=== PATIENT | female | born 1965 | race Caucasian/White ===

== ENCOUNTER → 2016-07-22 | Day surgery (SDC) | payer BC ==
[2016-07-15 14:13] VITALS: Ht 161.3 cm; Wt 125.0 kg
[~2016-07-22] VITALS: Ht 161.3 cm; Wt 125.0 kg
[~2016-07-22] MED LIST: ASPI81TA28 PO; FLUT0.15; LIDOCAINE HCL 2% 2 ML VIAL (20MG/ML) ONE; LISI-461 PO; MIDAZOLAM HCL 1 MG/ML 2ML VIAL ONE; OMEG10007 PO; ONDANSETRON INJ 2 MG/ML 2 ML VIAL ONE; PRLSR20 PO; PROPOFOL IV EMULSION 10 MG/ML 20 ML VIAL IV ONE; TUMERIC PO
--- NOTE | 2016-07-22 10:24 | Endo History and Physical ---
History & Physical Date of Service: Jul 22, 2016. Chief Complaint: Screening Referring Physician: Dr. Valadez History of Present Illness 51 yo CF who presents for screening colonoscopy. Past Surgical History Hx Cardiac Surgery: No Hx Internal Defibrillator: No Hx Pacemaker: No Hx Abdominal Surgery: Yes (MALU) Hx of Implantable Prosthesis: No Hx Post-Op Nausea and Vomiting: No Hx Cancer Surgery: No Hx Thoracic Surgery: No Hx Orthopedic: Yes (LT KNEE SURGERY, LT FOOT SURGERY) Hx Urinary Tract Surgery: No Family History None Social History Smoking Status: Former Smoker Hx Substance Use: No Hx Alcohol Use: Yes (OCCASIONAL) Allergies Coded Allergies: No Known Allergies (Verified , 07/15/16) Current Medications Reported Home Medications Medications Dose Route/Sig Max Daily Dose Days Date Category [Tumeric] 1 Tab PO QAM 07/15/16 Reported [place]-3 (Fish Oil) 1 Ea Cap 2 Cap PO QAM 07/15/16 Reported Aspirin Ec (Aspirin) 81 Mg Tab 81 Mg PO QAM 07/15/16 Reported Prilosec (Omeprazole) 20 Mg Capcr 20 Mg PO QAM 08/23/08 Reported Zestril (Lisinopril) 10 Mg Tab 10 Mg PO QAM 08/23/08 Reported Vital Signs Weight (Kilograms): 125 Height (Feet): 5 Height (Inches): 3.5 Physical Exam General Appearance: WD/WN, no apparent distress Respiratory/Chest: Auscultation: breath sounds normal Cardiovascular: Heart Auscultation: RRR Abdomen: Bowel Sounds: normal Inspection & Palpation: soft, non-distended, no tenderness, guarding & rebound Assessment and Plan Assessment: 51 yo CF who presents for screening colonoscopy. Plan: Proceed with colonoscopy.
--- NOTE | 2016-07-22 11:26 | Discharge Instructions ---
Endoscopy Patient Instructions Date / Procedure(s) Performed Jul 22, 2016. Colonoscopy Allergy Information Coded Allergies: No Known Allergies (Verified , 07/15/16) Discharge Date / Findings Jul 22, 2016. Colon polyp Internal hemorrhoids Medication Instructions Stopped Medication(s): stopped ASA and supplements Wednesday OK to resume all medications today as prescribed Reported Home Medications Medications Dose Route/Sig Max Daily Dose Days Date Category Flonase Allergy Relief (Fluticasone Propionate (Nasal)) 50 Mcg/Act Spr 2 Sprays NA DAILY 07/22/16 Reported [Tumeric] 1 Tab PO QAM 07/15/16 Reported [place]-3 (Fish Oil) 1 Ea Cap 2 Cap PO QAM 07/15/16 Reported Aspirin Ec (Aspirin) 81 Mg Tab 81 Mg PO QAM 07/15/16 Reported Prilosec (Omeprazole) 20 Mg Capcr 20 Mg PO QAM 08/23/08 Reported Zestril (Lisinopril) 10 Mg Tab 10 Mg PO QAM 08/23/08 Reported Provider Instructions Activity Restrictions - No exercising or heavy lifting for 24 hours. - Do not drink alcohol the day of the procedure. - Do not drive a car or operate machinery until the day after the procedure. - Do not make any important decisions or sign important papers in 24 hours after the procedure. Following Day: - Return to full activity which may include returning to work/school. Diet Start your diet with liquids and light foods (jello, soup, juice, toast). Then eat your usual diet if not nauseated. Treatment For Common After Affects For mild abdominal pain, bloating, or excessive gas: - Rest - Eat lightly - Lie on right side Follow-Up Information Follow-up with Dr.Dennis Valadez as scheduled Anesthesia Information What You Should Know You have had a procedure that required some medicine to reduce anxiety and discomfort. This treatment is called moderate sedation. After receiving the treatment, you may be sleepy, but you will be able to breathe on your own. The effects of the treatment may last for several hours. Follow these instructions along with Activity/Diet recommendations noted above: * Do NOT do anything where dizziness or clumsiness would be dangerous. * Rest quietly at home today, then you can be up and about tomorrow. * Have a responsible person stay with you the rest of today. * You may have had an I.V. today. If so, you may take the dressing off later today. Recommendations Call your doctor if: * Trouble breathing * Continuous vomiting for more than 24 hours * Temperature above 101 degrees * Severe abdominal pain or bloating * Pain not relieved by pain medicine ordered * There is increased drainage or redness from any incision * A large amount of rectal bleeding greater than 2-3 tablespoons. (If you had a polyp/s removed or have hemorrhoids, a small amount of blood - from the rectum is to be expected.) * You have any unanswered questions or concerns. IN THE EVENT OF A SERIOUS EMERGENCY, GO TO THE NEAREST EMERGENCY ROOM Your discharge instructions were prepared by provider Shay Barry. Patient Instructions Signature Page Marybeth Hutchison Patient (or Guardian) Signature/Date: I have read and understand the instructions given to me by my caregivers. Caregiver/RN/Doctor Signature/Date: The above-named patient and/or guardian has received patient instructions on this date. + Original Patient Signature Page (only) stays with chart. Please make copy for patient.
--- NOTE | 2016-07-22 11:34 | GI REPORT ---
Procedure Date: 07/22/2016 10:41 AM Procedure: Colonoscopy Indications: Screening for colorectal malignant neoplasm Medicines: Monitored Anesthesia Care Complications: No immediate complications. Estimated Blood Loss: Estimated blood loss: none. Procedure: Pre-Anesthesia Assessment: - Prior to the procedure, a History and Physical was performed, and patient medications and allergies were reviewed. The patient's tolerance of previous anesthesia was also reviewed. The risks and benefits of the procedure and the sedation options and risks were discussed with the patient. All questions were answered, and informed consent was obtained. Prior Anticoagulants: The patient has taken aspirin, last dose was 2 days prior to procedure. ASA Grade Assessment: III - A patient with severe systemic disease. After reviewing the risks and benefits, the patient was deemed in satisfactory condition to undergo the procedure. After I obtained informed consent, the scope was passed under direct vision. Throughout the procedure, the patient's blood pressure, pulse, and oxygen saturations were monitored continuously. The Scope was introduced through the anus and advanced to the terminal ileum. The colonoscopy was performed without difficulty. The patient tolerated the procedure well. The quality of the bowel preparation was good. The terminal ileum, ileocecal valve, appendiceal orifice, and rectum were photographed. Findings: A 4 mm polyp was found in the sigmoid colon. The polyp was sessile. The polyp was removed with a cold snare. Resection and retrieval were complete. Multiple small-mouthed diverticula were found in the sigmoid colon. Non-bleeding internal hemorrhoids were found during retroflexion. The hemorrhoids were small. Impression: - One 4 mm polyp in the sigmoid colon, removed with a cold snare. Resected and retrieved. - Diverticulosis in the sigmoid colon. - Non-bleeding internal hemorrhoids. Recommendation: - Resume previous diet. - Continue present medications. - Repeat colonoscopy for surveillance based on pathology results. - Return to primary care physician as previously scheduled. Shay Barry DO 07/22/2016 11:33:46 AM This report has been signed electronically. Note Initiated On: 07/22/2016 10:41 AM
--- NOTE | 2016-07-22 11:56 | Anesthesiology Progress Note ---
Anesthesia Post Op Note Date & Time Jul 22, 2016 at 11:56 Vital Signs Pain Intensity: 0 Vital Signs Past 12 Hours Date Time Temp Pulse Resp B/P Pulse Ox O2 Delivery O2 Flow Rate FiO2 07/22/16 11:45 65 20 110/65 99 Room Air 07/22/16 11:28 66 20 147/61 99 Room Air 07/22/16 10:25 36.5 88 16 140/71 99 Room Air Notes Mental Status: alert / awake / arousable, participated in evaluation Pt Amnestic to Procedure: Yes Nausea / Vomiting: adequately controlled Pain: adequately controlled Airway Patency, RR, SpO2: stable & adequate BP & HR: stable & adequate Hydration State: stable & adequate Anesthetic Complications: no major complications apparent
[2016-07-22 12:04] VITALS: BP 114/60; PULSE 62; O2SAT 98
== END | disposition home or self-care (01) ==
LOC: C.GI 10:01
PROVIDERS: ATTEND Internal Medicine
DX: Z12.11 Encounter for screening for malignant neoplasm of colon (principal); K63.5 Polyp of colon; K57.30 Diverticulosis of large intestine without perforation or abscess without bleeding; K64.8 Other hemorrhoids; Z98.890 Other specified postprocedural states; Z87.891 Personal history of nicotine dependence; Z79.82 Long term (current) use of aspirin

== ENCOUNTER → 2016-08-07 | Outpatient (CLI) | payer BC ==
[~2016-08-07] MED LIST changes: -LIDOCAINE HCL 2% 2 ML VIAL (20MG/ML) ONE; -MIDAZOLAM HCL 1 MG/ML 2ML VIAL ONE; -ONDANSETRON INJ 2 MG/ML 2 ML VIAL ONE; -PROPOFOL IV EMULSION 10 MG/ML 20 ML VIAL IV ONE
[2016-08-07 12:55] LABS: HEMATOCRIT 44.2 % (37-47); MEAN CELL VOLUME 88.4 fL (80-100); MEAN CORPUSCULAR HEMOGLOBIN 30.6 pg (25-34); MEAN CORPUSCULAR HGB CONC 34.6 g/dl (32-36); MEAN PLATELET VOLUME 11.3 fL (7.4-10.4); PLATELET COUNT 235 K/uL (130-400); WHITE BLOOD COUNT 6.18 K/uL (4.8-10.8)
[2016-08-07 13:14] LABS: ESTIMATED AVERAGE GLUCOSE 114 mg/dl; HA1C FLAG Normal (Normal)
[2016-08-07 13:15] LABS: ALT/SGPT 34 U/L (12-78); BLOOD UREA NITROGEN 14 mg/dl (7-18); BUN/CREATININE RATIO 16.4 (10-20); CARBON DIOXIDE 25 mmol/L (21-32); CHLORIDE 106 mmol/L (98-107); CHOLESTEROL 219 mg/dl (0-200); CREATININE 0.84 mg/dl (0.60-1.20); GLUCOSE 99 mg/dl (70-99); POTASSIUM 4.2 mmol/L (3.5-5.1); SODIUM 140 mmol/L (136-145); TRIGLYCERIDES 186 mg/dl (0-150); VERY LOW DENSITY LIPOPROT CALC 37 mg/dl
[2016-08-07 13:32] LABS: ALKALINE PHOSPHATASE 88 U/L (45-117); AST/SGOT 21 U/L (15-37); HDL CHOLESTEROL 73 mg/dl; LDL CHOLESTEROL CALCULATED 109 mg/dl
== END | disposition home or self-care (01) ==
LOC: C.LABBFT 11:00
PROVIDERS: ATTEND Internal Medicine
DX: I10 Essential (primary) hypertension (principal); R73.09 Other abnormal glucose

== ENCOUNTER → 2017-03-22 | Outpatient (CLI) | payer BC ==
--- NOTE | 2017-03-23 13:03 | MAMMOGRAPHY REPORT ---
BILATERAL DIGITAL SCREENING MAMMOGRAM TOMOSYNTHESIS WITH CAD: 03/22/2017 CLINICAL HISTORY: Routine screening. TECHNIQUE: Breast tomosynthesis in addition to standard 2D mammography was performed. Current study was also evaluated with a Computer Aided Detection (CAD) system. COMPARISON: Comparison is made to exams dated: 03/19/2016 mammogram, 03/14/2015 mammogram, 11/21/2013 m ammogram, 02/16/2012 mammogram, 02/06/2010 mammogram - [facility], and 12/14/2008. BREAST COMPOSITION: The tissue of both breasts is almost entirely fatty. FINDINGS: No suspicious mass, architectural distortion or cluster of microcalcifications is seen. IMPRESSION: ACR BI-RADS CATEGORY 1: NEGATIVE There is no mammographic evidence of malignancy. A 1 year screening mammogram is recommended. The pa tient will receive written notification of the results. Approximately 10% of breast cancers are not detected with mammography. A negative mammographic report should not delay biopsy if a clinically suggestive mass is present. Karen Cole M.D. ay/penrad:03/22/2017 16:15:37 [employer] Counter Clerk: Tomás TREVINO(R)(M), [facility] letter sent: Normal 1/2 BI-RADS Code: ACR BI-RADS Category 1: Negative
== END | disposition home or self-care (01) ==
LOC: C.MAMM 07:20
PROVIDERS: ATTEND Internal Medicine
DX: Z12.31 Encounter for screening mammogram for malignant neoplasm of breast (principal)

== ENCOUNTER → 2017-06-16 | Day surgery (SDC) | payer BC ==
[2017-06-03 13:39] VITALS: Ht 162.6 cm; Wt 122.7 kg
[~2017-06-16] VITALS: Ht 162.6 cm; Wt 122.7 kg
[~2017-06-16] MED LIST changes: +500ML BSS 0.3ML EPI 1:1000PF IRRIG ONE; +ACETAMINOPHEN 325 MG TAB PO PRN; +AMVISC PLUS 0.8ML SYRINGE INT OCU ONE; +ATROPINE SULFATE 0.1 MG/ML 5ML SYR IV PRN; +BSS FLUSH ONE; +ENDOCOAT 0.85ML SYRINGE INT OCU ONE; +EpHEDrine SULFATE INJ 50 MG/ML AMP IV PRN; +EpINEphrine INJ 1MG/ML AMP 1 MG/ML AMP ONE; +GLUC15009 PO; +LACTATED RINGER'S 1000ML 500 ML IV SCH; +LIDOCAINE 4% OP SOLN DROP CHARGE ONE; +LIDOCAINE 4% OP SOLN DROP CHARGE OPL SCH; +LIDOCAINE HCL 1% MPF 2 ML VIAL ONE; +MIDAZOLAM HCL 1 MG/ML 2ML VIAL ONE; +MIX: 4ML BSS 1ML EPI 1:1000 PF TOP ONE; +MOXIFLOXACIN OPH SOLN PER DROP CHARGE ONE; +POVIDONE-IODINE OP SOLN 30 ML BTL ONE; +PROPARACAINE 0.5% OP SOLN PER DROP CHARGE OPL SCH; +TOBRAMYCIN/DEXAMETHASONE OPH OINT PER APPLN CHARGE ONE
[2017-06-16] MEDS: PHENYLEPHRINE HCL 2.5% OP SOLN PER DROP CHARGE OPL SCH ×3 (09:21→09:31)
[2017-06-16] MEDS: TROPICAMIDE 1% OP SOLN PER DROP CHARGE OPL SCH ×3 (09:22→09:32)
[2017-06-16] MEDS: CYCLOPENTOLATE HCL 1% OP SOLN PER DROP CHARGE OPL SCH ×3 (09:23→09:33)
--- NOTE | 2017-06-16 09:23 | History & Physical Bridge - SC ---
H&P Re-Evaluation Bridge Note: I have examined the patient, reviewed the History & Physical and in the interval since the performance of the History & Physical I have noted the following changes of clinical significance: No changes noted
[2017-06-16] MEDS: MOXIFLOXACIN OPH SOLN PER DROP CHARGE OPL SCH ×3 (09:24→09:34)
--- NOTE | 2017-06-16 10:24 | [facility] Post Operative Brief Note ---
Immediate Operative Summary Operative Date Jun 16, 2017. Pre-Operative Diagnosis Cataract left eye Post-Operative Diagnosis Same Procedure(s) Performed Left Cataract Phacoemulsification With Intraocular Lens Implant Surgeon [employer] Surgeon(s) None Estimated Blood Loss Zero Findings left cataract Specimens None Complication(s) None Disposition
--- NOTE | 2017-06-16 10:25 | [facility] Operative Report ---
Operative Report Date of Service Jun 16, 2017. Operative Report DATE OF OPERATION: 06/16/17 PREOPERATIVE DIAGNOSIS: Senile nuclear cataract, left eye POSTOPERATIVE DIAGNOSIS: Senile nuclear cataract, left eye PROCEDURE PERFORMED: Phacoemulsification with intraocular lens implantation, left eye SURGEON: Dr. Brennan Fernandes ANESTHESIA: Topical with 1% intracameral lidocaine and monitored anesthesia care COMPLICATIONS: None DESCRIPTION OF PROCEDURE: After positively identifying the patient both verbally and by wristband in the preoperative area, the left eye was marked as the operative eye. The patient was then brought back to the operating room by the anesthesia and nursing staff where they were given a drop of Lidocaine and betadine into the operative eye. They were then sterilely prepped and draped in the standard fashion typical for ophthalmic surgery. Steri-strips were placed along the upper eyelids to keep the lashes back, and a lid speculum was placed into the operative eye. At this point, a documented time out was performed with members of the ophthalmology, nursing, and anesthesia staffs all agreeing upon the correct patient, correct location for surgery, correct procedure, and correct type and power of intraocular lens to be implanted. The microscope was then swung into position. First, a paracentesis wound was made using a sideport blade. Then, in sequence, 1% preservative-free lidocaine followed by Endocoat viscoelastic was injected into the anterior chamber. Next , the main incision was made with a keratome blade in triplanar fashion. A sharp cystotome was introduced into the eye and used to create a tear in the anterior capsule, which was directed into a continuous curvilinear capsulorrhexis using Utrata forceps. Hydrodissection was then performed with BSS on a flat-tip cannula. Next, the phacoemulsification handpiece was introduced into the eye and used to remove the nucleus in a [id number] fashion. This was done without complication and then the irrigation-aspiration handpiece was introduced into the eye and used to remove all remaining cortical and epinuclear material. Amvisc was then injected into the anterior chamber as well as into the capsular bag and using the lens injector system, an MX60 34.0 D lens, serial number [id number], and expiration date 01/2019 was injected into the capsular bag and rotated into the correct position. Next, the irrigation- aspiration handpiece was used to remove all remaining Amvisc. BSS was used to hydrate the main wound, and then BSS was injected into the paracentesis site to reach physiologic pressure and then the main wound was checked and found to be watertight. The patient was given drops of Vigamox and Tobradex ointment into the operative eye, and then the surrounding area was cleaned and dried. A clear plastic shield was placed over the eye and the patient was then sat up and taken from the operating room by the anesthesia staff having tolerated the procedure well and suffering no complications. DISPOSITION: The patient was returned to the recovery room in stable condition. I attest to the content of the Intraoperative Record and any orders documented therein. Any exceptions are noted below.
--- NOTE | 2017-06-16 10:26 | Discharge Instructions-SurgCtr ---
Discharge Instructions Date of Service Jun 16, 2017. Visit Reason for Visit: Cataract Left Eye Discharge Discharge Diagnosis / Problem: left cataract Discharge Goals Goal(s): Decrease discomfort, Improve function Activity Recommendations Activity Limitations: as noted below Anesthesia . Post Anesthesia Instructions: If you have had General Anesthesia or IV Sedation: * Do not drive today. * Resume driving when surgeon permits. * Do not make important decisions or sign legal documents today. * Call surgeon for: 1. Temperature elevations greater than 101 degrees F. 2. Uncontrollable pain. 3. Excessive bleeding. 4. Persistent nausea and vomiting. 5. Medication intolerance (nausea, vomiting or rash). * For nausea and vomiting use only clear liquids such as: tea, soda, bouillon until nausea subsides, then gradually increase diet as tolerated. * If you have any concerns or questions, call your surgeon's office. If physician is unavailable and it is an emergency, call 911 or go to the nearest emergency room. . Instructions / Follow-Up Instructions / Follow-Up ACTIVITY RECOMMENDATIONS: * Light activities. * You may walk outside, read, watch television. * You may notice redness on the white part of the eye and some blurry vision - this is normal. MEDICATIONS: Resume previous medications unless instructed otherwise by your surgeon. Start all eye drops at 12:30 pm today: * Eye drops (today): Prednisone - one drop in operative eye every 2 hours while awake Ofloxacin - one drop in operative eye every 2 hours while awake Prolensa - one drop in operative eye daily SPECIAL CARE INSTRUCTIONS: * Tape plastic shield over eye to sleep at night. Call your doctor at with any concerns or problems. FOLLOW UP VISIT: Follow-up with Dr Fernandes at [facility] as scheduled. Diet Recommendations Home Diet: no limitations Procedures Procedures Performed: Left Cataract Phacoemulsification With Intraocular Lens Implant Pending Studies Studies pending at discharge: no Medical Emergencies . Who to Call and When: Medical Emergencies: If at any time you feel your situation is an emergency, please call 911 immediately. . Non-Emergent Contact Non-Emergency issues call your: Surgeon . . "Provider Documentation" section prepared by Brennan Fernandes. .
[2017-06-16 10:32] VITALS: TEMP 36.4
--- NOTE | 2017-06-16 10:46 | Anesthesia Progress Nt - [facility] ---
Anesthesia Post Op Note Date & Time Jun 16, 2017 at 10:45 Vital Signs Pain Intensity: 1 Vital Signs Past 12 Hours Date Time Temp Pulse Resp B/P (MAP) Pulse Ox O2 Delivery O2 Flow Rate FiO2 06/16/17 10:32 36.4 66 24 130/85 (100) 99 Room Air 06/16/17 09:15 36.3 63 16 144/85 (104) 98 Room Air Notes Mental Status: alert / awake / arousable, participated in evaluation Pt Amnestic to Procedure: Yes Nausea / Vomiting: adequately controlled Pain: adequately controlled Airway Patency, RR, SpO2: stable & adequate BP & HR: stable & adequate Hydration State: stable & adequate Anesthetic Complications: no major complications apparent
[2017-06-16 11:01] VITALS: BP 134/76; PULSE 56; O2SAT 100
== END | disposition home or self-care (01) ==
LOC: X.SURG 08:40
PROVIDERS: ATTEND Ophthalmology
DX: H25.12 Age-related nuclear cataract, left eye (principal); I10 Essential (primary) hypertension; Z87.891 Personal history of nicotine dependence; Z98.890 Other specified postprocedural states; E66.01 Morbid (severe) obesity due to excess calories; Z68.42 Body mass index [BMI] 45.0-49.9, adult

== ENCOUNTER → 2017-06-30 | Day surgery (SDC) | payer BC ==
[2017-06-23 09:23] VITALS: Ht 162.6 cm; Wt 122.7 kg
[~2017-06-30] VITALS: Ht 162.6 cm; Wt 122.7 kg
[~2017-06-30] MED LIST changes: +FENTANYL CITRATE INJ 50 MCG/1 ML 2 ML VIAL ONE; -LIDOCAINE 4% OP SOLN DROP CHARGE OPL SCH; +LIDOCAINE 4% OP SOLN DROP CHARGE OPR SCH; -PROPARACAINE 0.5% OP SOLN PER DROP CHARGE OPL SCH; +PROPARACAINE 0.5% OP SOLN PER DROP CHARGE OPR SCH
[2017-06-30] MEDS: PHENYLEPHRINE HCL 2.5% OP SOLN PER DROP CHARGE OPR SCH ×3 (10:56→11:05)
[2017-06-30] MEDS: TROPICAMIDE 1% OP SOLN PER DROP CHARGE OPR SCH ×3 (10:57→11:06)
[2017-06-30] MEDS: CYCLOPENTOLATE HCL 1% OP SOLN PER DROP CHARGE OPR SCH ×3 (10:58→11:07)
[2017-06-30] MEDS: MOXIFLOXACIN OPH SOLN PER DROP CHARGE OPR SCH ×3 (10:59→11:08)
--- NOTE | 2017-06-30 12:11 | [facility] Post Operative Brief Note ---
Immediate Operative Summary Operative Date Jun 30, 2017. Pre-Operative Diagnosis Right eye cataract Post-Operative Diagnosis Same as pre-op Procedure(s) Performed Right Cataract Phacoemulsification With Intraocular Lens Implant Surgeon [employer] Surgeon(s) None Estimated Blood Loss Zero Findings right cataract Specimens None Complication(s) None Disposition
[2017-06-30 12:13] VITALS: TEMP 36.1
--- NOTE | 2017-06-30 12:13 | [facility] Operative Report ---
Operative Report Date of Service Jun 30, 2017. Operative Report DATE OF OPERATION: 06/30/17 PREOPERATIVE DIAGNOSIS: Senile nuclear cataract, right eye POSTOPERATIVE DIAGNOSIS: Senile nuclear cataract, right eye PROCEDURE PERFORMED: Phacoemulsification with intraocular lens implantation, right eye SURGEON: Dr. Brennan Fernandes ANESTHESIA: Topical with 1% intracameral lidocaine and monitored anesthesia care COMPLICATIONS: None DESCRIPTION OF PROCEDURE: After positively identifying the patient both verbally and by wristband in the preoperative area, the right eye was marked as the operative eye. The patient was then brought back to the operating room by the anesthesia and nursing staff where they were given a drop of Lidocaine and betadine into the operative eye. They were then sterilely prepped and draped in the standard fashion typical for ophthalmic surgery. Steri-strips were placed along the upper eyelids to keep the lashes back, and a lid speculum was placed into the operative eye. At this point, a documented time out was performed with members of the ophthalmology, nursing, and anesthesia staffs all agreeing upon the correct patient, correct location for surgery, correct procedure, and correct type and power of intraocular lens to be implanted. The microscope was then swung into position. First, a paracentesis wound was made using a sideport blade. Then, in sequence, 1% preservative-free lidocaine followed by Endocoat viscoelastic was injected into the anterior chamber. Next , the main incision was made with a keratome blade in triplanar fashion. A sharp cystotome was introduced into the eye and used to create a tear in the anterior capsule, which was directed into a continuous curvilinear capsulorrhexis using Utrata forceps. Hydrodissection was then performed with BSS on a flat-tip cannula. Next, the phacoemulsification handpiece was introduced into the eye and used to remove the nucleus in a [id number] fashion. This was done without complication and then the irrigation-aspiration handpiece was introduced into the eye and used to remove all remaining cortical and epinuclear material. Amvisc was then injected into the anterior chamber as well as into the capsular bag and using the lens injector system, an MX60 31.0 D , serial number [id number], and expiration date 04/2019 was injected into the capsular bag and rotated into the correct position. Next, the irrigation- aspiration handpiece was used to remove all remaining Amvisc. BSS was used to hydrate the main wound, and then BSS was injected into the paracentesis site to reach physiologic pressure and then the main wound was checked and found to be watertight. The patient was given drops of Vigamox and Tobradex ointment into the operative eye, and then the surrounding area was cleaned and dried. A clear plastic shield was placed over the eye and the patient was then sat up and taken from the operating room by the anesthesia staff having tolerated the procedure well and suffering no complications. DISPOSITION: The patient was returned to the recovery room in stable condition. I attest to the content of the Intraoperative Record and any orders documented therein. Any exceptions are noted below.
--- NOTE | 2017-06-30 12:14 | Discharge Instructions-SurgCtr ---
Discharge Instructions Date of Service Jun 30, 2017. Visit Reason for Visit: Right Cataract Discharge Discharge Diagnosis / Problem: right cataract Discharge Goals Goal(s): Decrease discomfort, Improve function Activity Recommendations Activity Limitations: as noted below Anesthesia . Post Anesthesia Instructions: If you have had General Anesthesia or IV Sedation: * Do not drive today. * Resume driving when surgeon permits. * Do not make important decisions or sign legal documents today. * Call surgeon for: 1. Temperature elevations greater than 101 degrees F. 2. Uncontrollable pain. 3. Excessive bleeding. 4. Persistent nausea and vomiting. 5. Medication intolerance (nausea, vomiting or rash). * For nausea and vomiting use only clear liquids such as: tea, soda, bouillon until nausea subsides, then gradually increase diet as tolerated. * If you have any concerns or questions, call your surgeon's office. If physician is unavailable and it is an emergency, call 911 or go to the nearest emergency room. . Instructions / Follow-Up Instructions / Follow-Up ACTIVITY RECOMMENDATIONS: * Light activities. * You may walk outside, read, watch television. * You may notice redness on the white part of the eye and some blurry vision - this is normal. MEDICATIONS: Resume previous medications unless instructed otherwise by your surgeon. Start all eye drops at 2 pm today: * Eye drops (today): Prednisone - one drop in operative eye every 2 hours while awake Ofloxacin - one drop in operative eye every 2 hours while awake Prolensa - one drop in operative eye daily SPECIAL CARE INSTRUCTIONS: * Tape plastic shield over eye to sleep at night. Call your doctor at with any concerns or problems. FOLLOW UP VISIT: Follow-up with Dr Fernandes at [place] office as scheduled. Diet Recommendations Home Diet: no limitations Procedures Procedures Performed: Right Cataract Phacoemulsification With Intraocular Lens Implant Pending Studies Studies pending at discharge: no Medical Emergencies . Who to Call and When: Medical Emergencies: If at any time you feel your situation is an emergency, please call 911 immediately. . Non-Emergent Contact Non-Emergency issues call your: Surgeon . . "Provider Documentation" section prepared by Brennan Fernandes. .
--- NOTE | 2017-06-30 12:23 | Anesthesia Progress Nt - [facility] ---
Anesthesia Post Op Note Date & Time Jun 30, 2017 at 12:23 Vital Signs Pain Intensity: 0 Vital Signs Past 12 Hours Date Time Temp Pulse Resp B/P (MAP) Pulse Ox O2 Delivery O2 Flow Rate FiO2 06/30/17 12:13 36.1 63 16 133/81 (98) 98 Room Air 06/30/17 10:37 36.9 61 18 128/80 (96) 98 Room Air Notes Mental Status: alert / awake / arousable, participated in evaluation Pt Amnestic to Procedure: Yes Nausea / Vomiting: adequately controlled Pain: adequately controlled Airway Patency, RR, SpO2: stable & adequate BP & HR: stable & adequate Hydration State: stable & adequate Anesthetic Complications: no major complications apparent
[2017-06-30 12:32] VITALS: BP 136/73; PULSE 55; O2SAT 98
== END | disposition home or self-care (01) ==
LOC: X.SURG 10:11
PROVIDERS: ATTEND Ophthalmology
DX: H25.11 Age-related nuclear cataract, right eye (principal); I10 Essential (primary) hypertension; Z90.49 Acquired absence of other specified parts of digestive tract; E66.9 Obesity, unspecified; Z98.890 Other specified postprocedural states

== ENCOUNTER → 2017-09-13 | Outpatient (CLI) | payer OTHER ==
[~2017-09-13] MED LIST changes: -500ML BSS 0.3ML EPI 1:1000PF IRRIG ONE; -ACETAMINOPHEN 325 MG TAB PO PRN; -AMVISC PLUS 0.8ML SYRINGE INT OCU ONE; -ATROPINE SULFATE 0.1 MG/ML 5ML SYR IV PRN; -BSS FLUSH ONE; -ENDOCOAT 0.85ML SYRINGE INT OCU ONE; -EpHEDrine SULFATE INJ 50 MG/ML AMP IV PRN; -EpINEphrine INJ 1MG/ML AMP 1 MG/ML AMP ONE; -FENTANYL CITRATE INJ 50 MCG/1 ML 2 ML VIAL ONE; -LACTATED RINGER'S 1000ML 500 ML IV SCH; -LIDOCAINE 4% OP SOLN DROP CHARGE ONE; -LIDOCAINE 4% OP SOLN DROP CHARGE OPR SCH; -LIDOCAINE HCL 1% MPF 2 ML VIAL ONE; -MIDAZOLAM HCL 1 MG/ML 2ML VIAL ONE; -MIX: 4ML BSS 1ML EPI 1:1000 PF TOP ONE; -MOXIFLOXACIN OPH SOLN PER DROP CHARGE ONE; -POVIDONE-IODINE OP SOLN 30 ML BTL ONE; -PROPARACAINE 0.5% OP SOLN PER DROP CHARGE OPR SCH; -TOBRAMYCIN/DEXAMETHASONE OPH OINT PER APPLN CHARGE ONE
== END | disposition home or self-care (01) ==
LOC: C.LABSPEC 13:38
PROVIDERS: ATTEND Physician Assistant
DX: R39.9 Unspecified symptoms and signs involving the genitourinary system (principal)

== ENCOUNTER → 2017-09-21 | Outpatient (CLI) | payer OTHER ==
[2017-09-21 17:12] LABS: BASO % 0.3 %; BASO ABS # 0.02 K/uL (0-0.2); HEMOGLOBIN 13.2 g/dL (12.0-16.0); IG# 0.02 K/uL (0.00-0.02); LYMPH % 39.7 %; LYMPH ABS # 2.84 K/uL (1.2-3.4); MEAN CELL VOLUME 90.3 fL (80-100); MEAN CORPUSCULAR HEMOGLOBIN 29.8 pg (25-34); MEAN PLATELET VOLUME 10.5 fL (7.4-10.4); MONO % 8.7 %; MONO ABS # 0.62 K/uL (0.11-0.59); NEUT ABS # 3.66 K/uL (1.4-6.5); PLATELET COUNT 271 K/uL (130-400); RED CELL DISTRIBUTION WIDTH CV 13.6 % (11.5-14.5); RED CELL DISTRIBUTION WIDTH SD 45.2 fL (36.4-46.3); WHITE BLOOD COUNT 7.16 K/uL (4.8-10.8)
[2017-09-21 17:28] LABS: ALBUMIN 3.8 gm/dl (3.4-5.0); ALT/SGPT 34 U/L (12-78); AST/SGOT 23 U/L (15-37); BLOOD UREA NITROGEN 17 mg/dl (7-18); CALCIUM 8.8 mg/dl (8.5-10.1); CARBON DIOXIDE 26 mmol/L (21-32); CREATININE 0.81 mg/dl (0.60-1.20); GLUCOSE 90 mg/dl (70-99); SODIUM 138 mmol/L (136-145)
[2017-09-21 17:36] LABS: ALKALINE PHOSPHATASE 85 U/L (45-117); CHOLESTEROL 190 mg/dl (0-200); LDL CHOLESTEROL CALCULATED 72 mg/dl; TOTAL PROTEIN 7.7 gm/dl (6.4-8.2)
[2017-09-21 17:39] LABS: CREATININE RANDOM URINE 38.3 mg/dl
== END | disposition home or self-care (01) ==
LOC: C.LABBFT 15:38
PROVIDERS: ATTEND Physician Assistant Medical
DX: E78.5 Hyperlipidemia, unspecified (principal)

== ENCOUNTER 2020-04-10 18:21 | Inpatient (IN) ==
--- NOTE | 2020-04-10 18:24 | Emergency Department Note ---
Impression & Plan Syncope, Dehydration, Ovarian cancer ED Provider Note NAME: REYNALDO NIEVES AGE: 55 SEX: F : 1965 ARRIVES VIA: Ambulance INFORMANT: Patient, ED PROVIDER(S): Ranjit Alamo MD Chief Complaint: Syncope HPI: Patient reportedly was found down on the toilet. The patient reportedly did not strike her head. No BSG prior to arrival. The patient was trying to have a bowel movement at the time. The patient does have a recent diagnosis of ovarian cancer with peritoneal metastases. The patient did receive her most recent treatment of chemotherapy on Wednesday. The patient is accompanied by family member at the bedside. No reported history of seizures as of though the family at bedside states that she had been staring off for short period of time. No generalized tonic-clonic type issues. The patient currently denies any chest pains or shortness of breath but does complain of some lower back disco mfort. The patient denies any fevers or chills, chest pains, shortness of breath, nausea, or vomiting. The patient does state that she is thirsty. The patient denies any prior history of DVT or PE. Patient denies any dysuria or hematuria. The patient denies any bloody bowel movements or vomiting. ROS: See HPI for pertinent positives and negatives. A total of 10 systems were reviewed and otherwise negative. Past medical history: See below Surgical history: See below Social history: See below Physical Exam: GENERAL: A mask. NAD, non-toxic. EYE EXAM: Normal conjunctiva. PERRL, no anisocoria and EOM's grossly intact w/o pain. NECK: Supple, no nuchal rigidity, no adenopathy, non-tender. No signs of meningismus. No midline C-spine TTP. LUNGS: Clear to auscultation. Normal chest wall mechanics. HEART: Tachycardic and regular, no MRG. ABDOMEN: Abdomen soft, non-tender, normo-active bowel sounds, no masses, no rebound or guarding. BACK: No CVA TTP. SKIN: No rashes and no bruising. UPPER EXTREMITIES: Upper extremities are grossly normal. LOWER EXTREMITIES: Grossly normal, no edema. Negative Homans sign bilaterally. NEURO EXAM: A&O x3, cranial nerves II-XII grossly intact, normal speech, moves all 4 extremities on command w/o issue. Differential diagnoses: Vasovagal event, dehydration, infection, hypoglycemia, electrolyte abnormalities, cardiac sources, intracerebral event, pulmonary embolism, seizure, toxicologic, neurologic, as well as other pathologies. Course: Patient was seen and evaluated the bedside. Full history physical exam was performed. EKG: Indication: Tachycardia Sinus tachycardia, rate of 128, normal intervals, normal axis, no obvious ST changes or T WI. PVC noted. Imaging Studies: Radiology results as stated below per my review in the radiologist's interpretation: CT head/brain wo con CLINICAL HISTORY: Syncope. COMPARISON STUDY: No previous studies for comparison. TECHNIQUE: Axial CT of the brain is performed from the vertex to the skull base. IV contrast was not administered for this examination. A dose lowering technique was utilized adhering to the principles of ALARA. CT DOSE: 3454.55 mGy.cm FINDINGS: No intra or extra-axial mass lesions are visualized. There is no CT evidence of acute cortical infarction. There is no evidence of midline shift. There is no acute hemorrhage. No calvarial fractures are visualized. There is mild basal ganglial mineralization. There is no evidence of pathologic ventricular dilatation. There is no evidence of acute sinusitis IMPRESSION: No acute intracranial findings ACT 112: Negative or not required by law. Electronically signed by: Leroy Bush M.D. 04/10/2020 8:39 PM Dictated: 04/10/202037 Transcribed: 04/10/202038 CT ANGIOGRAM OF THE CHEST CLINICAL HISTORY: Syncope. Shortness of breath. Possible acute pulmonary embolism COMPARISON STUDY: No previous studies for comparison. TECHNIQUE: Following the IV administration of 120 mL of Optiray-320, CT angiogram of the thorax was performed from the thoracic inlet to the lung bases utilizing the pulmonary embolus protocol. Images are reviewed in the axial, sagittal, and coronal planes. IV contrast was administered without complication. MIP imaging was performed. A dose lowering technique was utilized adhering to the principles of ALARA. CT DOSE: FINDINGS: There are minimally prominent mediastinal lymph nodes which are not pathologically enlarged by size criteria. There is no pathologic hilar or axillary lymphadenopathy. There was no evidence of thoracic aortic dilatation. There were no pulmonary artery filling defects to indicate acute pulmonary embolism. There are moderate bilateral pleural effusions left larger than right. There is no pneumothorax. There are dependent airspace opacities likely atelectatic. There is hepatic steatosis. IMPRESSION: 1. No evidence of acute pulmonary embolism 2. Moderate bilateral pleural effusions with compressive basilar atelectasis. ACT 112: Negative or not required by law. Electronically signed by: Leroy Bush M.D. 04/10/2020 8:42 PM Dictated: 04/10/202038 Transcribed: 04/10/202038 CT abd pelvis IV con only CLINICAL HISTORY: Low back pain. Syncope. History of ovarian carcinoma. COMPARISON STUDY: 03/13/2020 TECHNIQUE: The patient was scanned in a dynamic helical fashion during intravenous administration of 120 cc of Optiray 320 A dose lowering technique was utilized adhering to the principles of ALARA. CT DOSE: FINDINGS: Lower chest: There are moderate bilateral pleural effusions with basilar atelectatic change. Liver: There is hepatic steatosis. No focal hepatic masses are visualized. The portal and hepatic veins are patent. There is stable diminished attenuation adjacent the gallbladder fossa possibly representing focal fat. Gallbladder: Surgically absent Spleen: Normal in size and attenuation. Pancreas: Unremarkable. Adrenal glands: Unremarkable. Kidneys: There is symmetric renal cortical enhancement. The kidneys are normal in size without hydronephrosis. Bowel: There are no transition zones indicate bowel obstruction. There is no evidence of acute diverticulitis. There is no evidence of acute appendicitis. Peritoneum: There is low volume ascites. There is massive peritoneal tumor measuring 25 cm transversely within the upper pelvis. There are multiple peritoneal tumor implants similar to the prior study Vasculature: The abdominal aorta is normal in course and caliber. Adenopathy: There is a mildly enlarged left para-aortic lymph node. Pelvic viscera: Contiguous with the uterus is a massive pelvic/peritoneal tumor deposit measuring 25 cm transversely. Skeletal structures: No destructive osseous lesions are seen. IMPRESSION: 1. No evidence of bowel obstruction. No evidence of free air 2. Hepatic steatosis 3. Low volume ascites 4. Massive pelvic tumor measuring 25 cm transversely. 5. Evidence of peritoneal carcinomatosis with multiple tumor implants ACT 112: Negative or not required by law. Electronically signed by: Leroy Bush M.D. 04/10/2020 8:49 PM Dictated: 04/10/202041 Transcribed: 04/10/202041 Cardiac monitoring: An order was placed for continuous cardiac monitoring. The monitor shows a rate of 128 with sinus tachycardia rhythm. MDM: Patient was seen due to concern for syncope. The patient could have had had an element of situational syncope but given the concern for staring off as well as the patient's history of ovarian cancer metastases CT of the head and CT of the chest for PE were evaluated along with a CT abdomen pelvis given her cancer history and associated back discomfort. The patient was given pain medication blood work was obtained. The patient does have some anemia but is relatively unchanged from her most recent draw. Mild elevated white count at 14 but the patient did receive some steroids as well as Neulasta prior to chemo. Patient does appear to be clinically dehydrated likely associated with the patient's tachycardia as well as the patient's elevated BUN to creatinine ratio. Patient does have mild elevation in AST the patient denies any upper abdominal pain. Troponin is not detectable. CT of the abdomen pelvis does show the pelvic tumor and associated peritoneal carcinomatosis. The patient CT PE does not show any evidence of acute PE no evidence of thoracic aortic dilatation. The patient CT the head does not show any acute intracranial findings. Patient's tachycardia is been somewhat persistent and the patient is tolerating by mouth. Given this with the associated history of cancer and syncope believe the patient would benefit from additional monitoring and testing. I did speak the on-call hospitalist Dr. Jarvis. Patient was subsequently admitted to the medicine service. Past Med/Surg History Medical History (Updated 04/11/20 @ 16:36 by Ranjit Alamo MD) GERD (gastroesophageal reflux disease) Hypertension Ovarian cancer Urinary tract infection symptoms Surgical History H/O arthroscopy of left knee H/O oral surgery S/P cholecystectomy Family History Mother Coronary heart disease Diabetes Obesity Father Obesity Grandfather (Maternal) Myocardial infarction Other Hypertension Denies family history of Ovarian cancer Prostate cancer Breast cancer Colorectal cancer Social History Smoking Status: Never smoker Tobacco Type: Cigarettes Age Started Using Tobacco: 20; Age Quit Using Tobacco: 50; Second Hand Exposure: No; Hx Alcohol Use: No Hx Substance Use: No Preferred Language: Palestinian Communication Ability: Effective 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 Beliefs That Will Affect Care: None marital status: Current Living Situation: Family current occupational status: unemployed Other Information That Helps Us Care for You: No Feels Safe at Home: Yes Safety Concerns: Feels Safe At This Time Dental Care, Regularly: Yes Physical Activity Frequency: 1-2 Times per Week Seatbelt Use: always Sunscreen Use: Yes Assistive Devices: None Allergies Allergies Allergy/AdvReac Type Severity Reaction Status Date / Time No Known Allergies Allergy Unknown Verified 03/13/20 05:39 Home Meds Home Medications Medication Instructions Recorded Confirmed fluticasone propionate 50 2 sprays INTNAS DAILY PRN gm 08/03/19 04/10/20 mcg/actuation nasal spray,suspension aspirin [Aspirin Low Dose] 81 mg PO DAILY 03/13/20 04/10/20 ascorbic acid (vitamin C) 1 g PO DAILY 04/10/20 04/10/20 olanzapine 2.5 mg PO HS 04/10/20 04/10/20 oxycodone 10 mg PO .Q4-6H PRN 04/10/20 04/10/20 prochlorperazine maleate 10 mg PO Q6H PRN 04/10/20 04/10/20 Previous Rx's Medication Instructions Recorded glucosamine HCl 1,500 mg tablet 1,500 mg PO DAILY #30 tab 03/16/19 omega-3 fatty acids 1,000 mg 1,000 mg PO DAILY #30 cap 03/16/19 capsule turmeric root extract 500 mg 500 mg PO DAILY #30 cap 03/16/19 capsule lisinopril 10 mg tablet 10 mg PO DAILY #90 tab 01/05/20 omeprazole 20 mg capsule,delayed 20 mg PO DAILY #90 cap 01/05/20 release buspirone 5 mg tablet 5 mg PO BID #60 tab 03/25/20 Results & Data (ED) Vital Signs Vital Signs - 24 hr 04/10/20 18:27 04/10/20 18:43 04/10/20 19:00 Temperature 37.1 C Temperature Source Oral Pulse Rate 128 H 129 H 120 H Pulse Rate from SpO2 Sensor 131 H 128 H 117 H Respiratory Rate 28 H 24 26 H Respiratory Effort / Characteristics Non-Labored Respiratory Depth Normal Respiratory Pattern Regular Blood Pressure 110/74 Blood Pressure Mean 89 Blood Pressure Position Sitting Pulse Oximetry 98 97 96 Oxygen Delivery Method Room Air Sepsis Recent Fever Within 48 Hours No Sepsis New/Unexplained Change in Mental Status No Sepsis Action Taken by Nursing No Action Required 04/10/20 19:30 04/10/20 20:00 04/10/20 20:54 Temperature Temperature Source Pulse Rate 117 H 114 H Pulse Rate from SpO2 Sensor 113 H Respiratory Rate 31 H 29 H 19 Respiratory Effort / Characteristics Respiratory Depth Respiratory Pattern Blood Pressure Blood Pressure Mean Blood Pressure Position Pulse Oximetry 93 Oxygen Delivery Method Sepsis Recent Fever Within 48 Hours Sepsis New/Unexplained Change in Mental Status Sepsis Action Taken by Nursing 04/10/20 20:57 04/10/20 21:00 04/10/20 21:10 Temperature Temperature Source Pulse Rate 120 H 119 H 116 H Pulse Rate from SpO2 Sensor Respiratory Rate 18 23 24 Respiratory Effort / Characteristics Respiratory Depth Respiratory Pattern Blood Pressure 108/52 L Blood Pressure Mean 70 Blood Pressure Position Pulse Oximetry Oxygen Delivery Method Sepsis Recent Fever Within 48 Hours Sepsis New/Unexplained Change in Mental Status Sepsis Action Taken by Nursing 04/10/20 21:20 04/10/20 21:30 04/10/20 22:00 Temperature Temperature Source Pulse Rate 119 H 117 H 118 H Pulse Rate from SpO2 Sensor 114 H 117 H 116 H Respiratory Rate 25 H 29 H 27 H Respiratory Effort / Characteristics Respiratory Depth Respiratory Pattern Blood Pressure Blood Pressure Mean Blood Pressure Position Pulse Oximetry 100 96 99 Oxygen Delivery Method Sepsis Recent Fever Within 48 Hours Sepsis New/Unexplained Change in Mental Status Sepsis Action Taken by Long-Term Medications Current Medication List: was personally reviewed by me Laboratory Data Attestation: I reviewed the patient's lab results. Result diagrams: 04/11/20 07:27 04/11/20 07:27 Lab Results 04/10/20 04/10/20 Range/Units 18:31 18:31 WBC 14.73 H (4.8-10.8) K/uL RBC 3.75 L (4.2-5.4) M/uL Hgb 9.5 L (12.0-16.0) g/dL Hct 31.0 L (37-47) % MCV 82.7 (80-100) fL MCH 25.3 (25-34) pg MCHC 30.6 L (32-36) g/dL RDW Std Deviation 46.4 H (36.4-46.3) fL RDW Coeff of Asher 15.2 H (11.5-14.5) % Plt Count 558 H (130-400) K/uL MPV 9.6 (7.4-10.4) fL Immature Gran % (Auto) 0.6 % Neut % (Auto) 92.8 % Lymph % (Auto) 6.3 % Dixon % (Auto) 0.3 % Eos % (Auto) 0.0 % Baso % (Auto) 0.0 % Neut # (Auto) 13.66 H (1.4-6.5) K/uL Lymph # (Auto) 0.93 L (1.2-3.4) K/uL Dixon # (Auto) 0.05 L (0.11-0.59) K/uL Eos # (Auto) 0.00 (0-0.5) K/uL Baso # (Auto) 0.00 (0-0.2) K/uL Immature Gran # (Auto) 0.09 H (0.00-0.02) K/uL Sodium 132 L (136-145) mmol/L Potassium 4.9 (3.5-5.1) mmol/L Chloride 98 (98-107) mmol/L Carbon Dioxide 24 (21-32) mmol/L Anion Gap 11.0 (3-11) BUN 28 H (7-18) mg/dl Creatinine 1.14 (0.6-1.2) mg/dl Est Cr Clr Drug Dosing 75.6 ml/min Est GFR ( Amer) 62.7 Est GFR (Non-Af Amer) 54.1 BUN/Creatinine Ratio 24.9 H (10-20) Glucose 102 H (70-99) mg/dl Calcium 8.5 (8.5-10.1) mg/dl Magnesium 2.0 (1.8-2.4) mg/dl Total Bilirubin 0.4 (0.2-1) mg/dl AST 114 H (15-37) U/L ALT 68 (12-78) U/L Alkaline Phosphatase 67 (45-117) U/L Troponin I < 0.015 (0-0.045) ng/ml Total Protein 7.1 (6.4-8.2) gm/dl Albumin 2.4 L (3.4-5.0) gm/dl Globulin 4.7 H (2.5-4.0) gm/dl Albumin/Globulin Ratio 0.5 L (0.9-2) TSH 3.260 (0.300-4.500) uIu/ml Administered Medications Acetaminophen (Acetaminophen 325 Mg Tab) 650 mg PO Q4H PRN PRN Reason: Pain or Fever Stop: 05/10/20 22:24 Last Admin: 04/11/20 04:13 Dose: 650 mg Documented by: [id number] Ascorbic Acid (Ascorbic Acid 500 Mg Tab) 1,000 mg PO DAILY [facility] Stop: 05/11/20 08:59 Last Admin: 04/11/20 08:18 Dose: 1,000 mg Documented by: [id number] Aspirin (Aspirin 81 Mg Ectab) 81 mg PO DAILY JUAN CARLOS Stop: 05/11/20 08:59 Last Admin: 04/11/20 08:17 Dose: 81 mg Documented by: [id number] Buspirone HCl (Buspirone 5 Mg Tab) 5 mg PO BID [facility] Stop: 05/11/20 08:59 Last Admin: 04/11/20 08:17 Dose: 5 mg Documented by: [id number] Enoxaparin Sodium (Enoxaparin Inj 40 Mg/0.4 Ml Syr) 40 mg SQ Q24H [facility] Stop: 05/11/20 08:59 Last Admin: 04/11/20 08:18 Dose: 40 mg Documented by: [id number] Fish Oil (Wellington-3 (Purified Fish Oil) 1 Gm Cap) 1 gm PO DAILY [facility] Stop: 05/11/20 08:59 Last Admin: 04/11/20 08:18 Dose: 1 gm Documented by: [id number] Glucosamine Sulfate (Glucosamine Sulfate 500 Mg Cap) 1,500 mg PO DAILY [facility] Stop: 05/11/20 08:59 Last Admin: 04/11/20 08:17 Dose: 1,500 mg Documented by: [id number] Piperacillin Sod/Tazobactam (Sod 4.5 gm/ Dextrose) 120 mls @ 30 mls/hr IV Q8H [facility]; Protocol Stop: 04/13/20 05:59 Last Admin: 04/11/20 13:36 Dose: 30 mls/hr Documented by: [id number] Infusion: 04/11/20 10:43 Dose: 0 mls/hr Documented by: [id number] Admin: 04/11/20 06:36 Dose: 30 mls/hr Documented by: [id number] Lactated Ringer's (Lr) 1,000 mls @ 125 mls/hr IV .Q8H [facility] Stop: 05/10/20 22:44 Last Admin: 04/11/20 13:28 Dose: 125 mls/hr Documented by: [id number] Infusion: 04/11/20 13:26 Dose: 125 mls/hr Documented by: [id number] Admin: 04/11/20 08:16 Dose: 125 mls/hr Documented by: [id number] Infusion: 04/11/20 08:16 Dose: 125 mls/hr Documented by: [id number] Admin: 04/11/20 01:50 Dose: 125 mls/hr Documented by: [id number] Loperamide HCl (Loperamide Hcl 2 Mg Cap) 2 mg PO Q4 JUAN CARLOS Stop: 05/11/20 12:44 Last Admin: 04/11/20 15:28 Dose: 2 mg Documented by: [id number] Admin: 04/11/20 13:39 Dose: Not Given Documented by: [id number] Morphine Sulfate (Morphine Sulfate 2 Mg/Ml Carp) 2 mg IV Q2H PRN PRN Reason: Pain Stop: 04/24/20 22:24 Last Admin: 04/11/20 16:14 Dose: 2 mg Documented by: [id number] Admin: 04/11/20 13:38 Dose: 2 mg Documented by: [id number] Admin: 04/11/20 11:13 Dose: 2 mg Documented by: [id number] Oxycodone HCl (Oxycodone Hcl Ir 5 Mg Tab (Immediate Release)) 10 mg PO Q4H PRN PRN Reason: Pain Stop: 04/25/20 01:00 Last Admin: 04/11/20 04:49 Dose: 10 mg Documented by: [id number] Pantoprazole Sodium (Pantoprazole 40 Mg Tab) 40 mg PO HS JUAN CARLOS Stop: 05/11/20 02:14 Last Admin: 04/11/20 02:51 Dose: 40 mg Documented by: [id number] Discontinued Medications Gadobutrol (Gadobutrol 65ml Vial) 14.1 ml IV ONCE ONE Stop: 04/11/20 06:11 Last Admin: 04/11/20 05:49 Dose: 14.1 ml Documented by: [id number] Hydromorphone HCl (Hydromorphone Inj 0.5 Mg/0.5 Ml Syr) 0.2 mg IV NOW ONE Stop: 04/11/20 01:46 Last Admin: 04/11/20 01:50 Dose: 0.2 mg Documented by: [id number] Sodium Chloride (Nss 1000ml) 1,000 mls @ 999 mls/hr IV .Q1H1M JUAN CARLOS Stop: 04/10/20 19:45 Last Infusion: 04/10/20 20:52 Dose: 0 mls/hr Documented by: [id number] Admin: 04/10/20 18:59 Dose: 999 mls/hr Documented by: [id number] Sodium Chloride (Nss 1000ml) 500 mls @ 999 mls/hr IV .Q31M ONE Stop: 04/10/20 21:12 Last Infusion: 04/10/20 21:39 Dose: 0 mls/hr Documented by: [id number] Admin: 04/10/20 20:52 Dose: 999 mls/hr Documented by: [id number] Albumin Human (Albumin 25%) 50 mls @ 50 mls/hr IV ONE ONE Stop: 04/10/20 23:43 Last Infusion: 04/11/20 00:36 Dose: 0 mls/hr Documented by: [id number] Admin: 04/10/20 23:36 Dose: 50 mls/hr Documented by: [id number] Piperacillin Sod/Tazobactam Sod (Zosyn) 4.5 gm in 120 mls @ 200 mls/hr IV ONE ONE; Protocol Stop: 04/10/20 23:35 Last Infusion: 04/11/20 00:36 Dose: 0 mls/hr Documented by: [id number] Admin: 04/10/20 23:48 Dose: 200 mls/hr Documented by: [id number] Albumin Human (Albumin 25%) 50 mls @ 50 mls/hr IV Q1H STA Stop: 04/11/20 00:15 Last Admin: 04/11/20 01:39 Dose: Not Given Documented by: [id number] Ioversol (Optiray 320 125ml) 120 ml IV ONCE ONE Stop: 04/10/20 20:26 Last Admin: 04/10/20 20:25 Dose: 120 ml Documented by: [id number] Morphine Sulfate (Morphine Sulfate 4 Mg/Ml 1 Ml Carp\Vial) 4 mg IV NOW STA Stop: 04/10/20 18:35 Last Admin: 04/10/20 18:58 Dose: 4 mg Documented by: [id number] Morphine Sulfate (Morphine Sulfate 4 Mg/Ml 1 Ml Carp\Vial) 4 mg IV NOW STA Stop: 04/10/20 21:57 Last Admin: 04/10/20 22:24 Dose: 4 mg Documented by: [id number] Morphine Sulfate (Morphine Sulfate 2 Mg/Ml Carp) 2 mg IV Q30M PRN PRN Reason: Chest Pain Stop: 04/24/20 22:24 Last Admin: 04/11/20 08:08 Dose: 2 mg Documented by: [id number] Ondansetron HCl (Ondansetron Inj 2 Mg/Ml 2 Ml Vial) 4 mg IV NOW STA Stop: 04/10/20 18:35 Last Admin: 04/10/20 18:58 Dose: 4 mg Documented by: [id number] Discharge Plan Visit Data Chief Complaint: Syncope Stated Complaint: SYNCOPE, HYPOTENSION ED Provider: Ranjit Alamo Discharge Problem: Syncope, Dehydration, Ovarian cancer Patient Disposition: Admitted As Inpatient Discharge Instructions Interventions: ED Discharge Assessment Last Done: 04/11/20 00:39 Discharge Problem: Syncope Qualifiers: Syncope type: unspecified Qualified Code(s): R55 - Syncope and collapse Ovarian cancer Qualifiers: Laterality: unspecified laterality Qualified Code(s): C56.9 - Malignant neoplasm of unspecified ovary
[2020-04-10] MEDS ORDERED: ONDANSETRON INJ 2 MG/ML 2 ML VIAL IV STA (18:34)
[2020-04-10] MEDS ORDERED: MoRPHine SULFATE 4 MG/ML 1 ML CARP\\VIAL IV STA ×2 (18:34→21:56)
[2020-04-10 18:42] LABS: Hemoglobin 9.5 g/dL (12.0-16.0); Immature Granulocytes # (auto) 0.09 K/uL (0.00-0.02); Immature Granulocytes % (auto) 0.6 %; Lymphocytes # (auto) 0.93 K/uL (1.2-3.4); Lymphocytes % (auto) 6.3 %; Mean Corpuscular Hemoglobin 25.3 pg (25-34); Mean Corpuscular Hgb Conc 30.6 g/dL (32-36); Mean Corpuscular Volume 82.7 fL (80-100); Mean Platelet Volume 9.6 fL (7.4-10.4); Monocytes # (auto) 0.05 K/uL (0.11-0.59); Monocytes % (auto) 0.3 %; Neutrophils # (auto) 13.66 K/uL (1.4-6.5); Neutrophils % (auto) 92.8 %; Platelet Count 558 K/uL (130-400); RDW Coefficient of Variation 15.2 % (11.5-14.5); RDW Standard Deviation 46.4 fL (36.4-46.3); Red Blood Count 3.75 M/uL (4.2-5.4); White Blood Count 14.73 K/uL (4.8-10.8)
[2020-04-10] MEDS ORDERED: SODIUM CHLORIDE 0.9% 1000ML 1,000 ML IV SCH (18:45)
[2020-04-10 18:58] LABS: Alanine Aminotransferase 68 U/L (12-78); Albumin Level 2.4 gm/dl (3.4-5.0); Aspartate Aminotransferase 114 U/L (15-37); BUN Creatinine Ratio 24.9 (10-20); Blood Urea Nitrogen 28 mg/dl (7-18); Calcium 8.5 mg/dl (8.5-10.1); Carbon Dioxide 24 mmol/L (21-32); Chloride 98 mmol/L (98-107); Creatinine Clr Calc Pharmacy 75.6 ml/min; Est GFR (African American) 62.7; Est GFR (Non-African American) 54.1; Glucose 102 mg/dl (70-99); Potassium 4.9 mmol/L (3.5-5.1); Sodium 132 mmol/L (136-145)
[2020-04-10 19:08] LABS: Albumin Globulin Ratio 0.5 (0.9-2); Alkaline Phosphatase 67 U/L (45-117); Bilirubin,Total 0.4 mg/dl (0.2-1); Globulin 4.7 gm/dl (2.5-4.0); Total Protein 7.1 gm/dl (6.4-8.2); Troponin I < 0.015 ng/ml (0-0.045)
[2020-04-10] MEDS ORDERED: OPTIRAY 320 125ml IV ONE (20:25)
--- NOTE | 2020-04-10 20:40 | CT Scan Report ---
CT head/brain wo con CLINICAL HISTORY: Syncope. COMPARISON STUDY: No previous studies for comparison. TECHNIQUE: Axial CT of the brain is performed from the vertex to the skull base. IV contrast was not administered for this examination. A dose lowering technique was utilized adhering to the principles of ALARA. CT DOSE: 3454.55 mGy.cm FINDINGS: No intra or extra-axial mass lesions are visualized. There is no CT evidence of acute cortical infarc tion. There is no evidence of midline shift. There is no acute hemorrhage. No calvarial fractures ar e visualized. There is mild basal ganglial mineralization. There is no evidence of pathologic ventricular dilatation. There is no evidence of acute sinusitis IMPRESSION: No acute intracranial findings ACT 112: Negative or not required by law. Electronically signed by: Leroy Bush M.D. 04/10/2020 8:39 PM
[2020-04-10] MEDS ORDERED: SODIUM CHLORIDE 0.9% 1000ML 500 ML IV ONE (20:42)
--- NOTE | 2020-04-10 20:43 | CT Scan Report ---
CT ANGIOGRAM OF THE CHEST CLINICAL HISTORY: Syncope. Shortness of breath. Possible acute pulmonary embolism COMPARISON STUDY: No previous studies for comparison. TECHNIQUE: Following the IV administration of 120 mL of Optiray-320, CT angiogram of the thorax was p erformed from the thoracic inlet to the lung bases utilizing the pulmonary embolus protocol. Images a re reviewed in the axial, sagittal, and coronal planes. IV contrast was administered without complica tion. MIP imaging was performed. A dose lowering technique was utilized adhering to the principles o f ALARA. CT DOSE: FINDINGS: There are minimally prominent mediastinal lymph nodes which are not pathologically enlarged by size c riteria. There is no pathologic hilar or axillary lymphadenopathy. There was no evidence of thoracic aortic dilatation. There were no pulmonary artery filling defects to indicate acute pulmonary embolism. There are moderate bilateral pleural effusions left larger than right. There is no pneumothorax. There are dependent airspace opacities likely atelectatic. There is hepatic steatosis. IMPRESSION: 1. No evidence of acute pulmonary embolism 2. Moderate bilateral pleural effusions with compressive basilar atelectasis. ACT 112: Negative or not required by law. Electronically signed by: Leroy Bush M.D. 04/10/2020 8:42 PM
--- NOTE | 2020-04-10 20:51 | CT Scan Report ---
CT abd pelvis IV con only CLINICAL HISTORY: Low back pain. Syncope. History of ovarian carcinoma. COMPARISON STUDY: 03/13/2020 TECHNIQUE: The patient was scanned in a dynamic helical fashion during intravenous administration of 120 cc of Optiray 320 A dose lowering technique was utilized adhering to the principles of ALARA. CT DOSE: FINDINGS: Lower chest: There are moderate bilateral pleural effusions with basilar atelectatic change. Liver: There is hepatic steatosis. No focal hepatic masses are visualized. The portal and hepatic vei ns are patent. There is stable diminished attenuation adjacent the gallbladder fossa possibly represe nting focal fat. Gallbladder: Surgically absent Spleen: Normal in size and attenuation. Pancreas: Unremarkable. Adrenal glands: Unremarkable. Kidneys: There is symmetric renal cortical enhancement. The kidneys are normal in size without hydron ephrosis. Bowel: There are no transition zones indicate bowel obstruction. There is no evidence of acute divert iculitis. There is no evidence of acute appendicitis. Peritoneum: There is low volume ascites. There is massive peritoneal tumor measuring 25 cm transverse ly within the upper pelvis. There are multiple peritoneal tumor implants similar to the prior study Vasculature: The abdominal aorta is normal in course and caliber. Adenopathy: There is a mildly enlarged left para-aortic lymph node. Pelvic viscera: Contiguous with the uterus is a massive pelvic/peritoneal tumor deposit measuring 25 cm transversely. Skeletal structures: No destructive osseous lesions are seen. IMPRESSION: 1. No evidence of bowel obstruction. No evidence of free air 2. Hepatic steatosis 3. Low volume ascites 4. Massive pelvic tumor measuring 25 cm transversely. 5. Evidence of peritoneal carcinomatosis with multiple tumor implants ACT 112: Negative or not required by law. Electronically signed by: Leroy Bush M.D. 04/10/2020 8:49 PM
[2020-04-10] MEDS ORDERED: POLYETHYLENE (MIRALAX) 17 GM PACK PO PRN (22:25)
[2020-04-10] MEDS ORDERED: MoRPHine SULFATE 2 MG/ML CARP IV PRN (22:25)
[2020-04-10] MEDS ORDERED: PIPERACILL/TAZOBAC CONSULT ACTIVE PRN (22:44)
[2020-04-10] MEDS ORDERED: ALBUMIN 25% 50 ML IV ONE (22:44)
[2020-04-10] MEDS ORDERED: PIPERACILLIN/TAZOBACTAM 4.5 GM/120 ML BAG IV ONE (23:00)
[2020-04-10] MEDS ORDERED: ALBUMIN 25% 50 ML IV STA (23:16)
[2020-04-10] MEDS ORDERED: HYDROmorphone INJ 0.5 MG/0.5 ML SYR IV ONE (23:30)
[2020-04-11] MEDS ORDERED: PROCHLORPERAZINE MALEATE 10 MG TAB PO PRN (01:01)
--- NOTE | 2020-04-11 01:15 | History & Physical Report ---
Date of Service April 11, 2020 Assessment & Plan (1) Syncope: Ms. Hutchison is a 55 year old woman with a past medical history significant for metastatic ovarian cancer recently diagnosed status post first chemotherapy treatment with paclitaxel and carboplatin on Wednesday who presents with syncopal episode Syncope Description of syncope sounds most consistent with vasovagal syncope while defecating, possibly exacerbated by an infection, dehydration and hypotension. Patient did have what appeared to be a state of AMS after regaining consciousness per daughter, could be post ictal vs concussion like symptoms patient not sure if she hit her head Given her history of metastatic ovarian cancer, concern for seizure secondary to brain mets is concerning, will get brain MRI and EEG tomorrow. Will rehydrate with LR 125/hour treating possible infection with zosyn, blood cultures and urinalysis urine cultures pending Will admit to monitored unit and get echo in AM to assess for cardiac causes Hypotension Secondary to poor PO intake plus third spacing from hypoalbuminemia with ascites and pleural effusions Will give two boluses of albumin and continue to rehydrate with LR 125 mls/hour Fever Given patient's recent chemotherapy this could just be post chemo fever, but do not want to miss more serious infection so will treat emprically with zosyn for now, ordering blood cultures and urinalysis and cultures will continue to follow clinically Metastatic ovarian cancer MRI to check for any brain metastases ONcology Dr. Curry consulted for further guidance on post chemo fever. Next treatment due in three weeks Mental Health Continuing home buspar and olanzapine CHronic pain Secondary to her metastatic cancer Will continue home oxycodone 10 mg q4h prn DVT PPx: Lovenox F/E/N: LR 125 mls/hour ALbumin bolusx2 Dispo: Admit for further workup of syncope and fever, oncology consultation Full COde (2) Obesity: (3) Hyperlipidemia: (4) Ovarian cancer: (5) Hypertension: Admission and Anticipated Discharge Date Admission Date: April 10, 2020 History of Present Illness Chief Complaint: Syncopal episode Primary Care Provider: Cirilo Valadez MD Marybethnuris Hutchison is a 55 year old woman with a past medical history of recently diagnosed ovarian cancer She has a large pelvic mass discovered in March was transferred to [facility] and was found to have bilateral adnexal lesions along with evidence for carcinomatosis and a ground glass opacity of the lung with pleural effusions suspicious for metastasis. Biopsy of a peritoneal lesion revealed poorly differentiated carcinoma thought to be primary ovarian. She had her first treatment of carboplatin and paclitaxel on Wednesday. plan for surgery after three 21 day cycles. She has been doing fairly well since her treatment, some nausea no major vomiting or diarrhea, on antinausea medications from Dr. Curry's office of zofran and prochlorperazine. She is here today because she has had a fever >100.4 for last two days. Tonight she was feeling nonspecifically ill and got up to go the bathroom this evening. She remembers starting to evacuate a large amount of loose stool and then she lost consciousness. She came to shortly thereafter but was not herself for several minutes after the incident. Per her daughter she just stared off into space straight ahead and mumbled. When paramedics arrived she was starting to return to normal and they brought her by ambulance into ED. In ED patient was tachycardic and hypotensive to 93/56. Labwork significant for elevated WBC of 14.73 decreased hemoglobin of 9.5 hyponatremia of 132, elevated BUN of 28 creatinine of 1.14. Elevated AST of 114 [address] of 2[address]4. Head CT negative Chest CTA negative, Abdomen Pelvis CT showing very large pelvic mass and peritoneal lesions with low volume ascites present. Patient was given two liters NSS and is feeling somewhat better, still with some lightheadedness. Daughter present at bedside. Patient is a former light smoker, one to two pack years. no drug use, no alcohol use. She lives with her two daughters. She lost her a less than a year ago to cancer. Has had some shortness of breath since time of diagnosis, no major changes. Has had abdominal distension, abdominal pain, no vomiting, describes some chest pain just in the last few minutes which is reproducible when she presses on it. She is feeling very anxious beause of all this and admits she is very scared to and that she wants to be here with her daughters and started crying throughout our interview. Allergies Allergy/AdvReac Type Severity Reaction Status Date / Time No Known Allergies Allergy Unknown Verified 03/13/20 05:39 Home Medications Home Medications Medication Instructions Recorded Confirmed Type glucosamine HCl 1,500 mg tablet 1,500 mg PO DAILY #30 tab 03/16/19 04/10/20 Rx omega-3 fatty acids 1,000 mg 1,000 mg PO DAILY #30 cap 03/16/19 04/10/20 Rx capsule turmeric root extract 500 mg 500 mg PO DAILY #30 cap 03/16/19 04/10/20 Rx capsule fluticasone propionate 50 2 sprays INTNAS DAILY PRN gm 08/03/19 04/10/20 History mcg/actuation nasal spray,suspension lisinopril 10 mg tablet 10 mg PO DAILY #90 tab 01/05/20 04/10/20 Rx omeprazole 20 mg capsule,delayed 20 mg PO DAILY #90 cap 01/05/20 04/10/20 Rx release aspirin [Aspirin Low Dose] 81 mg PO DAILY 03/13/20 04/10/20 History buspirone 5 mg tablet 5 mg PO BID #60 tab 03/25/20 04/10/20 Rx ascorbic acid (vitamin C) 1 g PO DAILY 04/10/20 04/10/20 History olanzapine 2.5 mg PO HS 04/10/20 04/10/20 History oxycodone 10 mg PO .Q4-6H PRN 04/10/20 04/10/20 History prochlorperazine maleate 10 mg PO Q6H PRN 04/10/20 04/10/20 History Past Med/Surg History Medical History (Updated 04/11/20 @ 16:36 by Ranjit Alamo MD) GERD (gastroesophageal reflux disease) Hypertension Ovarian cancer Urinary tract infection symptoms Surgical History H/O arthroscopy of left knee H/O oral surgery S/P cholecystectomy Family History Mother Coronary heart disease Diabetes Obesity Father Obesity Grandfather (Maternal) Myocardial infarction Other Hypertension Denies family history of Ovarian cancer Prostate cancer Breast cancer Colorectal cancer Social History Smoking Status: Never smoker Tobacco Type: Cigarettes Age Started Using Tobacco: 20; Age Quit Using Tobacco: 50; Second Hand Exposure: No; Hx Alcohol Use: No Hx Substance Use: No Preferred Language: Italian Communication Ability: Effective Rod Piler Required: No Beliefs That Will Affect Care: None marital status: Current Living Situation: Family current occupational status: unemployed Other Information That Helps Us Care for You: No Feels Safe at Home: Yes Safety Concerns: Feels Safe At This Time Dental Care, Regularly: Yes Physical Activity Frequency: 1-2 Times per Week Seatbelt Use: always Sunscreen Use: Yes Assistive Devices: None Review of Systems Review of Systems: All systems reviewed & are unremarkable except as noted in HPI & below Physical Exam Constitutional: well developed, well nourished, + acute distress (Emotionally distressed crying) and + obese; not ill appearing and no altered mental status Eyes: PERRL, conjunctivae normal, anicteric sclerae ENMT: external ear and nose normal, oropharynx normal Respiratory: normal respiratory effort, lungs clear to auscultation Cardiovascular: Rate/Rhythm: regular rhythm and + tachycardic Heart Sounds: normal S1 and normal S2; no click, no gallop, no murmur and no cardiac rub Extremities: no calf tenderness, no pedal edema and no edema Gastrointestinal (Abdomen): Inspection/Auscultation: + abdomen distended Percussion/Palpation: + abdomen tender (Mildly globally tender) and abdomen soft; no guarding Skin: no rashes, warm and dry Neurologic: patellar DTR's 2+ bilat, sensation intact and PERRL, EOMI, accommodation nl, no face palsy, no dysarthria Results & Data Results & Data ([facility]) Vital Signs (Past 12 Hours) Vital Signs Temp Pulse Pulse Resp BP BP Pulse Ox 04/11/20 01:04 36.5 C 119 H 20 107/69 93 04/11/20 00:30 120 H 23 04/11/20 00:23 116 H 20 90/61 L 04/11/20 00:20 118 H 19 04/11/20 00:12 123 H 29 H 93/53 L 04/11/20 00:10 108 H 25 H 04/11/20 00:00 112 H 28 H 04/10/20 23:58 113 H 30 H 93/56 L 04/10/20 23:56 115 H 26 H 96/59 L 04/10/20 23:47 112 H 23 101/48 L 95 04/10/20 23:45 114 H 26 H 94 04/10/20 23:43 110 H 27 H 87/50 L 95 04/10/20 23:33 84 L 10/07/20 23:00 95 04/10/20 22:30 95 04/10/20 22:00 118 H 27 H 99 04/10/20 21:30 117 H 29 H 96 04/10/20 21:20 119 H 25 H 100 04/10/20 21:10 116 H 24 04/10/20 21:00 119 H 23 04/10/20 20:57 120 H 18 108/52 L 04/10/20 20:54 19 04/10/20 20:00 114 H 29 H 04/10/20 19:30 117 H 31 H 93 04/10/20 19:00 120 H 26 H 96 04/10/20 18:43 129 H 24 97 04/10/20 18:27 37.1 C 128 H 28 H 110/74 98 Code Status & VTE Plan VTE Prophylaxis Plan VTE Prophylaxis will be ordered: Yes Supervising Physician Co-Signing Physician Notes Attending addendum: I have physically seen this patient, have supervised the medical residents activities, and agree with the H&P unless as otherwise noted. Assessment and Plan: Syncope- Differential includes but not limited to: Vasovagal/defecation, sepsis, chemotherapy effect, dehydration, peritonitis, seizure, pain induced. Place on LR at 125 mils per hour. Empiric treatment with vancomycin IV and Zosyn IV. Follow blood culture sensitivities Follow urine culture and sensitivity. Hypotension- LR as noted above. Albumin 25 g IV x2 Metastatic ovarian cancer/peritoneal carcinomatosis- Begin her initial treatments with chemotherapy on paclitaxel and carboplatin on 04/08. Consult Dr. Curry Remaining orders and notations as noted Resident Activity Tracking Resident Involvement: Resident Care Provided Care Provided: Adult Hospital Medicine (1) Syncope Syncope type: unspecified Qualified Code(s): R55 - Syncope and collapse
[2020-04-11] MEDS ORDERED: HYDROmorphone INJ 0.5 MG/0.5 ML SYR IV ONE (01:45)
[2020-04-11] MEDS: LACTATED RINGER'S 1,000 ML IV SCH ×4 (01:50→20:57)
[2020-04-11] MEDS: PANTOprazole 40 MG TAB PO SCH ×2 (02:51→20:57)
[2020-04-11] MEDS: ACETAMINOPHEN 325 MG TAB PO PRN (04:13)
[2020-04-11] MEDS: oxyCODONE HCL IR 5 MG TAB (IMMEDIATE RELEASE) PO PRN ×2 (04:49→23:25)
[2020-04-11] MEDS ORDERED: GADOBUTROL 65ML VIAL IV ONE (06:10)
[2020-04-11] MEDS: PIPERACILLIN/TAZOBACTAM 4.5 GM in DEXTROSE 5% 100 ML IV SCH ×3 (06:36→21:57)
--- NOTE | 2020-04-11 06:58 | Magnetic Resonance Report ---
MR brain wo/w con HISTORY: 55 years-old Female concern for brain mets acutely altered mental status in a patient with history of metastatic ovarian carcinoma COMPARISON: CT head 04/10/2020 TECHNIQUE: Multiplanar multisequence MRI of the brain was obtained both with and without the use of 1 4.1 mL Gadavist. FINDINGS: Payable Representative localizer images demonstrate no gross extracranial abnormality. There is no restricted diffusio n to suggest acute or subacute infarct. Midline structures including the corpus callosum, brainstem, optic chiasm, pituitary and pineal glands appear unremarkable on the sagittal T1 series. There is no cerebellar tonsillar herniation. Mild degenerative changes of the imaged cervical spine. No acute int racranial hemorrhage, midline shift, abnormal extra-axial collection, hydrocephalus or intracranial m ass identified. Mild scattered subcentimeter T2/FLAIR hyperintensities are noted throughout the white matter of the bilateral cerebral hemispheres suggestive of probable mild chronic microvascular ische vaughn disease. Cerebral venous sinuses and major arterial flow voids at the level of the skull base naomy ear patent. Mastoid air cells and paranasal sinuses are generally clear. The skull and soft tissues a re unremarkable. Prior bilateral lens replacement. Study is mildly motion degraded. There is no abnor mal intra-axial or extra-axial enhancement. IMPRESSION: 1. No acute intracranial abnormality, specifically there is no evidence of acute or subacute infarct. 2. No abnormal enhancement to suggest metastatic disease. 3. Findings suggestive of mild chronic microvascular ischemic disease. ACT 112: Negative or not required by law. The above report was generated using voice recognition software. It may contain grammatical, syntax o r spelling errors. Electronically signed by: Troy Rivera M.D. 04/11/2020 6:57 AM
[2020-04-11 07:49] LABS: Hemoglobin 8.3 g/dL (12.0-16.0); Mean Corpuscular Hemoglobin 25.9 pg (25-34); Mean Corpuscular Hgb Conc 31.9 g/dL (32-36); Mean Platelet Volume 9.4 fL (7.4-10.4); Platelet Count 354 K/uL (130-400); RDW Coefficient of Variation 15.2 % (11.5-14.5); RDW Standard Deviation 45.2 fL (36.4-46.3); Red Blood Count 3.21 M/uL (4.2-5.4); White Blood Count 9.68 K/uL (4.8-10.8)
[2020-04-11 08:11] LABS: Basophils # (auto) 0.01 K/uL (0-0.2); Basophils % (auto) 0.1 %; Eosinophils # (auto) 0.02 K/uL (0-0.5); Eosinophils % (auto) 0.2 %; Immature Granulocytes # (auto) 0.82 K/uL (0.00-0.02); Immature Granulocytes % (auto) 8.5 %; Lymphocytes # (auto) 0.51 K/uL (1.2-3.4); Lymphocytes % (auto) 5.3 %; Monocytes # (auto) 0.07 K/uL (0.11-0.59); Monocytes % (auto) 0.7 %; Neutrophils # (auto) 8.25 K/uL (1.4-6.5); Neutrophils % (auto) 85.2 %
[2020-04-11] MEDS: busPIRone 5 MG TAB PO SCH ×2 (08:17→21:57)
[2020-04-11] MEDS: GLUCOSAMINE SULFATE 500 MG CAP PO SCH (08:17)
[2020-04-11] MEDS: ASPIRIN 81 MG ECTAB PO SCH (08:17)
[2020-04-11] MEDS: OMEGA-3 (PURIFIED FISH OIL) 1 GM CAP PO SCH (08:18)
[2020-04-11] MEDS: ASCORBIC ACID 500 MG TAB PO SCH (08:18)
[2020-04-11] MEDS: ENOXAPARIN INJ 40 MG/0.4 ML SYR SQ SCH (08:18)
[2020-04-11 08:22] LABS: BUN Creatinine Ratio 31.9 (10-20); Calcium 8.1 mg/dl (8.5-10.1); Creatinine Clr Calc Pharmacy 105.4 ml/min; Est GFR (African American) 84.6; Potassium 4.2 mmol/L (3.5-5.1)
[2020-04-11] MEDS ORDERED: NON-FORMULARY MEDICATION (Omeprazole 20 MG) PO SCH (09:00)
[2020-04-11] MEDS ORDERED: KETOROLAC TROMETHAMINE 15 MG/ML VIAL IV PRN (09:33)
[2020-04-11] MEDS: MoRPHine SULFATE 2 MG/ML CARP IV PRN ×5 (11:13→22:08)
--- NOTE | 2020-04-11 11:14 | Electroencephalogram ---
EEG Procedure Note Date of Service April 11, 2020 Start / End Times Start Time: 8:49am End Time: 9:09am Referring Physician Raghu Carbajal History syncope with prolonged confusion Home Medication List Home Medications Medication Instructions Recorded Confirmed Type glucosamine HCl 1,500 mg tablet 1,500 mg PO DAILY #30 tab 03/16/19 04/10/20 Rx omega-3 fatty acids 1,000 mg 1,000 mg PO DAILY #30 cap 03/16/19 04/10/20 Rx capsule turmeric root extract 500 mg 500 mg PO DAILY #30 cap 03/16/19 04/10/20 Rx capsule fluticasone propionate 50 2 sprays INTNAS DAILY PRN gm 08/03/19 04/10/20 History mcg/actuation nasal spray,suspension lisinopril 10 mg tablet 10 mg PO DAILY #90 tab 01/05/20 04/10/20 Rx omeprazole 20 mg capsule,delayed 20 mg PO DAILY #90 cap 01/05/20 04/10/20 Rx release aspirin [Aspirin Low Dose] 81 mg PO DAILY 03/13/20 04/10/20 History buspirone 5 mg tablet 5 mg PO BID #60 tab 03/25/20 04/10/20 Rx ascorbic acid (vitamin C) 1 g PO DAILY 04/10/20 04/10/20 History olanzapine 2.5 mg PO HS 04/10/20 04/10/20 History oxycodone 10 mg PO .Q4-6H PRN 04/10/20 04/10/20 History prochlorperazine maleate 10 mg PO Q6H PRN 04/10/20 04/10/20 History Inpatient Medication List Acetaminophen (Acetaminophen 325 Mg Tab) 650 mg PO Q4H PRN PRN Reason: Pain or Fever Stop: 05/10/20 22:24 Last Admin: 04/11/20 04:13 Dose: 650 mg Documented by: [id number] Ascorbic Acid (Ascorbic Acid 500 Mg Tab) 1,000 mg PO DAILY [facility] Stop: 05/11/20 08:59 Last Admin: 04/11/20 08:18 Dose: 1,000 mg Documented by: [id number] Aspirin (Aspirin 81 Mg Ectab) 81 mg PO DAILY [facility] Stop: 05/11/20 08:59 Last Admin: 04/11/20 08:17 Dose: 81 mg Documented by: [id number] Buspirone HCl (Buspirone 5 Mg Tab) 5 mg PO BID [facility] Stop: 05/11/20 08:59 Last Admin: 04/11/20 08:17 Dose: 5 mg Documented by: [id number] Enoxaparin Sodium (Enoxaparin Inj 40 Mg/0.4 Ml Syr) 40 mg SQ Q24H [facility] Stop: 05/11/20 08:59 Last Admin: 04/11/20 08:18 Dose: 40 mg Documented by: [id number] Fish Oil ([place]-3 (Purified Fish Oil) 1 Gm Cap) 1 gm PO DAILY [facility] Stop: 05/11/20 08:59 Last Admin: 04/11/20 08:18 Dose: 1 gm Documented by: [id number] Glucosamine Sulfate (Glucosamine Sulfate 500 Mg Cap) 1,500 mg PO DAILY [facility] Stop: 05/11/20 08:59 Last Admin: 04/11/20 08:17 Dose: 1,500 mg Documented by: [id number] Piperacillin Sod/Tazobactam (Sod 4.5 gm/ Dextrose) 120 mls @ 30 mls/hr IV Q8H [facility]; Protocol Stop: 04/13/20 05:59 Last Infusion: 04/11/20 10:43 Dose: 0 mls/hr Documented by: [id number] Admin: 04/11/20 06:36 Dose: 30 mls/hr Documented by: [id number] Lactated Ringer's (Lr) 1,000 mls @ 125 mls/hr IV .Q8H [facility] Stop: 05/10/20 22:44 Last Admin: 04/11/20 08:16 Dose: 125 mls/hr Documented by: [id number] Infusion: 04/11/20 08:16 Dose: 125 mls/hr Documented by: [id number] Admin: 04/11/20 01:50 Dose: 125 mls/hr Documented by: [id number] Oxycodone HCl (Oxycodone Hcl Ir 5 Mg Tab (Immediate Release)) 10 mg PO Q4H PRN PRN Reason: Pain Stop: 04/25/20 01:00 Last Admin: 04/11/20 04:49 Dose: 10 mg Documented by: [id number] Pantoprazole Sodium (Pantoprazole 40 Mg Tab) 40 mg PO HS [facility] Stop: 05/11/20 02:14 Last Admin: 04/11/20 02:51 Dose: 40 mg Documented by: [id number] Discontinued Medications Gadobutrol (Gadobutrol 65ml Vial) 14.1 ml IV ONCE ONE Stop: 04/11/20 06:11 Last Admin: 04/11/20 05:49 Dose: 14.1 ml Documented by: [id number] Hydromorphone HCl (Hydromorphone Inj 0.5 Mg/0.5 Ml Syr) 0.2 mg IV NOW ONE Stop: 04/11/20 01:46 Last Admin: 04/11/20 01:50 Dose: 0.2 mg Documented by: [id number] Sodium Chloride (Nss 1000ml) 1,000 mls @ 999 mls/hr IV .Q1H1M [facility] Stop: 04/10/20 19:45 Last Infusion: 04/10/20 20:52 Dose: 0 mls/hr Documented by: [id number] Admin: 04/10/20 18:59 Dose: 999 mls/hr Documented by: [id number] Sodium Chloride (Nss 1000ml) 500 mls @ 999 mls/hr IV .Q31M ONE Stop: 04/10/20 21:12 Last Infusion: 04/10/20 21:39 Dose: 0 mls/hr Documented by: [id number] Admin: 04/10/20 20:52 Dose: 999 mls/hr Documented by: [id number] Albumin Human (Albumin 25%) 50 mls @ 50 mls/hr IV ONE ONE Stop: 04/10/20 23:43 Last Infusion: 04/11/20 00:36 Dose: 0 mls/hr Documented by: [id number] Admin: 04/10/20 23:36 Dose: 50 mls/hr Documented by: [id number] Piperacillin Sod/Tazobactam Sod (Zosyn) 4.5 gm in 120 mls @ 200 mls/hr IV ONE ONE; Protocol Stop: 04/10/20 23:35 Last Infusion: 04/11/20 00:36 Dose: 0 mls/hr Documented by: [id number] Admin: 04/10/20 23:48 Dose: 200 mls/hr Documented by: [id number] Albumin Human (Albumin 25%) 50 mls @ 50 mls/hr IV Q1H STA Stop: 04/11/20 00:15 Last Admin: 04/11/20 01:39 Dose: Not Given Documented by: [id number] Ioversol (Optiray 320 125ml) 120 ml IV ONCE ONE Stop: 04/10/20 20:26 Last Admin: 04/10/20 20:25 Dose: 120 ml Documented by: [id number] Morphine Sulfate (Morphine Sulfate 4 Mg/Ml 1 Ml Carp\Vial) 4 mg IV NOW STA Stop: 04/10/20 18:35 Last Admin: 04/10/20 18:58 Dose: 4 mg Documented by: [id number] Morphine Sulfate (Morphine Sulfate 4 Mg/Ml 1 Ml Carp\Vial) 4 mg IV NOW STA Stop: 04/10/20 21:57 Last Admin: 04/10/20 22:24 Dose: 4 mg Documented by: [id number] Morphine Sulfate (Morphine Sulfate 2 Mg/Ml Carp) 2 mg IV Q30M PRN PRN Reason: Chest Pain Stop: 04/24/20 22:24 Last Admin: 04/11/20 08:08 Dose: 2 mg Documented by: [id number] Ondansetron HCl (Ondansetron Inj 2 Mg/Ml 2 Ml Vial) 4 mg IV NOW STA Stop: 04/10/20 18:35 Last Admin: 04/10/20 18:58 Dose: 4 mg Documented by: [id number] Description This is a 21 electrode EEG with a single channel dedicated to limited EKG. The electrodes were placed in accordance with the International 10-20 system. History: syncope with prolonged confusion Rx: morphine, dilaudid, oxycodone, buspirone Start/Stop: 8:49am/9:09am Attending reading: Melissa Almanzar EEG Description: EEG background: Background showed predominantly 6-7 Hz theta generalized slowing. A poorly formed 6-7 Hz posterior dominant rhythm was observed, A-P gradient was reversed during part of the recording. The EEG is continuous. There is variability and reactivity present. Activation and reactivity: Photic stimulation performed without any abnormalities noted. No photic driving observed. Hyperventilation was not performed. Sleep: Patient was drowsy with normal vertex waves noted, no other sleep architecture noted. Epileptiform discharges: No epileptiform discharges were observed. Rhythmic and periodic patterns: None Seizures: None Impression: This was an abnormal EEG given generalized slowing suggestive of a mild toxic- metabolic encephalopathy or medication effect. No seizures or epileptiform discharges were seen. Clinical correlation required. Consider formal neurology consultation if further questions persist. [facility] [place]odes Indication for Procedure (1) Syncope: (2) Ovarian cancer: Neurology Neurology: 30915 EEG include record awake & drowsy
--- NOTE | 2020-04-11 11:18 | Ultrasound Report ---
US abdomen ltd ascites HISTORY: 55 years-old Female Ascites check; can she get paracentesis? Follow-up study in a patient w ith ascites COMPARISON: CT abdomen and pelvis 04/10/2020 TECHNIQUE: Multiple real-time sonographic images of the abdomen were obtained assessing grayscale naomy earance and color flow FINDINGS/IMPRESSION: Small volume of abdominopelvic ascites is again noted without large drainable pocket. Extensive perit hernandez carcinomatosis of the pelvis redemonstrated. ACT 112: Negative or not required by law. The above report was generated using voice recognition software. It may contain grammatical, syntax o r spelling errors. Electronically signed by: Troy Rivera M.D. 04/11/2020 11:17 AM
[2020-04-11] MEDS ORDERED: ALUMINUM/MAGNESIUM SUSP 30 ML UDC PO PRN (13:26)
--- NOTE | 2020-04-11 13:26 | Hospitalist Progress Note ---
Date of Service April 11, 2020 Assessment & Plan (1) Fever: Mild fevers at home and here (up to 37.8 only). - Blood cultures drawn on 04/10 - No growth to date. - UA not done as patient has recurrent contaminated samples from diarrhea - Asked RN to get straight cath, though at this point, she has been on antibiotics x 12 hours. - Ultrasound done on 04/11 without "tapable" ascites pocket - No skin/soft tissue/dental areas of concern. - Empiric Zosyn for now; likely can stop at 24 hours if no growth. Of note, patient is NOT neutropenic, so can be a bit less cautious compared to if she was. (2) Diarrhea: Likely chemotherapy-related. C. diff was negative on 04/11. - Imodium PRN (3) Ovarian cancer: Stage IV with 25 cm tumor in her abdomen and carcinomatosis. First treatm ent of carboplatin and paclitaxel on 04/08/2020. - Discussed with Dr. Curry on 04/11. He will stop in and see her. (4) Syncope: Occurred in the setting of significant diarrhea and hypovolemia. - MRI brain on 04/11 showed no stroke or metastatic disease. - EEG on 04/11 showed no seizures or epileptiform discharges. - Likely vasovagal in nature, though daughter reports prolonged period of unresponsiveness (~20 minutes) and some confusion afterward. No tongue biting, no rhythmic motions, no incontinence to indicate seizure though. - Monitor (5) Hypertension: BP was initially low (90/50), but has rebounded with IV fluids. - Hold lisinopril - Likely discontinue on discharge. (6) DVT prophylaxis: High risk given cancer - Lovenox 40 mg SQ daily Admission and Anticipated Discharge Date Admission Date: April 10, 2020 Subjective General pain in the abdomen and some in the back. Reports no fevers/chills, chest pain, shortness of breath, nausea, or vomiting. Physical Exam Constitutional: WD/WN, vitals as above Eyes: EOM intact bilaterally; no conjunctival abnormality ENMT: external ear and nose normal, oropharynx normal Neck: trachea midline, no thyromegaly normal visual inspection Respiratory: normal respiratory effort, lungs clear to auscultation no respiratory distress Cardiovascular: RRR, no murmur, no edema Gastrointestinal (Abdomen): Inspection/Auscultation: abdomen normal to inspection; abdomen not distended Musculoskeletal: no cyanosis or clubbing, extremities motor strength 5/5 Skin: no rashes, warm and dry Neurologic: moves all extremities and awake Psychiatric: Orientation: alert, oriented to person and cooperative Results & Data Results & Data ([facility]) Vital Signs (Past 12 Hours) Vital Signs Temp Pulse Resp BP Pulse Ox 04/11/20 11:32 36.5 C 106 H 20 111/66 95 04/11/20 07:05 36.7 C 108 H 19 105/70 92 04/11/20 03:23 37.8 C H 116 H 18 106/58 L 97 PG Care Time/CCT Total # of Minutes Spent Total Time Spent with Patient: Total time spent is greater than 50% in coordination of care (as documented) at patient's floor/unit and/or counseling patient: Coding Level of Care Code 29319 Subseq Hosp Care Lvl 3 Diagnoses Fever R50.9 Diarrhea R19.7 Ovarian cancer C56.9 Syncope R55 Syncope type: unspecified Hypertension I10 DVT prophylaxis Z29.9 (1) Syncope Syncope type: unspecified Qualified Code(s): R55 - Syncope and collapse
[2020-04-11] MEDS: LOPERAMIDE HCL 2 MG CAP PO SCH ×4 (13:39→23:21)
--- NOTE | 2020-04-11 13:53 | XCELERA ---
[id number]
[2020-04-11 15:53] LABS: Appearance Urine Cloudy (Clear); Bacteria Urine Automated Negative (Negative); Bilirubin Urine Negative (Negative); Blood Urine 1+ (Negative); Color Urine Yellow; Epithelial Cell Urine Auto >30 /lpf (0-5); Glucose Urine UA Negative (Negative); Ketones Urine Negative (Negative); Leukocyte Esterase Urine 1+ (Negative); Nitrite Urine Negative (Negative); Protein Urine 1+ (Negative); RBC Urine Automated 0-4 /hpf (0-4); Specific Gravity Urine 1.025 (1.000-1.030); Urobilinogen Urine Negative (Negative); WBC Urine Automated >30 /hpf (0-5)
[2020-04-11 16:08] LABS: Granular Casts Urine 20-30 /lpf (0)
--- NOTE | 2020-04-11 17:40 | Electrocardiogram Report ---
Test Reason : Blood Pressure : / mmHG Vent. Rate : 128 BPM Atrial Rate : 128 BPM P-R Int : 128 ms QRS Dur : 066 ms QT Int : 298 ms P-R-T Axes : 056 041 041 degrees QTc Int : 435 ms Sinus tachycardia with occasional Premature ventricular complexes Otherwise normal ECG When compared with ECG of 13-MAR-2020 05:54, Premature ventricular complexes are now Present Vent. rate has increased BY 46 BPM Confirmed by Fredy Padilla ([id number]) on 04/11/2020 5:40:20 PM Referred By: REFERRED SELF Confirmed By:Etienne Padilla
[2020-04-11] MEDS: OLANZAPINE 2.5 MG TAB PO SCH (20:57)
--- NOTE | 2020-04-12 01:44 | Billing Data ---
Date of Service April 12, 2020 Coding Level of Care Code 05685 Initial Inpt Care Lvl 3
[2020-04-12] MEDS: LACTATED RINGER'S 1,000 ML IV SCH ×3 (05:09→21:10)
[2020-04-12] MEDS: LOPERAMIDE HCL 2 MG CAP PO SCH ×5 (05:09→21:04)
[2020-04-12] MEDS: PIPERACILLIN/TAZOBACTAM 4.5 GM in DEXTROSE 5% 100 ML IV SCH ×3 (06:00→22:30)
[2020-04-12 06:35] LABS: Hematocrit (blood only) 26.5 % (37-47); Hemoglobin 8.3 g/dL (12.0-16.0); Mean Corpuscular Hemoglobin 25.4 pg (25-34); Mean Corpuscular Hgb Conc 31.3 g/dL (32-36); Mean Platelet Volume 9.8 fL (7.4-10.4); Platelet Count 306 K/uL (130-400); RDW Coefficient of Variation 15.4 % (11.5-14.5); RDW Standard Deviation 45.5 fL (36.4-46.3); Red Blood Count 3.27 M/uL (4.2-5.4); White Blood Count 8.38 K/uL (4.8-10.8)
[2020-04-12 07:03] LABS: BUN Creatinine Ratio 24.5 (10-20); Creatinine Clr Calc Pharmacy 132.1 ml/min; Est GFR (African American) 111.1; Est GFR (Non-African American) 95.9; Magnesium 2.1 mg/dl (1.8-2.4)
[2020-04-12 07:08] LABS: Basophils # (auto) 0.01 K/uL (0-0.2); Basophils % (auto) 0.1 %; Eosinophils # (auto) 0.09 K/uL (0-0.5); Eosinophils % (auto) 1.1 %; Immature Granulocytes # (auto) 0.43 K/uL (0.00-0.02); Immature Granulocytes % (auto) 5.1 %; Lymphocytes # (auto) 0.88 K/uL (1.2-3.4); Lymphocytes % (auto) 10.5 %; Monocytes # (auto) 0.07 K/uL (0.11-0.59); Monocytes % (auto) 0.8 %; Neutrophils % (auto) 82.4 %
[2020-04-12] MEDS: busPIRone 5 MG TAB PO SCH ×2 (09:01→21:04)
[2020-04-12] MEDS: ENOXAPARIN INJ 40 MG/0.4 ML SYR SQ SCH (09:02)
[2020-04-12] MEDS: ASPIRIN 81 MG ECTAB PO SCH (09:02)
[2020-04-12] MEDS: GLUCOSAMINE SULFATE 500 MG CAP PO SCH (09:02)
[2020-04-12] MEDS: OMEGA-3 (PURIFIED FISH OIL) 1 GM CAP PO SCH (09:03)
[2020-04-12] MEDS: ASCORBIC ACID 500 MG TAB PO SCH (09:03)
[2020-04-12] MEDS: oxyCODONE HCL IR 5 MG TAB (IMMEDIATE RELEASE) PO PRN (09:08)
[2020-04-12 17:42] LABS: Appearance Urine Cloudy (Clear); Bacteria Urine Automated 1+ (Negative); Bilirubin Urine Negative (Negative); Blood Urine Negative (Negative); Color Urine Yellow; Epithelial Cell Urine Auto >30 /lpf (0-5); Glucose Urine UA Negative (Negative); Ketones Urine Negative (Negative); Leukocyte Esterase Urine Trace (Negative); Nitrite Urine Negative (Negative); Protein Urine 1+ (Negative); RBC Urine Automated 0-4 /hpf (0-4); Specific Gravity Urine 1.016 (1.000-1.030); Urobilinogen Urine Negative (Negative)
[2020-04-12] MEDS ORDERED: oxyCODONE HCL IR 5 MG TAB (IMMEDIATE RELEASE) PO PRN (20:21)
[2020-04-12] MEDS: OLANZAPINE 2.5 MG TAB PO SCH (21:03)
[2020-04-12] MEDS: PANTOprazole 40 MG TAB PO SCH (21:03)
--- NOTE | 2020-04-12 23:41 | Hospitalist Progress Note ---
Date of Service April 12, 2020 Assessment & Plan (1) Syncope: Occurred in the setting of significant diarrhea and hypovolemia. - MRI brain on 04/11 showed no stroke or metastatic disease. - EEG on 04/11 showed no seizures or epileptiform discharges. - Likely vasovagal in nature, though daughter reports prolonged period of unresponsiveness (~20 minutes) and some confusion afterward. No tongue biting, no rhythmic motions, no incontinence to indicate seizure though. - Monitor -will hold zosyn. as procal is negative. will continue to monitor. (2) Obesity: recommend lifestyle modifications (3) Hyperlipidemia: continue statin, (4) Ovarian cancer: Stage IV with 25 cm tumor in her abdomen and carcinomatosis. First treatment of carboplatin and paclitaxel on 04/08/2020. - Discussed with Dr. Curry on 04/11. He will stop in and see her. (5) Hypertension: BP was initially low (90/50), but has rebounded with IV fluids. - Hold lisinopril - Likely discontinue on discharge. Admission and Anticipated Discharge Date Admission Date: April 10, 2020 Subjective 55 yo female reports no new symptoms today. Patient reports feeling better in regards to fever, malaise. Review of Systems Review of Systems: All systems reviewed & are unremarkable except as noted in HPI & below Physical Exam Physical Exam: Constitutional: WD/WN, vitals as above Eyes: EOM intact bilaterally; no conjunctival abnormality ENMT: external ear and nose normal, oropharynx normal Neck: trachea midline, no thyromegaly normal visual inspection Respiratory: normal respiratory effort, lungs clear to auscultation no respiratory distress Cardiovascular: RRR, no murmur, no edema Gastrointestinal (Abdomen): Inspection/Auscultation: abdomen normal to inspection; abdomen not distended Musculoskeletal: no cyanosis or clubbing, extremities motor strength 5/5 Skin: no rashes, warm and dry Neurologic: moves all extremities and awake Psychiatric: Orientation: alert, oriented to person and cooperative Results & Data Results & Data ([facility]) Vital Signs (Past 12 Hours) Vital Signs Temp Pulse Resp BP Pulse Ox 04/12/20 15:34 36.8 C 104 H 18 113/76 92 PG Care Time/CCT Total # of Minutes Spent Total Time Spent with Patient: Total time spent is greater than 50% in coordination of care (as documented) at patient's floor/unit and/or counseling patient: Coding Level of Care Code 24527 Subseq Hosp Care Lvl 3 Diagnoses Syncope R55 Syncope type: unspecified Obesity E66.9 Hyperlipidemia E78.5 Ovarian cancer C56.9 Hypertension I10 Time Spent (min) 35 (1) Syncope Syncope type: unspecified Qualified Code(s): R55 - Syncope and collapse
[2020-04-13] MEDS: LOPERAMIDE HCL 2 MG CAP PO SCH ×7 (00:03→23:35)
[2020-04-13] MEDS: LACTATED RINGER'S 1,000 ML IV SCH ×3 (04:41→20:12)
[2020-04-13 08:05] LABS: Hematocrit (blood only) 27.3 % (37-47); Hemoglobin 8.6 g/dL (12.0-16.0); Mean Corpuscular Hemoglobin 25.5 pg (25-34); Mean Corpuscular Hgb Conc 31.5 g/dL (32-36); Mean Platelet Volume 9.9 fL (7.4-10.4); Platelet Count 250 K/uL (130-400); RDW Coefficient of Variation 15.3 % (11.5-14.5); RDW Standard Deviation 45.3 fL (36.4-46.3); Red Blood Count 3.37 M/uL (4.2-5.4); White Blood Count 4.31 K/uL (4.8-10.8)
[2020-04-13 08:35] LABS: ALC (manual) 0.49 K/uL (1.2-3.4); ANC (manual) 3.67 K/uL (1.4-6.5); Eosinophils # (manual) 0.11 K/uL (0-0.5); Eosinophils % (manual) 2.6 %; Lymphocytes # (manual) 0.49 K/uL (1.2-3.4); Lymphocytes % (manual) 11.3 %; Monocytes # (manual) 0.04 K/uL (0.11-0.59); Monocytes % (manual) 0.9 %; Neutrophils # (manual) 3.67 K/uL (1.4-6.5); Neutrophils % (manual) 85.2 %; Rouleaux 1+
[2020-04-13] MEDS: GLUCOSAMINE SULFATE 500 MG CAP PO SCH (08:44)
[2020-04-13] MEDS: ASCORBIC ACID 500 MG TAB PO SCH (08:44)
[2020-04-13] MEDS: OMEGA-3 (PURIFIED FISH OIL) 1 GM CAP PO SCH (08:44)
[2020-04-13 08:45] LABS: BUN Creatinine Ratio 17.7 (10-20); Calcium 8.6 mg/dl (8.5-10.1); Est GFR (Non-African American) 89.7
[2020-04-13] MEDS: busPIRone 5 MG TAB PO SCH ×2 (08:45→20:13)
[2020-04-13] MEDS: ASPIRIN 81 MG ECTAB PO SCH (08:45)
[2020-04-13] MEDS: ENOXAPARIN INJ 40 MG/0.4 ML SYR SQ SCH (08:45)
[2020-04-13] MEDS: ONDANSETRON INJ 2 MG/ML 2 ML VIAL IV PRN ×2 (09:41→15:46)
[2020-04-13] MEDS: OLANZAPINE 2.5 MG TAB PO SCH (20:12)
[2020-04-13] MEDS: PANTOprazole 40 MG TAB PO SCH (20:13)
--- NOTE | 2020-04-13 22:49 | Hospitalist Progress Note ---
Date of Service April 13, 2020 Assessment & Plan (1) Syncope: Occurred in the setting of significant diarrhea and hypovolemia. Patient continues to improve. - MRI brain on 04/11 showed no stroke or metastatic disease. - EEG on 04/11 showed no seizures or epileptiform discharges. - Likely vasovagal in nature, though daughter reports prolonged period of unresponsiveness (~20 minutes) and some confusion afterward. No tongue biting, no rhythmic motions, no incontinence to indicate seizure though. - Monitor -will hold zosyn. as procal is negative. will continue to monitor. (2) Obesity: recommend lifestyle modifications (3) Hyperlipidemia: continue statin, (4) Ovarian cancer: Stage IV with 25 cm tumor in her abdomen and carcinomatosis. First treatment of carboplatin and paclitaxel on 04/08/2020. - Discussed with Dr. Curry on 04/11. He will stop in and see her. (5) Hypertension: BP was initially low (90/50), but has rebounded with IV fluids. - Hold lisinopril - Likely discontinue on discharge. Admission and Anticipated Discharge Date Admission Date: April 10, 2020 Subjective Patient reports feeling better. She has no new complaints at this time. Family is at bedside and is agreeable Review of Systems Review of Systems: All systems reviewed & are unremarkable except as noted in HPI & below Physical Exam Physical Exam: Constitutional: WD/WN, vitals as above Eyes: EOM intact bilaterally; no conjunctival abnormality ENMT: external ear and nose normal, oropharynx normal Neck: trachea midline, no thyromegaly normal visual inspection Respiratory: normal respiratory effort, lungs clear to auscultation no respiratory distress Cardiovascular: RRR, no murmur, no edema Gastrointestinal (Abdomen): Inspection/Auscultation: abdomen normal to inspection; abdomen not distended Musculoskeletal: no cyanosis or clubbing, extremities motor strength 5/5 Skin: no rashes, warm and dry Neurologic: moves all extremities and awake Psychiatric: Orientation: alert, oriented to person and cooperative Results & Data Results & Data ([facility]) Vital Signs (Past 12 Hours) Vital Signs Temp Pulse Resp BP Pulse Ox 04/13/20 15:31 36.8 C 94 H 18 112/79 99 PG Care Time/CCT Total # of Minutes Spent Total Time Spent with Patient: Total time spent is greater than 50% in coordination of care (as documented) at patient's floor/unit and/or counseling patient: Coding Level of Care Code 43535 Subseq Hosp Care Lvl 2 Diagnoses Syncope R55 Syncope type: unspecified Obesity E66.9 Hyperlipidemia E78.5 Ovarian cancer C56.9 Hypertension I10 Time Spent (min) 25 (1) Syncope Syncope type: unspecified Qualified Code(s): R55 - Syncope and collapse
[2020-04-14] MEDS: LACTATED RINGER'S 1,000 ML IV SCH ×2 (04:12→11:19)
[2020-04-14] MEDS: LOPERAMIDE HCL 2 MG CAP PO SCH ×6 (04:13→23:28)
[2020-04-14 08:02] LABS: Creatinine Clr Calc Pharmacy 146.5 ml/min; Est GFR (African American) 116.4; Est GFR (Non-African American) 100.5
[2020-04-14] MEDS: OMEGA-3 (PURIFIED FISH OIL) 1 GM CAP PO SCH (08:32)
[2020-04-14] MEDS: busPIRone 5 MG TAB PO SCH ×2 (08:33→20:39)
[2020-04-14] MEDS: ENOXAPARIN INJ 40 MG/0.4 ML SYR SQ SCH (08:33)
[2020-04-14] MEDS: ASCORBIC ACID 500 MG TAB PO SCH (08:33)
[2020-04-14] MEDS: GLUCOSAMINE SULFATE 500 MG CAP PO SCH (08:33)
[2020-04-14] MEDS: ASPIRIN 81 MG ECTAB PO SCH (08:33)
[2020-04-14] MEDS: ONDANSETRON INJ 2 MG/ML 2 ML VIAL IV PRN (10:01)
[2020-04-14] MEDS: ACETAMINOPHEN 325 MG TAB PO PRN (15:04)
[2020-04-14] MEDS: OLANZAPINE 2.5 MG TAB PO SCH (20:39)
[2020-04-14] MEDS: PANTOprazole 40 MG TAB PO SCH (20:39)
--- NOTE | 2020-04-14 21:54 | Hospitalist Progress Note ---
Date of Service April 14, 2020 Assessment & Plan (1) Syncope: Occurred in the setting of significant diarrhea and hypovolemia. Patient continues to improve. Was able to ambulate the halls. If patient continues to do well, may discharge in AM. - MRI brain on 04/11 showed no stroke or metastatic disease. - EEG on 04/11 showed no seizures or epileptiform discharges. - Likely vasovagal in nature, though daughter reports prolonged period of unresponsiveness (~20 minutes) and some confusion afterward. No tongue biting, no rhythmic motions, no incontinence to indicate seizure though. - Monitor -will hold zosyn. as procal is negative. \ (2) Obesity: recommend lifestyle modifications (3) Hyperlipidemia: continue statin, (4) Ovarian cancer: Stage IV with 25 cm tumor in her abdomen and carcinomatosis. First treatment of carboplatin and paclitaxel on 04/08/2020. - Discussed with Dr. Curry on 04/11. He will stop in and see her. (5) Hypertension: BP was initially low (90/50), but has rebounded with IV fluids. - Hold lisinopril - Likely discontinue on discharge. Admission and Anticipated Discharge Date Admission Date: April 10, 2020 Subjective 55 yo male reports feeling better, she was able to ambulate a little further today. Review of Systems Review of Systems: All systems reviewed & are unremarkable except as noted in HPI & below Physical Exam Physical Exam: Constitutional: WD/WN, vitals as above Eyes: EOM intact bilaterally; no conjunctival abnormality ENMT: external ear and nose normal, oropharynx normal Neck: trachea midline, no thyromegaly normal visual inspection Respiratory: normal respiratory effort, lungs clear to auscultation no respiratory distress Cardiovascular: RRR, no murmur, no edema Gastrointestinal (Abdomen): Inspection/Auscultation: abdomen normal to inspection; abdomen not distended Musculoskeletal: no cyanosis or clubbing, extremities motor strength 5/5 Skin: no rashes, warm and dry Neurologic: moves all extremities and awake Psychiatric: Orientation: alert, oriented to person and cooperative Results & Data Results & Data ([facility]) Vital Signs (Past 12 Hours) Vital Signs Temp Pulse Resp BP Pulse Ox 04/14/20 15:27 36.8 C 91 H 17 123/83 96 PG Care Time/CCT Total # of Minutes Spent Total Time Spent with Patient: Total time spent is greater than 50% in coordination of care (as documented) at patient's floor/unit and/or counseling patient: Coding Level of Care Code 44765 Subseq Hosp Care Lvl 2 Diagnoses Syncope R55 Syncope type: unspecified Obesity E66.9 Hyperlipidemia E78.5 Ovarian cancer C56.9 Hypertension I10 Time Spent (min) 25 (1) Syncope Syncope type: unspecified Qualified Code(s): R55 - Syncope and collapse
[2020-04-15] MEDS: LOPERAMIDE HCL 2 MG CAP PO SCH ×3 (05:08→11:31)
[2020-04-15] MEDS: ASCORBIC ACID 500 MG TAB PO SCH (08:23)
[2020-04-15] MEDS: ASPIRIN 81 MG ECTAB PO SCH (08:23)
[2020-04-15] MEDS: busPIRone 5 MG TAB PO SCH (08:24)
[2020-04-15] MEDS: GLUCOSAMINE SULFATE 500 MG CAP PO SCH (08:24)
[2020-04-15] MEDS: OMEGA-3 (PURIFIED FISH OIL) 1 GM CAP PO SCH (08:24)
[2020-04-15] MEDS: ENOXAPARIN INJ 40 MG/0.4 ML SYR SQ SCH (08:25)
--- NOTE | 2020-04-21 21:53 | Discharge Summary ---
Date of Service April 15, 2020 Admission HPI Per Admitting Provider Marybethnuris Hutchison is a 55 year old woman with a past medical history of recently diagnosed ovarian cancer She has a large pelvic mass discovered in March was transferred to [facility] and was found to have bilateral adnexal lesions along with evidence for carcinomatosis and a ground glass opacity of the lung with pleural effusions suspicious for metastasis. Biopsy of a peritoneal lesion revealed poorly differentiated carcinoma thought to be primary ovarian. She had her first treatment of carboplatin and paclitaxel on Wednesday. plan for surgery after three 21 day cycles. She has been doing fairly well since her treatment, some nausea no major vomiting or diarrhea, on antinausea medications from Dr. Curry's office of zofran and prochlorperazine. She is here today because she has had a fever >100.4 for last two days. Tonight she was feeling nonspecifically ill and got up to go the bathroom this evening. She remembers starting to evacuate a large amount of loose stool and then she lost consciousness. She came to shortly thereafter but was not herself for several minutes after the incident. Per her daughter she just stared off into space straight ahead and mumbled. When paramedics arrived she was starting to return to normal and they brought her by ambulance into ED. In ED patient was tachycardic and hypotensive to 93/56. Labwork significant for elevated WBC of 14.73 decreased hemoglobin of 9.5 hyponatremia of 132, elevated BUN of 28 creatinine of 1.14. Elevated AST of 114 [address] of [address]4. Head CT negative Chest CTA negative, Abdomen Pelvis CT showing very large pelvic mass and peritoneal lesions with low volume ascites present. Patient was given two liters NSS and is feeling somewhat better, still with some lightheadedness. Daughter present at bedside. Patient is a former light smoker, one to two pack years. no drug use, no alcohol use. She lives with her two daughters. She lost her a less than a year ago to cancer. Has had some shortness of breath since time of diagnosis, no major changes. Has had abdominal distension, abdominal pain, no vomiting, describes some chest pain just in the last few minutes which is reproducible when she presses on it. She is feeling very anxious beause of all this and admits she is very scared to and that she wants to be here with her daughters and started crying throughout our interview. Principal Diagnosis syncope Discharge Exam Constitutional: WD/WN, vitals as above Eyes: EOM intact bilaterally; no conjunctival abnormality ENMT: external ear and nose normal, oropharynx normal Neck: trachea midline, no thyromegaly normal visual inspection Respiratory: normal respiratory effort, lungs clear to auscultation no respiratory distress Cardiovascular: RRR, no murmur, no edema Gastrointestinal (Abdomen): Inspection/Auscultation: abdomen normal to inspection; abdomen not distended Musculoskeletal: no cyanosis or clubbing, extremities motor strength 5/5 Skin: no rashes, warm and dry Neurologic: moves all extremities and awake Psychiatric: Orientation: alert, oriented to person and cooperative Discharge Data Allergies Allergy/AdvReac Type Severity Reaction Status Date / Time No Known Allergies Allergy Unknown Verified 03/13/20 05:39 Consultations 04/10/20 22:40 ED Decision to Admit Stat Ordered Studies 04/10/20 18:34 CT abd pelvis IV con only Stat CT angio chest PE protocol Stat 04/10/20 18:35 CT head/brain wo con Stat 04/11/20 03:53 MR brain wo/w con Stat 04/11/20 11:00 US abdomen ltd ascites Routine Hospital Course (1) Syncope: Occurred in the setting of significant diarrhea and hypovolemia. Patient continues to improve. Was able to ambulate the halls. As patient continues to do well, will discharge. - MRI brain on 04/11 showed no stroke or metastatic disease. - EEG on 04/11 showed no seizures or epileptiform discharges. - Likely vasovagal in nature, though daughter reports prolonged period of unresponsiveness (~20 minutes) and some confusion afterward. No tongue biting, no rhythmic motions, no incontinence to indicate seizure though. -will hold antibiotic. as procal is negative. \ (2) Obesity: recommend lifestyle modifications (3) Hyperlipidemia: continue statin, (4) Ovarian cancer: Stage IV with 25 cm tumor in her abdomen and carcinomatosis. First treatment of carboplatin and paclitaxel on 04/08/2020. - Discussed with Dr. Curry on 04/11. He will stop in and see her. (5) Hypertension: BP was initially low (90/50), but has rebounded with IV fluids. - Hold lisinopril - discontinue on discharge as BP controlled. Total Time Total Time Spent Total Time Spent (In Minutes): 32 Total Time Includes: Examination of the Patient, Discharge Planning and Medication Reconciliation Discharge Plan Discharge Items Patient Disposition: Home - Home Health Services Reason For Visit: SYNCOPE Discharge Diagnosis: syncope Activity: Resume your previous activity Non-emergency contact: Primary Care Provider Call non-emergency contact if: you have any medication questions Follow-up/Referrals: Cirilo Valadez III, MD [Primary Care Provider] - 04/22/20 2:00 pm Diet: Regular Addtl Attending Provider Instructions: You have been hospitalized for an acute medical problem. During your stay at [facility], we have made an effort to correct the problem that brought you to the hospital while keeping you as comfortable as possible. Medications were used to bring your condition under control and your discharge instructions will include directions for any medications you should take after leaving the hospital. Please make sure you see your Primary Care Provider as part of your follow up plan. Pending Studies at Discharge: Yes Stand-Alone Forms: My [facility], Smoking Cessation Medications and DC Order Prescriptions: Continued omeprazole 20 mg capsule,delayed release(DR/EC) 20 mg PO DAILY Qty: 90 RF: 3 buspirone 5 mg tablet 5 mg PO BID Qty: 60 RF: 5 fluticasone propionate 50 mcg/actuation spray,suspension 2 sprays INTNAS DAILY PRN (Reason: Nasal Congestion) RF: 0 omega-3 fatty acids [Fish Oil Concentrate] 1,000 mg capsule 1,000 mg PO DAILY Qty: 30 RF: 0 glucosamine HCl 1,500 mg tablet 1,500 mg PO DAILY Qty: 30 RF: 0 ascorbic acid (vitamin C) 1,000 mg Tablet 1 g PO DAILY RF: 0 oxycodone 10 mg tablet 10 mg PO .Q4-6H PRN (Reason: Pain) RF: 0 prochlorperazine maleate 10 mg tablet 10 mg PO Q6H PRN (Reason: Nausea) RF: 0 olanzapine 2.5 mg tablet 2.5 mg PO HS RF: 0 aspirin [Aspirin Low Dose] 81 mg Tablet,Delayed Release (Dr/Ec) 81 mg PO DAILY RF: 0 Discontinued lisinopril 10 mg tablet 10 mg PO DAILY Qty: 90 RF: 3 turmeric root extract 500 mg capsule 500 mg PO DAILY Qty: 30 RF: 0 Discharge Orders: Discharge Order (Routine); Ordered 04/15/20 Ordered By: Hoang George Admission Data Admit Date/Time: 04/10/20 22:25 Attending Provider: Hoang George Admit Provider: Len Carbajal Primary Care Provider: Cirilo Valadez III Other Providers: Armond Gomez ; Roshan Degroot ; [facility] Other Interventions: Discharge Summary Assessment (RN) Last Done: 04/15/20 12:50 Coding Level of Care Code D/C Day Management >30 mins Diagnoses Syncope R55 Syncope type: unspecified Obesity E66.9 Hyperlipidemia E78.5 Ovarian cancer C56.9 Hypertension I10 Time Spent (min) 32
== END 2020-04-15 13:43 | disposition home health service (06) | DRG 312 ==
LOC: ED 18:21 → 2S 22:25 → SUATTDRO 22:25 → 2S 04-11 00:39 → 3N 04-11 17:15

== ENCOUNTER 2024-07-27 11:37 | Inpatient (IN) ==
[2024-07-27 12:13] LABS: Basophils # (auto) 0.05 K/uL (0.00-0.20); Basophils % (auto) 0.6 %; Eosinophils # (auto) 0.11 K/uL (0.00-0.50); Eosinophils % (auto) 1.2 %; Hematocrit (blood only) 28.5 % (37.0-47.0); Hemoglobin 8.8 g/dl (12.0-16.0); Immature Granulocytes # (auto) 0.04 K/uL (0.01-0.20); Immature Granulocytes % (auto) 0.4 %; Lymphocytes # (auto) 0.89 K/uL (1.20-3.40); Lymphocytes % (auto) 9.9 %; Mean Corpuscular Hemoglobin 27.8 pg (25.0-34.0); Mean Corpuscular Hgb Conc 30.9 g/dL (32.0-36.0); Mean Corpuscular Volume 90.2 fL (80.0-100.0); Mean Platelet Volume 9.3 fL (9.4-12.4); Monocytes # (auto) 0.72 K/uL (0.11-0.59); Neutrophils # (auto) 7.18 K/uL (1.40-6.50); Neutrophils % (auto) 79.9 %; Platelet Count 452 K/uL (130-400); RDW Coefficient of Variation 14.6 % (11.5-14.5); RDW Standard Deviation 48.5 fL (36.4-46.3); Red Blood Count 3.16 M/uL (4.20-5.40); White Blood Count 8.99 K/ul (4.8-10.8)
[2024-07-27 12:30] LABS: Alanine Aminotransferase 47 U/L (7-52); Albumin Level 3.2 gm/dl (3.4-5.0); Alkaline Phosphatase 83 U/L (34-104); Anion Gap 10 (3-11); Aspartate Aminotransferase 35 U/L (13-39); BUN Creatinine Ratio 8.7 (10-20); Bilirubin Direct 0.2 mg/dl (0-0.2); Bilirubin,Total 0.4 mg/dl (0.2-1.0); Blood Urea Nitrogen 17 mg/dl (6-23); Calcium 8.9 mg/dl (8.6-10.3); Carbon Dioxide 25 mmol/L (21-32); Chloride 96 mmol/L (98-107); Creatinine Clr Calc Pharmacy 45.1 ml/min; Glucose 142 mg/dl (70-99(Fasting)); Magnesium 1.4 mg/dl (1.7-2.4); Sodium 131 mmol/L (136-145); Total Protein 6.6 gm/dl (6.0-8.3)
[2024-07-27 12:35] LABS: Troponin I High Sensitivity < 2.3 pg/ml (0-14)
[2024-07-27 12:36] LABS: INR 1.2 (0.9-1.1); Prothrombin Time 12.9 Seconds (9.0-12.0)
--- NOTE | 2024-07-27 12:43 | CT Scan Report ---
CT abd pelvis wo con CLINICAL HISTORY: right flank pain, hypotension TECHNIQUE: Helical axial images of the abdomen and pelvis were obtained. Automated dose lowering tech niques and/or adjustment according to patient size were utilized for this exam. This exam was perfor med without intravenous contrast. CT DOSE: 1384.64 mGy.cm COMPARISON: Comparison is made to CT abdomen pelvis 05/24/2024 FINDINGS: Lower chest: There is a moderate left pleural effusion with underlying atelectasis. Liver: Unremarkable. No focal lesions are seen. Gallbladder and biliary tree: Patient is status post cholecystectomy. No intra- or extrahepatic bilia ry ductal dilation. Pancreas: Fatty replacement of the pancreas is seen. Spleen: Unremarkable. Adrenals: Unremarkable. Kidneys and ureters: A right-sided double-J stent is seen. Bladder: Limited evaluation due to underdistention. Reproductive organs: Patient is status post hysterectomy. Bowel: Unremarkable. Lymph nodes Retroperitoneal: Unremarkable. Pelvic: Unremarkable. Mesenteric: Unremarkable. Peritoneum: Large ascites is seen. Vessels: Unremarkable. Abdominal wall: Unremarkable. Bones: Degenerative changes in the visualized spine. IMPRESSION: 1. Interval development of large ascites. 2. There is a right nephroureteral stent without evidence of hydronephrosis or obstruction. 3. Moderate left pleural effusion with underlying atelectasis. ACT 112: Negative or not required by law. Electronically signed by: Ash Espinoza M.D. 07/27/2024 12:41 PM
[2024-07-27] MEDS: SODIUM CHLORIDE 0.9% 1,000 ML IV ONE ×2 (12:47→15:19)
[2024-07-27] MEDS: SODIUM CHLORIDE 0.9% 500 ML IV ONE (12:48)
[2024-07-27] MEDS: SODIUM CHLORIDE 0.9% 1,000 ML IV SCH (12:48)
[2024-07-27] MEDS: DAPTOmycin 550 MG in SYRINGE 0 ML IV SCH (13:14)
[2024-07-27] MEDS: CEFEPIME 2000MG 2,000 MG/20 ML SYR IV STA (13:25)
--- NOTE | 2024-07-27 13:25 | XRay Report ---
XR chest 1V portable CLINICAL HISTORY: Sepsis COMPARISON STUDY: 06/27/2024 FINDINGS: Stable right chest port. Heart size and pulmonary vasculature are normal. There is increase d hazy opacity at the left base with blunting of left costophrenic angle and obscuration of the left hemidiaphragm. No pneumothorax. IMPRESSION: Increased left pleural effusion/consolidation left lung base. ACT 112: Negative or not required by law. Electronically signed by: Sami Rosado M.D. 07/27/2024 1:23 PM
[2024-07-27] MEDS: MAGNESIUM SULFATE / D5W 1 GM/100 ML BAG IV ONE (13:28)
--- NOTE | 2024-07-27 14:06 | Electrocardiogram Report ---
Test Reason : Blood Pressure : */* mmHG Vent. Rate : 94 BPM Atrial Rate : 94 BPM P-R Int : 106 ms QRS Dur : 64 ms QT Int : 330 ms P-R-T Axes : 23 23 47 degrees QTcB Int : 412 ms Sinus rhythm Low voltage QRS Nonspecific T wave abnormality Abnormal ECG When compared with ECG of 21-Apr-2024 08:06, Nonspecific T wave abnormality now evident in Lateral leads Confirmed by Fredy Padilla ([id number]) on 07/27/2024 1:54:30 PM Referred By: Confirmed By: Fredy Padilla
[2024-07-27 14:09] LABS: Adenovirus PCR Not Detected (NotDetected); Bordetella parapertussis PCR Not Detected (NotDetected); Bordetella pertussis PCR Not Detected (NotDetected); Chlamydia pneumoniae PCR Not Detected (NotDetected); Coronavirus 229E PCR Not Detected (NotDetected); Coronavirus CoV-2 (COVID19)PCR Not Detected (NotDetected); Coronavirus HKU1 PCR Not Detected (NotDetected); Coronavirus NL63 PCR Not Detected (NotDetected); Coronavirus OC43PCR Not Detected (NotDetected); Human Metapneumovirus PCR Not Detected (NotDetected); Influenza A PCR Not Detected (NotDetected); Influenza B PCR Not Detected (NotDetected); Mycoplasma pneumoniae PCR Not Detected (NotDetected); Parainfluenza Virus 1 PCR Not Detected (NotDetected); Parainfluenza Virus 2 PCR Not Detected (NotDetected); Parainfluenza Virus 3 PCR Not Detected (NotDetected); Parainfluenza Virus 4 PCR Not Detected (NotDetected); Respiratory Syncytial VirusPCR Not Detected (NotDetected); Rhinovirus/Enterovirus PCR Not Detected (NotDetected)
[2024-07-27] MEDS: fentaNYL citrate PF 100 MCG/2 ML VIAL IV STA (14:20)
[2024-07-27 14:26] LABS: Appearance Urine Cloudy (Clear); Bilirubin Urine 2+ (Negative); Blood Urine 3+ (Negative); Color Urine Yellow; Glucose Urine UA Trace (Negative); Ketones Urine Trace (Negative); Leukocyte Esterase Urine Trace (Negative); Nitrite Urine Positive (Negative); Protein Urine 3+ (Negative); Specific Gravity Urine 1.025 (1.000-1.030); Urobilinogen Urine Negative (Negative)
[2024-07-27 14:36] LABS: Epithelial Cell Urine >20 /hpf (0-2); RBC Urine >20 /hpf (0-2); WBC Urine >50 /hpf (0-5)
[2024-07-27 14:38] LABS: Bacteria Urine 4+ (None Seen)
--- NOTE | 2024-07-27 15:16 | History & Physical Report ---
Date of Service July 27, 2024 Assessment & Plan (1) Septic shock: Plan: Suspected secondary to urinary source Recently grew pansensitive E. 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 Will switch to IV heparin without bolus while in ANIBAL GERD - switch omeprazole to pantoprazole VTE Prophylaxis - IV heparin Diet - regular Disposition - admit to ICU Admission and Anticipated Discharge Date Admission Date: July 27, 2024 History of Present Illness Chief Complaint: Dizziness / hypotension Shortness of breath Primary Care Provider: DO Shagufta Bacon Pk is a 59 year old female with metastatic ovarian cancer who presents to the ER [facility] for [facility]iness and sudden shortness of breath episode. She reports mild dizziness prior to her appointment while on the scales. During her appointment she felt she might have been having a panic attack with tachypnea. However her sBP was in the 70s therefore a code purple was called. She reports not feeling dizzy and did not loose consciousness. She just felt weight and generalized pain. She is currently not on chemotherapy but this is currently being considered as her disease has spread. Of note this is on a background of ureteral stent placement on July 06 for extrinsic compression causing hydronephrosis. She reports having abdominal pain since this procedure which is no worse today than usual. She was having dysuria and had urine culture which grew pansensitive E. coli on July 20 which was treated with 7 days of Augmentin (last dose this morning) and does not report any recent dysuria. She has not urinated since last night. She was noted to have left pleural effusion increased in size since May. She reports worsening shortness of breath other the last 2-3 weeks. She has never had thoracentesis. No chest pain. She reports not eating or drinking well over the last week due to abdominal swelling. Ascites noted on CT presumably malignant. She reports no worsening abdominal pain. Never had paracentesis. Allergies Allergy/AdvReac Type Severity Reaction Status Date / Time No Known Drug Allergies Allergy Verified 07/27/24 14:31 Home Medications Medication Instructions Recorded Confirmed Type omeprazole 20 mg capsule,delayed 20 mg PO BID #180 caps 12/20/20 07/27/24 Rx release multivitamin (Multiple Vitamins 1 tab PO QAM 01/08/21 07/27/24 History tablet) cyanocobalamin (vitamin B-12) 1 tab PO QAM 05/19/23 07/27/24 History duloxetine 60 mg capsule,delayed 60 mg PO QAM 05/19/23 07/27/24 History release gabapentin 100 mg capsule 100 mg PO BID 05/19/23 07/27/24 History lisinopril 10 mg tablet 10 mg PO QAM 05/19/23 07/27/24 History metoprolol tartrate 50 mg tablet 50 mg PO HS 05/19/23 07/27/24 History vitamin E (dl, acetate) 180 mg 180 mg PO QAM 05/19/23 07/06/24 History (400 unit) capsule fluticasone propionate 50 2 spray intranasal DAILY PRN 05/21/23 07/27/24 Rx mcg/actuation nasal Congestion #48 grams spray,suspension apixaban 5 mg tablet (Eliquis) 5 mg PO BID 08/04/23 07/27/24 History gabapentin 300 mg capsule 600 mg PO HS 08/04/23 07/27/24 History oxycodone 5 mg tablet 5 mg PO Q6H PRN Pain 04/19/24 07/27/24 History duloxetine 30 mg capsule,delayed 30 mg PO HS 05/01/24 07/27/24 History release aspirin 81 mg tablet 81 mg PO QAM 06/06/24 07/27/24 History rosuvastatin 5 mg tablet 5 mg PO QAM 06/06/24 07/27/24 History amlodipine 5 mg tablet 5 mg PO QAM 06/22/24 07/27/24 History isosorbide mononitrate 30 mg 30 mg PO QAM 06/22/24 07/27/24 History tablet,extended release 24 hr tamsulosin 0.4 mg capsule (Flomax) 0.4 mg PO DAILY kidney stone #30 07/13/24 Rx caps amoxicillin 500 mg-potassium 1 tab PO Q12H #14 tabs 07/20/24 07/27/24 Rx clavulanate 125 mg tablet (Augmentin) Past Med/Surg History Problem List (Updated 07/27/24 @ 23:19 by Roshan Pro MD) Pleural effusion, left Abdominal ascites (Acute) Retained ureteral stent (Acute) Acute renal failure (Acute) UTI (urinary tract infection) (Acute) Sepsis (Acute) Septic shock ANIBAL (acute kidney injury) Ureteral obstruction Lumbar facet joint syndrome Chronic low back pain Heart disease Arthritis Sensorineural hearing loss (SNHL) of both ears Depression Anxiety Sinus bradycardia Morbid obesity 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 Ovarian cancer (Acute) dx 03/2020, sx and chemo; currently on oral chemo (for the last 3 years) recent recurrence. has had IV chemo treatments x 3 since dx'd. last treatment 09/15/23. Obesity (Acute) Hypertension GERD (gastroesophageal reflux disease) Medical History Hydronephrosis Hx of syncope (2019) occurred w/ chemo tx. and "blood pressure crashed," spent 5 days at [facility]. (2019 per chart review) Hx pulmonary embolism (07/2023) takes eliquis, no clots since Morbid obesity History of blood transfusion Sinus bradycardia happened after 1st round of chemo and is ongoing Ovarian cancer dx 03/2020, sx and chemo; currently on oral chemo (for the last 3 years) recent recurrence. 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 Hypertension controlled, stable per pt Hyperlipidemia Heart disease GERD (gastroesophageal reflux disease) controlled, stable per pt Hx: UTI (urinary tract infection) 05/01/24, currently on abx for UTI Depression Bilateral tinnitus Chronic low back pain Arthritis Anxiety Pulmonary hypertension mild to moderate per cardiology History of COVID-19 (03/2023) 03/2023, home test, not hosp; body aches, fatigue, diarrhea>resolved, no current symptoms Nausea and vomiting after administration of anesthetic agent happened during one surgery only DJD (degenerative joint disease) knees and shoulder - recently cancelled left knee surgery due to potential need for additional chemo- having pet scan in [place] History of palpitations has had them since going through chemo 2019, has been on and off since; currently following w/ [facility] Sleep apnea CPAP-compliant Surgical History Port-A-Cath in place (06/27/24) Insertion of Access Port Right IJ with Fluoroscopy(Right) - Dany Nguyễn, DO Hx of cardiac catheterization (06/19/24) told "false stress test" - only added isosorbide to medical regimen- follows with dallas [facility]ccall Hx of foot surgery lt foot rebuilt Hx of colonoscopy Hx of bilateral cataract extraction History of hysterectomy with bilateral oophorectomy H/O oral surgery S/P cholecystectomy H/O arthroscopy of left knee Family History Mother Coronary heart disease Diabetes Obesity Hypertension Heart disease Father Obesity Hypertension Heart disease Grandfather (Maternal) Myocardial infarction Other Cancer No family history of adverse response to anesthesia No family history of bleeding disorder Denies family history of Ovarian cancer Prostate cancer Breast cancer Colorectal cancer Social History Smoking Status: Former smoker Tobacco Type: Cigarettes Age Started Using Tobacco: 20; Age Quit Using Tobacco: 50; Second Hand Exposure: No; Hx Alcohol Use: No Hx Substance Use: No Preferred Language: Azeri Communication Ability: Effective Visual Impairment: Partially Limited Chart Picker Required: No Beliefs That Will Affect Care: None marital status: / Current Living Situation: Alone Current Living Situation Comment: daughter current occupational status: unemployed How many Children do You have: 2 Feels Safe at Home: Yes Safety Concerns: Feels Safe At This Time Dental Care, Regularly: Yes Physical Activity Frequency: 1-2 Times per Week Seatbelt Use: always Sunscreen Use: Yes Assistive Devices: Cane, CPAP and Glasses Review of Systems Review of Systems: All systems reviewed & are unremarkable except as noted in HPI & below Physical Exam Constitutional: WD/WN, vitals as above Eyes: + anicteric sclerae; normal pupil size ENMT: external ear and nose normal, oropharynx normal Neck: trachea midline, no thyromegaly Respiratory: normal respiratory effort, lungs clear to auscultation Cardiovascular: Rate/Rhythm: regular rate and regular rhythm Heart Sounds: no murmur Extremities: normal capillary refill and + pedal edema (trace); no calf tenderness Gastrointestinal (Abdomen): Inspection/Auscultation: + abdomen distended Percussion/Palpation: + abdomen tender (generalized without rebound) and abdomen soft; no guarding and abdomen not rigid Skin: no rashes, warm and dry Neurologic: moves all extremities and awake; not confused Psychiatric: A+Ox3, euthymic affect Results & Data Results & Data Vital Signs (Past 12 Hours) Vital Signs Temp Pulse Pulse Resp BP BP Pulse Ox 07/27/24 14:40 36.8 C 86 18 111/86 98 07/27/24 13:58 89 18 107/50 L 07/27/24 13:31 36.4 C L 96 H 18 100/52 L 96 07/27/24 12:50 101/52 L 07/27/24 12:45 94 H 07/27/24 12:04 88 95/57 L 07/27/24 12:03 99 07/27/24 11:52 93 H 19 78/43 L 99 07/27/24 11:45 36.6 C 90 18 78/43 L 97 O2 Del Method 07/27/24 14:40 Room Air 07/27/24 13:58 07/27/24 13:31 Room Air 07/27/24 12:50 07/27/24 12:45 07/27/24 12:04 07/27/24 12:03 Room Air 07/27/24 11:52 Room Air 07/27/24 11:45 Room Air Laboratory Results Abnormal lab results 07/27/24 07/27/24 07/27/24 Range/Units 11:45 16:55 Unknown RBC 3.16 L (4.20-5.40) M/uL Hgb 8.8 L (12.0-16.0) g/dl Hct 28.5 L (37.0-47.0) % MCHC 30.9 L (32.0-36.0) g/dL RDW Std Deviation 48.5 H (36.4-46.3) fL RDW Coeff of Asher 14.6 H (11.5-14.5) % Plt Count 452 H (130-400) K/uL MPV 9.3 L (9.4-12.4) fL Neut # (Auto) 7.18 H (1.40-6.50) K/uL Lymph # (Auto) 0.89 L (1.20-3.40) K/uL [place] # (Auto) 0.72 H (0.11-0.59) K/uL PT 12.9 H (9.0-12.0) Seconds INR 1.2 H (0.9-1.1) Sodium 131 L (136-145) mmol/L Chloride 96 L (98-107) mmol/L Creatinine 1.96 H (0.6-1.2) mg/dl BUN/Creatinine Ratio 8.7 L (10-20) Glucose 142 H (70-99(Fasting)) mg/dl POC Glucose 140 H (70-99) mg/dl Magnesium 1.4 L (1.7-2.4) mg/dl Albumin 3.2 L (3.4-5.0) gm/dl Urine Appearance Cloudy A (Clear) Urine Protein 3+ H (Negative) Urine Glucose (UA) Trace H (Negative) Urine Ketones Trace H (Negative) Urine Blood 3+ H (Negative) Urine Nitrite Positive A (Negative) Urine Bilirubin 2+ H (Negative) Ur Leukocyte Esterase Trace H (Negative) Urine RBC >20 H (0-2) /hpf Urine WBC >50 H (0-5) /hpf Ur Epithelial Cells >20 H (0-2) /hpf Urine Bacteria 4+ H (None Seen) Diagnostic Findings XR chest 1V portable CLINICAL HISTORY: Sepsis COMPARISON STUDY: 06/27/2024 FINDINGS: Stable right chest port. Heart size and pulmonary vasculature are normal. There is increased hazy opacity at the left base with blunting of left costophrenic angle and obscuration of the left hemidiaphragm. No pneumothorax. IMPRESSION: Increased left pleural effusion/consolidation left lung base. CT abd pelvis wo con CLINICAL HISTORY: right flank pain, hypotension TECHNIQUE: Helical axial images of the abdomen and pelvis were obtained. Automated dose lowering techniques and/or adjustment according to patient size were utilized for this exam. This exam was performed without intravenous contrast. CT DOSE: 1384.64 mGy.cm COMPARISON: Comparison is made to CT abdomen pelvis 05/24/2024 FINDINGS: Lower chest: There is a moderate left pleural effusion with underlying atelectasis. Liver: Unremarkable. No focal lesions are seen. Gallbladder and biliary tree: Patient is status post cholecystectomy. No intra- or extrahepatic biliary ductal dilation. Pancreas: Fatty replacement of the pancreas is seen. Spleen: Unremarkable. Adrenals: Unremarkable. Kidneys and ureters: A right-sided double-J stent is seen. Bladder: Limited evaluation due to underdistention. Reproductive organs: Patient is status post hysterectomy. Bowel: Unremarkable. Lymph nodes Retroperitoneal: Unremarkable. Pelvic: Unremarkable. Mesenteric: Unremarkable. Peritoneum: Large ascites is seen. Vessels: Unremarkable. Abdominal wall: Unremarkable. Bones: Degenerative changes in the visualized spine. IMPRESSION: 1. Interval development of large ascites. 2. There is a right nephroureteral stent without evidence of hydronephrosis or obstruction. 3. Moderate left pleural effusion with underlying atelectasis. Medications Administered ER Medications Given: Normal saline 1L bolus Normal saline 1L bolus Cefepime 2000mg IV Normal saline 500ml bolus Fentanyl 50mcg IV Normal saline 1L bolus Daptomycin 550mg IV ECG Rate (beats per minute): 94 Rhythm: normal sinus Findings: + other (non-specific T wave abnormality); no acute ischemic change Comparison ECG Date: from (April 21, 2024) Change: the following changes noted (Nonspecific T wave abnormality now evident in Lateral leads) Code Status & VTE Plan Code Status DNR/DNI VTE Prophylaxis Plan VTE Prophylaxis will be ordered: Yes PG Care Time/CCT Total # of Minutes Spent Total Time Spent with Patient: Total time spent is greater than 50% in coordination of care (as documented) at patient's floor/unit and/or counseling patient: Coding Level of Care Code 36792 INT INP/OBS CARE 3/75MIN Diagnoses Septic shock A41.9; R65.21 ANIBAL (acute kidney injury) N17.9 Abdominal ascites R18.8 Pleural effusion, left J90 UTI (urinary tract infection) N39.0
[2024-07-27] MEDS: NOREPINEPHRINE/D5W 4 MG/250 ML PLCT IV SCH (15:19)
--- NOTE | 2024-07-27 16:14 | Critical Care Consultation ---
Date of Consultation July 27, 2024 Assessment & Plan (1) Septic shock: (2) ANIBAL (acute kidney injury): (3) Ovarian cancer: (4) Morbid obesity: (5) Hypertension: (6) Heart disease: (7) Hx pulmonary embolism: Plan Reason Critically Ill: hypotensive in ER requiring vasopressor support, likely urosepsis with component of ovarian carcinomatosis PLAN: Neuro: history of peripheral neuropathy s/p chemotherapy for ovarian cancer, otherwise unremarkable at this time - continue gabapentin and duloxetine at home doses Pain control: oxycodone 5mg q6h prn Resp: history of PE in Jul 2023 without recurrence due to Eliquis compliance; heparin while in ICU for VTE prophylaxis - cxr 07/27/24 showing L lung base effusion/consolidation per radiology report - CT abd/pelvis 07/27/24 showing moderate L pleural effusion with atelectasis - satting mid-upper 90s on room air, no chest pain or SOB currently Cardiovascular: Started on norepinephrine 0.05mcg/kg/min in ER for MAP<65 after 2.5L IVF in ER, continue IVF - BP no longer hypotensive, continue to monitor while on pressors EKG from ER showing normal sinus rhythm compliant with Eliquis post PE in Jul 2023 -> heparin for VTE ppx while in ICU Fluids/Renal: ANIBAL- creatinine 1.96 up from 0.74 on 07/14/24, eGFR 93 -> 29 over s julianne timeframe - received 3.5L NS on 07/27/24, only about 100ccs urine drained in mirza bag - receiving IV electrolytes, BMP + mag in am - continue closely monitoring I/O ID: likely urosepsis with component of worsening ovarian cancer, normal WBC count, normal lactate - UA showing 4+ bacteria, 3+ blood, 3+ protein, 2+ bilirubin, +nitrites - recently treated for pansensitive E. coli with Augmentin for 7 days - receiving Daptomycin and cefepime - pending urine and blood cultures GI/Nutrition: history of ovarian cancer, will need chemotherapy (3rd round: 1st in 2019, 2nd in 2023) per visit with oncologist Dr. Carty 07/27/24 based on PET scan results discussed prior to [facility] arrival -07/12/24 PET scan: Progressive omental/peritoneal carcinomatosis throughout the abdomen and pelvis with worsening ascites. CT Abd/pelvis 07/27/24 showing ascites: reported malignant cells in abdominal fluid but paracentesis not recommended at this time - Heart healthy diet as PO is tolerated - GERD: protonix 40mg PO BID : UA showing 4+ bacteria, 3+ blood, 3+ protein, 2+ bilirubin, +nitrites - low UO over the past 24hrs per patient report, ~100cc urine in mirza bag 07/27/24 around 5pm - recently treated for pansensitive E. coli with Augmentin for 7 days - receiving Daptomycin and cefepime - pending urine and blood cultures Heme: Hgb 10.2 on 07/14/24 -> 8.8 on 07/27/24 - CBC in morning - heparin for VTE prophylaxis in lieu of Eliquis Endocrine: glucose 142, consider insulin if remains elevated - BMP in AM Lines: RIJ venous access VTE Prophylaxis - heparin Diet - heart healthy Disposition - ICU Supervising Physician Co-Signing Physician Notes Dr. Diaz was resident physician during care of patient. I separately evaluated patient for longo portions of the history and the exam. I was present during the critical portion of medical decision making, and I discussed the case with the resident. I generally agree with the findings and plan. Extensive discussion at bedside regarding goals of care and event of cardiac arrest that included the patient, patient's daughter and additional family members at bedside. Patient would not want heroics in event of cardiac arrest however she desires aggressive treatment not withstanding that of cardiac arrest and feels she will be the cancer again for a third time. Patient has felt generally unwell for the past couple of days and has decreased p.o. intake. She has had increasing abdominal pressure but no duong pain. Family reports decreased activity tolerance, patient did not initially admit to decreased activity tolerance however she does admit after further details of becoming more winded easily. She was recently treated for a urinary tract infection and has had a relative recent administration. Physical exam her abdomen is firm but not peritonitic, she does not have rebound tenderness nor involuntary guarding, it is not clinically consistent with spontaneous bacterial peritonitis. Family does report that they have isolated malignant cells out of her fluid, 1 family member reports that fluid from around her heart was reported to have malignant cells. Accordingly at this time it is well-known that there is recurrence of cancer I do not feel a diagnostic paracentesis or thoracentesis is indicated at this time. Patient has known PE which was diagnosed on a surveillance CAT scan; however, she reports taking Eliquis without skipping any doses. She took her Eliquis today. We will transition from Eliquis to heparin, given the worsening renal function I feel it is more likely to have a venous thrombus and will obtain renal artery duplex versus a abdominal compartment syndrome causing decreased renal perfusion/vascular congestion. Any diagnostic or therapeutic paracentesis comes with additional risk of bleeding given that she is on systemic anticoagulation. Certainly the urine appears purulent, patency of the stent should be elucidated. We will initiate broad-spectrum antibiotics. If the kidney function gets worse I feel the paracentesis become would become more indicated at that time; however, at the present moment the risks outweigh the diagnostic/therapeutic benefits. Patient requires vasoactive medication administration as well as crystalloid volume expansion. She remains critically ill. History of Present Illness Reason for Consultation: likely urosepsis with hypotension requiring vasopressor support History of Present Illness Marybeth is a 59yo female with history of ovarian cancer, pulmonary embolism in Jul 2023 on Eliquis, HTN, peripheral neuropathy s/p chemo, HLD/ heart disease, recurrent UTIs, R hydronephrosis with ureteral stent placement on 07/06/24. Patient was at cancer center seeing Dr. Carty today about starting another round of chemo for worsening ovarian cancer, when she suddenly felt very short of breath with drop in BP. Was then BIBEMS to [facility] ER. Found to have significant UTI with minimal urine output and hypotension 70-100 / 40-50s. Of note, she states she felt progressively worsening SOB for the past 2 weeks, was told by Dr. Carty it may be due to progression of her ovarian cancer. Additionally she states she was last able to have a successful urination at about 11pm last night 07/26/24; felt the urge to urinate last night several times but was only able to dribble. Denies this happening in the past. Endorses last BM 1-2 days ago without concerns, states appetite has been less than usual. ER: started on norepinephrine which improved BP, started on daptomycin and cefepime, given 3.5L normal saline, fentanyl for pain management. Allergies Allergy/AdvReac Type Severity Reaction Status Date / Time No Known Drug Allergies Allergy Verified 07/27/24 14:31 Home Medications Medication Instructions Recorded Confirmed Type omeprazole 20 mg capsule,delayed 20 mg PO BID #180 caps 12/20/20 07/27/24 Rx release multivitamin (Multiple Vitamins 1 tab PO QAM 01/08/21 07/27/24 History tablet) cyanocobalamin (vitamin B-12) 1 tab PO QAM 05/19/23 07/27/24 History duloxetine 60 mg capsule,delayed 60 mg PO QAM 05/19/23 07/27/24 History release gabapentin 100 mg capsule 100 mg PO BID 05/19/23 07/27/24 History lisinopril 10 mg tablet 10 mg PO QAM 05/19/23 07/27/24 History metoprolol tartrate 50 mg tablet 50 mg PO HS 05/19/23 07/27/24 History vitamin E (dl, acetate) 180 mg 180 mg PO QAM 05/19/23 07/06/24 History (400 unit) capsule fluticasone propionate 50 2 spray intranasal DAILY PRN 05/21/23 07/27/24 Rx mcg/actuation nasal Congestion #48 grams spray,suspension apixaban 5 mg tablet (Eliquis) 5 mg PO BID 08/04/23 07/27/24 History gabapentin 300 mg capsule 600 mg PO HS 08/04/23 07/27/24 History oxycodone 5 mg tablet 5 mg PO Q6H PRN Pain 04/19/24 07/27/24 History duloxetine 30 mg capsule,delayed 30 mg PO HS 05/01/24 07/27/24 History release aspirin 81 mg tablet 81 mg PO QAM 06/06/24 07/27/24 History rosuvastatin 5 mg tablet 5 mg PO QAM 06/06/24 07/27/24 History amlodipine 5 mg tablet 5 mg PO QAM 06/22/24 07/27/24 History isosorbide mononitrate 30 mg 30 mg PO QAM 06/22/24 07/27/24 History tablet,extended release 24 hr tamsulosin 0.4 mg capsule (Flomax) 0.4 mg PO DAILY kidney stone #30 07/13/24 Rx caps amoxicillin 500 mg-potassium 1 tab PO Q12H #14 tabs 07/20/24 07/27/24 Rx clavulanate 125 mg tablet (Augmentin) Patient History Medical History Hydronephrosis Hx of syncope (2019) occurred w/ chemo tx. and "blood pressure crashed," spent 5 days at [facility]. (2019 per chart review) Hx pulmonary embolism (07/2023) takes eliquis, no clots since Morbid obesity History of blood transfusion Sinus bradycardia happened after 1st round of chemo and is ongoing Ovarian cancer dx 03/2020, sx and chemo; currently on oral chemo (for the last 3 years) recent recurrence. 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 Hypertension controlled, stable per pt Hyperlipidemia Heart disease GERD (gastroesophageal reflux disease) controlled, stable per pt Hx: UTI (urinary tract infection) 05/01/24, currently on abx for UTI Depression Bilateral tinnitus Chronic low back pain Arthritis Anxiety Pulmonary hypertension mild to moderate per cardiology History of COVID-19 (03/2023) 03/2023, home test, not hosp; body aches, fatigue, diarrhea>resolved, no current symptoms Nausea and vomiting after administration of anesthetic agent happened during one surgery only DJD (degenerative joint disease) knees and shoulder - recently cancelled left knee surgery due to potential need for additional chemo- having pet scan in [place] History of palpitations has had them since going through chemo 2019, has been on and off since; currently following w/ [facility] Sleep apnea CPAP-compliant Surgical History Port-A-Cath in place (06/27/24) Insertion of Access Port Right IJ with Fluoroscopy(Right) - Dany Nguyễn DO Hx of cardiac catheterization (06/19/24) told "false stress test" - only added isosorbide to medical regimen- follows with [facility] mccall Hx of foot surgery lt foot rebuilt Hx of colonoscopy Hx of bilateral cataract extraction History of hysterectomy with bilateral oophorectomy H/O oral surgery S/P cholecystectomy H/O arthroscopy of left knee Family History Mother Coronary heart disease Diabetes Obesity Hypertension Heart disease Father Obesity Hypertension Heart disease Grandfather (Maternal) Myocardial infarction Other Cancer No family history of adverse response to anesthesia No family history of bleeding disorder Denies family history of Ovarian cancer Prostate cancer Breast cancer Colorectal cancer Social History Smoking Status: Former smoker Tobacco Type: Cigarettes Age Started Using Tobacco: 20; Age Quit Using Tobacco: 50; Second Hand Exposure: No; Hx Alcohol Use: No Hx Substance Use: No Preferred Language: Ukrainian Communication Ability: Effective Visual Impairment: Partially Limited Fisher Line Required: No Beliefs That Will Affect Care: None marital status: / Current Living Situation: Alone Current Living Situation Comment: daughter current occupational status: unemployed How many Children do You have: 2 Feels Safe at Home: Yes Safety Concerns: Feels Safe At This Time Dental Care, Regularly: Yes Physical Activity Frequency: 1-2 Times per Week Seatbelt Use: always Sunscreen Use: Yes Assistive Devices: Cane, CPAP and Glasses Review of Systems Review of Systems: denies recent fever, body aches, chills, sweats, headache, dizziness, nausea/vomiting/diarrhea Physical Exam Physical Exam: Constitutional: A&Ox3, appearing in moderate distress, tearful at times but also smiling at times HEENT: EOM intact, PERRL b/l, anicteric sclerae, moist oral mucus membranes Cardiovascular: RRR, +s1/s2, no murmurs/rubs/gallops Respiratory: clear to auscultation b/l, air entry limited by obesity, no wheezes/rales/rhonchi heard GI/Abd: +BS, obese, upper abdomen dull to percussion with some tenderness, fluid wave visualized, appears distended and tense with tenderness to palpation par ticular of RUQ and epigastric region, neg jackson's sign; no ecchymosis, rashes, or lesions observed MSK: 5/5 strength in all extremities, no significant edema, Neuro: no facial droop, speech intact, sensation grossly intact Skin: b/l feet and distal LE dry, no rashes, sores, or lesions aside from those documented above Results & Data Results & Data Vital Signs (Past 12 Hours) Vital Signs Temp Pulse Pulse Resp BP BP Pulse Ox 07/27/24 16:00 93 H 18 118/68 96 07/27/24 15:50 95 H 20 135/62 96 07/27/24 15:40 97 H 16 120/72 99 07/27/24 15:30 92 H 16 123/74 97 07/27/24 15:20 83 18 93/60 L 96 07/27/24 15:10 82 20 94/54 L 97 07/27/24 15:00 85 16 75/48 L 96 07/27/24 14:40 36.8 C 86 18 111/86 98 07/27/24 13:58 89 18 107/50 L 07/27/24 13:31 36.4 C L 96 H 18 100/52 L 96 07/27/24 12:50 101/52 L 07/27/24 12:45 94 H 07/27/24 12:04 88 95/57 L 07/27/24 12:03 99 07/27/24 11:52 93 H 19 78/43 L 99 07/27/24 11:45 36.6 C 90 18 78/43 L 97 O2 Del Method 07/27/24 16:00 Room Air 07/27/24 15:50 Room Air 07/27/24 15:40 Room Air 07/27/24 15:30 07/27/24 15:20 Room Air 07/27/24 15:10 Room Air 07/27/24 15:00 Room Air 07/27/24 14:40 Room Air 07/27/24 13:58 07/27/24 13:31 Room Air 07/27/24 12:50 07/27/24 12:45 07/27/24 12:04 07/27/24 12:03 Room Air 07/27/24 11:52 Room Air 07/27/24 11:45 Room Air Diagnostic Findings PET/CT scan skull base to thigh, 07/12/24: IMPRESSION: 1. [id number] left pleural effusion has increased in size from the 05/24/2024 study and demonstrates low-level FDG uptake. Findings could be correlated with thoracentesis. 2. Progressive omental/peritoneal carcinomatosis throughout the abdomen and pelvis with worsening ascites. 3. Persistent yet improved right-sided hydronephrosis with a right ureteral stent in place. Associated urothelial thickening could be correlated with urinalysis. Resident Activity Tracking Resident Involvement: Resident Care Provided Care Provided: Adult [facility] (5) Hypertension Hypertension type: unspecified Qualified Code(s): I10 - Essential (primary) hypertension
--- NOTE | 2024-07-27 16:35 | Billing Data ---
Date of Service July 27, 2024 I have personally spent 70 minutes of critical care time in the direct management of this patient. This is a life/limb threatening event. This includes time spent evaluating patient, direct bedside care, chart review, placing orders, interpretation of diagnostic studies, discussion with consultants, patient, and/or family members regarding treatment decisions, as well as other required patient management activities. This time is exclusive of all separately billable procedures, and teaching time and separate from and in addition to any other critical care service time. Coding Level of Care Code 62402 CRITICAL CARE 1ST 30-74M Time Spent (min) 70 Comment
[2024-07-27] MEDS: PLASMA-LYTE A 1,000 ML IV SCH (17:44)
[2024-07-27] MEDS: MAGNESIUM SULFATE / D5W 1 GM/100 ML BAG IV STA (17:45)
[2024-07-27] MEDS: HEPARIN 25000 UNIT/500 ML 25,000 UNITS/500 ML BAG IV SCH (17:45)
[2024-07-27] MEDS: Heparin IV Adult Wt-Based Standard *NO* INITIAL Bolus Protocol IV STA (18:04)
[2024-07-27] MEDS: ICU Protocol for HYPERglycemia SCH (18:04)
[2024-07-27] MEDS: STAT IV Infusion **Titration per Protocol STA (18:05)
[2024-07-27] MEDS: oxyCODONE HCL IR 5 MG TAB (IMMEDIATE RELEASE) PO PRN (18:21)
--- NOTE | 2024-07-27 18:29 | Emergency Department Note ---
Impression & Plan Sepsis, Ovarian cancer, UTI (urinary tract infection), Acute renal failure, Retained ureteral stent, Abdominal ascites ED Provider Note NAME: REYNALDO NIEVES AGE: 59 SEX: Female INFORMANT: Patient and family ED PROVIDER(S): Reji Quevedo MD CHIEF COMPLAINT: Dizzy, hypotension PLAN: Disposition: Admitted Outpatient prescription management: none Referral: None MEDICAL DECISION MAKING: patient presented because of dizziness and hypotension. She was hypotensive and had fluid boluses administered. Patient CBC showed an anemia. Chemistry panel revealed acute renal failure. Urinalysis was concerning for infection. ECG did not show any acute ischemia. Patient had a normal lactate. Patient had persistent hypotension recur after she received 2.5 L of normal saline. She had additional normal saline liter ordered as well as broad-spectrum antibiotics. The patient received cefepime and daptomycin. Patient was also treated with a dose of IV fentanyl. She was given IV magnesium. Due to the persistent hypotension she was started on Levophed. I did consult with Dr. Pro of the [facility] hospitalist service. Case was discussed and diagnostics were reviewed. He did ask for a critical care consult and I discussed the case with Dr. Martinez. He asked for a random cortisol level and will evaluate the patient in the ER. Patient was evaluated in the ER by internal medicine as well as critical care medicine. Patient will be admitted to the ICU for further management. Care/management discussed with: project management manager, critical care, hospitalist. I also discussed patient's antibiotic choice with hospital pharmacist who agreed with treatment. Level of care consideration(s): After review of the information above and other included data, I feel the patient requires escalation of care to admission Triage Nursing notes: reviewed and agree them. Vital Signs: reviewed and remarkable for hypotension Additional History obtained from: Patient's family regarding her cancer care. Chronic Medical/Social Conditions affecting care: Ovarian cancer Prior/ Outside/ External records reviewed: none Differential Diagnosis: Sepsis, UTI, pneumonia, metabolic, electrolyte abnormalities, cardiac sources, intracerebral event, toxicologic, neurologic, as well as other pathologies. Diagnostics, independently interpreted by me: ECG: Twelve-lead ECG reveals a sinus rhythm with short KS at 94 bpm. Low voltage QRS. Nonspecific ST. Cardiac Monitoring: Cardiac monitoring ordered by me: The patient was placed on continuous cardiac monitoring and observed. It revealed a normal sinus rhythm at 94 beats per minute without ectopy or evidence of dysrhythmia. Medical decision rules: none Imaging studies: Chest x-ray. Findings: A chest x-ray was performed and revealed no pneumothorax, poulmonary edema, free air under the diaphragm, or wide mediastinum. Pleural effusion noted on the right side. CT scan of the abdomen pelvis reveals a right ureteral stent in place. large amount of ascites noted. The left-sided pleural effusion appears to cause some compressive atelectasis without focal infiltrate. HPI: 59 year old Female arrives for evaluation of dizziness and hypotension. Patient was referred from the cancer center. She has a history ovarian cancer. She was following up with her doctors there. She was noted to be hypotensive and symptomatic. Patient feels generally weak. She was sent to the ER. Patient recently had a ureteral stent placed and was on antibiotics. She notes some pain in the right flank area. She has had some urinary symptoms as well. Patient states that she was trying to drink more fluids. She does note some abdominal distention. Pt denies LOC, headache, fevers, chills, diaphoresis, visual changes, neck pain, chest pain, breathing difficulties, nausea, vomiting, left abdominal pain, left back pain, melena, hematochezia, urinary symptoms, numbness, lymphadenopathy, rash, or other complaints.. PAST MEDICAL HISTORY: See Below, ovarian cancer PAST SURGICAL HISTORY: See Below, right ureteral stent SOCIAL HISTORY: See Below, former smoker HOME MEDICATIONS: See Below ALLERGIES: See Below VITALS: See Below PHYSICAL EXAMINATION: GENERAL: Awake, alert, uncomfortable-appearing, in no distress HENT: Normocephalic, atraumatic. Oropharynx with dry mucous membranes. EYES: Normal conjunctiva. Sclera non-icteric. NECK: Inspection normal. Non-tender. Supple. No nuchal rigidity. FROM. No masses. RESPIRATORY: Clear to auscultation. No wheezes. No rales. Normal respiratory effort. CARDIAC: Normal rate. Normal rhythm. No murmurs. No rubs. Extremities warm and well perfused. Pulses equal. No JVD. GI: Soft, non-distended. No tenderness to palpation. No rebound or guarding. No masses. RECTAL: Deferred. MUSCULOSKELETAL: Atraumatic. Chest examination reveals no tenderness. The back is symmetrical on inspection without obvious abnormality. There is right CVA tenderness to palpation. No joint edema. LOWER EXTREMITIES: Calves are equal size bilaterally and non-tender. No edema. No discoloration. NEURO: Normal sensorium. No sensory or motor deficits noted. SKIN: No rash or jaundice noted. PROCEDURES: none CRITICAL CARE: I have personally spent 75minutes of critical care time in the direct management of this patient. This includes bedside care, interpretation of diagnostic studies, and testing, discussion with consultants, patient, and family members, and other required patient management activities. These minutes are in excess of all separately billable procedures. 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 has had IV chemo treatments x 3 since dx'd. last treatment 09/15/23. Obesity (Acute) Hypertension GERD (gastroesophageal reflux disease) Medical History Hydronephrosis Hx of syncope (2019) occurred w/ chemo tx. and "blood pressure crashed," spent 5 days at [facility]. (2019 per chart review) Hx pulmonary embolism (07/2023) takes eliquis, no clots since Morbid obesity History of blood transfusion Sinus bradycardia happened after 1st round of chemo and is ongoing Ovarian cancer dx 03/2020, sx and chemo; currently on oral chemo (for the last 3 years) recent recurrence. 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 Hypertension controlled, stable per pt Hyperlipidemia Heart disease GERD (gastroesophageal reflux disease) controlled, stable per pt Hx: UTI (urinary tract infection) 05/01/24, currently on abx for UTI Depression Bilateral tinnitus Chronic low back pain Arthritis Anxiety Pulmonary hypertension mild to moderate per cardiology History of COVID-19 (03/2023) 03/2023, home test, not hosp; body aches, fatigue, diarrhea>resolved, no current symptoms Nausea and vomiting after administration of anesthetic agent happened during one surgery only DJD (degenerative joint disease) knees and shoulder - recently cancelled left knee surgery due to potential need for additional chemo- having pet scan in [place] History of palpitations has had them since going through chemo 2019, has been on and off since; currently following w/ [facility] Sleep apnea CPAP-compliant Surgical History Port-A-Cath in place (06/27/24) Insertion of Access Port Right IJ with Fluoroscopy(Right) - Dany Nguyễn DO Hx of cardiac catheterization (06/19/24) told "false stress test" - only added isosorbide to medical regimen- follows with [facility] Hx of foot surgery lt foot rebuilt Hx of colonoscopy Hx of bilateral cataract extraction History of hysterectomy with bilateral oophorectomy H/O oral surgery S/P cholecystectomy H/O arthroscopy of left knee Family History Mother Coronary heart disease Diabetes Obesity Hypertension Heart disease Father Obesity Hypertension Heart disease Grandfather (Maternal) Myocardial infarction Other Cancer No family history of adverse response to anesthesia No family history of bleeding disorder Denies family history of Ovarian cancer Prostate cancer Breast cancer Colorectal cancer Social History Smoking Status: Former smoker Tobacco Type: Cigarettes Age Started Using Tobacco: 20; Age Quit Using Tobacco: 50; Second Hand Exposure: No; Hx Alcohol Use: No Hx Substance Use: No Preferred Language: Japanese Communication Ability: Effective Visual Impairment: Partially Limited Acid Adjuster Required: No Beliefs That Will Affect Care: None marital status: / Current Living Situation: Alone Current Living Situation Comment: daughter current occupational status: unemployed How many Children do You have: 2 Feels Safe at Home: Yes Safety Concerns: Feels Safe At This Time Dental Care, Regularly: Yes Physical Activity Frequency: 1-2 Times per Week Seatbelt Use: always Sunscreen Use: Yes Assistive Devices: Cane, CPAP and Glasses Allergies Allergies Allergy/AdvReac Type Severity Reaction Status Date / Time No Known Drug Allergies Allergy Verified 07/27/24 14:31 Home Meds Home Medications Medication Instructions Recorded Confirmed multivitamin (Multiple Vitamins 1 tab PO QAM 01/08/21 07/27/24 tablet) cyanocobalamin (vitamin B-12) 1 tab PO QAM 05/19/23 07/27/24 duloxetine 60 mg capsule,delayed 60 mg PO QAM 05/19/23 07/27/24 release gabapentin 100 mg capsule 100 mg PO BID 05/19/23 07/27/24 lisinopril 10 mg tablet 10 mg PO QAM 05/19/23 07/27/24 metoprolol tartrate 50 mg tablet 50 mg PO HS 05/19/23 07/27/24 vitamin E (dl, acetate) 180 mg 180 mg PO QAM 05/19/23 07/06/24 (400 unit) capsule apixaban 5 mg tablet (Eliquis) 5 mg PO BID 08/04/23 07/27/24 gabapentin 300 mg capsule 600 mg PO HS 08/04/23 07/27/24 oxycodone 5 mg tablet 5 mg PO Q6H PRN Pain 04/19/24 07/27/24 duloxetine 30 mg capsule,delayed 30 mg PO HS 05/01/24 07/27/24 release aspirin 81 mg tablet 81 mg PO QAM 06/06/24 07/27/24 rosuvastatin 5 mg tablet 5 mg PO QAM 06/06/24 07/27/24 amlodipine 5 mg tablet 5 mg PO QAM 06/22/24 07/27/24 isosorbide mononitrate 30 mg 30 mg PO QAM 06/22/24 07/27/24 tablet,extended release 24 hr Previous Rx's Medication Instructions Recorded omeprazole 20 mg capsule,delayed 20 mg PO BID #180 caps 12/20/20 release fluticasone propionate 50 2 spray intranasal DAILY PRN 05/21/23 mcg/actuation nasal Congestion #48 grams spray,suspension tamsulosin 0.4 mg capsule (Flomax) 0.4 mg PO DAILY kidney stone #30 07/13/24 caps amoxicillin 500 mg-potassium 1 tab PO Q12H #14 tabs 07/20/24 clavulanate 125 mg tablet (Augmentin) Results & Data (ED) Vital Signs Vital Signs - 24 hr 07/27/24 11:45 07/27/24 11:52 07/27/24 12:03 Temperature 36.6 C Temperature Source Oral Pulse Rate 90 Pulse Rate [Apical] 93 H Pulse Rhythm [Apical] Pulse Strength Normal Pulse Strength [Apical] Normal Respiratory Rate 18 19 Respiratory Effort / Characteristics Non-Labored Spontaneous Non-Labored Spontaneous Respiratory Depth Normal Normal Respiratory Pattern Regular Blood Pressure 78/43 L Blood Pressure [Left Arm] 78/43 L Blood Pressure Mean 54 Blood Pressure Mean [Left Arm] 54 Pulse Oximetry 97 99 99 Oxygen Delivery Method Room Air Room Air Room Air Sepsis Recent Fever Within 48 Hours No Sepsis New/Unexplained Change in Mental Status No Sepsis Action Taken by Nursing No Action Required 07/27/24 12:04 07/27/24 12:45 07/27/24 12:50 Temperature Temperature Source Pulse Rate 94 H Pulse Rate [Apical] 88 Pulse Rhythm [Apical] Pulse Strength Pulse Strength [Apical] Respiratory Rate Respiratory Effort / Characteristics Respiratory Depth Respiratory Pattern Blood Pressure Blood Pressure [Left Arm] 95/57 L 101/52 L Blood Pressure Mean Blood Pressure Mean [Left Arm] 69 68 Pulse Oximetry Oxygen Delivery Method Sepsis Recent Fever Within 48 Hours Sepsis New/Unexplained Change in Mental Status Sepsis Action Taken by Nursing 07/27/24 13:31 07/27/24 13:58 07/27/24 14:40 Temperature 36.4 C L 36.8 C Temperature Source Oral Oral Pulse Rate Pulse Rate [Apical] 96 H 89 86 Pulse Rhythm [Apical] Regular Pulse Strength Pulse Strength [Apical] Normal Normal Normal Respiratory Rate 18 18 18 Respiratory Effort / Characteristics Non-Labored Spontaneous Non-Labored Spontaneous Respiratory Depth Normal Normal Respiratory Pattern Regular Regular Blood Pressure Blood Pressure [Left Arm] 100/52 L 107/50 L 111/86 Blood Pressure Mean Blood Pressure Mean [Left Arm] 68 69 94 Pulse Oximetry 96 98 Oxygen Delivery Method Room Air Room Air Sepsis Recent Fever Within 48 Hours Sepsis New/Unexplained Change in Mental Status Sepsis Action Taken by Nursing 07/27/24 15:00 07/27/24 15:10 07/27/24 15:20 Temperature Temperature Source Pulse Rate 85 82 83 Pulse Rate [Apical] Pulse Rhythm [Apical] Pulse Strength Pulse Strength [Apical] Respiratory Rate 16 20 18 Respiratory Effort / Characteristics Respiratory Depth Respiratory Pattern Blood Pressure 75/48 L 94/54 L 93/60 L Blood Pressure [Left Arm] Blood Pressure Mean 62 69 62 Blood Pressure Mean [Left Arm] Pulse Oximetry 96 97 96 Oxygen Delivery Method Room Air Room Air Room Air Sepsis Recent Fever Within 48 Hours Sepsis New/Unexplained Change in Mental Status Sepsis Action Taken by Nursing 07/27/24 15:30 07/27/24 15:40 Temperature Temperature Source Pulse Rate 92 H 97 H Pulse Rate [Apical] Pulse Rhythm [Apical] Pulse Strength Pulse Strength [Apical] Respiratory Rate 16 16 Respiratory Effort / Characteristics Respiratory Depth Respiratory Pattern Blood Pressure 123/74 120/72 Blood Pressure [Left Arm] Blood Pressure Mean 87 80 Blood Pressure Mean [Left Arm] Pulse Oximetry 97 99 Oxygen Delivery Method Room Air Sepsis Recent Fever Within 48 Hours Sepsis New/Unexplained Change in Mental Status Sepsis Action Taken by Nursing Laboratory Data 07/27/24 11:45 07/27/24 11:45 Lab Results 07/27/24 07/27/24 07/27/24 Range/Units 11:45 12:39 15:14 WBC 8.99 (4.8-10.8) K/ul RBC 3.16 L (4.20-5.40) M/uL Hgb 8.8 L (12.0-16.0) g/dl Hct 28.5 L (37.0-47.0) % MCV 90.2 (80.0-100.0) fL MCH 27.8 (25.0-34.0) pg MCHC 30.9 L (32.0-36.0) g/dL RDW Std Deviation 48.5 H (36.4-46.3) fL RDW Coeff of Asher 14.6 H (11.5-14.5) % Plt Count 452 H (130-400) K/uL MPV 9.3 L (9.4-12.4) fL Immature Gran % (Auto) 0.4 % Neut % (Auto) 79.9 % Lymph % (Auto) 9.9 % [place] % (Auto) 8.0 % Eos % (Auto) 1.2 % Baso % (Auto) 0.6 % Neut # (Auto) 7.18 H (1.40-6.50) K/uL Lymph # (Auto) 0.89 L (1.20-3.40) K/uL [place] # (Auto) 0.72 H (0.11-0.59) K/uL Eos # (Auto) 0.11 (0.00-0.50) K/uL Baso # (Auto) 0.05 (0.00-0.20) K/uL Immature Gran # (Auto) 0.04 (0.01-0.20) K/uL PT 12.9 H (9.0-12.0) Seconds INR 1.2 H (0.9-1.1) Sodium 131 L (136-145) mmol/L Potassium 5.0 (3.5-5.1) mmol/L Chloride 96 L (98-107) mmol/L Carbon Dioxide 25 (21-32) mmol/L Anion Gap 10 (3-11) BUN 17 (6-23) mg/dl Creatinine 1.96 H (0.6-1.2) mg/dl Est Cr Clr Drug Dosing 45.1 ml/min eGFR 28.94 BUN/Creatinine Ratio 8.7 L (10-20) Glucose 142 H (70-99(Fasting)) mg/dl Lactate 1.0 (0.4-2.0) mmol/L Calcium 8.9 (8.6-10.3) mg/dl Magnesium 1.4 L (1.7-2.4) mg/dl Total Bilirubin 0.4 (0.2-1.0) mg/dl Direct Bilirubin 0.2 (0-0.2) mg/dl AST 35 (13-39) U/L ALT 47 (7-52) U/L Alkaline Phosphatase 83 (34-104) U/L Troponin I High Sens < 2.3 (0-14) pg/ml Total Protein 6.6 (6.0-8.3) gm/dl Albumin 3.2 L (3.4-5.0) gm/dl Procalcitonin 0.24 (0-0.5) ng/ml Random Cortisol 12.99 mcg/dl Administered Medications Daptomycin 550 mg/ Syringe 11 mls @ 5.5 mls/min IV Q24H [facility]; Protocol Stop: 07/29/24 12:44 Last Admin: 07/27/24 13:14 Dose: 5.5 mls/min Documented By: GGG Norepinephrine Bitartrate (Levophed/D5w) 4 mg in 250 mls @ 15.975 mls/hr IV .[id number] JUAN CARLOS; Protocol Stop: 08/26/24 15:14 Last Titration: 07/27/24 18:50 Dose: 0.03 mcg/kg/min, 16 mls/hr Documented By: CELESTINE Co-signed By: DEON Titration: 07/27/24 18:36 Dose: 0.03 mcg/kg/min, 16 mls/hr Documented By: CELESTINE Co-signed By: GIFTY Titration: 07/27/24 16:41 Dose: 0.05 mcg/kg/min, 26.6 mls/hr Documented By: CELESTINE Co-signed By: HEYDI Admin: 07/27/24 15:19 Dose: 0.05 mcg/kg/min, 26.6 mls/hr Documented By: ULISSES Co-signed By: PAOLA Parenteral Electrolytes (Plasma-Lyte A Ph 7.4) 1,000 mls @ 125 mls/hr IV .Q8H JUAN CARLOS Stop: 07/28/24 15:59 Last Admin: 07/27/24 17:44 Dose: 125 mls/hr Documented By: RANDOLPH Heparin Sodium/Dextrose (Heparin 93174 Unit/500 Ml) 25,000 units in 500 mls @ 33 mls/hr IV .[id number] JUAN CARLOS; Protocol Stop: 08/26/24 17:14 Last Titration: 07/27/24 18:50 Dose: 1,650 units/hr, 33 mls/hr Documented By: CELESTINE Co-signed By: DEON Admin: 07/27/24 17:45 Dose: 1,650 units/hr, 33 mls/hr Documented By: RANDOLPH Co-signed By: CELESTINE Miscellaneous (Icu Protocol For Hyperglycemia) 1 each N/A ACHS [facility] Stop: 07/29/24 16:58 Last Admin: 07/27/24 18:04 Dose: Not Given Documented By: CELESTINE Oxycodone HCl (Oxycodone Hcl Ir 5 Mg Tab (Immediate Release)) 5 mg PO Q6H PRN PRN Reason: Pain Stop: 08/10/24 16:58 Last Admin: 07/27/24 18:21 Dose: 5 mg Documented By: CELESTINE Discontinued Medications Fentanyl Citrate (Fentanyl Citrate Pf 100 Mcg/2 Ml Vial) 50 mcg IV NOW STA Stop: 07/27/24 14:12 Last Admin: 07/27/24 14:20 Dose: 50 mcg Documented By: LUCRETIA Heparin Sodium/Dextrose (Heparin Iv Adult Wt-Based Standard *No* Initial Bolus Protocol) 1 each IV ONE STA; Protocol Stop: 07/27/24 17:00 Last Admin: 07/27/24 18:04 Dose: 1 each Documented By: CELESTINE Sodium Chloride (Nss) 1,000 mls @ 999 mls/hr IV .Q1H1M JUAN CARLOS Stop: 07/27/24 13:00 Last Infusion: 07/27/24 14:00 Dose: Infused Documented By: Admin: 07/27/24 12:48 Dose: 999 mls/hr Documented By: LUCRETIA Sodium Chloride (Nss) 1,000 mls @ 999 mls/hr IV .Q1H1M ONE Stop: 07/27/24 13:14 Last Infusion: 07/27/24 14:00 Dose: Infused Documented By: Admin: 07/27/24 12:47 Dose: 999 mls/hr Documented By: LUCRETIA Cefepime HCl (Maxipime 2000mg) 2,000 mg in 20 mls @ 5 mls/min IV NOW STA; Protocol Stop: 07/27/24 12:17 Last Admin: 07/27/24 13:25 Dose: 5 mls/min Documented By: LUCRETIA Sodium Chloride (Nss) 500 mls @ 999 mls/hr IV .Q31M ONE Stop: 07/27/24 13:15 Last Infusion: 07/27/24 14:00 Dose: Infused Documented By: Admin: 07/27/24 12:48 Dose: 999 mls/hr Documented By: LUCRETIA Magnesium Sulfate/Dextrose (Magnesium Sulfate / D5w) 1 gm in 100 mls @ 50 mls/hr IV ONE ONE Stop: 07/27/24 14:45 Last Infusion: 07/27/24 14:39 Dose: Infused Documented By: Admin: 07/27/24 13:28 Dose: 50 mls/hr Documented By: LUCRETIA Sodium Chloride (Nss) 1,000 mls @ 999 mls/hr IV .Q1H1M ONE Stop: 07/27/24 16:07 Last Infusion: 07/27/24 17:09 Dose: Infused Documented By: Admin: 07/27/24 15:19 Dose: 999 mls/hr Documented By: ULISSES Magnesium Sulfate/Dextrose (Magnesium Sulfate / D5w) 1 gm in 100 mls @ 100 mls/hr IV NOW STA Stop: 07/27/24 16:44 Last Infusion: 07/27/24 19:09 Dose: Infused Documented By: Admin: 07/27/24 17:45 Dose: 100 mls/hr Documented By: RANDOLPH Miscellaneous (Stat Iv Infusion Titration Per Protocol) 1 each N/A NOW STA Stop: 07/27/24 15:08 Last Admin: 07/27/24 18:05 Dose: Not Given Documented By: [facility] Imaging Data Radiologist's Impression: Chest X-Ray 07/27/24 12:00 XR chest 1V portable CLINICAL HISTORY: Sepsis COMPARISON STUDY: 06/27/2024 FINDINGS: Stable right chest port. Heart size and pulmonary vasculature are normal. There is increased hazy opacity at the left base with blunting of left costophrenic angle and obscuration of the left hemidiaphragm. No pneumothorax. IMPRESSION: Increased left pleural effusion/consolidation left lung base. ACT 112: Negative or not required by law. Electronically signed by: Sami Rosado M.D. 07/27/2024 1:23 PM Abdomen/Pelvis CT 07/27/24 12:10 CT abd pelvis wo con CLINICAL HISTORY: right flank pain, hypotension TECHNIQUE: Helical axial images of the abdomen and pelvis were obtained. Automated dose lowering techniques and/or adjustment according to patient size were utilized for this exam. This exam was performed without intravenous contrast. CT DOSE: 1384.64 mGy.cm COMPARISON: Comparison is made to CT abdomen pelvis 05/24/2024 FINDINGS: Lower chest: There is a moderate left pleural effusion with underlying atelectasis. Liver: Unremarkable. No focal lesions are seen. Gallbladder and biliary tree: Patient is status post cholecystectomy. No intra- or extrahepatic biliary ductal dilation. Pancreas: Fatty replacement of the pancreas is seen. Spleen: Unremarkable. Adrenals: Unremarkable. Kidneys and ureters: A right-sided double-J stent is seen. Bladder: Limited evaluation due to underdistention. Reproductive organs: Patient is status post hysterectomy. Bowel: Unremarkable. Lymph nodes Retroperitoneal: Unremarkable. Pelvic: Unremarkable. Mesenteric: Unremarkable. Peritoneum: Large ascites is seen. Vessels: Unremarkable. Abdominal wall: Unremarkable. Bones: Degenerative changes in the visualized spine. IMPRESSION: 1. Interval development of large ascites. 2. There is a right nephroureteral stent without evidence of hydronephrosis or obstruction. 3. Moderate left pleural effusion with underlying atelectasis. ACT 112: Negative or not required by law. Electronically signed by: Ash Espinoza M.D. 07/27/2024 12:41 PM Discharge Plan Visit Data Chief Complaint: Illness ED Provider: Reji Quevedo Discharge Problem: Sepsis, Ovarian cancer, UTI (urinary tract infection), Acute renal failure, Retained ureteral stent, Abdominal ascites Patient Disposition: Admitted As Inpatient Discharge Instructions Interventions: ED Discharge Assessment Last Done: 07/27/24 16:11
[2024-07-27] MEDS: HYDROmorphone INJ 0.5 MG/0.5 ML SYR IV STA (19:26)
[2024-07-27] MEDS: GABAPENTIN 300 MG CAP PO SCH (19:46)
[2024-07-27] MEDS: DULoxetine HCL 30 MG CAP PO SCH (19:46)
[2024-07-27] MEDS: GABAPENTIN 100 MG CAP PO SCH (19:48)
[2024-07-27] MEDS: PANTOprazole 40 MG TAB PO SCH (19:49)
--- NOTE | 2024-07-27 20:52 | Urology Consultation ---
Date of Consultation July 27, 2024 Assessment & Plan (1) UTI (urinary tract infection): Patient has been admitted on the hospital service and is currently in the intensive care unit. From a urologic perspective we recommend the following: Patient was noted to be in septic shock upon arrival and was hypotensive. She is currently receiving intravenous fluids which should continue and she is also on Levophed for blood pressure support which should be continued and wean as tolerated She has been placed on broad-spectrum antibiotics in form of cefepime and daptomycin which should continue. Appropriate cultures have been sent and as culture data is retrieved antibiotics be tailored accordingly Would recommend maintaining Sam catheter for maximal urinary drainage. If this does become clogged flushing irrigating can be performed by nursing staff at bedside Concerning patient's ureteral stent this appears to be in good position and appears to be functioning appropriately so no urologic intervention is required at this time Additional recommendations with forthcoming based on her clinical course as it unfolds (2) Sepsis: History of Present Illness Reason for Consultation: UTI with history of ureteral stent Attending Physician: Roshan Pro MD History of Present Illness This is a 59-year-old female who is known to [facility] group urology. On 07/06/2024 Dr. Oziel Souza performed a cystoscopy with insertion of a right ureteral stent. This was performed secondary to hydronephrosis with a focal narrowing point noted in the ureter. The patient does have an underlying history of ovarian cancer and she follows with [facility] group hematology/oncology and she has not yet initiated treatment for her ovarian cancer. She notes that she was seeing her oncology team earlier today and she was noted to be hypotensive, dizzy, and short of breath in the office and therefore referred to the emergency department for further evaluation. The patient notes concerning urologic symptoms she has been urinating without difficulty and she is not having any dysuria. She does note that she does have some intermittent right flank pain in the region of where her ureteral stent was placed. She denies any nausea or vomiting. She denies any abdominal pain. Patient's records were reviewed and on 07/20/2024 she did have a urine culture with pansensitive E. coli noted. The patient does report that she has been taking outpatient antibiotics for this issue. Since arrival to the emergency department she has had labs and imaging which independent reviewed. CBC revealed white blood cell count was normal. Her hemoglobin and hematocrit were 8.8 and 20.5. Platelet count was 152,000. Coagulation studies showed an INR of 1.2. Chemistry profile showed sodium was 131 with a potassium of 5.0. BUN and creatinine were noted to be 17 and 1.9. A urinalysis was performed that showed cloudy urine which was positive for nitrites and trace leukocyte Estrace. She had pyuria with greater than 50 white blood cells per high-power field and 4+ bacteria. A bio fire study was perf ormed and all viruses tested for were negative.A chest x-ray was performed which showed a left pleural effusion and potential consolidation of the left lung base. She also had a CT scan of the abdomen pelvis that showed patient had development of a large amount of abdominal ascites. A right nephroureteral stent appeared to be in good position and there is no evidence of obstruction or hydronephrosis. A moderate left pleural effusion was noted on this study. At the time of my interview the patient was resting comfortably in bed and she was in no distress. Allergies Allergy/AdvReac Type Severity Reaction Status Date / Time No Known Drug Allergies Allergy Verified 07/27/24 14:31 Home Medications Medication Instructions Recorded Confirmed Type omeprazole 20 mg capsule,delayed 20 mg PO BID #180 caps 12/20/20 07/27/24 Rx release multivitamin (Multiple Vitamins 1 tab PO QAM 01/08/21 07/27/24 History tablet) cyanocobalamin (vitamin B-12) 1 tab PO QAM 05/19/23 07/27/24 History duloxetine 60 mg capsule,delayed 60 mg PO QAM 05/19/23 07/27/24 History release gabapentin 100 mg capsule 100 mg PO BID 05/19/23 07/27/24 History lisinopril 10 mg tablet 10 mg PO QAM 05/19/23 07/27/24 History metoprolol tartrate 50 mg tablet 50 mg PO HS 05/19/23 07/27/24 History vitamin E (dl, acetate) 180 mg 180 mg PO QAM 05/19/23 07/06/24 History (400 unit) capsule fluticasone propionate 50 2 spray intranasal DAILY PRN 05/21/23 07/27/24 Rx mcg/actuation nasal Congestion #48 grams spray,suspension apixaban 5 mg tablet (Eliquis) 5 mg PO BID 08/04/23 07/27/24 History gabapentin 300 mg capsule 600 mg PO HS 08/04/23 07/27/24 History oxycodone 5 mg tablet 5 mg PO Q6H PRN Pain 04/19/24 07/27/24 History duloxetine 30 mg capsule,delayed 30 mg PO HS 05/01/24 07/27/24 History release aspirin 81 mg tablet 81 mg PO QAM 06/06/24 07/27/24 History rosuvastatin 5 mg tablet 5 mg PO QAM 06/06/24 07/27/24 History amlodipine 5 mg tablet 5 mg PO QAM 06/22/24 07/27/24 History isosorbide mononitrate 30 mg 30 mg PO QAM 06/22/24 07/27/24 History tablet,extended release 24 hr tamsulosin 0.4 mg capsule (Flomax) 0.4 mg PO DAILY kidney stone #30 07/13/24 Rx caps amoxicillin 500 mg-potassium 1 tab PO Q12H #14 tabs 07/20/24 07/27/24 Rx clavulanate 125 mg tablet (Augmentin) Patient History Medical History Hydronephrosis Hx of syncope (2019) occurred w/ chemo tx. and "blood pressure crashed," spent 5 days at [facility]. (2019 per chart review) Hx pulmonary embolism (07/2023) takes eliquis, no clots since Morbid obesity History of blood transfusion Sinus bradycardia happened after 1st round of chemo and is ongoing Ovarian cancer dx 03/2020, sx and chemo; currently on oral chemo (for the last 3 years) recent recurrence. 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 Hypertension controlled, stable per pt Hyperlipidemia Heart disease GERD (gastroesophageal reflux disease) controlled, stable per pt Hx: UTI (urinary tract infection) 05/01/24, currently on abx for UTI Depression Bilateral tinnitus Chronic low back pain Arthritis Anxiety Pulmonary hypertension mild to moderate per cardiology History of COVID-19 (03/2023) 03/2023, home test, not hosp; body aches, fatigue, diarrhea>resolved, no current symptoms Nausea and vomiting after administration of anesthetic agent happened during one surgery only DJD (degenerative joint disease) knees and shoulder - recently cancelled left knee surgery due to potential need for additional chemo- having pet scan in [place] History of palpitations has had them since going through chemo 2019, has been on and off since; currently following w/ [facility] Sleep apnea CPAP-compliant Surgical History Port-A-Cath in place (06/27/24) Insertion of Access Port Right IJ with Fluoroscopy(Right) - Dany Nguyễn, Hx of cardiac catheterization (06/19/24) told "false stress test" - only added isosorbide to medical regimen- follows with [facility]all Hx of foot surgery lt foot rebuilt Hx of colonoscopy Hx of bilateral cataract extraction History of hysterectomy with bilateral oophorectomy H/O oral surgery S/P cholecystectomy H/O arthroscopy of left knee Family History Mother Coronary heart disease Diabetes Obesity Hypertension Heart disease Father Obesity Hypertension Heart disease Grandfather (Maternal) Myocardial infarction Other Cancer No family history of adverse response to anesthesia No family history of bleeding disorder Denies family history of Ovarian cancer Prostate cancer Breast cancer Colorectal cancer Social History Smoking Status: Former smoker Tobacco Type: Cigarettes Age Started Using Tobacco: 20; Age Quit Using Tobacco: 50; Second Hand Exposure: No; Hx Alcohol Use: No Hx Substance Use: No Preferred Language: Slovenian Communication Ability: Effective Visual Impairment: Partially Limited Criminal Attorney Required: No Beliefs That Will Affect Care: None marital status: / Current Living Situation: Alone Current Living Situation Comment: daughter current occupational status: unemployed How many Children do You have: 2 Feels Safe at Home: Yes Safety Concerns: Feels Safe At This Time Dental Care, Regularly: Yes Physical Activity Frequency: 1-2 Times per Week Seatbelt Use: always Sunscreen Use: Yes Assistive Devices: Cane, CPAP and Glasses Review of Systems Review of Systems: All systems reviewed & are unremarkable except as noted in HPI & below Physical Exam Constitutional: WD/WN, vitals as above Eyes: no conjunctival abnormality ENMT: Ears: no hearing impairment and no external ear abnormality Mouth: no oropharynx abnormality Neck: trachea midline Respiratory: normal respiratory effort; no respiratory distress and no labored breathing Cardiovascular: Rate/Rhythm: regular rate and regular rhythm Gastrointestinal (Abdomen): At the time my exam patient's abdomen is soft and nondistended there is no pain with palpation Musculoskeletal: No calf tenderness. Skin: no rashes Neurologic: moves all extremities Psychiatric: A+Ox3, euthymic affect Genitourinary: Patient has some slight CVA tenderness with percussion on the right. No CVA tenderness with percussion on the left. Sam catheter is in place and is patent draining some cloudy colored yellow urine. Results & Data Vital Signs (Past 12 Hours) Vital Signs Temp Pulse Pulse Resp BP BP Pulse Ox 07/27/24 18:42 94 H 20 96 07/27/24 18:30 134/72 07/27/24 18:15 134/75 07/27/24 18:03 94 H 20 97 07/27/24 18:00 114/75 07/27/24 17:56 106/66 07/27/24 17:54 97 H 19 93 07/27/24 17:49 07/27/24 17:33 96 H 07/27/24 17:31 116/79 07/27/24 17:30 95 H 21 94 07/27/24 17:06 36.6 C 07/27/24 17:01 129/81 07/27/24 17:00 92 H 17 95 07/27/24 16:36 98 H 19 93 07/27/24 16:36 123/74 07/27/24 16:00 93 H 18 118/68 96 07/27/24 15:50 95 H 20 135/62 96 07/27/24 15:40 97 H 16 120/72 99 07/27/24 15:30 92 H 16 123/74 97 07/27/24 15:20 83 18 93/60 L 96 07/27/24 15:10 82 20 94/54 L 97 07/27/24 15:00 85 16 75/48 L 96 07/27/24 14:40 36.8 C 86 18 111/86 98 07/27/24 13:58 89 18 107/50 L 07/27/24 13:31 36.4 C L 96 H 18 100/52 L 96 07/27/24 12:50 101/52 L 07/27/24 12:45 94 H 07/27/24 12:04 88 95/57 L 07/27/24 12:03 99 07/27/24 11:52 93 H 19 78/43 L 99 07/27/24 11:45 36.6 C 90 18 78/43 L 97 O2 Del Method 07/27/24 18:42 07/27/24 18:30 07/27/24 18:15 07/27/24 18:03 07/27/24 18:00 07/27/24 17:56 07/27/24 17:54 07/27/24 17:49 Room Air 07/27/24 17:33 07/27/24 17:31 07/27/24 17:30 07/27/24 17:06 07/27/24 17:01 07/27/24 17:00 07/27/24 16:36 07/27/24 16:36 07/27/24 16:00 Room Air 07/27/24 15:50 Room Air 07/27/24 15:40 Room Air 07/27/24 15:30 07/27/24 15:20 Room Air 07/27/24 15:10 Room Air 07/27/24 15:00 Room Air 07/27/24 14:40 Room Air 07/27/24 13:58 07/27/24 13:31 Room Air 07/27/24 12:50 07/27/24 12:45 07/27/24 12:04 07/27/24 12:03 Room Air 07/27/24 11:52 Room Air 07/27/24 11:45 Room Air PG Care Time/CCT Total # of Minutes Spent Total Time Spent with Patient: Total time spent is greater than 50% in coordination of care (as documented) at patient's floor/unit and/or counseling patient: Coding Level of Care Code 78186 IN/OBS CONSULT LVL 5,80M Diagnoses UTI (urinary tract infection) N39.0 Sepsis A41.9
[2024-07-28] MEDS: CEFEPIME 2000MG 2,000 MG/20 ML SYR IV SCH (00:32)
[2024-07-28] MEDS: ACETAMINOPHEN 1,000 MG/100 ML VIAL IV PRN (00:36)
[2024-07-28 01:03] LABS: ANTI-Xa, UFH(UnfractionatedHep > 1.50 IU/ml (0.3-0.7)
[2024-07-28 03:33] LABS: Hematocrit (blood only) 25.4 % (37.0-47.0); Mean Corpuscular Hemoglobin 27.7 pg (25.0-34.0); Mean Corpuscular Hgb Conc 31.5 g/dL (32.0-36.0); Mean Corpuscular Volume 87.9 fL (80.0-100.0); Mean Platelet Volume 9.1 fL (9.4-12.4); Platelet Count 401 K/uL (130-400); RDW Coefficient of Variation 14.7 % (11.5-14.5); RDW Standard Deviation 47.6 fL (36.4-46.3); Red Blood Count 2.89 M/uL (4.20-5.40); White Blood Count 7.41 K/ul (4.8-10.8)
[2024-07-28 03:50] LABS: BUN Creatinine Ratio 12.9 (10-20); Calcium 8.2 mg/dl (8.6-10.3); Creatinine Clr Calc Pharmacy 71.6 ml/min; Magnesium 1.9 mg/dl (1.7-2.4); Potassium 4.6 mmol/L (3.5-5.1)
[2024-07-28 04:01] LABS: ANTI-Xa, UFH(UnfractionatedHep > 1.50 IU/ml (0.3-0.7)
[2024-07-28 04:33] LABS: Partial Thromboplastin Ratio 1.3; Partial Thromboplastin Time 35 Seconds (21-31)
--- NOTE | 2024-07-28 05:08 | Communication Note ---
Date of Service: July 28, 2024 Pt on Eliquis STEM [employer]. Xa level erroneous. PTT sent with level 35 after being held for 2 hours. Will transition to Non-standard protocol and restart at prior dose with recheck in 6 hours. Will not bolus given patient may have bedside procedure today. Restart at 18U/KG/HR. Discussed with Pharmacy and RN. Coding Level of Care Code None
[2024-07-28] MEDS: HEPARIN 25000 UNIT/500 ML 25,000 UNITS/500 ML BAG IV SCH (05:23)
--- NOTE | 2024-07-28 07:02 | Critical Care Progress Note ---
Date of Service July 28, 2024 Assessment & Plan (1) Septic shock: (2) ANIBAL (acute kidney injury): (3) Ovarian cancer: (4) Morbid obesity: (5) Hypertension: (6) Heart disease: (7) Hx pulmonary embolism: Plan Reason Critically Ill: hypotensive in ER requiring vasopressor support, likely urosepsis with component of ovarian carcinomatosis PLAN: Neuro: history of peripheral neuropathy s/p chemotherapy for ovarian cancer, otherwise unremarkable at this time - continue gabapentin and duloxetine at home doses Pain control: oxycodone 5mg q6h prn, Tylenol 1g IV q8 prn, next due 4:30pm Resp: history of PE in Jul 2023 without recurrence due to Eliquis compliance; heparin while in ICU for VTE prophylaxis -> back on Eliquis - cxr 07/27/24 showing L lung base effusion/consolidation per radiology report - CT abd/pelvis 07/27/24 showing moderate L pleural effusion with atelectasis - satting mid-upper 90s on room air, no chest pain or SOB currently Cardiovascular: Vasoactive medication requirements decreasing: currently 0.01mcg/kg/hr, consider weaning off tomorrow 07/29/24 if continues to improve EKG from ER showing normal sinus rhythm compliant with Eliquis post PE in Jul 2023 -> heparin for VTE ppx while in ICU - > back on Eliquis Fluids/Renal: ANIBAL-improving: Cr 1.96 -> 1.24 Hypovolemic hyponatremia, resolving -Awaiting urology consultation: Ureteral stent patency confirmed by uro -Bilateral renal duplex: IMPRESSION: 1. Very limited exam secondary to patient body habitus, ascites and obscuring bowel gas. 2. Mild dilation of the right renal collecting system redemonstrated with unremarkable appearance of the visualized right renal artery and vein. 3. Nonvisualization of the left kidney and aorta. 4. Note that on yesterday's unenhanced CT study, no significant atherosclerosis was seen within the abdominal aorta or renal arteries. ID: Severe sepsis: - UA showing 4+ bacteria, 3+ blood, 3+ protein, 2+ bilirubin, +nitrites -Pre-existing ureteral stent - recently treated for pansensitive E. coli with Augmentin for 7 days - receiving Daptomycin and cefepime: Continue until speciation - pending urine and blood cultures GI/Nutrition: history of ovarian cancer, will need chemotherapy (3rd round: 1st in 2019, 2nd in 2023) per visit with oncologist Dr. 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 Carcinomatosis -Given significant improvement and renal function and decrease in abdominal pain no indication for paracentesis - Dr. Carty wants pt to follow up for 3rd round of chemo as soon as she is over current acute illness - Heart healthy diet as PO is tolerated - GERD: protonix 40mg PO BID : UA showing 4+ bacteria, 3+ blood, 3+ protein, 2+ bilirubin, +nitrites - low UO over the past 24hrs per patient report, ~100cc urine in mirza bag 07/27/24 around 5pm - recently treated for pansensitive E. coli with Augmentin for 7 days - receiving Daptomycin and cefepime - pending urine and blood cultures Heme: Hgb 8.8 -> 8.0, watch for continued downtrending -Anemia - back on Eliquis Systemic anticoagulation secondary to incidental finding of pulmonary venous thromboembolism on prior CT scan Endocrine: glucose 149, consider insulin if remains elevated - BMP in AM Lines: Relatively recent placed port: Nursing reports difficulty in obtaining access -General Surgery consult to evaluate port: "There is no erythema or induration or pain at the site of the port. She has access. I would not recommend any intervention on the port at this time while she is being worked up for her current issues." IV: R and L antecubital VTE Prophylaxis - Eliquis 5mg PO BID Diet - heart healthy Disposition - ICU Admission and Anticipated Discharge Date Admission Date: July 27, 2024 Supervising Physician Co-Signing Physician Notes Dr. Diaz was resident physician during care of patient. I separately evaluated patient for longo portions of the history and the exam. I was present during the critical portion of medical decision making, and I discussed the case with the resident. I generally agree with the findings and plan. Relative adrenal insufficiency based on random cortisol, giving 100 mg Solu-Cortef every 8 hours x 3 doses today then discontinue. Patient was initially placed on heparin for possible need of intervention, has been seen by general surgery with regarding port dysfunction no intervention at this time, no need for thoracentesis nor paracentesis as kidney function improving and patient saturating well on room air. Can transition back to Eliquis, awaiting renal duplex, doubtful this represents Eliquis failure. I have personally spent 45 minutes of critical care time in the direct management of this patient. This is a life/limb threatening event. This includes time spent evaluating patient, direct bedside care, chart review, placing orders, interpretation of diagnostic studies, discussion with consultants, patient, and/or family members regarding treatment decisions, as well as other required patient management activities. This time is exclusive of all separately billable procedures, and teaching time and separate from and in addition to any other critical care service time. Subjective Patient was seen and evaluated at bedside this afternoon, appearing in mild distress, daughter Rain present. Endorses pain mainly in R back, about 8/10 currently. States she recently took oxy but Tylenol worked really well this AM, next due ~4pm. Notes she was visited by Dr. Carty today, he said pt recommended to start 3rd round chemo as soon as she is recovered from current acute illness. Daughter wondering if norepi can be weaned today - patient currently MAP 75 on 0.01mcg/kg/hr, so likely can wean tomorrow 07/29/24 if continues to improve. Denies other questions or concerns at this time. Review of Systems Review of Systems: denies recent fever, body aches, chills, sweats, headache, dizziness, nausea/vomiting/diarrhea Physical Exam Physical Exam: Constitutional: A&Ox3, appearing in mild distress HEENT: EOM intact, PERRL b/l, anicteric sclerae, moist oral mucus membranes Cardiovascular: RRR, +s1/s2, no murmurs/rubs/gallops - pulses: carotid 2+ b/l, radial 2+ b/l, post tib 2+ b/l; good cap refill all ext Respiratory: clear to auscultation b/l, air entry limited by obesity, no wheezes/rales/rhonchi heard GI/Abd: +BS, obese, upper abdomen dull to percussion with some tenderness, fluid wave visualized, appears distended and tense with tenderness to palpation particularly R upper back, RUQ and epigastric region, neg jackson's sign; no ecchymosis, rashes, or lesions observed MSK: 5/5 strength in all extremities, 2+ pitting edema or b/l LE sparing feet, calves nontender to palpation Neuro: no facial droop, speech intact, sensation grossly intact Skin: b/l feet and distal LE dry, no rashes, sores, or lesions aside from those documented above Results & Data Results & Data Vital Signs (Past 12 Hours) Vital Signs Temp Pulse Resp BP Pulse Ox O2 Del Method O2 Flow Rate 07/28/24 05:54 92 H 17 98 07/28/24 05:42 87 16 98 07/28/24 05:36 86 18 98 07/28/24 05:32 111/59 L 07/28/24 05:27 84 14 99 07/28/24 05:24 88 14 98 07/28/24 05:12 83 18 98 07/28/24 05:01 94/59 L 07/28/24 05:00 83 17 97 07/28/24 04:54 87 16 97 07/28/24 04:33 84 16 97 07/28/24 04:31 96/58 L 07/28/24 04:31 96/58 L 07/28/24 04:31 96/58 L 07/28/24 04:24 86 17 96 07/28/24 04:18 85 16 97 07/28/24 04:01 90/65 L 07/28/24 04:01 90/65 L 07/28/24 04:00 82 16 96 07/28/24 04:00 37 C 07/28/24 03:57 86 16 96 07/28/24 03:42 84 17 96 07/28/24 03:36 83 16 96 07/28/24 03:31 111/53 L 07/28/24 03:31 111/53 L 07/28/24 03:31 111/53 L 07/28/24 03:31 111/53 L 07/28/24 03:18 87 15 97 07/28/24 03:01 114/58 L 07/28/24 02:54 97 H 17 95 07/28/24 02:48 95 H 20 94 07/28/24 02:31 98/58 L 07/28/24 02:18 89 18 95 07/28/24 02:12 92 H 18 94 07/28/24 02:01 90/57 L 07/28/24 01:57 91 H 17 95 07/28/24 01:42 91 H 19 95 07/28/24 01:36 89 17 95 07/28/24 01:31 93/57 L 07/28/24 01:31 93/57 L 07/28/24 01:31 93/57 L 07/28/24 01:15 93 H 17 94 07/28/24 01:00 97 H 17 97 07/28/24 00:45 97 H 19 98 07/28/24 00:44 37 C 07/28/24 00:30 97 H 20 99 07/28/24 00:24 95 H 20 98 07/28/24 00:02 109/60 07/28/24 00:00 96 H 19 99 07/27/24 23:51 93 H 20 99 07/27/24 23:42 92 H 18 97 07/27/24 23:36 93 H 20 97 07/27/24 23:30 115/64 07/27/24 23:23 91 H 21 97 07/27/24 23:20 91 H 19 97 07/27/24 23:11 94 H 20 97 07/27/24 23:05 96 H 19 97 07/27/24 23:00 89/64 L 07/27/24 23:00 89/64 L 07/27/24 22:35 95 H 20 97 07/27/24 22:32 95 H 22 98 07/27/24 22:31 90/72 L 07/27/24 22:14 93 H 22 97 07/27/24 22:01 109/61 07/27/24 22:01 109/61 07/27/24 21:59 93 H 20 97 07/27/24 21:56 95 H 19 97 07/27/24 21:41 95 H 20 97 07/27/24 21:32 96 H 22 97 07/27/24 21:30 111/57 L 07/27/24 21:30 111/57 L 07/27/24 21:11 92 H 20 96 07/27/24 21:08 96 H 18 98 07/27/24 21:00 107/91 07/27/24 20:45 93 H 20 98 07/27/24 20:41 91 H 23 99 07/27/24 20:38 95 H 18 98 07/27/24 20:24 91 H 16 96 07/27/24 20:16 107/61 07/27/24 20:12 89 21 98 07/27/24 20:08 90 19 98 07/27/24 20:00 36.9 C 07/27/24 20:00 Nasal Cannula 2 07/27/24 19:35 100/75 07/27/24 19:35 100/75 07/27/24 19:33 97 H 16 91 07/27/24 19:31 104/72 07/27/24 19:31 104/72 07/27/24 19:24 91 H 21 97 07/27/24 19:21 91 H 16 97 07/27/24 19:15 93 H 18 94 Resident Activity Tracking Resident Involvement: Resident Care Provided Care Provided: Adult Hospital Medicine (5) Hypertension Hypertension type: unspecified Qualified Code(s): I10 - Essential (primary) hypertension
--- NOTE | 2024-07-28 07:43 | Billing Data ---
Date of Service July 28, 2024 Coding Level of Care Code 06264 CRITICAL CARE
[2024-07-28] MEDS: HEPARIN 100 UNIT/ML 5ML FLUSH FLUSH PRN (08:37)
[2024-07-28] MEDS: DULoxetine HCL 60 MG CAP PO SCH (08:38)
--- NOTE | 2024-07-28 09:22 | Surgery Consultation ---
Date of Consultation July 28, 2024 Assessment & Plan (1) Ovarian cancer: 59-year-old woman with ovarian cancer and peritoneal carcinomatosis with port placed last month presents to the intensive care unit with low blood pressure. She is being worked up for possible urosepsis. White count is normal. There is no erythema or induration or pain at the site of the port. She has access. I would not recommend any intervention on the port at this time while she is being worked up for her current issues. If the port appears to be the source of infection, we can remove it. We would recommend working up her current issues, and not using the port at this time. Please call with any questions or concern s. History of Present Illness Reason for Consultation: port dysfunction Requesting Physician: Eliu Martinez MD Attending Physician: Ewa Collado MD History of Present Illness 59-year-old woman with ovarian cancer and peritoneal carcinomatosis who had a port placed in June was sent to the hospital/ICU with low blood pressure. There is concern for urosepsis. She has IV access. During the course of her workup, they noted that they could not get the port to flush or withdraw. We have been consulted for port dysfunction. Allergies Allergy/AdvReac Type Severity Reaction Status Date / Time No Known Drug Allergies Allergy Verified 07/27/24 14:31 Home Medications Medication Instructions Recorded Confirmed Type omeprazole 20 mg capsule,delayed 20 mg PO BID #180 caps 12/20/20 07/27/24 Rx release multivitamin (Multiple Vitamins 1 tab PO QAM 01/08/21 07/27/24 History tablet) cyanocobalamin (vitamin B-12) 1 tab PO QAM 05/19/23 07/27/24 History duloxetine 60 mg capsule,delayed 60 mg PO QAM 05/19/23 07/27/24 History release gabapentin 100 mg capsule 100 mg PO BID 05/19/23 07/27/24 History lisinopril 10 mg tablet 10 mg PO QAM 05/19/23 07/27/24 History metoprolol tartrate 50 mg tablet 50 mg PO HS 05/19/23 07/27/24 History vitamin E (dl, acetate) 180 mg 180 mg PO QAM 05/19/23 07/06/24 History (400 unit) capsule fluticasone propionate 50 2 spray intranasal DAILY PRN 05/21/23 07/27/24 Rx mcg/actuation nasal Congestion #48 grams spray,suspension apixaban 5 mg tablet (Eliquis) 5 mg PO BID 08/04/23 07/27/24 History gabapentin 300 mg capsule 600 mg PO HS 08/04/23 07/27/24 History oxycodone 5 mg tablet 5 mg PO Q6H PRN Pain 04/19/24 07/27/24 History duloxetine 30 mg capsule,delayed 30 mg PO HS 05/01/24 07/27/24 History release aspirin 81 mg tablet 81 mg PO QAM 06/06/24 07/27/24 History rosuvastatin 5 mg tablet 5 mg PO QAM 06/06/24 07/27/24 History amlodipine 5 mg tablet 5 mg PO QAM 06/22/24 07/27/24 History isosorbide mononitrate 30 mg 30 mg PO QAM 06/22/24 07/27/24 History tablet,extended release 24 hr tamsulosin 0.4 mg capsule (Flomax) 0.4 mg PO DAILY kidney stone #30 07/13/24 Rx caps amoxicillin 500 mg-potassium 1 tab PO Q12H #14 tabs 07/20/24 07/27/24 Rx clavulanate 125 mg tablet (Augmentin) Patient History Medical History Hydronephrosis Hx of syncope (2019) occurred w/ chemo tx. and "blood pressure crashed," spent 5 days at [facility]. (2019 per chart review) Hx pulmonary embolism (07/2023) takes eliquis, no clots since Morbid obesity History of blood transfusion Sinus bradycardia happened after 1st round of chemo and is ongoing Ovarian cancer dx 03/2020, sx and chemo; currently on oral chemo (for the last 3 years) recent recurrence. 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 Hypertension controlled, stable per pt Hyperlipidemia Heart disease GERD (gastroesophageal reflux disease) controlled, stable per pt Hx: UTI (urinary tract infection) 05/01/24, currently on abx for UTI Depression Bilateral tinnitus Chronic low back pain Arthritis Anxiety Pulmonary hypertension mild to moderate per cardiology History of COVID-19 (03/2023) 03/2023, home test, not hosp; body aches, fatigue, diarrhea>resolved, no current symptoms Nausea and vomiting after administration of anesthetic agent happened during one surgery only DJD (degenerative joint disease) knees and shoulder - recently cancelled left knee surgery due to potential need for additional chemo- having pet scan in [place] History of palpitations has had them since going through chemo 2019, has been on and off since; currently following w/ [facility] Sleep apnea CPAP-compliant Surgical History Port-A-Cath in place (06/27/24) Insertion of Access Port Right IJ with Fluoroscopy(Right) - Dany Nguyễn, Hx of cardiac catheterization (06/19/24) told "false stress test" - only added isosorbide to medical regimen- follows with dallas mccall Hx of foot surgery lt foot rebuilt Hx of colonoscopy Hx of bilateral cataract extraction History of hysterectomy with bilateral oophorectomy H/O oral surgery S/P cholecystectomy H/O arthroscopy of left knee Family History Mother Coronary heart disease Diabetes Obesity Hypertension Heart disease Father Obesity Hypertension Heart disease Grandfather (Maternal) Myocardial infarction Other Cancer No family history of adverse response to anesthesia No family history of bleeding disorder Denies family history of Ovarian cancer Prostate cancer Breast cancer Colorectal cancer Social History Smoking Status: Former smoker Tobacco Type: Cigarettes Age Started Using Tobacco: 20; Age Quit Using Tobacco: 50; Second Hand Exposure: No; Hx Alcohol Use: No Hx Substance Use: No Preferred Language: Tamazight Communication Ability: Effective Visual Impairment: Partially Limited Correctional Therapy Director Required: No Beliefs That Will Affect Care: None marital status: / Current Living Situation: Alone Current Living Situation Comment: daughter current occupational status: unemployed How many Children do You have: 2 Feels Safe at Home: Yes Safety Concerns: Feels Safe At This Time Dental Care, Regularly: Yes Physical Activity Frequency: 1-2 Times per Week Seatbelt Use: always Sunscreen Use: Yes Assistive Devices: Cane, CPAP and Glasses Physical Exam Constitutional: WD/WN, vitals as above Eyes: PERRL, conjunctivae normal, anicteric sclerae Neck: trachea midline, no thyromegaly Respiratory: normal respiratory effort; no respiratory distress Cardiovascular: Rate/Rhythm: regular rate and regular rhythm Skin: no rashes, warm and dry Port right upper chest wall Psychiatric: A+Ox3, euthymic affect Results & Data Vital Signs (Past 12 Hours) Vital Signs Temp Pulse Resp BP Pulse Ox O2 Del Method O2 Flow Rate 07/28/24 08:59 Nasal Cannula 2 07/28/24 08:59 84 07/28/24 08:33 89 16 99 07/28/24 08:31 114/46 L 07/28/24 08:24 87 19 99 07/28/24 08:03 90 18 100 07/28/24 08:01 96/62 L 07/28/24 07:31 94/66 L 07/28/24 07:30 105 H 18 100 07/28/24 07:01 111/56 L 07/28/24 07:00 92 H 17 98 07/28/24 05:54 92 H 17 98 07/28/24 05:42 87 16 98 07/28/24 05:36 86 18 98 07/28/24 05:32 111/59 L 07/28/24 05:27 84 14 99 07/28/24 05:24 88 14 98 07/28/24 05:12 83 18 98 07/28/24 05:01 94/59 L 07/28/24 05:00 83 17 97 07/28/24 04:54 87 16 97 07/28/24 04:33 84 16 97 07/28/24 04:31 96/58 L 07/28/24 04:31 96/58 L 07/28/24 04:31 96/58 L 07/28/24 04:24 86 17 96 07/28/24 04:18 85 16 97 07/28/24 04:01 90/65 L 07/28/24 04:01 90/65 L 07/28/24 04:00 82 16 96 07/28/24 04:00 37 C 07/28/24 03:57 86 16 96 07/28/24 03:42 84 17 96 07/28/24 03:36 83 16 96 07/28/24 03:31 111/53 L 07/28/24 03:31 111/53 L 07/28/24 03:31 111/53 L 07/28/24 03:31 111/53 L 07/28/24 03:18 87 15 97 07/28/24 03:01 114/58 L 07/28/24 02:54 97 H 17 95 07/28/24 02:48 95 H 20 94 07/28/24 02:31 98/58 L 07/28/24 02:18 89 18 95 07/28/24 02:12 92 H 18 94 07/28/24 02:01 90/57 L 07/28/24 01:57 91 H 17 95 07/28/24 01:42 91 H 19 95 07/28/24 01:36 89 17 95 07/28/24 01:31 93/57 L 07/28/24 01:31 93/57 L 07/28/24 01:31 93/57 L 07/28/24 01:15 93 H 17 94 07/28/24 01:00 97 H 17 97 07/28/24 00:45 97 H 19 98 07/28/24 00:44 37 C 07/28/24 00:30 97 H 20 99 07/28/24 00:24 95 H 20 98 07/28/24 00:02 109/60 07/28/24 00:00 96 H 19 99 07/27/24 23:51 93 H 20 99 07/27/24 23:42 92 H 18 97 07/27/24 23:36 93 H 20 97 07/27/24 23:30 115/64 07/27/24 23:23 91 H 21 97 07/27/24 23:20 91 H 19 97 07/27/24 23:11 94 H 20 97 07/27/24 23:05 96 H 19 97 07/27/24 23:00 89/64 L 07/27/24 23:00 89/64 L 07/27/24 22:35 95 H 20 97 07/27/24 22:32 95 H 22 98 07/27/24 22:31 90/72 L 07/27/24 22:14 93 H 22 97 07/27/24 22:01 109/61 07/27/24 22:01 109/61 07/27/24 21:59 93 H 20 97 07/27/24 21:56 95 H 19 97 07/27/24 21:41 95 H 20 97 07/27/24 21:32 96 H 22 97 07/27/24 21:30 111/57 L 07/27/24 21:30 111/57 L Laboratory Results 07/28/24 07/28/24 07/28/24 Range/Units 05:19 03:15 00:08 WBC 7.41 (4.8-10.8) K/ul RBC 2.89 L (4.20-5.40) M/uL Hgb 8.0 L (12.0-16.0) g/dl Hct 25.4 L (37.0-47.0) % MCV 87.9 (80.0-100.0) fL MCH 27.7 (25.0-34.0) pg MCHC 31.5 L (32.0-36.0) g/dL RDW Std Deviation 47.6 H (36.4-46.3) fL RDW Coeff of Asher 14.7 H (11.5-14.5) % Plt Count 401 H (130-400) K/uL MPV 9.1 L (9.4-12.4) fL Immature Gran % (Auto) % Neut % (Auto) % Lymph % (Auto) % [place] % (Auto) % Eos % (Auto) % Baso % (Auto) % Neut # (Auto) (1.40-6.50) K/uL Lymph # (Auto) (1.20-3.40) K/uL [place] # (Auto) (0.11-0.59) K/uL Eos # (Auto) (0.00-0.50) K/uL Baso # (Auto) (0.00-0.20) K/uL Immature Gran # (Auto) (0.01-0.20) K/uL PT (9.0-12.0) Seconds INR (0.9-1.1) APTT 35 H (21-31) Seconds PTT Ratio 1.3 Heparin Anti-Xa, Unfract > 1.50 H* > 1.50 H* (0.3-0.7) IU/ml Sodium 132 L (136-145) mmol/L Potassium 4.6 (3.5-5.1) mmol/L Chloride 101 (98-107) mmol/L Carbon Dioxide 23 (21-32) mmol/L Anion Gap 8 (3-11) BUN 16 (6-23) mg/dl Creatinine 1.24 H D (0.6-1.2) mg/dl Est Cr Clr Drug Dosing 71.6 ml/min eGFR 50.13 BUN/Creatinine Ratio 12.9 (10-20) Glucose 149 H (70-99(Fasting)) mg/dl POC Glucose 156 H (70-99) mg/dl Lactate (0.4-2.0) mmol/L Calcium 8.2 L (8.6-10.3) mg/dl Phosphorus 4.0 (2.5-4.9) mg/dl Magnesium 1.9 (1.7-2.4) mg/dl Total Bilirubin (0.2-1.0) mg/dl Direct Bilirubin (0-0.2) mg/dl AST (13-39) U/L ALT (7-52) U/L Alkaline Phosphatase (34-104) U/L Troponin I High Sens (0-14) pg/ml Total Protein (6.0-8.3) gm/dl Albumin (3.4-5.0) gm/dl Procalcitonin (0-0.5) ng/ml Random Cortisol mcg/dl Urine Color Urine Appearance (Clear) Urine pH (4.5-7.5) Ur Specific [place] (1.000-1.030) Urine Protein (Negative) Urine Glucose (UA) (Negative) Urine Ketones (Negative) Urine Blood (Negative) Urine Nitrite (Negative) Urine Bilirubin (Negative) Urine Urobilinogen (Negative) Ur Leukocyte Esterase (Negative) Urine RBC (0-2) /hpf Urine WBC (0-5) /hpf Ur Epithelial Cells (0-2) /hpf Urine Bacteria (None Seen) Nasal Screen MRSA (PCR) (Negative) Adenovirus (PCR) (NotDetected) B. pertussis DNA (PCR) (NotDetected) B.parapertussis DNA PCR (NotDetected) C. pneumoniae DNA (PCR) (NotDetected) Coronavirus OC43 (PCR) (NotDetected) Coronavirus HKU1 (PCR) (NotDetected) Coronavirus 229E (PCR) (NotDetected) SARS-CoV-2 (PCR) (NotDetected) Coronavirus NL63 (PCR) (NotDetected) Human Metapneumovir PCR (NotDetected) Influenza Type A (PCR) (NotDetected) Influenza Type B (PCR) (NotDetected) M. pneumoniae (PCR) (NotDetected) Parainfluenza 1 (PCR) (NotDetected) Parainfluenza 2 (PCR) (NotDetected) Parainfluenza 3 (PCR) (NotDetected) Parainfluenza 4 (PCR) (NotDetected) RSV (PCR) (NotDetected) Entero/Rhino (PCR) (NotDetected) 07/27/24 07/27/24 07/27/24 Range/Units Unknown 16:55 15:14 WBC (4.8-10.8) K/ul RBC (4.20-5.40) M/uL Hgb (12.0-16.0) g/dl Hct (37.0-47.0) % MCV (80.0-100.0) fL MCH (25.0-34.0) pg MCHC (32.0-36.0) g/dL RDW Std Deviation (36.4-46.3) fL RDW Coeff of Asher (11.5-14.5) % Plt Count (130-400) K/uL MPV (9.4-12.4) fL Immature Gran % (Auto) % Neut % (Auto) % Lymph % (Auto) % [place] % (Auto) % Eos % (Auto) % Baso % (Auto) % Neut # (Auto) (1.40-6.50) K/uL Lymph # (Auto) (1.20-3.40) K/uL [place] # (Auto) (0.11-0.59) K/uL Eos # (Auto) (0.00-0.50) K/uL Baso # (Auto) (0.00-0.20) K/uL Immature Gran # (Auto) (0.01-0.20) K/uL PT (9.0-12.0) Seconds INR (0.9-1.1) APTT (21-31) Seconds PTT Ratio Heparin Anti-Xa, Unfract (0.3-0.7) IU/ml Sodium (136-145) mmol/L Potassium (3.5-5.1) mmol/L Chloride (98-107) mmol/L Carbon Dioxide (21-32) mmol/L Anion Gap (3-11) BUN (6-23) mg/dl Creatinine (0.6-1.2) mg/dl Est Cr Clr Drug Dosing ml/min eGFR BUN/Creatinine Ratio (10-20) Glucose (70-99(Fasting)) mg/dl POC Glucose 140 H (70-99) mg/dl Lactate (0.4-2.0) mmol/L Calcium (8.6-10.3) mg/dl Phosphorus (2.5-4.9) mg/dl Magnesium (1.7-2.4) mg/dl Total Bilirubin (0.2-1.0) mg/dl Direct Bilirubin (0-0.2) mg/dl AST (13-39) U/L ALT (7-52) U/L Alkaline Phosphatase (34-104) U/L Troponin I High Sens (0-14) pg/ml Total Protein (6.0-8.3) gm/dl Albumin (3.4-5.0) gm/dl Procalcitonin (0-0.5) ng/ml Random Cortisol 12.99 mcg/dl Urine Color Yellow Urine Appearance Cloudy A (Clear) Urine pH 5.0 (4.5-7.5) Ur Specific [place] 1.025 (1.000-1.030) Urine Protein 3+ H (Negative) Urine Glucose (UA) Trace H (Negative) Urine Ketones Trace H (Negative) Urine Blood 3+ H (Negative) Urine Nitrite Positive A (Negative) Urine Bilirubin 2+ H (Negative) Urine Urobilinogen Negative (Negative) Ur Leukocyte Esterase Trace H (Negative) Urine RBC >20 H (0-2) /hpf Urine WBC >50 H (0-5) /hpf Ur Epithelial Cells >20 H (0-2) /hpf Urine Bacteria 4+ H (None Seen) Nasal Screen MRSA (PCR) Negative (Negative) Adenovirus (PCR) Not Detected (NotDetected) B. pertussis DNA (PCR) Not Detected (NotDetected) B.parapertussis DNA PCR Not Detected (NotDetected) C. pneumoniae DNA (PCR) Not Detected (NotDetected) Coronavirus OC43 (PCR) Not Detected (NotDetected) Coronavirus HKU1 (PCR) Not Detected (NotDetected) Coronavirus 229E (PCR) Not Detected (NotDetected) SARS-CoV-2 (PCR) Not Detected (NotDetected) Coronavirus NL63 (PCR) Not Detected (NotDetected) Human Metapneumovir PCR Not Detected (NotDetected) Influenza Type A (PCR) Not Detected (NotDetected) Influenza Type B (PCR) Not Detected (NotDetected) M. pneumoniae (PCR) Not Detected (NotDetected) Parainfluenza 1 (PCR) Not Detected (NotDetected) Parainfluenza 2 (PCR) Not Detected (NotDetected) Parainfluenza 3 (PCR) Not Detected (NotDetected) Parainfluenza 4 (PCR) Not Detected (NotDetected) RSV (PCR) Not Detected (NotDetected) Entero/Rhino (PCR) Not Detected (NotDetected) 07/27/24 07/27/24 Range/Units 12:39 11:45 WBC 8.99 (4.8-10.8) K/ul RBC 3.16 L (4.20-5.40) M/uL Hgb 8.8 L (12.0-16.0) g/dl Hct 28.5 L (37.0-47.0) % MCV 90.2 (80.0-100.0) fL MCH 27.8 (25.0-34.0) pg MCHC 30.9 L (32.0-36.0) g/dL RDW Std Deviation 48.5 H (36.4-46.3) fL RDW Coeff of Asher 14.6 H (11.5-14.5) % Plt Count 452 H (130-400) K/uL MPV 9.3 L (9.4-12.4) fL Immature Gran % (Auto) 0.4 % Neut % (Auto) 79.9 % Lymph % (Auto) 9.9 % [place] % (Auto) 8.0 % Eos % (Auto) 1.2 % Baso % (Auto) 0.6 % Neut # (Auto) 7.18 H (1.40-6.50) K/uL Lymph # (Auto) 0.89 L (1.20-3.40) K/uL [place] # (Auto) 0.72 H (0.11-0.59) K/uL Eos # (Auto) 0.11 (0.00-0.50) K/uL Baso # (Auto) 0.05 (0.00-0.20) K/uL Immature Gran # (Auto) 0.04 (0.01-0.20) K/uL PT 12.9 H (9.0-12.0) Seconds INR 1.2 H (0.9-1.1) APTT (21-31) Seconds PTT Ratio Heparin Anti-Xa, Unfract (0.3-0.7) IU/ml Sodium 131 L (136-145) mmol/L Potassium 5.0 (3.5-5.1) mmol/L Chloride 96 L (98-107) mmol/L Carbon Dioxide 25 (21-32) mmol/L Anion Gap 10 (3-11) BUN 17 (6-23) mg/dl Creatinine 1.96 H (0.6-1.2) mg/dl Est Cr Clr Drug Dosing 45.1 ml/min eGFR 28.94 BUN/Creatinine Ratio 8.7 L (10-20) Glucose 142 H (70-99(Fasting)) mg/dl POC Glucose (70-99) mg/dl Lactate 1.0 (0.4-2.0) mmol/L Calcium 8.9 (8.6-10.3) mg/dl Phosphorus (2.5-4.9) mg/dl Magnesium 1.4 L (1.7-2.4) mg/dl Total Bilirubin 0.4 (0.2-1.0) mg/dl Direct Bilirubin 0.2 (0-0.2) mg/dl AST 35 (13-39) U/L ALT 47 (7-52) U/L Alkaline Phosphatase 83 (34-104) U/L Troponin I High Sens < 2.3 (0-14) pg/ml Total Protein 6.6 (6.0-8.3) gm/dl Albumin 3.2 L (3.4-5.0) gm/dl Procalcitonin 0.24 (0-0.5) ng/ml Random Cortisol mcg/dl Urine Color Urine Appearance (Clear) Urine pH (4.5-7.5) Ur Specific [place] (1.000-1.030) Urine Protein (Negative) Urine Glucose (UA) (Negative) Urine Ketones (Negative) Urine Blood (Negative) Urine Nitrite (Negative) Urine Bilirubin (Negative) Urine Urobilinogen (Negative) Ur Leukocyte Esterase (Negative) Urine RBC (0-2) /hpf Urine WBC (0-5) /hpf Ur Epithelial Cells (0-2) /hpf Urine Bacteria (None Seen) Nasal Screen MRSA (PCR) (Negative) Adenovirus (PCR) (NotDetected) B. pertussis DNA (PCR) (NotDetected) B.parapertussis DNA PCR (NotDetected) C. pneumoniae DNA (PCR) (NotDetected) Coronavirus OC43 (PCR) (NotDetected) Coronavirus HKU1 (PCR) (NotDetected) Coronavirus 229E (PCR) (NotDetected) SARS-CoV-2 (PCR) (NotDetected) Coronavirus NL63 (PCR) (NotDetected) Human Metapneumovir PCR (NotDetected) Influenza Type A (PCR) (NotDetected) Influenza Type B (PCR) (NotDetected) M. pneumoniae (PCR) (NotDetected) Parainfluenza 1 (PCR) (NotDetected) Parainfluenza 2 (PCR) (NotDetected) Parainfluenza 3 (PCR) (NotDetected) Parainfluenza 4 (PCR) (NotDetected) RSV (PCR) (NotDetected) Entero/Rhino (PCR) (NotDetected) Diagnostic Findings XR chest 1V portable CLINICAL HISTORY: Sepsis COMPARISON STUDY: 06/27/2024 FINDINGS: Stable right chest port. Heart size and pulmonary vasculature are normal. There is increased hazy opacity at the left base with blunting of left costophrenic angle and obscuration of the left hemidiaphragm. No pneumothorax. IMPRESSION: Increased left pleural effusion/consolidation left lung base. ACT 112: Negative or not required by law.
--- NOTE | 2024-07-28 09:44 | Ultrasound Report ---
US duplex renal art/vein BI HISTORY: 59 years-old Female ANIBAL, ovasrian CA, r/o thrmobus acute kidney injury in a patient with hi story of ovarian carcinoma COMPARISON: CT abdomen and pelvis 07/27/2024, PET/CT 07/12/2024 TECHNIQUE: Duplex renal Doppler study was obtained assessing grayscale appearance, color and spectral flow FINDINGS: Limited exam secondary to patient body habitus, ascites and obscuring bowel gas. Right kidney measures 10.8 cm in length and is suboptimally visualized which includes the renal arter y and vein. There is persistent mild elevation of the right renal collecting system. Patent renal vei n. Low resistance waveforms from the renal artery with peak systolic velocities within normal range. Resistive indices measure up to 0.76. Aorta and left kidney are not diagnostically visualized. IMPRESSION: 1. Very limited exam secondary to patient body habitus, ascites and obscuring bowel gas. 2. Mild dilation of the right renal collecting system redemonstrated with unremarkable appearance of the visualized right renal artery and vein. 3. Nonvisualization of the left kidney and aorta. 4. Note that on yesterday's unenhanced CT study, no significant atherosclerosis was seen within the a bdominal aorta or renal arteries. ACT 112: Negative or not required by law. The above report was generated using voice recognition software. It may contain grammatical, syntax o r spelling errors. Electronically signed by: Shakir Rivera M.D. 07/28/2024 9:43 AM
[2024-07-28] MEDS: APIXABAN 5 MG TABLET PO SCH (11:20)
[2024-07-28] MEDS: HYDROCORTISONE SOD 100 MG in SYRINGE 0 ML IV SCH (11:20)
--- NOTE | 2024-07-28 16:03 | Urology Progress Note ---
Date of Service July 28, 2024 Assessment & Plan (1) UTI (urinary tract infection): (2) Ureteral stent present: Plan 59yo female with ovarian cancer and peritoneal carcinomatosis who had a right ureteral stent (placed 07/06/24) who is admitted to the ICU with hypotension and possible urosepsis -Pt remains in ICU on vasopressors. -Afebrile, Labs reviewed-WBC 7.41, hemoglobin 8.0, creatinine 1.24 -Urine culture prelim no growth; blood cultures preliminary no growth x 24 hours -Sam intact and draining yellow urine, continue to monitor. Okay to hand irrigate as needed. -CT reviewed- Right ureteral stent in place, no hydronephrosis -No acute intervention warranted -Continue Sam Catheter -Will plan to maintain right ureteral stent -Continue antibiotic therapy and tailor per culture sensitivities -Continue management per primary/ICU team -Urology will follow. Please call with any questions/concerns. Admission and Anticipated Discharge Date Admission Date: July 27, 2024 Subjective Patient seen at bedside today in the ICU Awake and resting in bed on arrival No acute distress Family at bedside Sam intact Reports feeling somewhat better today No fevers Denies significant pain Review of Systems Constitutional: as per Subjective / HPI Genitourinary: as per Subjective / HPI Physical Exam Constitutional: no acute distress Respiratory: no respiratory distress and no labored breathing Neurologic: awake Psychiatric: A+Ox3, euthymic affect Genitourinary: Sam intact Results & Data Vital Signs (Past 12 Hours) Vital Signs Temp Pulse Resp BP Pulse Ox O2 Del Method O2 Flow Rate 07/28/24 12:38 36.6 C 07/28/24 12:33 88 18 96 07/28/24 12:30 99/73 L 07/28/24 12:24 91 H 17 94 07/28/24 12:15 94 H 22 96 07/28/24 11:30 105 H 22 93 07/28/24 11:30 109/57 L 07/28/24 11:03 89 16 95 07/28/24 11:01 95/66 L 07/28/24 10:54 91 H 16 95 07/28/24 10:31 113/55 L 07/28/24 10:21 87 13 97 07/28/24 10:03 87 18 100 07/28/24 10:01 114/60 07/28/24 09:32 36.5 C 07/28/24 09:31 96/53 L 07/28/24 09:27 87 16 99 07/28/24 09:01 118/58 L 07/28/24 08:59 Nasal Cannula 2 07/28/24 08:59 84 07/28/24 08:57 92 H 17 100 07/28/24 08:33 89 16 99 07/28/24 08:31 114/46 L 07/28/24 08:24 87 19 99 07/28/24 08:03 90 18 100 07/28/24 08:01 96/62 L 07/28/24 07:31 94/66 L 07/28/24 07:30 105 H 18 100 07/28/24 07:01 111/56 L 07/28/24 07:00 92 H 17 98 07/28/24 05:54 92 H 17 98 07/28/24 05:42 87 16 98 07/28/24 05:36 86 18 98 07/28/24 05:32 111/59 L 07/28/24 05:27 84 14 99 07/28/24 05:24 88 14 98 07/28/24 05:12 83 18 98 07/28/24 05:01 94/59 L 07/28/24 05:00 83 17 97 07/28/24 04:54 87 16 97 07/28/24 04:33 84 16 97 07/28/24 04:31 96/58 L 07/28/24 04:31 96/58 L 07/28/24 04:31 96/58 L 07/28/24 04:24 86 17 96 07/28/24 04:18 85 16 97 07/28/24 04:01 90/65 L 07/28/24 04:01 90/65 L 07/28/24 04:00 82 16 96 07/28/24 04:00 37 C PG Care Time/CCT Total # of Minutes Spent Total Time Spent with Patient: Total time spent is greater than 50% in coordination of care (as documented) at patient's floor/unit and/or counseling patient: Coding Level of Care Code 57599 SUB INP/OBS CARE 2/35MIN Diagnoses UTI (urinary tract infection) N39.0 Ureteral stent present Z96.0
[2024-07-28] MEDS ORDERED: DEXTROSE 50% 50 ML SYRINGE IV PRN (16:47)
[2024-07-28] MEDS ORDERED: GLUCOSE 40% GEL 15 GM TUBE PO PRN (16:47)
[2024-07-28] MEDS ORDERED: GLUCOSE 10 TAB/TUBE PO PRN (16:47)
[2024-07-28] MEDS ORDERED: GLUCAGON FOR INJ 1 MG VIAL SQ PRN (16:47)
[2024-07-28] MEDS ORDERED: CARBOHYDRATES FOR HYPOGLYCEMIA PO PRN (16:47)
[2024-07-28] MEDS: INSULIN ASPART PER UNIT CHARGE SC SCH (18:08)
--- NOTE | 2024-07-28 18:28 | Hospitalist Progress Note ---
Date of Service July 28, 2024 Assessment & Plan (1) Septic shock: (2) Ovarian cancer: (3) UTI (urinary tract infection): (4) ANIBAL (acute kidney injury): (5) Lumbar disc herniation with radiculopathy: (6) Hx pulmonary embolism: (7) GERD (gastroesophageal reflux disease): Plan Patient is a 59yo with ovarian cancer and peritoneal carcinomatosis, h/o ureteral stent placement (07/06/24), who is admitted to the ICU with hypotension and possible urosepsis Sepsis/UTI - Afebrile, no leukocytosis, urine cx prelim no growth, blood cx no growth x 24h - Continue Daptomycin and Cefepime Ovarian cancer - 07/12/24 PET scan: Progressive omental/peritoneal carcinomatosis throughout the abdomen and pelvis with worsening ascites - 07/27/24 CXR & CTAP: Large L pleural effusion with underlying atelectasis left lung base - will need chemotherapy (s/p 1 round in 2019 & 2nd in 2023), follows with oncologist Dr. Carty - peritoneal carcinomatosis with port placed last month, followed by surgical team - paracentesis not currently indicated ANIBAL - Baseline Cr < 0.8; 1.96 on admission; 1.24 today - 07/27 CTAP notes R nephroureteral stent without evidence of hydronephrosis or obstruction. - 07/28 renal US limited by pt body habitus + ascites; did note stable mild dilation of the right renal collecting system - Continue w R ureteral stent & Sam cath, per urology H/o PE - Occurred Jul 2023, no recurrence, compliant w Eliquis 5mg po bid - CXR and CTAP on 07/27/24 showed moderate-large L lung base effusion/consolidation w atelectasis - Currently asymptomatic, maintaining SpO2 > 90% on RA Stable, chronic conditions: Agree with continuing gabapentin & duloxetine for Neuropathy, Protonix for GERD Other management per analyst business analysis team. Admission and Anticipated Discharge Date Admission Date: July 27, 2024 Supervising Physician Co-Signing Physician Notes Attending Physician Supervision Note: I independently interviewed and examined the patient and verified the longo history and physical, reviewed labs and image studies and agree with findings and care plan noted above. comfortable in bed. back and abdominal pain resolved. AAox3, RRR, CTA anteriorly. Abdomen soft, NT Septic Shock - Blood and Urine cx neg (outpatient urine cx 07/20- E coli). No concern of ureteral stent obstruction placed on 07/06/24 - per urology. Procal - normal. -continue antibiotics (dapto/cefepime) and reassess in am -pressor support ANIBAL - prerenal - almost resolved. Ovarian ca - Abdominal ascites: Pleural effusion Concern of port dysfunction - not considered apixaban failure. -No paracentesis or thoracetesis indicated. -planning to resume eliquis. -No port intervention at this time due to probability of sepsis. Relative adrenal insufficiency - based on random cortisol -received Solu-Cortef 3 doses. Hx of PE - continue apixaban. Subjective Reports feeling somewhat better today. Denies significant SOB, chest or abd pain. Aware and accepting of ICU status, consults, and general plan. Review of Systems Review of Systems: As per HPI. Physical Exam Physical Exam: Gen: NAD, answers questions appropriately HEENT: NCAT, MMM, EOMI CV: RRR, no m/r/g, S1/S2 present Resp: CTAB, symmetrical chest rise, breathing unlabored Abd: Soft, mild epigastric tenderness, no HSM MSK: No gross deformities on inspection Skin: Warm, dry, pink, no rashes or lesions Neuropsych: AOx3, Mood-affect congruent Results & Data Results & Data Vital Signs (Past 12 Hours) Vital Signs Temp Pulse Resp BP Pulse Ox O2 Del Method O2 Flow Rate 07/28/24 12:38 36.6 C 07/28/24 12:33 88 18 96 07/28/24 12:30 99/73 L 07/28/24 12:24 91 H 17 94 07/28/24 12:15 94 H 22 96 07/28/24 11:30 105 H 22 93 07/28/24 11:30 109/57 L 07/28/24 11:03 89 16 95 07/28/24 11:01 95/66 L 07/28/24 10:54 91 H 16 95 07/28/24 10:31 113/55 L 07/28/24 10:21 87 13 97 07/28/24 10:03 87 18 100 07/28/24 10:01 114/60 07/28/24 09:32 36.5 C 07/28/24 09:31 96/53 L 07/28/24 09:27 87 16 99 07/28/24 09:01 118/58 L 07/28/24 08:59 Nasal Cannula 2 07/28/24 08:59 84 07/28/24 08:57 92 H 17 100 07/28/24 08:33 89 16 99 07/28/24 08:31 114/46 L 07/28/24 08:24 87 19 99 07/28/24 08:03 90 18 100 07/28/24 08:01 96/62 L 07/28/24 07:31 94/66 L 07/28/24 07:30 105 H 18 100 07/28/24 07:01 111/56 L 07/28/24 07:00 92 H 17 98 Resident Activity Tracking Resident Involvement: Resident Care Provided Care Provided: Adult Hospital Medicine (7) GERD (gastroesophageal reflux disease) Esophagitis presence: without esophagitis Qualified Code(s): K21.9 - Gastro- esophageal reflux disease without esophagitis
[2024-07-28] MEDS: HYDROmorphone INJ 0.5 MG/0.5 ML SYR IV STA (20:31)
[2024-07-29 05:01] LABS: Hematocrit (blood only) 25.7 % (37.0-47.0); Hemoglobin 7.9 g/dl (12.0-16.0); Mean Corpuscular Hemoglobin 27.2 pg (25.0-34.0); Mean Corpuscular Hgb Conc 30.7 g/dL (32.0-36.0); Mean Corpuscular Volume 88.6 fL (80.0-100.0); Mean Platelet Volume 8.7 fL (9.4-12.4); Platelet Count 360 K/uL (130-400); RDW Coefficient of Variation 14.6 % (11.5-14.5); RDW Standard Deviation 47.4 fL (36.4-46.3); White Blood Count 9.88 K/ul (4.8-10.8)
[2024-07-29 05:18] LABS: BUN Creatinine Ratio 22.4 (10-20); Calcium 8.8 mg/dl (8.6-10.3); Creatinine Clr Calc Pharmacy 116.5 ml/min; Magnesium 1.9 mg/dl (1.7-2.4); Phosphorus 2.9 mg/dl (2.5-4.9); Potassium 4.5 mmol/L (3.5-5.1)
[2024-07-29 05:53] LABS: Basophils # (auto) 0.01 K/uL (0.00-0.20); Basophils % (auto) 0.1 %; Immature Granulocytes # (auto) 0.06 K/uL (0.01-0.20); Immature Granulocytes % (auto) 0.6 %; Lymphocytes # (auto) 0.37 K/uL (1.20-3.40); Lymphocytes % (auto) 3.7 %; Monocytes # (auto) 0.17 K/uL (0.11-0.59); Monocytes % (auto) 1.7 %; Neutrophils # (auto) 9.27 K/uL (1.40-6.50); Neutrophils % (auto) 93.9 %; RBC Morphology Unremarkable
--- NOTE | 2024-07-29 08:37 | Critical Care Progress Note ---
Date of Service July 29, 2024 Assessment & Plan (1) Septic shock: (2) ANIBAL (acute kidney injury): (3) Ureteral obstruction: (4) Pleural effusion, left: (5) Abdominal ascites: (6) Obesity: (7) Ovarian cancer: Plan Reason Critically Ill: hypotensive in ER requiring vasopressor support, likely urosepsis with component of ovarian carcinomatosis Recommendations: Neuro: Continue gabapentin and duloxetine. Analgesia adequate with oxycodone Resp: history of PE in Jul 2023, currently on Eliquis. Cardiovascular: Sepsis resolved. Wean steroids as noted below. Holding antihypertensives for now Fluids/Renal: Okay to remove Sam catheter. Kidney function back to normal. Electrolytes stable. ID: Presumed urosepsis. E. coli pansensitive identified in the urine. Discontinue cefepime and daptomycin and placed on Rocephin GI/Nutrition: Advancing diet as tolerated. Peritoneal carcinomatosis. : Discontinue Sam catheter Heme: Mild anemia. Continue Eliquis. No indication for transfusion or acute blood loss. Endocrine: Glycemic control per protocol. Stress dose steroids discontinued Patient's critical care issues have resolved. She is stable for downgrade out of the intensive care unit. Critical care will sign off. Feel free to contact us with questions or concerns Admission and Anticipated Discharge Date Admission Date: July 27, 2024 Subjective Patient seen and examined. EMR reviewed. Discussed with bedside critical care nurse and on multidisciplinary rounds. The patient states she is feeling better. She is awake alert. She is off pressor agents. She is not experiencing any shortness of breath and is on room air. She would like to get up and move around. She states her abdomen is slightly tender and tense but not different from her baseline. She has no new medical concerns today Review of Systems Review of Systems: All systems reviewed & are unremarkable except as noted in Subjective Physical Exam Constitutional: WD/WN, vitals as above Eyes: PERRL, conjunctivae normal, anicteric sclerae Neck: trachea midline, no thyromegaly Respiratory: normal respiratory effort; no respiratory distress Cardiovascular: Rate/Rhythm: regular rate and regular rhythm Gastrointestinal (Abdomen): Mildly firm abdomen slightly tender to palpation. Bowel sounds are normal Skin: no rashes, warm and dry Port right upper chest wall Psychiatric: A+Ox3, euthymic affect Results & Data Results & Data Vital Signs (Past 12 Hours) Vital Signs Temp Pulse Resp BP Pulse Ox 07/29/24 06:06 81 16 92 07/29/24 06:00 104/59 L 07/29/24 05:51 76 16 94 07/29/24 05:36 80 16 92 07/29/24 05:24 84 17 92 07/29/24 05:18 83 16 92 07/29/24 05:00 104/53 L 07/29/24 05:00 104/53 L 07/29/24 04:54 82 17 93 07/29/24 04:39 81 16 94 07/29/24 04:12 78 15 93 07/29/24 04:09 83 18 93 07/29/24 03:54 79 16 93 07/29/24 03:45 79 17 94 07/29/24 03:30 86 16 93 07/29/24 03:24 85 17 92 07/29/24 03:12 86 18 91 07/29/24 03:03 86 16 93 07/29/24 03:01 93/59 L 07/29/24 03:01 93/59 L 07/29/24 02:51 84 17 92 07/29/24 02:42 87 16 93 07/29/24 02:12 89 17 94 07/29/24 02:03 90 18 93 07/29/24 02:00 103/65 07/29/24 02:00 103/65 07/29/24 02:00 103/65 07/29/24 02:00 103/65 07/29/24 01:51 95 H 17 93 07/29/24 01:24 101 H 17 96 07/29/24 01:12 89 16 94 07/29/24 01:09 37 C 07/29/24 01:03 87 16 94 07/29/24 01:03 105/60 07/29/24 01:03 105/60 07/29/24 01:00 89 17 93 07/29/24 00:30 90 20 94 07/29/24 00:09 85 19 93 07/29/24 00:00 109/57 L 07/29/24 00:00 109/57 L 07/28/24 23:57 87 17 92 07/28/24 23:51 84 17 92 07/28/24 23:42 89 18 93 07/28/24 23:39 85 17 93 07/28/24 23:27 85 18 92 07/28/24 23:03 87 17 93 07/28/24 23:01 102/61 07/28/24 23:01 102/61 07/28/24 23:01 102/61 07/28/24 22:57 87 18 93 07/28/24 22:54 87 18 93 07/28/24 22:45 87 18 93 07/28/24 22:31 109/53 L 07/28/24 22:31 109/53 L 07/28/24 22:31 109/53 L 07/28/24 22:31 109/53 L 07/28/24 22:30 91 H 17 92 07/28/24 22:15 89 18 93 07/28/24 22:01 108/42 L 07/28/24 22:00 92 H 19 94 07/28/24 21:51 93 H 18 93 07/28/24 21:42 98 H 19 93 07/28/24 21:30 93 H 18 95 07/28/24 21:30 94/51 L 07/28/24 21:30 94/51 L 07/28/24 21:21 94 H 18 95 07/28/24 21:12 94 H 17 95 07/28/24 21:01 94/58 L 07/28/24 21:01 94/58 L 07/28/24 21:01 94/58 L 07/28/24 21:00 91 H 16 94 07/28/24 20:57 92 H 18 97 07/28/24 20:48 92 H 14 95 Critical Care Results & Data Vital Signs (Past 12 Hours) Vital Signs Temp Pulse Resp BP Pulse Ox 07/29/24 06:06 81 16 92 07/29/24 06:00 104/59 L 07/29/24 05:51 76 16 94 07/29/24 05:36 80 16 92 07/29/24 05:24 84 17 92 07/29/24 05:18 83 16 92 07/29/24 05:00 104/53 L 07/29/24 05:00 104/53 L 07/29/24 04:54 82 17 93 07/29/24 04:39 81 16 94 07/29/24 04:12 78 15 93 07/29/24 04:09 83 18 93 07/29/24 03:54 79 16 93 07/29/24 03:45 79 17 94 07/29/24 03:30 86 16 93 07/29/24 03:24 85 17 92 07/29/24 03:12 86 18 91 07/29/24 03:03 86 16 93 07/29/24 03:01 93/59 L 07/29/24 03:01 93/59 L 07/29/24 02:51 84 17 92 07/29/24 02:42 87 16 93 07/29/24 02:12 89 17 94 07/29/24 02:03 90 18 93 07/29/24 02:00 103/65 07/29/24 02:00 103/65 07/29/24 02:00 103/65 07/29/24 02:00 103/65 07/29/24 01:51 95 H 17 93 07/29/24 01:24 101 H 17 96 07/29/24 01:12 89 16 94 07/29/24 01:09 37 C 07/29/24 01:03 87 16 94 07/29/24 01:03 105/60 07/29/24 01:03 105/60 07/29/24 01:00 89 17 93 07/29/24 00:30 90 20 94 07/29/24 00:09 85 19 93 07/29/24 00:00 109/57 L 07/29/24 00:00 109/57 L 07/28/24 23:57 87 17 92 07/28/24 23:51 84 17 92 07/28/24 23:42 89 18 93 07/28/24 23:39 85 17 93 07/28/24 23:27 85 18 92 07/28/24 23:03 87 17 93 07/28/24 23:01 102/61 07/28/24 23:01 102/61 07/28/24 23:01 102/61 07/28/24 22:57 87 18 93 07/28/24 22:54 87 18 93 07/28/24 22:45 87 18 93 07/28/24 22:31 109/53 L 07/28/24 22:31 109/53 L 07/28/24 22:31 109/53 L 07/28/24 22:31 109/53 L 07/28/24 22:30 91 H 17 92 07/28/24 22:15 89 18 93 07/28/24 22:01 108/42 L 07/28/24 22:00 92 H 19 94 07/28/24 21:51 93 H 18 93 07/28/24 21:42 98 H 19 93 07/28/24 21:30 93 H 18 95 07/28/24 21:30 94/51 L 07/28/24 21:30 94/51 L 07/28/24 21:21 94 H 18 95 07/28/24 21:12 94 H 17 95 07/28/24 21:01 94/58 L 07/28/24 21:01 94/58 L 07/28/24 21:01 94/58 L 07/28/24 21:00 91 H 16 94 07/28/24 20:57 92 H 18 97 07/28/24 20:48 92 H 14 95 Lab & Micro Results (Past 24 Hours) RBC 2.90 M/uL (4.20-5.40) L 07/29/24 WBC 9.88 K/ul (4.8-10.8) 07/29/24 Hgb 7.9 g/dl (12.0-16.0) L 07/29/24 Hct 25.7 % (37.0-47.0) L 07/29/24 MCV 88.6 fL (80.0-100.0) 07/29/24 MCH 27.2 pg (25.0-34.0) 07/29/24 MCHC 30.7 g/dL (32.0-36.0) L 07/29/24 RDW Standard Deviation 47.4 fL (36.4-46.3) H 07/29/24 RDW Coefficient of Variation 14.6 % (11.5-14.5) H 07/29/24 Plt Count 360 K/uL (130-400) 07/29/24 MPV 8.7 fL (9.4-12.4) L 07/29/24 Neutrophils (%) (Auto) 93.9 % 07/29/24 Lymphocytes (%) (Auto) 3.7 % 07/29/24 Monocytes # (Auto) 0.17 K/uL (0.11-0.59) 07/29/24 Eosinophils # (Auto) 0.00 K/uL (0.00-0.50) 07/29/24 Immature Granulocyte % (Auto) 0.6 % 07/29/24 Neutrophils # (Auto) 9.27 K/uL (1.40-6.50) H 07/29/24 Lymphocytes # (Auto) 0.37 K/uL (1.20-3.40) L 07/29/24 Monocytes # (Auto) 0.17 K/uL (0.11-0.59) 07/29/24 Eosinophils # (Auto) 0.00 K/uL (0.00-0.50) 07/29/24 Basophils # (Auto) 0.01 K/uL (0.00-0.20) 07/29/24 Immature Granulocyte # (Auto) 0.06 K/uL (0.01-0.20) 5 Red Blood Cell Morphology Unremarkable 07/29/24 Na 133 mmol/L (136-145) L 07/29/24 K 4.5 mmol/L (3.5-5.1) 07/29/24 Cl 102 mmol/L (98-107) 07/29/24 CO2 24 mmol/L (21-32) 07/29/24 Anion Gap 7 (3-11) 07/29/24 BUN 17 mg/dl (6-23) 07/29/24 Creatinine 0.76 mg/dl (0.6-1.2) 07/29/24 BUN/Creatinine Ratio 22.4 (10-20) H 07/29/24 Glu 167 mg/dl (70-99(Fasting)) H 07/29/24 Ca 8.8 mg/dl (8.6-10.3) 07/29/24 Phosphorus Level 2.9 mg/dl (2.5-4.9) 07/29/24 Mg 1.9 mg/dl (1.7-2.4) 07/29/24 04:43 Calcium Level 8.8 mg/dl (8.6-10.3) 07/29/24 04:43 Microbiology 07/27/24 12:48 Aerobic Blood Culture - Preliminary Blood No growth in Aerobic bottle after 24 hours. Anaerobic Blood Culture - Final 07/27/24 12:39 Aerobic Blood Culture - Preliminary Blood No growth in Aerobic bottle after 24 hours. Anaerobic Blood Culture - Preliminary No growth in Anaerobic bottle after 24 hours. 07/27/24 Unknown Urine Culture - Preliminary Urine,Clean Catch No growth - Less than 1,000 colonies/mL, Final report to follow. Diagnostic Findings (Past 24 Hours) Renal Artery Duplex 07/28/24 08:30 US duplex renal art/vein BI HISTORY: 59 years-old Female ANIBAL, ovasrian CA, r/o thrmobus acute kidney injury in a patient with history of ovarian carcinoma COMPARISON: CT abdomen and pelvis 07/27/2024, PET/CT 07/12/2024 TECHNIQUE: Duplex renal Doppler study was obtained assessing grayscale appearance, color and spectral flow FINDINGS: Limited exam secondary to patient body habitus, ascites and obscuring bowel gas. Right kidney measures 10.8 cm in length and is suboptimally visualized which includes the renal artery and vein. There is persistent mild elevation of the right renal collecting system. Patent renal vein. Low resistance waveforms from the renal artery with peak systolic velocities within normal range. Resistive indices measure up to 0.76. Aorta and left kidney are not diagnostically visualized. IMPRESSION: 1. Very limited exam secondary to patient body habitus, ascites and obscuring bowel gas. 2. Mild dilation of the right renal collecting system redemonstrated with unremarkable appearance of the visualized right renal artery and vein. 3. Nonvisualization of the left kidney and aorta. 4. Note that on yesterday's unenhanced CT study, no significant atherosclerosis was seen within the abdominal aorta or renal arteries. ACT 112: Negative or not required by law. The above report was generated using voice recognition software. It may contain grammatical, syntax or spelling errors. Electronically signed by: Shakir Rivera M.D. 07/28/2024 9:43 AM I & O Totals 24 Hours 07/28/24 07/29/24 07/30/24 06:59 06:59 06:59 Intake Total 5514.585 / 5514.585 3383.146 / 3383.146 Output Total 1250 / 1250 2500 / 2500 Balance 4264.585 / 4264.585 883.146 / 883.146 Cumulative 07/27/24 11:34 thru 07/29/24 02:00 Intake Total 8897.731 Output Total 3750 Balance 5147.731 RT Ventilator Mngmt (Last Documented) Ventilator Ordered Settings Respiratory Rate 16 07/29/24 06:06 Ventilator - PT Measurements Respiratory Rate 16 Coding Level of Care Code 86861 SUB INP/OBS CARE 3/50MIN Diagnoses Septic shock A41.9; R65.21 ANIBAL (acute kidney injury) N17.9 Ureteral obstruction N13.5 Pleural effusion, left J90 Abdominal ascites R18.8 Obesity E66.9 Ovarian cancer C56.9
--- NOTE | 2024-07-29 10:34 | Urology Progress Note ---
Date of Service July 29, 2024 Assessment & Plan (1) Abdominal ascites: (2) Sepsis: (3) UTI (urinary tract infection): (4) Septic shock: (5) Ureteral obstruction: (6) Ovarian cancer: (7) Ureteral stent present: Plan 59yo female with ovarian cancer and peritoneal carcinomatosis who had a right ureteral stent (placed 07/06/24) who is admitted to the ICU with hypotension and possible sepsis. Patient has had some improvement. Still undergoing close monitoring. Continuing IV abx. May be able to transfer out of Unit. OOB to chair today. Tolerating drain. Bothersome LUTS likely from stent and infection. Awaiting culture results. Likely need long course of abx for full coverage. Will need followup with Dr. Souza after discharged. Admission and Anticipated Discharge Date Admission Date: July 27, 2024 Subjective Patient admitted with sepsis. Has stent placement for obstruction issues secondary to malignancy. Developed delirium and severe illness. Improving on abx. Has noticed some frequency and urgency. Has not had severe pain in the back and flank. Does have occasional burning and irritation. No severe episodes or major changes. No new nausea or vomiting. Active treatment for Malignancy. Significant abdominal fluid. Stent in position on imaging. Review of Systems Review of Systems: All systems reviewed & are unremarkable except as noted in HPI & below Physical Exam Physical Exam: General: Alert in no acute distress. HEENT: Normocephalic Atraumatic. Inspection normal. Cranial Nerves 2-12 Grossly intact. Normal inspection of face. Normal inspection of neck. Psychologic: Normal affect. Respiratory: Nonlabored. No use of accessory muscles. No tachypnea or dyspnea. Cardiovascular: No tachycardia Skin: [place] and Dry. No rashes or visible lesions. Extremities/Lymphatics: No edema Abdomen: Soft Moderately distended. No rebound or guarding. Results & Data Vital Signs (Past 12 Hours) Vital Signs Temp Pulse Resp BP Pulse Ox 07/29/24 06:06 81 16 92 07/29/24 06:00 104/59 L 07/29/24 05:51 76 16 94 07/29/24 05:36 80 16 92 07/29/24 05:24 84 17 92 07/29/24 05:18 83 16 92 07/29/24 05:00 104/53 L 07/29/24 05:00 104/53 L 07/29/24 04:54 82 17 93 07/29/24 04:39 81 16 94 07/29/24 04:12 78 15 93 07/29/24 04:09 83 18 93 07/29/24 03:54 79 16 93 07/29/24 03:45 79 17 94 07/29/24 03:30 86 16 93 07/29/24 03:24 85 17 92 07/29/24 03:12 86 18 91 07/29/24 03:03 86 16 93 07/29/24 03:01 93/59 L 07/29/24 03:01 93/59 L 07/29/24 02:51 84 17 92 07/29/24 02:42 87 16 93 07/29/24 02:12 89 17 94 07/29/24 02:03 90 18 93 07/29/24 02:00 103/65 07/29/24 02:00 103/65 07/29/24 02:00 103/65 07/29/24 02:00 103/65 07/29/24 01:51 95 H 17 93 07/29/24 01:24 101 H 17 96 07/29/24 01:12 89 16 94 07/29/24 01:09 37 C 07/29/24 01:03 87 16 94 07/29/24 01:03 105/60 07/29/24 01:03 105/60 07/29/24 01:00 89 17 93 07/29/24 00:30 90 20 94 07/29/24 00:09 85 19 93 07/29/24 00:00 109/57 L 07/29/24 00:00 109/57 L 07/28/24 23:57 87 17 92 07/28/24 23:51 84 17 92 07/28/24 23:42 89 18 93 07/28/24 23:39 85 17 93 07/28/24 23:27 85 18 92 07/28/24 23:03 87 17 93 07/28/24 23:01 102/07/28/24 23:01 102/61 07/28/24 23:01 102/61 07/28/24 22:57 87 18 93 07/28/24 22:54 87 18 93 07/28/24 22:45 87 18 93 07/28/24 22:31 109/53 L 07/28/24 22:31 109/53 L 07/28/24 22:31 109/53 L 07/28/24 22:31 109/53 L PG Care Time/CCT Total # of Minutes Spent Total Time Spent with Patient: Total time spent is greater than 50% in coordination of care (as documented) at patient's floor/unit and/or counseling patient: Coding Level of Care Code 38501 SUB INP/OBS CARE 3/50MIN Diagnoses Abdominal ascites R18.8 Sepsis A41.9 UTI (urinary tract infection) N39.0 Septic shock A41.9; R65.21 Ureteral obstruction N13.5 Ovarian cancer C56.9 Ureteral stent present Z96.0
--- NOTE | 2024-07-29 12:45 | Hospitalist Progress Note ---
Date of Service July 29, 2024 Assessment & Plan (1) Septic shock: (2) Ovarian cancer: (3) UTI (urinary tract infection): (4) ANIBAL (acute kidney injury): (5) Lumbar disc herniation with radiculopathy: (6) Hx pulmonary embolism: (7) GERD (gastroesophageal reflux disease): Plan Patient is a 59yo with ovarian cancer w peritoneal carcinomatosis, h/o ureteral stent placement (07/06/24), who was admitted to the ICU with presumed urosepsis. Her hypotension improved on UTI was treated with dapto + cefepime. Medically appropriate for downgrade to [employer]-[facility] on 07/29. Sepsis/UTI - Afebrile, no leukocytosis, final urine cx no growth, blood cx no growth x 48h - Discontinued Daptomycin and Cefepime. Start IV Rocephin 1g q24h - off pressors, no SOB on room air, more active & alert; critical care issues considered resolved --> downgrade to [employer]-tele Ovarian cancer - 07/12/24 PET scan: Progressive omental/peritoneal carcinomatosis throughout the abdomen and pelvis with worsening ascites - 07/27/24 CXR & CTAP: Large L pleural effusion with underlying atelectasis left lung base - will need chemotherapy (s/p 1 round in 2019 & 2nd in 2023), follows with oncologist Dr. Carty - peritoneal carcinomatosis with port placed last month, followed by surgical team - paracentesis not currently indicated ANIBAL - resolved - Baseline Cr < 0.8; 1.96 on admission; 0.76 today - 07/27 CTAP notes R nephroureteral stent without evidence of hydronephrosis or obstruction. - 07/28 renal US limited by pt body habitus + ascites; did note stable mild dilation of the right renal collecting system - Sam removed, R ureteral stent in place, urology consulted H/o PE - Occurred Jul 2023, no recurrence, compliant w Eliquis 5mg po bid - CXR and CTAP on 07/27/24 showed moderate-large L lung base effusion/consolidation w atelectasis - Currently asymptomatic, maintaining SpO2 > 90% on RA Stable, chronic conditions: Continue gabapentin & duloxetine for Neuropathy, Protonix for GERD Admission and Anticipated Discharge Date Admission Date: July 27, 2024 Supervising Physician Co-Signing Physician Notes Attending Physician Supervision Note: I independently interviewed and examined the patient and verified the olngo history and physical, reviewed labs and image studies and agree with findings and care plan noted above. comfortable in chair. No concerns. AAox3, vitals noted nad heent nc at mmm breathing unlabored no accessory muscles good effort skin no rashes no pallor or icterus neuro no focal deficits. Septic Shock - Shock Resolved. s/p needing pressor support. Blood and Urine cx neg (outpatient urine cx 07/20- E coli). No concern of ureteral stent obstruction placed on 07/06/24 - per urology. Procal - normal. -Transition abx to ceftriaxone. ANIBAL - prerenal - resolved. Ovarian ca - Abdominal ascites: Pleural effusion Concern of port dysfunction - not considered apixaban failure. -No paracentesis or thoracentesis indicated. -No port intervention at this time due to probability of sepsis. Relative adrenal insufficiency - based on random cortisol -s/p stress dose steroids. Hx of PE - continue apixaban. Subjective Reports improvement in pain, currently none in back / flank. Denies significant SOB. Feels she has more strength/energy, would like to get out of bed. Review of Systems 2 Review of Systems: As per HPI. Physical Exam 2 Physical Exam: Gen: NAD, answers questions appropriately HEENT: NCAT, MMM, EOMI CV: RRR, no m/r/g, S1/S2 present Resp: CTAB, symmetrical chest rise, breathing unlabored Abd: Soft, mild epigastric tenderness, no HSM MSK: No gross deformities on inspection Skin: Warm, dry, pink, no rashes or lesions Neuropsych: AOx3, Mood-affect congruent Results & Data Results & Data Vital Signs (Past 12 Hours) Vital Signs Temp Pulse Resp BP Pulse Ox 07/29/24 06:06 81 16 92 07/29/24 06:00 104/59 L 07/29/24 05:51 76 16 94 07/29/24 05:36 80 16 92 07/29/24 05:24 84 17 92 07/29/24 05:18 83 16 92 07/29/24 05:00 104/53 L 07/29/24 05:00 104/53 L 07/29/24 04:54 82 17 93 07/29/24 04:39 81 16 94 07/29/24 04:12 78 15 93 07/29/24 04:09 83 18 93 07/29/24 03:54 79 16 93 07/29/24 03:45 79 17 94 07/29/24 03:30 86 16 93 07/29/24 03:24 85 17 92 07/29/24 03:12 86 18 91 07/29/24 03:03 86 16 93 07/29/24 03:01 93/59 L 07/29/24 03:01 93/59 L 07/29/24 02:51 84 17 92 07/29/24 02:42 87 16 93 07/29/24 02:12 89 17 94 07/29/24 02:03 90 18 93 07/29/24 02:00 103/65 07/29/24 02:00 103/65 07/29/24 02:00 103/65 07/29/24 02:00 103/65 07/29/24 01:51 95 H 17 93 07/29/24 01:24 101 H 17 96 07/29/24 01:12 89 16 94 07/29/24 01:09 37 C 07/29/24 01:03 87 16 94 07/29/24 01:03 105/60 07/29/24 01:03 105/60 07/29/24 01:00 89 17 93 Laboratory Results 07/29/24 04:43 07/29/24 04:43 Resident Activity Tracking Resident Involvement: Resident Care Provided Care Provided: Adult Hospital Medicine (7) GERD (gastroesophageal reflux disease) Esophagitis presence: without esophagitis Qualified Code(s): K21.9 - Gastro- esophageal reflux disease without esophagitis
[2024-07-29] MEDS ORDERED: cefTRIAXone SODIUM 1,000 MG/50 ML BAG IV SCH (18:15)
[2024-07-29] MEDS: cefTRIAXone SODIUM 2,000 MG/50 ML BAG IV SCH (19:02)
[2024-07-30 05:50] LABS: Basophils # (auto) 0.02 K/uL (0.00-0.20); Basophils % (auto) 0.3 %; Eosinophils # (auto) 0.05 K/uL (0.00-0.50); Eosinophils % (auto) 0.7 %; Hematocrit (blood only) 24.8 % (37.0-47.0); Hemoglobin 7.8 g/dl (12.0-16.0); Immature Granulocytes # (auto) 0.03 K/uL (0.01-0.20); Immature Granulocytes % (auto) 0.4 %; Lymphocytes % (auto) 13.7 %; Mean Corpuscular Hemoglobin 27.7 pg (25.0-34.0); Mean Corpuscular Hgb Conc 31.5 g/dL (32.0-36.0); Mean Corpuscular Volume 87.9 fL (80.0-100.0); Mean Platelet Volume 9.1 fL (9.4-12.4); Monocytes # (auto) 0.74 K/uL (0.11-0.59); Monocytes % (auto) 10.2 %; Neutrophils # (auto) 5.44 K/uL (1.40-6.50); Neutrophils % (auto) 74.7 %; Platelet Count 431 K/uL (130-400); RDW Coefficient of Variation 14.9 % (11.5-14.5); RDW Standard Deviation 48.2 fL (36.4-46.3); Red Blood Count 2.82 M/uL (4.20-5.40); White Blood Count 7.28 K/ul (4.8-10.8)
[2024-07-30 06:06] LABS: Calcium 8.9 mg/dl (8.6-10.3); Magnesium 1.8 mg/dl (1.7-2.4); Potassium 4.4 mmol/L (3.5-5.1)
[2024-07-30 06:12] LABS: BUN Creatinine Ratio 22.6 (10-20); Creatinine Clr Calc Pharmacy 95.2 ml/min; Phosphorus 2.9 mg/dl (2.5-4.9)
[2024-07-30 06:40] LABS: RBC Morphology Unremarkable
[2024-07-30] MEDS: POLYETHYLENE (MIRALAX) 17 GM PACK PO PRN (07:54)
--- NOTE | 2024-07-30 09:08 | Hospitalist Progress Note ---
Date of Service July 30, 2024 Assessment & Plan (1) Ovarian cancer: (2) UTI (urinary tract infection): (3) Lumbar disc herniation with radiculopathy: (4) Hx pulmonary embolism: (5) GERD (gastroesophageal reflux disease): Plan Patient is a 59yo with ovarian cancer w peritoneal carcinomatosis, h/o ureteral stent placement (07/06/24), who was admitted to the ICU with presumed urosepsis. Her hypotension improved on UTI was treated with dapto + cefepime. Medically appropriate for downgrade to Med-tele on 07/29. Sepsis/UTI - Afebrile, no leukocytosis, final urine cx no growth, blood cx no growth x 48h, satting well on room air - Discontinued Daptomycin and Cefepime. Continue IV Rocephin 1g q24h Ovarian cancer - 07/12/24 PET scan: Progressive omental/peritoneal carcinomatosis throughout the abdomen and pelvis with worsening ascites - 07/27/24 CXR & CTAP: Large L pleural effusion with underlying atelectasis left lung base - Peritoneal carcinomatosis, will need chemotherapy (s/p 1 round in 2019 & 2nd in 2023) with port placed last month, follows with oncologist Dr. Carty - Thoracentesis/paracentesis not currently indicated ANIBAL - Resolved; Cr back to baseline (0.93 today) H/o PE - Continue Eliquis 5mg po bid Neuropathy - continue gabapentin & duloxetine GERD - continue Protonix 40mg po bid Diet: cc, advance as tolerated DVT ppx: Dispo: med-tele Admission and Anticipated Discharge Date Admission Date: July 27, 2024 Supervising Physician Co-Signing Physician Notes Attending Physician Supervision Note: I independently interviewed and examined the patient and verified the longo history and physical, reviewed labs and image studies and agree with findings and care plan noted above. Had back pain earlier in the day. nothing compared to what she came in with. Late in the date - comfortable in chair. AAox3, vitals noted nad heent nc at mmm breathing unlabored no accessory muscles good effort skin no rashes no pallor or icterus neuro no focal deficits. Septic Shock - Shock Resolved. s/p needing pressor support. Blood and Urine cx neg (outpatient urine cx 07/20- E coli). No concern of ureteral stent obstruction placed on 07/06/24 - per urology. Procal - normal. -Transition abx to oral - keflex. . ANIBAL - prerenal - resolved. Ovarian ca - Abdominal ascites: Pleural effusion Concern of port dysfunction - not considered apixaban failure. -No paracentesis or thoracentesis indicated. -No port intervention at this time due to probability of sepsis. Relative adrenal insufficiency - based on random cortisol -s/p stress dose steroids. Back pain - chronic. well controlled by later in the evening. Hx of PE - continue apixaban. Anticipate d/c home in am. Subjective Feels okay today, OOB having breakfast in bedside chair. Reports some R flank pain that was bad enough to wake her from sleep but now 10/12. Denies any pain elsewhere, significant SOB, dizziness, weakness Review of Systems 2 Review of Systems: As per HPI. Physical Exam 2 Physical Exam: Gen: NAD, answers questions appropriately HEENT: NCAT, MMM, EOMI CV: RRR, no m/r/g, S1/S2 present Resp: CTAB, symmetrical chest rise, breathing unlabored Abd: Soft, mild epigastric tenderness, no HSM MSK: No gross deformities on inspection Skin: Warm, dry, pink, no rashes or lesions Neuropsych: AOx3, Mood-affect congruent Results & Data Results & Data Vital Signs (Past 12 Hours) Vital Signs Temp Pulse Pulse Resp BP Pulse Ox O2 Del Method 07/30/24 07:29 83 07/30/24 07:20 36.6 C 87 19 107/60 96 Room Air 07/30/24 04:27 36.6 C 92 H 16 103/67 96 Room Air 07/29/24 23:21 Room Air 07/29/24 22:53 36.4 C L 88 18 124/77 96 Room Air 07/29/24 22:04 93 H Laboratory Results 07/30/24 05:25 07/30/24 05:25 Resident Activity Tracking Resident Involvement: Resident Care Provided Care Provided: Adult Hospital Medicine (5) GERD (gastroesophageal reflux disease) Esophagitis presence: without esophagitis Qualified Code(s): K21.9 - Gastro- esophageal reflux disease without esophagitis
--- NOTE | 2024-07-30 11:14 | Urology Progress Note ---
Date of Service July 30, 2024 Assessment & Plan (1) Abdominal ascites: (2) Sepsis: (3) UTI (urinary tract infection): (4) Septic shock: (5) Ureteral obstruction: (6) Ovarian cancer: (7) Ureteral stent present: Plan 59yo female with ovarian cancer and peritoneal carcinomatosis who had a right ureteral stent (placed 07/06/24) who is admitted to the ICU with hypotension and possible sepsis. Patient has been able to be transferred out of the ICU. Has gone from criticall y ill to more guarded and monitoring status. Still undergoing close monitoring. Continuing IV abx. OOB to chair yesterday. Tolerating stent. No growth on culture from admission. Did discuss possibility of other infection or other issue possibly leading to the exacerbation of issues. Also discussed possibility of atypical infection or contamination from antibiotics affecting culture results. Bothersome LUTS likely from stent and infection. Likely need longer course of abx for full coverage. Will need followup with Dr. Souza after discharged. Will plan to monitor moving forward. Will plan to coordinate with outpatient team for further management. Will continue to monitor patient's progress while hospitalized for improvement of issues. If patient develops sudden or severe worsening of symptoms return of sepsis confusion delirium or other major issues would consider possible intervention at this point continue with symptom control and IV antibiotic management. Admission and Anticipated Discharge Date Admission Date: July 27, 2024 Subjective Patient admitted with sepsis. Has stent placement for obstruction issues secondary to malignancy. Developed delirium and severe illness. Improving on abx. Has noticed some frequency and urgency. Has not had severe pain in the back and flank. Does have occasional burning and irritation. No severe episodes or major changes. No new nausea or vomiting. Patient's vitals and labs have improved. Is still dealing with considerable fatigue low energy. Has persistent symptoms. Severe/critical issues and confusion has improved. Patient had been transferred from the ICU without major issue. Active treatment for Malignancy. Significant abdominal fluid. Stent in position on imaging. Review of Systems Review of Systems: All systems reviewed & are unremarkable except as noted in HPI & below Physical Exam Physical Exam: General: Alert in no acute distress. HEENT: Normocephalic Atraumatic. Inspection normal. Cranial Nerves 2-12 Grossly intact. Normal inspection of face. Normal inspection of neck. Psychologic: Normal affect. Respiratory: Nonlabored. No use of accessory muscles. No tachypnea or dyspnea. Cardiovascular: No tachycardia Skin: [place] and Dry. No rashes or visible lesions. Extremities/Lymphatics: No edema Abdomen: Soft Moderately distended. No rebound or guarding. Results & Data Vital Signs (Past 12 Hours) Vital Signs Temp Pulse Pulse Resp BP Pulse Ox O2 Del Method 07/30/24 07:29 83 07/30/24 07:20 36.6 C 87 19 107/60 96 Room Air 07/30/24 04:27 36.6 C 92 H 16 103/67 96 Room Air 07/29/24 23:21 Room Air PG Care Time/CCT Total # of Minutes Spent Total Time Spent with Patient: Total time spent is greater than 50% in coordination of care (as documented) at patient's floor/unit and/or counseling patient: Coding Level of Care Code 05029 SUB INP/OBS CARE 3/50MIN Diagnoses Abdominal ascites R18.8 Sepsis A41.9 UTI (urinary tract infection) N39.0 Septic shock A41.9; R65.21 Ureteral obstruction N13.5 Ovarian cancer C56.9 Ureteral stent present Z96.0
[2024-07-31 05:59] LABS: Basophils # (auto) 0.04 K/uL (0.00-0.20); Basophils % (auto) 0.6 %; Eosinophils # (auto) 0.05 K/uL (0.00-0.50); Eosinophils % (auto) 0.8 %; Hematocrit (blood only) 25.5 % (37.0-47.0); Immature Granulocytes # (auto) 0.03 K/uL (0.01-0.20); Immature Granulocytes % (auto) 0.5 %; Lymphocytes # (auto) 0.71 K/uL (1.20-3.40); Lymphocytes % (auto) 11.3 %; Mean Corpuscular Hemoglobin 27.8 pg (25.0-34.0); Mean Corpuscular Hgb Conc 31.4 g/dL (32.0-36.0); Mean Corpuscular Volume 88.5 fL (80.0-100.0); Mean Platelet Volume 8.8 fL (9.4-12.4); Monocytes # (auto) 0.59 K/uL (0.11-0.59); Monocytes % (auto) 9.4 %; Neutrophils # (auto) 4.88 K/uL (1.40-6.50); Neutrophils % (auto) 77.4 %; Platelet Count 372 K/uL (130-400); RDW Coefficient of Variation 14.9 % (11.5-14.5); RDW Standard Deviation 48.9 fL (36.4-46.3); Red Blood Count 2.88 M/uL (4.20-5.40)
[2024-07-31 06:15] LABS: BUN Creatinine Ratio 23.1 (10-20); Calcium 8.3 mg/dl (8.6-10.3); Creatinine Clr Calc Pharmacy 98.9 ml/min; Magnesium 1.5 mg/dl (1.7-2.4); Phosphorus 3.7 mg/dl (2.5-4.9); Potassium 4.3 mmol/L (3.5-5.1)
[2024-07-31 07:20] VITALS: RESP 20; TEMP 97.7
--- NOTE | 2024-07-31 07:27 | Discharge Summary ---
Date of Service July 31, 2024 Admission HPI Per Admitting Provider Shagufta Whittington is a 59 year old female with metastatic ovarian cancer who presents to the ER following a code purple at the [facility] for dizziness and sudden shortness of breath episode. She reports mild dizziness prior to her appointment while on the scales. During her appointment she felt she might have been having a panic attack with tachypnea. However her sBP was in the 70s therefore a code purple was called. She reports not feeling dizzy and did not loose consciousness. She just felt weight and generalized pain. She is currently not on chemotherapy but this is currently being considered as her disease has spread. Of note this is on a background of ureteral stent placement on July 06 for extrinsic compression causing hydronephrosis. She reports having abdominal pain since this procedure which is no worse today than usual. She was having dysuria and had urine culture which grew pansensitive E. coli on July 20 which was treated with 7 days of Augmentin (last dose this morning) and does not report any recent dysuria. She has not urinated since last night. She was noted to have left pleural effusion increased in size since May. She reports worsening shortness of breath other the last 2-3 weeks. She has never had thoracentesis. No chest pain. She reports not eating or drinking well over the last week due to abdominal swelling. Ascites noted on CT presumably malignant. She reports no worsening abdominal pain. Never had paracentesis. Admission Exam Per Admitting Provider Constitutional: WD/WN, vitals as above Eyes: + anicteric sclerae; normal pupil size ENMT: external ear and nose normal, oropharynx normal Neck: trachea midline, no thyromegaly Respiratory: normal respiratory effort, lungs clear to auscultation Cardiovascular: Rate/Rhythm: regular rate and regular rhythm Heart Sounds: no murmur Extremities: normal capillary refill and + pedal edema (trace); no calf tenderness Gastrointestinal (Abdomen): Inspection/Auscultation: + abdomen distended Percussion/Palpation: + abdomen tender (generalized without rebound) and abdomen soft; no guarding and abdomen not rigid Skin: no rashes, warm and dry Neurologic: moves all extremities and awake; not confused Psychiatric: A+Ox3, euthymic affect Principal Diagnosis urosepsis, ovarian cancer c/b peritoneal carcinomatosis Discharge Exam Gen: NAD, answers questions appropriately HEENT: NCAT, MMM, EOMI CV: RRR, no m/r/g, S1/S2 present Resp: CTAB, symmetrical chest rise, breathing unlabored at rest Abd: Soft, nontender, no masses MSK: No gross deformities on inspection Skin: Warm, dry, pink, no rashes or lesions Neuro: AOx3, CN III-XII grossly intact. No focal deficits Psych: Mood-affect congruent. Speech pace and content normal. Good insight & judgement. Discharge Data Allergies Allergy/AdvReac Type Severity Reaction Status Date / Time No Known Drug Allergies Allergy Verified 07/27/24 14:31 Consultations 07/27/24 14:48 ED Decision to Admit Stat 07/27/24 15:07 Consult Clinical Training Specialist Stat 07/27/24 16:59 Consult Urology Routine 07/28/24 08:28 Consult General Surgery Routine Ordered Studies Chest X-Ray 07/27/24 12:00 XR chest 1V portable CLINICAL HISTORY: Sepsis COMPARISON STUDY: 06/27/2024 FINDINGS: Stable right chest port. Heart size and pulmonary vasculature are normal. There is increased hazy opacity at the left base with blunting of left costophrenic angle and obscuration of the left hemidiaphragm. No pneumothorax. IMPRESSION: Increased left pleural effusion/consolidation left lung base. Abdomen/Pelvis CT 07/27/24 12:10 CT abd pelvis wo con CLINICAL HISTORY: right flank pain, hypotension COMPARISON: Comparison is made to CT abdomen pelvis 05/24/2024 FINDINGS: Lower chest: There is a moderate left pleural effusion with underlying atelectasis. Liver: Unremarkable. No focal lesions are seen. Gallbladder and biliary tree: Patient is status post cholecystectomy. No intra- or extrahepatic biliary ductal dilation. Pancreas: Fatty replacement of the pancreas is seen. Spleen: Unremarkable. Adrenals: Unremarkable. Kidneys and ureters: A right-sided double-J stent is seen. Bladder: Limited evaluation due to underdistention. Reproductive organs: Patient is status post hysterectomy. Bowel: Unremarkable. Lymph nodes Retroperitoneal: Unremarkable. Pelvic: Unremarkable. Mesenteric: Unremarkable. Peritoneum: Large ascites is seen. Vessels: Unremarkable. Abdominal wall: Unremarkable. Bones: Degenerative changes in the visualized spine. IMPRESSION: 1. Interval development of large ascites. 2. There is a right nephroureteral stent without evidence of hydronephrosis or obstruction. 3. Moderate left pleural effusion with underlying atelectasis. Renal Artery Duplex 07/28/24 08:30 HISTORY: 59 years-old Female ANIBAL, ovasrian CA, r/o thrmobus acute kidney injury in a patient with history of ovarian carcinoma COMPARISON: CT abdomen and pelvis 07/27/2024, PET/CT 07/12/2024 TECHNIQUE: Duplex renal Doppler study was obtained assessing grayscale appearance, color and spectral flow FINDINGS: Limited exam secondary to patient body habitus, ascites and obscuring bowel gas. Right kidney measures 10.8 cm in length and is suboptimally visualized which includes the renal artery and vein. There is persistent mild elevation of the right renal collecting system. Patent renal vein. Low resistance waveforms from the renal artery with peak systolic velocities within normal range. Resistive indices measure up to 0.76. Aorta and left kidney are not diagnostically visualized. IMPRESSION: 1. Very limited exam secondary to patient body habitus, ascites and obscuring bowel gas. 2. Mild dilation of the right renal collecting system redemonstrated with unremarkable appearance of the visualized right renal artery and vein. 3. Nonvisualization of the left kidney and aorta. 4. Note that on yesterday's unenhanced CT study, no significant atherosclerosis was seen within the abdominal aorta or renal arteries. Hospital Course (1) Ovarian cancer: (2) UTI (urinary tract infection): (3) Lumbar disc herniation with radiculopathy: (4) Hx pulmonary embolism: (5) GERD (gastroesophageal reflux disease): Plan Patient is a 59yo with ovarian cancer w peritoneal carcinomatosis, h/o ureteral stent placement (07/06/24), who was admitted to the ICU with presumed urosepsis. In addition to UTI & sepsis, she had an ANIBAL and pleural effusions. Her hypotension improved on pressors & UTI was treated with dapto + cefepime. Medically appropriate for downgrade to Downstream on 07/29. She was deemed safe for discharge when her labs and vitals stabilized, she was breathing comfortably on room air, and able to ambulate, eat, and drink normally. She was advised on adequate nutrition and hydration. She will need 6 more days of po antibiotics and close follow-up. Sepsis/UTI - Pt w SOB & dizziness. SBP down to 70s. Initial UA showing 4+ bacteria, 3+ blood, 3+ protein, 2+ bilirubin, +nitrite. Prev ucx (07/20) w pansensitive E. coli so presumed urosepsis - In ICU: given IV abx, norepi, Solu-Cortef; pain ctrl with IV Tylenol & oxycodone (po 5mg q6h); on Sam until ANIBAL improved; heparin until surgery confirmed no intervention; - s/p Daptomycin & Cefepime x 2 days + Rocephin x 2 days. Want total 10-day abx course, so 6 more days after discharge - At time of discharge, pt afebrile; BP stable; HR occasionally to 130s w exertion; no leukocytosis; BMP wnl; urine & blood cultures negative; discharged with 500mg keflex bid x 6 days (ending 2 PM) Ovarian cancer - 07/12/24 PET scan: Progressive omental/peritoneal carcinomatosis throughout the abdomen and pelvis with worsening ascites - 07/27/24 CXR & CTAP: Large L pleural effusion with underlying atelectasis left lung base - Peritoneal carcinomatosis, will need chemotherapy (s/p 1 round in 2019 & 2nd in 2023). Port placed last month. Thoracentesis/paracentesis not indicated during this admission. Follows with oncologist Dr. Carty. Chronic, stable conditions: ANIBAL - Likely 2/2 hypoperfusion, resolved after BP stabilized; Cr back to b aseline (0.91 at discharge) H/o PE - Continued Eliquis 5mg po bid Neuropathy - Continued gabapentin & duloxetine GERD - Continued Protonix 40mg po bid HTN/CAD - amlodipine, ISMN, lisinopril, & metoprolol held during admission d/t hypotension; can resume metoprolol at discharge but continue holding other 3 until discussing w PCP Total Time Total Time Spent Total Time Spent (In Minutes): See attending documentation Discharge Plan Discharge Items Patient Disposition: Home - Self-Care Reason For Visit: SEPTIC SHOCK Discharge Diagnosis: Urosepsis Activity: Per Instructions section Non-emergency contact: Primary Care Provider and Oncologist Call non-emergency contact if: you have any medication questions, your symptoms worsen and your pain is not controlled Follow-up/Referrals: Ivett Valentin DO [Primary Care Provider] - 08/03/24 11:05 am (Hospital follow up scheduled for August 03, 2024 at 11:05am) Diet: Regular Addtl Attending Provider Instructions: You came to the hospital due to dizziness and shortness of breath [facility]. You were first brought to the ED, but your blood pressures were very low and required IV fluids, electrolytes, and vasopressors (medications to increase BP and cardiac output), so you were admitted to the ICU. Your labs showed a urinary tract infection (UTI), so you were treated with IV antibiotics. You also had an acute kidney injury, likely due to low perfusion, which resolved as your BP and UTI were treated. Imaging showed excess fluid around your lungs and in your abdomen, but our specialists determined that there was no need for thoracentesis or paracentesis (draining fluid from pleural or abdominal space). When you were able to maintain a healthy BP and had no shortness of breath on room air, your critical care issues were considered resolved and you were transferred to the general medical floor. Your medications were changed to stop the vasopressors, the steroids, and the broad- coverage antibiotics; you were kept on a more targeted IV antibiotic. Pain was well-managed with IV Tylenol and oxycodone. Your diet was advanced until you could tolerate regular food. Your heart medications were held in light of your hypotension. You were seen by PT, who determined you were safe to ambulate independently. You were deemed safe for discharge when your labs and vitals stabilized, you were breathing easily on room air, and your pain was well-controlled. You will need to finish 6 more days of antibiotics for a total (10)-day course, and follow up with your primary care provider and your oncologist. We also discussed the importance of getting enough nutrition and hydration. Your existing goal of 100oz of water is good! Do keep in mind some of that fluid may be ending up collecting in your abdomen, so you may need to adjust your intake accordingly. With regard to food, we recommend tracking your calories similarly to your fluid intake. There are many free "weight loss" apps that can help with this (e.g myStore Vantagepal, foodGenoSpaceor). The naomy will use your height, weight, etc. to calculate a daily calorie goal. Unlike the intended purpose of the naomy, your goal is to have that many or more calories per day. Record anything you eat on the naomy and, if you are under your goal, consider whatever supplementation seems appetizing (Boost, protein powder in whole mild, even some dessert) to get that many calories in. Medications Your medication list has been reviewed and reconciled. An updated list is included with your discharge paperwork; please review this list closely and make note of any changes. We stopped all your heart meds during your admission due to the hypotension. You can resume the metoprolol after discharge. Do not restart the lisinopril, isosorbide, or amlodipine. You may resume these after discussion with your PCP. We sent a prescription for cephalexin to [facility] Take 500mg cephalexin two times daily for 6 days. Take your next dose tomorrow (08/01) AM. Your last dose should fall on Aug 06 PM. Take your medications as instructed; do not skip a dose. Make sure all of your doctors know every medicine you are taking (including [id number] medicines, vitamins, and supplements). Call your PCP before taking any new medicines because some of these may interact with your current medications, or may make your symptoms worse. Follow-up appointments: Make a follow-up appointment with your PCP within the next week. It is very important that you follow up with them shortly after discharge from the hospital. Continue following up with your oncologist as planned. Keep all appointments as previously scheduled. If you cannot make an appointment, notify your provider. Please bring a copy of this discharge summary with you to your next office appointment so that your provider can review it at that time and stay updated on your hospitalization and potential changes in your care. Contact your PCP or oncologist if your symptoms return or worsen. Call 911 or go to the ER if you experience any of the following: Dizziness/lightheadedness along with your UTI symptoms Sudden, severe abdominal pain or nausea/vomiting Severe chest pain, or chest pain that radiates (moves) to your jaw or arm Sudden, severe shortness of breath or difficulty breathing Thank you for allowing us to participate in your care. Pending Studies at Discharge: No Stand-Alone Forms: My [place]/Budist, Smoking Cessation Medications and DC Order Prescriptions: New cephalexin 500 mg capsule 500 mg PO BID 6 Days Qty: 12 0RF Continued oxycodone 5 mg tablet 5 mg PO Q6H PRN (Reason: Pain) Eliquis 5 mg tablet 5 mg PO BID Hold Instructions: Resume on 06/30/24. omeprazole 20 mg capsule,delayed release(DR/EC) 20 mg PO BID Qty: 180 3RF tamsulosin [Flomax] 0.4 mg capsule 0.4 mg PO DAILY Qty: 30 0RF amoxicillin-pot clavulanate [Augmentin] 500-125 mg tablet 1 tab PO Q12H Qty: 14 0RF Rx Instructions: finished today multivitamin [Multiple Vitamins] Tablet 1 tab PO QAM fluticasone propionate 50 mcg/actuation spray,suspension 2 spray intranasal DAILY PRN (Reason: Congestion) Qty: 48 4RF metoprolol tartrate 50 mg Tablet 50 mg PO HS gabapentin 100 mg Capsule 100 mg PO BID Rx Instructions: 100mg QAM and Noon cyanocobalamin (vitamin B-12) Tablet,Chewable 1 tab PO QAM duloxetine 60 mg capsule,delayed release(DR/EC) 60 mg PO QAM vitamin E (dl, acetate) 180 mg (400 unit) Capsule 180 mg PO QAM gabapentin 300 mg capsule 600 mg PO HS duloxetine 30 mg capsule,delayed release(DR/EC) 30 mg PO HS aspirin 81 mg Tablet 81 mg PO QAM rosuvastatin 5 mg Tablet 5 mg PO QAM Held lisinopril 10 mg Tablet 10 mg PO QAM Hold Instructions: Resume on 08/09/24. Hold until discussion with PCP isosorbide mononitrate 30 mg Tablet Extended Release 24 Hr 30 mg PO QAM Hold Instructions: Resume on 08/09/24. Hold until discussion with PCP amlodipine 5 mg tablet 5 mg PO QAM Hold Instructions: Resume on 08/09/24. Hold until discussion with PCP Discharge Orders: Discharge Order (Routine); Ordered 07/31/24 Ordered By: Clara Schmitz Admission Data Admit Date/Time: 07/27/24 15:49 Attending Provider: Eleazar Christensen Admit Provider: Roshan Pro Primary Care Provider: Ivett Valentin Other Providers: Roshan Pro; Eliu Martinez; Fredy Cole; Dany Nguyễn Other Interventions: Discharge Summary Assessment (RN) Last Done: 07/31/24 13:45 Supervising Physician Co-Signing Physician Notes I personally examined the patient and verified all longo points of history and exam, discussed case, and agree with decision making with Dr Schmitz feeling better and would like to go home. Notes heart rate does go up on exertion, but she actually does not feel that much more fatigued or weak on exertion than she did prior to admission. Thinks a lot of it relates to her cancer. Extensive discussion on nutrition and hydration. Vitals noted, in general she is awake and alert pleasant no distress. HEENT normocephalic atraumatic mucous membranes moist. Breathing unlabored no accessory muscle use good effort. Skin without rashes pallor or icterus. Neuro without focal deficits. Septic Shock - Shock Resolved. s/p needing pressor support. No out of ICU for several days Blood and Urine cx neg (outpatient urine cx 07/20- E coli). No concern of ureteral stent obstruction placed on 07/06/24 - per urology. Procal - normal. -Transition abx to oral - keflex. treat for an extended course. ANIBAL - prerenal - resolved. Ovarian ca - Abdominal ascites: Pleural effusion Concern of port dysfunction - not considered apixaban failure. -No paracentesis or thoracentesis indicated. -No port intervention at this time due to probability of sepsis. Relative adrenal insufficiency - based on random cortisol -s/p stress dose steroids. outpatient follow-up tachycardia with exertionseems to be predominantly deconditioning/exertion related just to a higher degree than would be expectedI suspect she is correct that it mostly relates to her chronic comorbiditiesespecially given that she does not feel that much different than she did prior to admission in this respect. Stable for home. Discussed gradual increase in activity. Discussed adequate nutrition and hydration. Hx of PE - continue apixaban. safe/stable for home Resident Activity Tracking Resident Involvement: Resident Care Provided Care Provided: Adult Hospital Medicine
[2024-07-31] MEDS: MAGNESIUM SULFATE / D5W 1 GM/100 ML BAG IV SCH (10:13)
[2024-07-31 11:25] VITALS: BP 111/71; O2SAT 97
[2024-07-31 11:32] VITALS: PULSE 91
--- NOTE | 2024-07-31 18:12 | Billing Data ---
Date of Service July 31, 2024 Coding Level of Care Code 74070 IN/OBS DISCH 30 MIN/LESS
== END 2024-07-31 14:56 | disposition home or self-care (01) | DRG 871 ==
LOC: ED 11:37 → 1E 15:49 → SUATTDRO 15:49 → 1E 16:11 → 2W 07-29 12:56

== ENCOUNTER 2024-10-04 12:07 | Inpatient (IN) ==
[2024-10-04 12:54] LABS: Basophils # (auto) 0.04 K/uL (0.00-0.20); Basophils % (auto) 0.6 %; Eosinophils # (auto) 0.04 K/uL (0.00-0.50); Eosinophils % (auto) 0.6 %; Hematocrit (blood only) 31.5 % (37.0-47.0); Hemoglobin 9.3 g/dl (12.0-16.0); Immature Granulocytes # (auto) 0.03 K/uL (0.01-0.20); Immature Granulocytes % (auto) 0.4 %; Lymphocytes # (auto) 0.69 K/uL (1.20-3.40); Lymphocytes % (auto) 10.2 %; Mean Corpuscular Hemoglobin 26.2 pg (25.0-34.0); Mean Corpuscular Hgb Conc 29.5 g/dL (32.0-36.0); Mean Corpuscular Volume 88.7 fL (80.0-100.0); Monocytes # (auto) 0.87 K/uL (0.11-0.59); Monocytes % (auto) 12.9 %; Neutrophils # (auto) 5.07 K/uL (1.40-6.50); Neutrophils % (auto) 75.3 %; Platelet Count 334 K/uL (130-400); RDW Coefficient of Variation 21.3 % (11.5-14.5); RDW Standard Deviation 69.3 fL (36.4-46.3); Red Blood Count 3.55 M/uL (4.20-5.40); White Blood Count 6.74 K/ul (4.8-10.8)
[2024-10-04 13:11] LABS: Anisocytosis Present; Polychromasia 1+; Tear Drop Cells 1+
[2024-10-04 13:12] LABS: Albumin Globulin Ratio 0.8 (0.9-2); Albumin Level 2.6 gm/dl (3.4-5.0); Bilirubin,Total 0.3 mg/dl (0.2-1.0); Calcium 8.1 mg/dl (8.6-10.3); Creatinine Clr Calc Pharmacy 135.6 ml/min; Globulin 3.4 gm/dl (2.5-4.0); Potassium 4.3 mmol/L (3.5-5.1)
[2024-10-04 13:17] LABS: Troponin I High Sensitivity 3.9 pg/ml (0-14)
--- NOTE | 2024-10-04 13:17 | Emergency Department Note ---
Impression & Plan Ovarian cancer, Pleural effusion, Shortness of breath ED Provider Note NAME: REYNALDO NIEVES AGE: 59 SEX: F : 1965 ARRIVES VIA: Ambulance INFORMANT: Patient ED PROVIDER(S): Eleazar Garza DO CHIEF COMPLAINT: shortness of breath HPI: Patient is a 59-year-old female with a past medical history of depression, anxiety, hypertension, GERD and ovarian cancer currently on chemotherapy who presents to the ER from the OR. Patient presented to the ER to have her ureteral stent removed. Up in the OR she was found to be hypoxic and she was short of breath and chest x-ray showed a pleural effusion. She was consequently sent to the ER for further management and treatment. Patient denies any cough or congestion. No new belly pain, nausea, vomiting or diarrhea. ADDITIONAL HISTORY OBTAINED: Per HPI Chronic Medical/Social Conditions Affecting Care: Per HPI PAST MEDICAL HISTORY:See Below PAST SURGICAL HISTORY:See Below FAMILY HISTORY:See Below SOCIAL HISTORY:See Below HOME MEDICATIONS:See Below ALLERGIES:See Below VITALS:See Below PHYSICAL EXAMINATION: GENERAL: Sitting up in bed, alert, chronically ill-appearing, disheveled EYE EXAM: normal conjunctiva. PERRL and EOM's grossly intact. OROPHARYNX: Dry mucous membranes NECK: supple, no nuchal rigidity, no adenopathy, non-tender LUNGS: Diminished bilaterally. Normal chest wall mechanics HEART: no murmurs, S1 normal and S2 normal ABDOMEN: abdomen soft, non-tender, normo-active bowel sounds, no masses, no rebound or guarding. UPPER EXTREMITIES: upper extremities are grossly normal. LOWER EXTREMITIES: No pitting edema. NEURO EXAM: Normal sensorium, cranial nerves II-XII grossly intact, normal speech, no gross weakness of arms, no gross weakness of legs. MEDICAL DECISION MAKING: Patient is a 59-year-old female who presents to the ER for the above-stated complaint. IV was established and blood work was obtained. Labs show no significant leukocytosis and a mild anemia 9.3 which is fairly consistent to previous. BMP on LFTs bilirubin was unremarkable. Troponin was negative. Lipase was normal. Chest x-ray/external records were reviewed from earlier today and showed a left-sided pleural effusion. Patient was updated at bedside. Discussed case with the hospitalist for further evaluation management treatment as Dr. Durham requested the patient be admitted for the pleural effusion so that the ureteral stent can eventually be retrieved. Consults/Care Managements Discussions: Per MDM Triage Nursing notes reviewed. Limited review of prior medical records performed Vital Signs: reviewed and remarkable for no significant abnormalities Differential diagnosis: Differential diagnoses includes but is not limited to pneumonia, bronchitis, COPD/Asthma exacerbation, pneumothorax, pulmonary embolism, congestive heart failure, acute coronary syndrome ER treatment provided: See below Diagnostics interpreted by me include EKG and cardiac monitoring as listed below: -Cardiac Monitoring: An order was placed for continuous cardiac monitoring. The monitor shows a rate of 80 with sinus rhythm. -ECG: Sinus rhythm rate of 68 Normal axis No PVCs QTc 432 -Laboratory studies:Interpreted by me as stated above in MDM and shown below. 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 Ovarian cancer (Acute) Hypertension GERD (gastroesophageal reflux disease) Medical History (Updated 10/04/24 @ 13:29 by Eleazar Garza DO) Ureteral stent present Abdominal ascites Paracentesis 08/31/24, 5L removed Port-A-Cath in place (06/27/24) Insertion of Access Port Right IJ with Fluoroscopy(Right) - Dany Nguyễn DO repositioning of access port 08/29/24 [place] Pleural effusion, left had thora UTI (urinary tract infection) currently on macrobid Hydronephrosis Hx of syncope (2019) Occurred w chemo treatment, "blood pressure crashed," spent 5 days at [facility] Hx pulmonary embolism (07/2023) Taking Eliquis Morbid obesity History of blood transfusion Sinus bradycardia Ovarian cancer Dx 03/2020, sx and chemo; currently on oral chemo (for the last 3 years) and IV Chemo since recent recurrence. 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 Hypertension controlled, stable per pt Hyperlipidemia Heart disease GERD (gastroesophageal reflux disease) controlled, stable per pt Depression Bilateral tinnitus Chronic low back pain Arthritis Anxiety Pulmonary hypertension Echo 08/2024: RVSP elevated at 30-40mmhg History of COVID-19 03/2023 (home test): body aches, fatigue, diarrhea > resolved DJD (degenerative joint disease) Knees, shoulder History of palpitations Intermittent episodes since 2019 Sleep apnea CPAP (compliant) Surgical History Nausea and vomiting after administration of anesthetic agent Single episode History of abdominal surgery 09/2024 pt had abdominal drain placed at [facility] History of surgery (08/29/24) Repostioning of Access Port with Fluoroscopy(Right) - Dany Nguyễn DO Port-A-Cath in place (06/27/24) Insertion of Access Port Right IJ with Fluoroscopy(Right) - Dany Nguyễn DO History of abdominal paracentesis (08/14/24) History of infusaport central venous catheter insertion (06/27/24) [facility] S/P cystoscopy with ureteral stent placement (07/06/24) History of thoracentesis (08/14/24) [facility] Hx of cardiac catheterization (06/19/24) told "false stress test" - only added isosorbide to medical regimen- follows with [facility] Hx of foot surgery lt foot rebuilt Hx of colonoscopy Hx of bilateral cataract extraction History of hysterectomy with bilateral oophorectomy H/O oral surgery S/P cholecystectomy H/O arthroscopy of left knee Family History Mother Coronary heart disease Diabetes Obesity Hypertension Heart disease Father Obesity Hypertension Heart disease Grandfather (Maternal) Myocardial infarction Other Cancer No family history of adverse response to anesthesia No family history of bleeding disorder Denies family history of Ovarian cancer Prostate cancer Breast cancer Colorectal cancer Social History Smoking Status: Never smoker Tobacco Type: Cigarettes Age Started Using Tobacco: 20; Age Quit Using Tobacco: 50; Second Hand Exposure: No; Do You Dip or Chew Tobacco: No; Hx Alcohol Use: Yes Alcohol type: wine Hx Substance Use: No Preferred Language: Mongolian Communication Ability: Effective Visual Impairment: Partially Limited [employer] Rolling [employer] Operator Required: No Beliefs That Will Affect Care: None marital status: / Current Living Situation: Family Current Living Situation Comment: daughter current occupational status: unemployed How many Children do You have: 2 Feels Safe at Home: Yes Dental Care, Regularly: Yes Physical Activity Frequency: 1-2 Times per Week Seatbelt Use: always Sunscreen Use: Yes Assistive Devices: Cane, CPAP and Glasses Allergies Allergies Allergy/AdvReac Type Severity Reaction Status Date / Time No Known Drug Allergies Allergy Verified 10/04/24 10:30 Home Meds Home Medications Medication Instructions Recorded Confirmed multivitamin (Multiple Vitamins 1 tab PO QAM 01/08/21 10/04/24 tablet) cyanocobalamin (vitamin B-12) 1 tab PO QAM 05/19/23 10/04/24 duloxetine 60 mg capsule,delayed 60 mg PO QAM 05/19/23 10/04/24 release gabapentin 100 mg capsule 100 mg PO BID 05/19/23 10/04/24 metoprolol tartrate 50 mg tablet 50 mg PO HS 05/19/23 10/04/24 vitamin E (dl, acetate) 180 mg 180 mg PO QAM 05/19/23 10/04/24 (400 unit) capsule apixaban 5 mg tablet (Eliquis) 5 mg PO BID 08/04/23 10/04/24 gabapentin 300 mg capsule 600 mg PO HS 08/04/23 10/04/24 oxycodone 5 mg tablet 10 mg PO Q6H PRN Pain 04/19/24 10/04/24 duloxetine 30 mg capsule,delayed 30 mg PO HS 05/01/24 10/04/24 release aspirin 81 mg tablet 81 mg PO QAM 06/06/24 10/04/24 magnesium 200 mg tablet 200 mg PO DAILY 09/27/24 10/04/24 Previous Rx's Medication Instructions Recorded omeprazole 20 mg capsule,delayed 20 mg PO BID #180 caps 12/20/20 release fluticasone propionate 50 2 spray intranasal DAILY PRN 05/21/23 mcg/actuation nasal Congestion #48 grams spray,suspension tamsulosin 0.4 mg capsule (Flomax) 0.4 mg PO DAILY kidney stone #30 07/13/24 caps Results & Data (ED) Vital Signs Vital Signs - 24 hr 10/04/24 11:56 10/04/24 11:56 10/04/24 11:56 Temperature 36.4 C L Temperature Source Oral Pulse Rate 78 Respiratory Rate 18 Respiratory Effort / Characteristics Spontaneous Non-Labored Spontaneous Respiratory Depth Normal Normal Respiratory Pattern Regular Regular Blood Pressure 139/87 Blood Pressure Mean 104 Pulse Oximetry 97 97 Oxygen Delivery Method Nasal Cannula Nasal Cannula Oxygen Flow Rate 2 Sepsis Recent Fever Within 48 Hours No Sepsis New/Unexplained Change in Mental Status N/A Sepsis Action Taken by Nursing No Action Required 10/04/24 12:37 10/04/24 12:44 Temperature Temperature Source Pulse Rate 74 Respiratory Rate Respiratory Effort / Characteristics Respiratory Depth Respiratory Pattern Blood Pressure Blood Pressure Mean Pulse Oximetry 97 Oxygen Delivery Method Nasal Cannula Oxygen Flow Rate 2 Sepsis Recent Fever Within 48 Hours Sepsis New/Unexplained Change in Mental Status Sepsis Action Taken by Nursing Laboratory Data 10/04/24 12:40 10/04/24 12:40 Lab Results 10/04/24 Range/Units 12:40 WBC 6.74 (4.8-10.8) K/ul RBC 3.55 L (4.20-5.40) M/uL Hgb 9.3 L (12.0-16.0) g/dl Hct 31.5 L (37.0-47.0) % MCV 88.7 (80.0-100.0) fL MCH 26.2 (25.0-34.0) pg MCHC 29.5 L (32.0-36.0) g/dL RDW Std Deviation 69.3 H (36.4-46.3) fL RDW Coeff of Asher 21.3 H (11.5-14.5) % Plt Count 334 (130-400) K/uL MPV 9.0 L (9.4-12.4) fL Immature Gran % (Auto) 0.4 % Neut % (Auto) 75.3 % Lymph % (Auto) 10.2 % [place] % (Auto) 12.9 % Eos % (Auto) 0.6 % Baso % (Auto) 0.6 % Neut # (Auto) 5.07 (1.40-6.50) K/uL Lymph # (Auto) 0.69 L (1.20-3.40) K/uL [place] # (Auto) 0.87 H (0.11-0.59) K/uL Eos # (Auto) 0.04 (0.00-0.50) K/uL Baso # (Auto) 0.04 (0.00-0.20) K/uL Immature Gran # (Auto) 0.03 (0.01-0.20) K/uL Polychromasia 1+ Anisocytosis Present Tear Drop Cells 1+ Sodium 137 (136-145) mmol/L Potassium 4.3 (3.5-5.1) mmol/L Chloride 101 (98-107) mmol/L Carbon Dioxide 32 (21-32) mmol/L Anion Gap 4 (3-11) BUN 13 (6-23) mg/dl Creatinine 0.59 L (0.6-1.2) mg/dl Est Cr Clr Drug Dosing 135.6 ml/min eGFR 103.75 BUN/Creatinine Ratio 22.0 H (10-20) Glucose 125 H (70-99(Fasting)) mg/dl Calcium 8.1 L (8.6-10.3) mg/dl Total Bilirubin 0.3 (0.2-1.0) mg/dl AST 10 L (13-39) U/L ALT 4 L (7-52) U/L Alkaline Phosphatase 100 (34-104) U/L Total Protein 6.0 (6.0-8.3) gm/dl Albumin 2.6 L (3.4-5.0) gm/dl Globulin 3.4 (2.5-4.0) gm/dl Albumin/Globulin Ratio 0.8 L (0.9-2) Lipase 4 L (11-82) U/L Discharge Plan Visit Data Chief Complaint: Shortness of Breath/Dyspnea Stated Complaint: sob ED Provider: Eleazar Garza Discharge Problem: Ovarian cancer, Pleural effusion, Shortness of breath Forms Stand Alone Forms: My [facility] [place] Prescriptions Prescriptions: No Action oxycodone 5 mg tablet 10 mg PO Q6H PRN (Reason: Pain) Eliquis 5 mg tablet 5 mg PO BID Hold Instructions: Resume on 09/01/24. Resume your Eliquis on Friday 09/01 omeprazole 20 mg capsule,delayed release(DR/EC) 20 mg PO BID Qty: 180 3RF tamsulosin [Flomax] 0.4 mg capsule 0.4 mg PO DAILY Qty: 30 0RF Hold Instructions: Resume on 08/31/24. multivitamin [Multiple Vitamins] Tablet 1 tab PO QAM fluticasone propionate 50 mcg/actuation spray,suspension 2 spray intranasal DAILY PRN (Reason: Congestion) Qty: 48 4RF metoprolol tartrate 50 mg Tablet 50 mg PO HS gabapentin 100 mg Capsule 100 mg PO BID Rx Instructions: 100mg QAM and Noon cyanocobalamin (vitamin B-12) Tablet,Chewable 1 tab PO QAM duloxetine 60 mg capsule,delayed release(DR/EC) 60 mg PO QAM vitamin E (dl, acetate) 180 mg (400 unit) Capsule 180 mg PO QAM gabapentin 300 mg capsule 600 mg PO HS duloxetine 30 mg capsule,delayed release(DR/EC) 30 mg PO HS magnesium 200 mg Tablet 200 mg PO DAILY aspirin 81 mg Tablet 81 mg PO QAM Referrals Referrals: Ivett Valentin DO [Primary Care Provider] - Discharge Problem: Ovarian cancer Qualifiers: Laterality: unspecified laterality Qualified Code(s): C56.9 - Malignant neoplasm of unspecified ovary
--- NOTE | 2024-10-04 13:26 | History & Physical Report ---
Date of Service October 04, 2024 Assessment & Plan (1) Acute respiratory failure with hypoxia: (2) Ovarian cancer: (3) Hypertension: (4) Chronic low back pain: Plan 89-year-old female with history of metastatic ovarian carcinoma was set for ureteral stent exchange who presents with hypoxia and shortness of breath requiring oxygen supplementation. Patient is an increase in size of left-sided pleural effusion from previous note effusion suctioned July 2024. Considerations for thoracentesis to medically optimize her prior to ureteral stent manipulation #Acute respiratory failure and hypoxia. Patient will be supplemented with oxygen. Because the patient has stopped her chronic anticoagulation we will do a CTA to rule out PE to see if that is the part of this as the pleural effusion has been present for some time. Pulmonary is consulted her Eliquis and aspirin are held for consideration of thoracentesis. Her blood pressure is appropriate on try some diuresis also. #Ovarian cancer. She has abdominal carcinomatosis she has a Pleurx catheter drained every 4 days she is on [facility]. She is mildly anemic has stable white count is scheduled for chemotherapy on 3 with this will be postponed #CAD and hypertension patient typically takes aspirin and metoprolol. Her aspirin is on hold metoprolol continues to confirm this tartrate at bedtime #Urologyureteral stent possible UTI patient of urine culture she is placed on Zosyn therapy she continues on Flomax therapy #Chronic low back pain patient is on gabapentin and as needed oxycodone for her back pain these to be continued #DVT prevention is SCDs at this time until we evaluate possibility of thoracentesis. If CTA confirms pulmonary embolism we may consider heparin therapy at this time As mentioned in advance care planning was discussed patient confirms she is a DNR/DNI History of Present Illness Primary Care Provider: Ivett Valentin, 59-year-old female with history of metastatic ovarian cancer who was sent from the operating room where she was scheduled to have a right ureteral stent exchange. Patient has a history of a right ureteral stent due to bulky tumor obstructing her right ureter. She was admitted in July 2024 with sepsis from urinary source at that time a pansensitive E. coli and I believe Enterococcus. Patient was increasingly short of breath she is found to be hypoxic in the preoperative area she typically does not need oxygen. Her pleural effusion which is likely the etiology of this was been present for some time however the patient is also discontinued with instruction Eliquis and aspirin due to her procedure. She has a previous history of a PE in the past. That PE was asymptomatic and discovered on routine scans. She has been on Eliquis since that time it has been approximately 1 year. Patient has a chronic Pleurx catheter in her abdomen usually draining 1 L or so every 4 days it was drained on 10/03/2024 for 900 cc. Patient is in a port in right upper chest this was manipulated and February by Dr. Nguyễn Patient feels she is responding somewhat well to new chemotherapy it is well- known that she has peritoneal carcinomatosis she does not have significant pain with this. She is being brought in our facility for symptomatic hypoxia and shortness of breath with consideration of a thoracentesis to medically optimize her for possible ureteral stent exchange. Reportedly the patient's had some pre- existing dysuria and urology had requested retesting of her urine and initiating of antibiotics. Of note she had recently completed outpatient antibiotics for an Enterococcus UTI. Goals of care discussion was held the patient the bedside in presence of her daughter she is continue to confirm she is a DNR Allergies Allergy/AdvReac Type Severity Reaction Status Date / Time No Known Drug Allergies Allergy Verified 10/04/24 10:30 Home Medications Medication Instructions Recorded Confirmed Type omeprazole 20 mg capsule,delayed 20 mg PO BID #180 caps 12/20/20 10/04/24 Rx release multivitamin (Multiple Vitamins 1 tab PO QAM 01/08/21 10/04/24 History tablet) cyanocobalamin (vitamin B-12) 1 tab PO QAM 05/19/23 10/04/24 History duloxetine 60 mg capsule,delayed 60 mg PO QAM 05/19/23 10/04/24 History release gabapentin 100 mg capsule 100 mg PO BID 05/19/23 10/04/24 History metoprolol tartrate 50 mg tablet 50 mg PO HS 05/19/23 10/04/24 History vitamin E (dl, acetate) 180 mg 180 mg PO QAM 05/19/23 10/04/24 History (400 unit) capsule fluticasone propionate 50 2 spray intranasal DAILY PRN 05/21/23 10/04/24 Rx mcg/actuation nasal Congestion #48 grams spray,suspension apixaban 5 mg tablet (Eliquis) 5 mg PO BID 08/04/23 10/04/24 History gabapentin 300 mg capsule 600 mg PO HS 08/04/23 10/04/24 History oxycodone 5 mg tablet 10 mg PO Q6H PRN Pain 04/19/24 10/04/24 History duloxetine 30 mg capsule,delayed 30 mg PO HS 05/01/24 10/04/24 History release aspirin 81 mg tablet 81 mg PO QAM 06/06/24 10/04/24 History tamsulosin 0.4 mg capsule (Flomax) 0.4 mg PO DAILY kidney stone #30 07/13/24 10/04/24 Rx caps magnesium 200 mg tablet 200 mg PO DAILY 09/27/24 10/04/24 History Past Med/Surg History Problem List (Updated 10/04/24 @ 13:22 by Kana Garcia MD) Acute respiratory failure with hypoxia Ureteral stent present Abdominal ascites (Acute) Lumbar facet joint syndrome Chronic low back pain Heart disease Arthritis Encounter for pre-operative examination Sensorineural hearing loss (SNHL) of both ears Depression Anxiety Sinus bradycardia 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 Ovarian cancer (Acute) Hypertension GERD (gastroesophageal reflux disease) Medical History (Updated 10/04/24 @ 13:22 by Kana Garcia MD) Ureteral stent present Abdominal ascites Paracentesis 08/31/24, 5L removed Port-A-Cath in place (06/27/24) Insertion of Access Port Right IJ with Fluoroscopy(Right) - Dany Nguyễn, DO repositioning of access port 08/29/24 [place] Pleural effusion, left had thora UTI (urinary tract infection) currently on macrobid Hydronephrosis Hx of syncope (2019) Occurred w/ chemo treatment, "blood pressure crashed," spent 5 days at [facility] Hx pulmonary embolism (07/2023) Taking Eliquis Morbid obesity History of blood transfusion Sinus bradycardia Ovarian cancer Dx 03/2020, sx and chemo; currently on oral chemo (for the last 3 years) and IV Chemo since recent recurrence. 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 Hypertension controlled, stable per pt Hyperlipidemia Heart disease GERD (gastroesophageal reflux disease) controlled, stable per pt Depression Bilateral tinnitus Chronic low back pain Arthritis Anxiety Pulmonary hypertension Echo 08/2024: RVSP elevated at 30-40mmhg History of COVID-19 03/2023 (home test): body aches, fatigue, diarrhea > resolved DJD (degenerative joint disease) Knees, shoulder History of palpitations Intermittent episodes since 2019 Sleep apnea CPAP (compliant) Surgical History Nausea and vomiting after administration of anesthetic agent Single episode History of abdominal surgery 09/2024 pt had abdominal drain placed at [facility] History of surgery (08/29/24) Repostioning of Access Port with Fluoroscopy(Right) - Dany Nguyễn DO Port-A-Cath in place (06/27/24) Insertion of Access Port Right IJ with Fluoroscopy(Right) - Dany Nguyễn DO History of abdominal paracentesis (08/14/24) History of infusaport central venous catheter insertion (06/27/24) [facility], [facility] S/P cystoscopy with ureteral stent placement (07/06/24) History of thoracentesis (08/14/24) [facility] Hx of cardiac catheterization (06/19/24) told "false stress test" - only added isosorbide to medical regimen- follows with d[facility] Hx of foot surgery lt foot rebuilt Hx of colonoscopy Hx of bilateral cataract extraction History of hysterectomy with bilateral oophorectomy H/O oral surgery S/P cholecystectomy H/O arthroscopy of left knee Family History Mother Coronary heart disease Diabetes Obesity Hypertension Heart disease Father Obesity Hypertension Heart disease Grandfather (Maternal) Myocardial infarction Other Cancer No family history of adverse response to anesthesia No family history of bleeding disorder Denies family history of Ovarian cancer Prostate cancer Breast cancer Colorectal cancer Social History Smoking Status: Former smoker Tobacco Type: Cigarettes Age Started Using Tobacco: 20; Age Quit Using Tobacco: 50; Second Hand Exposure: No; Do You Dip or Chew Tobacco: No; Hx Alcohol Use: Yes Alcohol type: wine Hx Substance Use: No Preferred Language: Swedish Communication Ability: Effective Visual Impairment: Partially Limited Commercial Lender Required: No Beliefs That Will Affect Care: None marital status: / Current Living Situation: Family Current Living Situation Comment: daughter current occupational status: unemployed How many Children do You have: 2 Feels Safe at Home: Yes Dental Care, Regularly: Yes Physical Activity Frequency: 1-2 Times per Week Seatbelt Use: always Sunscreen Use: Yes Assistive Devices: Cane, CPAP and Glasses Review of Systems Review of Systems: Mild distress and fatigue no headache, no visual changes no speech or swallowing issues no chest pain, pressure or palpitations Shortness of breath with exertion at baseline patient is off cough this time no abdominal pain, nausea or vomiting, patient's had some recent loose bowel movements. She has a Pleurx catheter in her left upper quadrant Dysuria and frequency are noted with no changes in urine color no focal joint pain or swelling no back pain, CVA tenderness or radicular pain no bruising, bleeding or rashes no focal signs of weakness or numbness or altered sensation Patient is emotionally labile and crying at times Physical Exam Physical Exam: The patient appeared well nourished and normally develope Patient is morbidly obese with a BMI of 45 Vital signs as documented. Head exam is normocephalic atraumatic Neck is without JVD, thyromegaly, or carotid bruits. Lungs diminished breath sounds at the right base absent breath sounds to the left lung Cardiac exam, Rhythm is regular.. No murmurs, rubs or gallops. Abdominal exam reveals normal bowel sounds, soft non tender, no masses Pleurx catheter left upper quadrant does not appear to be infected Extremities are trace edematous and both pedal pulses are present Neurologic exam is alert and oriented, no focal loss of strength or sensation Skin is without bruises or rashes Psychologically is without concerns for anxiety or depression.. Results & Data Results & Data Vital Signs (Past 12 Hours) Vital Signs Pulse 10/04/24 12:37 74 PG Care Time/CCT Total # of Minutes Spent Total Time Spent with Patient: Total time spent is greater than 50% in coordination of care (as documented) at patient's floor/unit and/or counseling patient: Coding Level of Care Code 92117 INT INP/OBS CARE 3/75MIN Diagnoses Acute respiratory failure with hypoxia J96.01 Ovarian cancer C56.9 Hypertension, unspecified type I10 Hypertension type: unspecified Chronic bilateral low back pain without sciatica M54.50; G89.29 Back pain laterality: bilateral Sciatica presence: without sciatica (3) Hypertension Hypertension type: unspecified Qualified Code(s): I10 - Essential (primary) hypertension (4) Chronic low back pain Back pain laterality: bilateral Sciatica presence: without sciatica Qualified Code(s): M54.50 - Low back pain, unspecified; G89.29 - Other chronic pain
[2024-10-04] MEDS: OPTIRAY 320 125ml IV ONE (13:51)
--- NOTE | 2024-10-04 13:57 | Electrocardiogram Report ---
Test Reason : Blood Pressure : */* mmHG Vent. Rate : 69 BPM Atrial Rate : 69 BPM P-R Int : 106 ms QRS Dur : 72 ms QT Int : 404 ms P-R-T Axes : 28 18 39 degrees QTcB Int : 432 ms Sinus rhythm with short RI Otherwise normal ECG When compared with ECG of 27-Jul-2024 11:44, Nonspecific T wave abnormality no longer present Confirmed by Mohinder Mancera ([id number]) on 10/04/2024 1:57:42 PM Referred By: Elian Souza Confirmed By: Mohinder Mancera
--- NOTE | 2024-10-04 14:08 | CT Scan Report ---
CT angio chest PE protocol CT DOSE: 878.8 mGy.cm HISTORY: PE. History of ovarian cancer with an intermittent cough TECHNIQUE: Multiple CTA images of the chest were obtained after the intravenous administration of 70 ml Optiray. Coronal and sagittal MIPS were obtained from the axial data set and were submitted for r eview. All measurements were obtained according to NASCET criteria. A dose lowering technique was ut ilized adhering to the principles of ALARA. COMPARISON STUDY: 08/09/2024 FINDINGS: There is no evidence of pulmonary embolism. Compare with the prior study, the ascites has d iminished but the left pleural effusion has significantly increased with complete atelectasis of the left lower lobe and partial atelectasis of the left upper lobe. A small right pleural effusion has de veloped with minor right basilar compressive atelectasis. There is no significant pericardial effusio n. There is no aortic aneurysm. No definite adenopathy present. In the upper abdomen, there is some focal thickening of the peritoneum anterior to the upper pole of the spleen which could represent a peritoneal implant. IMPRESSION: No evidence of pulmonary embolism. The left pleural effusion has significantly increased since the prior examination with near complete compressive atelectasis of the left lower lobe and par tial atelectasis of the left upper lobe. A new small right pleural effusion has developed. Patient ma y benefit from a therapeutic thoracentesis. Ascites has diminished since the prior CT examination. Suspect peritoneal neoplastic implants in the left upper quadrant. ACT 112: Negative or not required by law. The above report was generated using voice recognition software. It may contain grammatical, syntax o r spelling errors. Electronically signed by: Johanne Tsang M.D. 10/04/2024 2:06 PM
[2024-10-04 14:15] LABS: Appearance Urine Cloudy (Clear); Bacteria Urine Automated 2+ (None Seen); Bilirubin Urine Negative (Negative); Blood Urine 3+ (Negative); Color Urine Yellow; Epithelial Cell Urine Auto 0-2 /hpf (0-2); Glucose Urine UA Negative (Negative); Ketones Urine Negative (Negative); Leukocyte Esterase Urine 2+ (Negative); Nitrite Urine Positive (Negative); Protein Urine 2+ (Negative); RBC Urine Automated >20 /hpf (0-2); Specific Gravity Urine 1.014 (1.000-1.030); Urobilinogen Urine Negative (Negative); WBC Urine Automated >50 /hpf (0-5); pH Urine 7.5 (4.5-7.5)
[2024-10-04] MEDS ORDERED: HYDROmorphone INJ 0.5 MG/0.5 ML SYR IV PRN (17:22)
[2024-10-04] MEDS ORDERED: oxyCODONE HCL IR 5 MG TAB (IMMEDIATE RELEASE) PO PRN (17:22)
[2024-10-04] MEDS ORDERED: ONDANSETRON INJ 2 MG/ML 2 ML VIAL IV PRN (17:22)
[2024-10-04] MEDS ORDERED: HYDROmorphone INJ 1 MG/ML SYRINGE IV PRN (17:22)
[2024-10-04] MEDS: PIPERACILLIN/TAZOBACTAM 4.5 GM/100 ML BAG IV ONE (18:21)
[2024-10-04] MEDS: PANTOprazole 40 MG TAB PO SCH (20:53)
[2024-10-04] MEDS: METOPROLOL TARTRATE 50 MG TAB PO SCH (20:53)
[2024-10-04] MEDS: DULoxetine HCL 30 MG CAP PO SCH (20:53)
[2024-10-04] MEDS: GABAPENTIN 300 MG CAP PO SCH (20:53)
[2024-10-04] MEDS: PIPERACILLIN/TAZOBACTAM 4.5 GM/100 ML BAG IV SCH (23:29)
[2024-10-05 06:19] LABS: Albumin Globulin Ratio 0.7 (0.9-2); Albumin Level 2.3 gm/dl (3.4-5.0); Bilirubin,Total 0.3 mg/dl (0.2-1.0); Calcium 7.9 mg/dl (8.6-10.3); Creatinine Clr Calc Pharmacy 128.7 ml/min; Globulin 3.1 gm/dl (2.5-4.0); Potassium 3.5 mmol/L (3.5-5.1); Total Protein 5.4 gm/dl (6.0-8.3)
--- NOTE | 2024-10-05 07:49 | Hospitalist Progress Note ---
Date of Service October 05, 2024 Assessment & Plan (1) Acute respiratory failure with hypoxia: (2) Ovarian cancer: (3) Hypertension: (4) Chronic low back pain: Plan 89-year-old female with history of metastatic ovarian carcinoma was set for ureteral stent exchange who presents with hypoxia and shortness of breath requiring oxygen supplementation. Patient is an increase in size of left-sided pleural effusion from previous note effusion suctioned July 2024. Considerations for thoracentesis to medically optimize her prior to ureteral stent manipulation #Acute respiratory failure and hypoxia. Resolved no additional need for supplemental oxygen Because the patient has stopped her chronic anticoagulation we will be able to perform CTA t not of pulmonary embolism, the pleural effusion shows near complete compressive atelectasis the left lower lobe and partial ectasis of the left upper lobe pulmonary is consulted and has recommended she see interventional radiology for thoracentesis and fluid analysis #Ovarian cancer. She has abdominal carcinomatosis she has a Pleurx catheter drained every 4 days she is [facility]. She is mildly anemic has stable white count is scheduled for chemotherapy on 10 05 with this will be postponed likely due for pleurex drainage of abdominal ascites on 07 October #CAD and hypertension patient typically takes aspirin and metoprolol. Her aspirin is on hold metoprolol continues to confirm this tartrate at bedtime #Urologyureteral stent possible UTI patient of urine culture she is placed on Zosyn therapy she continues on Flomax therapy #Chronic low back pain patient is on gabapentin and as needed oxycodone for her back pain these to be continued #DVT prevention is SCDs and consider chemoprophylaxis once thoracentesis is performed but would coordinate with urology to see if stent exchange would be in the short-term future then would use subcutaneous injections over returning to her oral medicines As mentioned in advance care planning was discussed patient confirms she is a DNR/DNI Admission and Anticipated Discharge Date Admission Date: October 04, 2024 Subjective Patient feels somewhat better has been able to titrate her oxygen down to room air blood pressure slightly low, pulmonary medicine recommends ultrasound-guided thoracentesis by interventional radiology Physical Exam Physical Exam: The patient appeared well nourished and normally develope Patient is morbidly obese with a BMI of 45 Vital signs as documented. Head exam is normocephalic atraumatic Neck is without JVD, thyromegaly, or carotid bruits. Lungs remain diminished breath sounds at the right base absent breath sounds to the left lung Cardiac exam, Rhythm is regular.. No murmurs, rubs or gallops. Abdominal exam reveals normal bowel sounds, soft non tender, no masses Pleurx catheter left upper quadrant does not appear to be infected Extremities remain with trace edematous and both pedal pulses are present Neurologic exam is alert and oriented, no focal loss of strength or sensation Skin is without bruises or rashes Psychologically is without concerns for anxiety or depression.. Results & Data Results & Data Vital Signs (Past 12 Hours) Vital Signs Temp Pulse Pulse Resp BP Pulse Ox O2 Del Method 10/05/24 03:30 97.9 F 77 18 105/73 90 Room Air 10/04/24 23:32 97.9 F 74 18 98/67 L 93 Room Air 10/04/24 23:00 80 10/04/24 20:12 98.1 F 89 20 112/77 94 Room Air Laboratory Results Reviewed CBC reviewed chemistry PG Care Time/CCT Total # of Minutes Spent Total Time Spent with Patient: Total time spent is greater than 50% in coordination of care (as documented) at patient's floor/unit and/or counseling patient: Coding Level of Care Code 96795 SUB INP/OBS CARE 3/50MIN Diagnoses Acute respiratory failure with hypoxia J96.01 Ovarian cancer C56.9 Laterality: unspecified laterality Hypertension, unspecified type I10 Hypertension type: unspecified Chronic bilateral low back pain without sciatica M54.50; G89.29 Back pain laterality: bilateral Sciatica presence: without sciatica (2) Ovarian cancer Laterality: unspecified laterality Qualified Code(s): C56.9 - Malignant neoplasm of unspecified ovary (3) Hypertension Hypertension type: unspecified Qualified Code(s): I10 - Essential (primary) hypertension (4) Chronic low back pain Back pain laterality: bilateral Sciatica presence: without sciatica Qualified Code(s): M54.50 - Low back pain, unspecified; G89.29 - Other chronic pain
[2024-10-05] MEDS: DULoxetine HCL 60 MG CAP PO SCH (07:51)
[2024-10-05] MEDS: GABAPENTIN 100 MG CAP PO SCH (07:51)
--- NOTE | 2024-10-05 08:49 | Oncology Consultation ---
Date of Consultation October 05, 2024 Assessment & Plan (1) Pleural effusion: Based on my discussion with anesthesiology, Dr. Eliu Randall, the patient needs to have thoracentesis before she could have her ureteral stent replaced. Would recommend consulting IR or our pulmonary colleagues. Of note the patient is on anticoagulation with Eliquis given her previous DVT/PE so that would need to be held before the patient could undergo thoracentesis. (2) Ovarian cancer: Currently on palliative systemic chemotherapy plus immunotherapy with liposomal doxorubicin plus bevacizumab. Will resume outpatient treatment once the patient is discharged in stable. For malignant ascites she has a peritoneal drain already in place. Plan Thank you for this interesting oncological consult. A total of 60 minutes were spent in counseling, coordination of care, review of prior records. Oncology will continue to follow the patient with appropriate recommendations. 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, poorly differentiated Date of diagnosis: 03/2020 Stage at diagnosis: III Ovarian cancer treatment: Neoadjuvant Carboplatin/Paclitaxel q16iqls x 3 cycles, 04/08/2020 - 06/17/2020 Started 3 cycles of adjuvant Carbo/Paclitaxel on 09/02/20 - 11/20/20 Currently receiving niraparib (Zejula), started January/2021 - until progression or unacceptable toxicity up to 36 months Currently 200 mg daily Only occasional diarrhea which she does not feel is sufficient in and of itself to warrant early discontinuation NCCN Surveillance recommendations: H&P every 2 to 4 months for 2 years, every 3 to 6 months previous 3 through 5 and annually Imaging "as clinically indicated" With diarrhea repeated CTs 10/2022 that were stable but now with rising CA125 need to repeat those once again History: 1. 03/13/2020 abdominal pain, diarrhea, 17 cm pelvic mass, signs of peritoneal carcinomatosis, subcentimeter pulmonary nodules 2. [facility] FNA of omental nodule: metastatic poorly differentiated carcinoma, negative ER. PAX 8 negative BUT cannot rule out a high-grade serous carcinoma. 3. 04/08/2020 start 3 cycles neoadjuvant carboplatin/Paclitaxel with radiologic NC 4. 07/16/2020 debulking robotic assisted TLH/BSO and omentectomy with Dr. Smith. Pelvic peritoneal biopsy was positive for carcinoma. She was noted to have residual disease on the bilateral ovaries and omentum. 5. Additional post-op 3 cycles of adjuvant Carbo/Paclitaxel treatment on 09/02/20 - 11/20/20. 6. 11/05/2020 BRCA1/BRCA2 stat panel NEGATIVE 7. Serial CTs show stable pulmonary nodules and no evidence of recurrent/active disease Current status: CA125 (U/mL) 07/28/2021 17 02/18/2022 14 07/17/2022 17 01/06/2023 31 01/18/2023 29 04/05/2023 29 06/23/2023 50 07/19/2023 59 08/16/2023 62 09/06/[address] CAP 10/24/21 and 09/05/2022 with no evidence of metastatic disease; pulm nodules remain unchanged. CT CAP 07/06/2023: Progressive disease, interval development of few tiny peritoneal/omental nodules measuring up to 6 mm. Although not definitive these are suspicious for recurrent tumor. Trace fluid within the pelvis. No evidence of bowel obstruction. Hepatic steatosis. No hepatic lesions. Multiple lung nodules, stable, subsegmental nonocclusive pulmonary emboli. No lymphadenopathy 07/08/2022 mammography: BI-RADS 1 Negative 02/01/2023 CT chest 1. No acute intrathoracic abnormality. 2. No lymphadenopathy. 3. Stable scattered solid pulmonary nodules measuring up to 6 mm, likely benign. 02/01/2023 CT abd/pelvis No evidence of metastatic disease within the abdomen or pelvis. # Nonbloody diarrhea - probable niraparib toxicity but colonoscopy pending to exclude more serious etiologies # Right knee pain is her primary symptom, working with orthopedics # COVID-19 03/30/2023 # Neuropathy -grade 1 # Genetics. Stat BRCA1/BRCA2 panel was negative. No archived specimen available for expanded testing # Macrocytic anemia has resolved Vitamin B12 07/17/2022 1159 # Pulmonary nodules - stable on serial CTs # Subsegmental pulmonary embolism, nonocclusive: Diagnosed on the CT of the chest on 07/06/2023, started on apixaban 12/10/2023, PET CT scan: IMPRESSION: 1. No FDG avid metastatic disease. 2. Stable 6 mm nodule within the left lower lobe. 3. Stable subtle omental nodule within the left side of the abdomen which does not demonstrate abnormal FDG uptake. No evidence for FDG avid peritoneal disease. CT chest abdomen pelvis, 03/07/2024: Stable pulmonary nodules as above. No evidence of metastatic disease above the diaphragm. A few tiny omental nodules, similar to CT of September 27, 2023. Trace fluid within the left paracolic gutter which as developed since prior exam. No change in trace pelvic fluid. These findings are indeterminate and recurrent tumor is not excluded. Interval development of mild right hydronephrosis without definitive etiology although a adjacent prominent right common iliac lymph node has slightly increased in size since prior CT. This can be assessed on follow-up CT. Otherwise, no change in appearance of the abdomen or pelvis. CT of the chest abdomen pelvis, 05/24/2024: IMPRESSION: 1. Two stable-appearing 4 mm and 6 mm soft tissue pulmonary nodules in the left upper lobe and left lower lobe. Multiple additional stable-appearing 2-3 mm soft tissue nodules scattered in both lungs. No new pulmonary nodule. Recommend clinical correlation and followup. 2. Interval development of a small left pleural effusion. 1.Right kidney shows dilatation of pelvicalyceal system and dilatation of right of proximal and mid ureter with narrowing of distal ureter(D/d stricture). 2.Mild ascites. 3.Left sided mild pleural effusion. PET CT scan, 07/12/2024 IMPRESSION: 1. [id number] left pleural effusion has increased in size from the 05/24/2024 study and demonstrates low-level FDG uptake. Findings could be correlated with thoracentesis. 2. Progressive omental/peritoneal carcinomatosis throughout the abdomen and pelvis with worsening ascites. 3. Persistent yet improved right-sided hydronephrosis with a right ureteral stent in place. Associated urothelial thickening could be correlated with urinalysis. Current treatment: liposomal doxorubicin plus Avastin Ms. Whittington is a very pleasant 59-year-old woman who is well-known to me as she has advanced recurrent ovarian cancer, currently on treatment with liposomal doxorubicin plus Avastin. She was in the ambulatory surgical unit where she was going to get a stent placed I got a call from anesthesiology, Dr. Eliu Baig, stating that the patient has a big left pleural effusion and they would not be able to get her ureteral stent replaced with the pleural effusion. Subsequently I transferred the patient to the ER from where she has been admitted to the inpatient side. Currently the patient is feeling better. Reports no fever or chills. Reports no nausea vomiting. She has an abdominal drain in place which is still draining and out of the abdomen. Allergies Allergy/AdvReac Type Severity Reaction Status Date / Time No Known Allergies Allergy Verified 10/04/24 15:11 Home Medications Medication Instructions Recorded Confirmed Type omeprazole 20 mg capsule,delayed 20 mg PO BID #180 caps 12/20/20 10/04/24 Rx release multivitamin (Multiple Vitamins 1 tab PO QAM 01/08/21 10/04/24 History tablet) duloxetine 60 mg capsule,delayed 60 mg PO QAM 05/19/23 10/04/24 History release gabapentin 100 mg capsule 100 mg PO BID 05/19/23 10/04/24 History metoprolol tartrate 50 mg tablet 50 mg PO HS 05/19/23 10/04/24 History vitamin E (dl, acetate) 180 mg 180 mg PO BID 05/19/23 10/04/24 History (400 unit) capsule fluticasone propionate 50 2 spray intranasal DAILY PRN 05/21/23 10/04/24 Rx mcg/actuation nasal Congestion #48 grams spray,suspension apixaban 5 mg tablet (Eliquis) 5 mg PO BID 08/04/23 10/04/24 History gabapentin 300 mg capsule 600 mg PO HS 08/04/23 10/04/24 History oxycodone 5 mg tablet 10 mg PO Q6H PRN Pain 04/19/24 10/04/24 History duloxetine 30 mg capsule,delayed 30 mg PO HS 05/01/24 10/04/24 History release tamsulosin 0.4 mg capsule (Flomax) 0.4 mg PO DAILY kidney stone #30 07/13/24 10/04/24 Rx caps magnesium 200 mg tablet 200 mg PO DAILY 09/27/24 10/04/24 History aspirin 81 mg tablet,delayed 81 mg PO QAM 10/04/24 10/04/24 History release cyanocobalamin (vitamin B-12) 1,000 mcg PO DAILY 10/04/24 10/04/24 History 1,000 mcg tablet (Vitamin B-12) Patient History Medical History (Updated 10/04/24 @ 13:29 by Eleazar Garza DO) Ureteral stent present Abdominal ascites Paracentesis 08/31/24, 5L removed Port-A-Cath in place (06/27/24) Insertion of Access Port Right IJ with Fluoroscopy(Right) - Dany Nguyễn DO repositioning of access port 08/29/24 [place] Pleural effusion, left had thora UTI (urinary tract infection) currently on macrobid Hydronephrosis Hx of syncope (2019) Occurred w chemo treatment, "blood pressure crashed," spent 5 days at [facility] Hx pulmonary embolism (07/2023) Taking Eliquis Morbid obesity History of blood transfusion Sinus bradycardia Ovarian cancer Dx 03/2020, sx and chemo; currently on oral chemo (for the last 3 years) and IV Chemo since recent recurrence. 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 Hypertension controlled, stable per pt Hyperlipidemia Heart disease GERD (gastroesophageal reflux disease) controlled, stable per pt Depression Bilateral tinnitus Chronic low back pain Arthritis Anxiety Pulmonary hypertension Echo 08/2024: RVSP elevated at 30-40mmhg History of COVID-19 03/2023 (home test): body aches, fatigue, diarrhea > resolved DJD (degenerative joint disease) Knees, shoulder History of palpitations Intermittent episodes since chemo 2019 Sleep apnea CPAP (compliant) Surgical History Nausea and vomiting after administration of anesthetic agent Single episode History of abdominal surgery 09/2024 pt had abdominal drain placed at [facility] History of surgery (08/29/24) Repostioning of Access Port with Fluoroscopy(Right) - Dany Nguyễn DO Port-A-Cath in place (06/27/24) Insertion of Access Port Right IJ with Fluoroscopy(Right) - Dany Nguyễn DO History of abdominal paracentesis (08/14/24) History of infusaport central venous catheter insertion (06/27/24) [facility] S/P cystoscopy with ureteral stent placement (07/06/24) History of thoracentesis (08/14/24) [facility] Hx of cardiac catheterization (06/19/24) told "false stress test" - only added isosorbide to medical regimen- follows with [facility] Hx of foot surgery lt foot rebuilt Hx of colonoscopy Hx of bilateral cataract extraction History of hysterectomy with bilateral oophorectomy H/O oral surgery S/P cholecystectomy H/O arthroscopy of left knee Family History Mother Coronary heart disease Diabetes Obesity Hypertension Heart disease Father Obesity Hypertension Heart disease Grandfather (Maternal) Myocardial infarction Other Cancer No family history of adverse response to anesthesia No family history of bleeding disorder Denies family history of Ovarian cancer Prostate cancer Breast cancer Colorectal cancer Social History Smoking Status: Former smoker Tobacco Type: Cigarettes Age Started Using Tobacco: 20; Age Quit Using Tobacco: 50; Second Hand Exposure: No; Do You Dip or Chew Tobacco: No; Hx Alcohol Use: No Hx Substance Use: No Preferred Language: Moroccan Communication Ability: Effective Visual Impairment: Partially Limited Application Support Consultant Required: No Beliefs That Will Affect Care: None marital status: / Current Living Situation: Family Current Living Situation Comment: daughter current occupational status: unemployed How many Children do You have: 2 Feels Safe at Home: Yes Dental Care, Regularly: Yes Physical Activity Frequency: 1-2 Times per Week Seatbelt Use: always Sunscreen Use: Yes Assistive Devices: Cane, CPAP and Glasses Review of Systems Review of Systems: All systems reviewed & are unremarkable except as noted in HPI & below Constitutional: as per Subjective / HPI Eyes: as per Subjective / HPI Ear, Nose, Mouth, Throat: as per Subjective / HPI Respiratory: as per Subjective / HPI Cardiovascular: as per Subjective / HPI Gastrointestinal: as per Subjective / HPI Genitourinary: as per Subjective / HPI Musculoskeletal: as per Subjective / HPI Integumentary: as per Subjective / HPI Neurologic: as per Subjective / HPI Psychiatric: as per Subjective / HPI Endocrine: as per Subjective / HPI Hematologic / Lymphatic: as per Subjective / HPI Allergy / Immunological: as per Subjective / HPI Physical Exam Constitutional: WD/WN, vitals as above Eyes: PERRL, conjunctivae normal, anicteric sclerae ENMT: external ear and nose normal, oropharynx normal Neck: trachea midline, no thyromegaly Respiratory: normal respiratory effort, lungs clear to auscultation Cardiovascular: RRR, no murmur, no edema Gastrointestinal (Abdomen): normal bowel sounds, soft, nontender, no hepatosplenomegaly Musculoskeletal: no cyanosis or clubbing, extremities motor strength 5/5 Skin: no rashes, warm and dry Neurologic: patellar DTR's 2+ bilat, sensation intact Psychiatric: A+Ox3, euthymic affect Genitourinary: no vaginal lesions, no adnexal mass Lymphatic: no cervical or axillary lymphadenopathy Results & Data Vital Signs (Past 12 Hours) Vital Signs Temp Pulse Pulse Resp BP Pulse Ox O2 Del Method 10/05/24 08:00 36.5 C 79 16 114/62 92 Room Air 10/05/24 03:30 36.6 C 77 18 105/73 90 Room Air 10/04/24 23:32 36.6 C 74 18 98/67 L 93 Room Air 10/04/24 23:00 80 (2) Ovarian cancer Laterality: unspecified laterality Qualified Code(s): C56.9 - Malignant marie plasm of unspecified ovary
[2024-10-05 10:45] LABS: INR 1.1 (0.9-1.1); Prothrombin Time 11.7 Seconds (9.0-12.0)
--- NOTE | 2024-10-05 10:50 | Pulmonary Consultation ---
Date of Consultation October 05, 2024 Assessment & Plan (1) Pleural effusion: Patient with recurrent left-sided pleural effusion likely malignant from ovarian cancer. Will send the patient for an ultrasound-guided thoracentesis by interventional radiology and send the fluid for sampling. Patient's Eliquis has been held since last per the patient. INR is 1.1 and platelet count is acceptable. (2) Ovarian cancer: Patient currently under the care of of hematology/oncology who has seen her this admission. She is on palliative systemic chemoimmunotherapy. Laterality: unspecified laterality Qualified Code(s): C56.9 - Malignant neoplasm of unspecified ovary History of Present Illness Reason for Consultation: Recurrent left pleural effusion Attending Physician: Kana Garcia MD History of Present Illness 59-year-old female with a past medical history of stage IV ovarian cancer with carcinomatosis and an intra-abdominal tunneled catheter for recurrent ascites who presented to the hospital for further request with anesthesiologist. Patient was supposed to undergo ureteral stent exchange yesterday and a preprocedure chest x-ray was ordered. Chest x-ray revealed a large left pleural effusion and the patient was admitted to the hospital for further management. Patient underwent a thoracentesis 08/14/2024 of the left pleural effusion with 800 mL of fluid removed. This was ordered by oncology. Fluid was not sent for sampling. Chest CTA this admission revealed a large left pleural effusion with near complete compressive atelectasis of the left lower lobe and partial atelectasis of the left upper lobe. Minimal ascites was seen. Patient denies any significant shortness of breath at rest, but does notice some increased fatigue and dyspnea on exertion at home. She denies any fevers, chills or night sweats. No chest pain. Allergies Allergy/AdvReac Type Severity Reaction Status Date / Time No Known Allergies Allergy Verified 10/04/24 15:11 Home Medications Medication Instructions Recorded Confirmed Type omeprazole 20 mg capsule,delayed 20 mg PO BID #180 caps 12/20/20 10/04/24 Rx release multivitamin (Multiple Vitamins 1 tab PO QAM 01/08/21 10/04/24 History tablet) duloxetine 60 mg capsule,delayed 60 mg PO QAM 05/19/23 10/04/24 History release gabapentin 100 mg capsule 100 mg PO BID 05/19/23 10/04/24 History metoprolol tartrate 50 mg tablet 50 mg PO HS 05/19/23 10/04/24 History vitamin E (dl, acetate) 180 mg 180 mg PO BID 05/19/23 10/04/24 History (400 unit) capsule fluticasone propionate 50 2 spray intranasal DAILY PRN 05/21/23 10/04/24 Rx mcg/actuation nasal Congestion #48 grams spray,suspension apixaban 5 mg tablet (Eliquis) 5 mg PO BID 08/04/23 10/04/24 History gabapentin 300 mg capsule 600 mg PO HS 08/04/23 10/04/24 History oxycodone 5 mg tablet 10 mg PO Q6H PRN Pain 04/19/24 10/04/24 History duloxetine 30 mg capsule,delayed 30 mg PO HS 05/01/24 10/04/24 History release tamsulosin 0.4 mg capsule (Flomax) 0.4 mg PO DAILY kidney stone #30 07/13/24 10/04/24 Rx caps magnesium 200 mg tablet 200 mg PO DAILY 09/27/24 10/04/24 History aspirin 81 mg tablet,delayed 81 mg PO QAM 10/04/24 10/04/24 History release cyanocobalamin (vitamin B-12) 1,000 mcg PO DAILY 10/04/24 10/04/24 History 1,000 mcg tablet (Vitamin B-12) Patient History Medical History (Updated 10/04/24 @ 13:29 by Eleazar Garza DO) Ureteral stent present Abdominal ascites Paracentesis 08/31/24, 5L removed Port-A-Cath in place (06/27/24) Insertion of Access Port Right IJ with Fluoroscopy(Right) - Dany Nguyễn DO repositioning of access port 08/29/24 [place] Pleural effusion, left had thora UTI (urinary tract infection) currently on macrobid Hydronephrosis Hx of syncope (2019) Occurred w chemo treatment, "blood pressure crashed," spent 5 days at [facility] Hx pulmonary embolism (07/2023) Taking Eliquis Morbid obesity History of blood transfusion Sinus bradycardia Ovarian cancer Dx 03/2020, sx and chemo; currently on oral chemo (for the last 3 years) and IV Chemo since recent recurrence. 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 Hypertension controlled, stable per pt Hyperlipidemia Heart disease GERD (gastroesophageal reflux disease) controlled, stable per pt Depression Bilateral tinnitus Chronic low back pain Arthritis Anxiety Pulmonary hypertension Echo 08/2024: RVSP elevated at 30-40mmhg History of COVID-19 03/2023 (home test): body aches, fatigue, diarrhea > resolved DJD (degenerative joint disease) Knees, shoulder History of palpitations Intermittent episodes since 2019 Sleep apnea CPAP (compliant) Surgical History Nausea and vomiting after administration of anesthetic agent Single episode History of abdominal surgery 09/2024 pt had abdominal drain placed at [facility] History of surgery (08/29/24) Repostioning of Access Port with Fluoroscopy(Right) - Dany Nguyễn DO Port-A-Cath in place (06/27/24) Insertion of Access Port Right IJ with Fluoroscopy(Right) - Dany Nguyễn DO History of abdominal paracentesis (08/14/24) History of infusaport central venous catheter insertion (06/27/24) [facility] S/P cystoscopy with ureteral stent placement (07/06/24) History of thoracentesis (08/14/24) [facility] Hx of cardiac catheterization (06/19/24) told "false stress test" - only added isosorbide to medical regimen- follows with [facility] Hx of foot surgery lt foot rebuilt Hx of colonoscopy Hx of bilateral cataract extraction History of hysterectomy with bilateral oophorectomy H/O oral surgery S/P cholecystectomy H/O arthroscopy of left knee Family History Mother Coronary heart disease Diabetes Obesity Hypertension Heart disease Father Obesity Hypertension Heart disease Grandfather (Maternal) Myocardial infarction Other Cancer No family history of adverse response to anesthesia No family history of bleeding disorder Denies family history of Ovarian cancer Prostate cancer Breast cancer Colorectal cancer Social History Smoking Status: Former smoker Tobacco Type: Cigarettes Age Started Using Tobacco: 20; Age Quit Using Tobacco: 50; Second Hand Exposure: No; Do You Dip or Chew Tobacco: No; Hx Alcohol Use: No Hx Substance Use: No Preferred Language: Qatari Communication Ability: Effective Visual Impairment: Partially Limited Carpenter Form Required: No Beliefs That Will Affect Care: None marital status: / Current Living Situation: Family Current Living Situation Comment: daughter current occupational status: unemployed How many Children do You have: 2 Feels Safe at Home: Yes Dental Care, Regularly: Yes Physical Activity Frequency: 1-2 Times per Week Seatbelt Use: always Sunscreen Use: Yes Assistive Devices: Cane, CPAP and Glasses Review of Systems Review of Systems: All systems reviewed & are unremarkable except as noted in HPI & below Physical Exam Physical Exam: Constitutional: Patient appears to be of their stated age. Patient is in no apparent distress. Patient is well-developed. Eyes: Pupils are equal round and reactive to light. Conjunctivae are normal. Anicteric sclera. Ears nose, mouth and throat: Mallampati class 2. Normal posterior oropharynx. Uvula is midline. Neck: Trachea is midline. Visual inspection is normal. Respiratory: Bibasilar crackles, left greater than right. Cardiovascular: Regular rate and rhythm. No murmurs. No edema. Gastrointestinal: Normal bowel sounds, soft, nontender and nondistended. No hepatosplenomegaly noted. Indwelling intra-abdominal drain noted on the left. Musculoskeletal: No cyanosis. Patient is able to move all extremities. Strength is 5 out of 5 in the upper and lower extremities. Skin: No rashes, warm dry and intact. Chest wall port noted. Neurologic: No obvious focal neurological deficits seen. Psychiatric: Alert and oriented x3 with a euthymic affect. Results & Data Results & Data Vital Signs (Past 12 Hours) Vital Signs Temp Pulse Pulse Resp BP Pulse Ox O2 Del Method 10/05/24 10:36 Room Air 10/05/24 08:00 36.5 C 79 16 114/62 92 Room Air 10/05/24 03:30 36.6 C 77 18 105/73 90 Room Air 10/04/24 23:32 36.6 C 74 18 98/67 L 93 Room Air 10/04/24 23:00 80 PG Care Time/CCT Total # of Minutes Spent Total Time Spent with Patient: Total time spent is greater than 50% in coordination of care (as documented) at patient's floor/unit and/or counseling patient: Coding Level of Care Code 45314 INT INP/OBS CARE 2/55MIN Diagnoses Pleural effusion J90 Ovarian cancer C56.9 Laterality: unspecified laterality
--- NOTE | 2024-10-05 15:35 | Ultrasound Report ---
ULTRASOUND-GUIDED LEFT THORACENTESIS CLINICAL HISTORY: Left pleural effusion PROCEDURE: Procedure and risks were explained. Informed consent was obtained. A final timeout was com pleted. The left posterior thorax was prepped and draped in sterile fashion. 1% lidocaine was utilize d for skin anesthesia. Utilizing ultrasound guidance, a 5 Amharic safety centesis catheter was advanced into the left pleural effusion. Ultrasound images were obtained. A total of 1500 mL of pleural fluid was removed and sent to the lab. The catheter was removed and Band-Aid applied. The patient tolerated the procedure well. A chest x-ray will be obtained post procedure. Vital signs will be monitored on the floor. IMPRESSION: Ultrasound-guided left thoracentesis as above. Performed, dictated, and signed by Regino Noble PA-C; to be co-signed by Dr. Sony Iniguez. Electronically signed by: Sony Iniguez M.D. 10/05/2024 3:56 PM
--- NOTE | 2024-10-05 15:52 | XRay Report ---
XR chest 1V not portable CLINICAL HISTORY: s/p left thora COMPARISON STUDY: 10/04/2024 FINDINGS: Compare with the prior examination, the left pleural effusion has diminished in size. There is no evidence of a pneumothorax. There is persistent partial atelectasis in the left lower lobe man ifested by a straight left heart border. Some loculated fluid is also suggested in the left hemithora x due to the presence of groundglass opacity. The right lung is clear. There is a MediPort catheter e ntering from the jugular vein on the right and the tip is in the upper superior vena cava. IMPRESSION: No pneumothorax status post left thoracentesis. Residual left pleural fluid with a proba ble loculated component. Persistent partial atelectasis of the left lower lobe. ACT 112: Negative or not required by law. Electronically signed by: Johanne Tsang M.D. 10/05/2024 3:51 PM
[2024-10-05 17:10] LABS: Total Protein Pleural Fluid 3.5 gm/dl
--- NOTE | 2024-10-05 17:11 | Urology Progress Note ---
Date of Service October 05, 2024 Assessment & Plan (1) Ureteral stent present: (2) UTI (urinary tract infection): Plan 59-year-old female with right hydronephrosis thought to be related to her metastatic ovarian cancer. She is due for stent exchange and now that her pleural effusion is drained, we can tentatively proceed with stent exchange on 10/06/24. Although there is concern for UTI, she is currently receiving broad-spectrum antibiotics which would hopefully provide appropriate coverage. Her stent has been in place long enough that it may be getting encrusted and not draining well, leading to incomplete source control. We will tentatively make her NPO at midnight for procedure on 10/06/24 Admission and Anticipated Discharge Date Admission Date: October 04, 2024 Subjective This is a 59-year-old female with metastatic ovarian cancer followed by urology for hydronephrosis. She has a right ureteral stent in place to maximize drainage from her kidney. Ureteral biopsy from 07/06/2024 did not identify malignancy although made note of friable tissue in the mid ureter. Initial plan was for stent exchange on 10/04/2024, however she was found to have a large pleural effusion. This has subsequently been drained. Today she reports a little bit of pain with deep breaths, but largely feels improved. Urinalysis from 10/04/2024 suggestive of infection even though she had been on antibiotics leading up to surgery. Culture is pending. She is currently receiving broad-spectrum antibiotics in the form of Zosyn. Physical Exam Physical Exam: Seated in bed, NAD Breathing comfortably on room air Results & Data Vital Signs (Past 12 Hours) Vital Signs Temp Pulse Resp BP Pulse Ox O2 Del Method 10/05/24 16:30 36.5 C 72 16 99/74 L 97 Room Air 10/05/24 16:00 36.6 C 70 16 117/63 98 Room Air 10/05/24 15:45 36.5 C 69 18 102/67 96 Room Air 10/05/24 11:00 36.5 C 77 16 96/53 L 95 Room Air 10/05/24 10:36 Room Air 10/05/24 08:00 36.5 C 79 16 114/62 92 Room Air PG Care Time/CCT Total # of Minutes Spent Total Time Spent with Patient: Total time spent is greater than 50% in coordination of care (as documented) at patient's floor/unit and/or counseling patient: Coding Level of Care Code 06916 SUB INP/OBS CARE Diagnoses Ureteral stent present Z96.0 UTI (urinary tract infection) N39.0
[2024-10-05 17:40] LABS: Appearance Pleural Fluid Turbid; Color Pleural Fluid Red; RBC Pleural Fluid Auto 98000 /uL; Source Pleural Fluid Left Lung; WBC Pleural Fluid Auto 628 /uL
[2024-10-05] MEDS: ACETAMINOPHEN 325 MG TAB PO PRN (21:40)
[2024-10-06 06:32] LABS: Albumin Globulin Ratio 0.8 (0.9-2); Albumin Level 2.4 gm/dl (3.4-5.0); BUN Creatinine Ratio 15.8 (10-20); Bilirubin,Total 0.3 mg/dl (0.2-1.0); Creatinine Clr Calc Pharmacy 104.5 ml/min; Globulin 3.1 gm/dl (2.5-4.0); Potassium 3.2 mmol/L (3.5-5.1); Total Protein 5.5 gm/dl (6.0-8.3)
[2024-10-06 07:53] LABS: Basophils, Fluid 1 %; Lymphocytes, Fluid 28 %; Mono,Macrophage,Mesothelial 70 %; Neutrophils, Fluid 1 %
--- NOTE | 2024-10-06 11:20 | Urology Progress Note ---
<Statement entered by Elian Souza MD - 10/06/24 12:45> We will plan for cystoscopy, right retrograde pyelogram and right ureteral stent exchange. From urology perspective I anticipate she will be okay for discharge after procedure, but will defer to medicine on final disposition. Date of Service October 06, 2024 Assessment & Plan (1) Pleural effusion: (2) Ureteral stent present: Plan 59-year-old female with right hydronephrosis thought to be related to her metastatic ovarian cancer. She was here for stent exchange on 10/04/2024 and found to have pleural effusions, therefore stent exchange was delayed. Patient's breathing has improved after drainage of pleural effusions, denying any urological concerns at bedside this morning Patient currently hemodynamically stable Labs reviewed-creatinine 0.76, WBC 6.74, hemoglobin 9.3 Urine culture Gardnerella 70K Patient currently on Zosyn Patient currently n.p.o., planned for stent exchange today 10/06/24 -she had no further questions at bedside about procedure Continue medical management and other care per primary team GI will continue to follow, please contact our service for any questions or concerns Admission and Anticipated Discharge Date Admission Date: October 04, 2024 Subjective Resting comfortably in bed Denies any issues with breathing after pleural effusion drainage Denies fever, chills, nausea, vomiting Denies gross hematuria, dysuria Currently n.p.o. Review of Systems Constitutional: as per Subjective / HPI Genitourinary: as per Subjective / HPI Physical Exam Constitutional: well developed and well nourished; no acute distress Respiratory: normal respiratory effort and able to speak in complete sentences Musculoskeletal: Extremities: extremities normal to inspection Psychiatric: Orientation: alert and oriented x 3 Results & Data Vital Signs (Past 12 Hours) Vital Signs Temp Pulse Resp BP Pulse Ox O2 Del Method 10/06/24 07:40 36.4 C L 67 18 115/78 93 Room Air 10/06/24 05:03 36.3 C L 71 19 116/78 93 Room Air 10/05/24 23:22 36.7 C 81 18 107/73 92 Room Air PG Care Time/CCT Total # of Minutes Spent Total Time Spent with Patient: Total time spent is greater than 50% in coordination of care (as documented) at patient's floor/unit and/or counseling patient: Coding Level of Care Code 47728 SUB INP/OBS CARE 235MIN Diagnoses Pleural effusion J90 Ureteral stent present Z96.0
--- NOTE | 2024-10-06 11:24 | Pulmonology Progress Note ---
Date of Service October 06, 2024 Assessment & Plan (1) Pleural effusion: Plan: Ultrasound-guided left-sided thoracentesis completed 10/05/2024 with 1.5 L of fluid removed from the left hemithorax. Pleural cytology and cultures pending. Highly suspicious of malignancy and potential recurrence rapidly. Patient may need to consider Pleurx catheter placement which was discussed with her in the future should this recur rapidly. (2) Ovarian cancer: Plan: Patient currently under the care of of hematology/oncology who has seen her this admission. She is on palliative systemic chemoimmunotherapy. Patient seems to have poor insight into her disease process and I suggested that she have an in- depth discussion with her oncologist regarding her prognosis and severity of disease involvement. Laterality: unspecified laterality Qualified Code(s): C56.9 - Malignant neoplasm of unspecified ovary Plan Pulmonary can follow-up with the patient as an outpatient and assess need for further pleural drainage via intermittent thoracentesis versus Pleurx catheter after her discharge.. Admission and Anticipated Discharge Date Admission Date: October 04, 2024 Subjective Patient had a thoracentesis with 1.5 L of fluid removed from her left hemithorax yesterday. Gram stain negative. She does not note any significant change in her breathing since the drainage, but she has not really ambulated. She denies any cough, chest pain, fevers, chills or night sweats. She states that she was unaware that the presence of pleural effusion might suggest metastatic malignancy to her thorax. Cytology from the pleural fluid is pending. Review of Systems Review of Systems: All systems reviewed & are unremarkable except as noted in HPI & below Physical Exam Physical Exam: Constitutional: Patient appears to be of their stated age. Patient is in no apparent distress. Patient is well-developed. Eyes: Pupils are equal round and reactive to light. Conjunctivae are normal. Anicteric sclera. Ears nose, mouth and throat: Mallampati class 2. Normal posterior oropharynx. Uvula is midline. Neck: Trachea is midline. Visual inspection is normal. Respiratory: Bibasilar crackles, left greater than right. Cardiovascular: Regular rate and rhythm. No murmurs. No edema. Gastrointestinal: Normal bowel sounds, soft, nontender and nondistended. No hepatosplenomegaly noted. Indwelling intra-abdominal drain noted on the left. Musculoskeletal: No cyanosis. Patient is able to move all extremities. Strength is 5 out of 5 in the upper and lower extremities. Skin: No rashes, warm dry and intact. Chest wall port noted. Neurologic: No obvious focal neurological deficits seen. Psychiatric: Alert and oriented x3 with a euthymic affect. Results & Data Results & Data Vital Signs (Past 12 Hours) Vital Signs Temp Pulse Resp BP Pulse Ox O2 Del Method 10/06/24 11:17 36.5 C 87 18 113/79 96 Room Air 10/06/24 07:40 36.4 C L 67 18 115/78 93 Room Air 10/06/24 05:03 36.3 C L 71 19 116/78 93 Room Air 10/05/24 23:22 36.7 C 81 18 107/73 92 Room Air PG Care Time/CCT Total # of Minutes Spent Total Time Spent with Patient: Total time spent is greater than 50% in coordination of care (as documented) at patient's floor/unit and/or counseling patient: Coding Level of Care Code 89329 SUB INP/OBS CARE 2/35MIN Diagnoses Pleural effusion J90 Ovarian cancer C56.9 Laterality: unspecified laterality
--- NOTE | 2024-10-06 11:27 | Anesthesiology Consultation ---
Date of Service October 06, 2024 Assessment & Plan Chart Review Chart Review: Acceptable Risk for Surgery and Patient NOT seen in Pre Admission Testing History Surgery Operation Date: 10/06/24 07:50 Proposed Procedures p Cystoscopy Right Stent Exchange - Elian Souza MD Height/Weight Height: 5 ft 5 in Weight: 96.8 kg Allergies Allergy/AdvReac Type Severity Reaction Status Date / Time No Known Allergies Allergy Verified 10/04/24 15:11 Medications Home Medications Medication Instructions Recorded Confirmed Last Taken omeprazole 20 mg capsule,delayed 20 mg PO BID #180 caps 12/20/20 10/04/24 10/04/24 08:00 release multivitamin (Multiple Vitamins 1 tab PO QAM 01/08/21 10/04/24 10/04/24 08:00 tablet) duloxetine 60 mg capsule,delayed 60 mg PO QAM 05/19/23 10/04/24 10/04/24 08:00 release gabapentin 100 mg capsule 100 mg PO BID 05/19/23 10/04/24 10/04/24 08:00 metoprolol tartrate 50 mg tablet 50 mg PO HS 05/19/23 10/04/24 10/03/24 20:00 vitamin E (dl, acetate) 180 mg 180 mg PO BID 05/19/23 10/04/24 10/03/24 (400 unit) capsule fluticasone propionate 50 2 spray intranasal DAILY PRN 05/21/23 10/04/24 08/27/24 10:00 mcg/actuation nasal Congestion #48 grams spray,suspension apixaban 5 mg tablet (Eliquis) 5 mg PO BID 08/04/23 10/04/24 10/01/24 07:00 gabapentin 300 mg capsule 600 mg PO HS 08/04/23 10/04/24 10/03/24 20:00 oxycodone 5 mg tablet 10 mg PO Q6H PRN Pain 04/19/24 10/04/24 10/03/24 15:00 duloxetine 30 mg capsule,delayed 30 mg PO HS 05/01/24 10/04/24 10/03/24 20:00 release tamsulosin 0.4 mg capsule (Flomax) 0.4 mg PO DAILY kidney stone #30 07/13/24 10/04/24 10/04/24 07:00 caps magnesium 200 mg tablet 200 mg PO DAILY 09/27/24 10/04/24 10/03/24 20:00 aspirin 81 mg tablet,delayed 81 mg PO QAM 10/04/24 10/04/24 Unknown release cyanocobalamin (vitamin B-12) 1,000 mcg PO DAILY 10/04/24 10/04/24 Unknown 1,000 mcg tablet (Vitamin B-12) Active Medications Generic Name Dose Route Start Last Admin Trade Name Freq PRN Reason Stop Dose Admin Acetaminophen 650 mg 10/04/24 17:22 10/05/24 21:40 Acetaminophen 325 Mg Tab PO 11/03/24 17:21 650 mg Q4H PRN Administration Pain or Fever Duloxetine HCl 60 mg 10/05/24 09:00 10/06/24 08:06 Duloxetine Hcl 60 Mg Cap PO 11/04/24 08:59 60 mg QAM JUAN CARLOS Administration Duloxetine HCl 30 mg 10/04/24 21:00 10/05/24 20:39 Duloxetine Hcl 30 Mg Cap PO 11/03/24 20:59 30 mg HS JUAN CARLOS Administration Gabapentin 600 mg 10/04/24 21:00 10/05/24 20:42 Gabapentin 300 Mg Cap PO 11/03/24 20:59 600 mg HS JUAN CARLOS Administration Gabapentin 100 mg 10/05/24 08:00 10/06/24 08:06 Gabapentin 100 Mg Cap PO 11/04/24 07:59 100 mg BID@0800,1200 JUAN CARLOS Administration Piperacillin Sod/Tazobactam Sod 4.5 gm in 100 mls @ 25 mls/hr 10/05/24 00:00 10/06/24 08:06 Zosyn IV 10/10/24 00:00 25 mls/hr Q8H JUAN CARLOS Administration Protocol Metoprolol Tartrate 50 mg 10/04/24 21:00 10/05/24 20:41 Metoprolol Tartrate 50 Mg Tab PO 11/03/24 20:59 50 mg HS JUAN CARLOS Administration Pantoprazole Sodium 40 mg 10/04/24 21:00 10/06/24 08:06 Pantoprazole 40 Mg Tab PO 11/03/24 20:59 40 mg BID JUAN CARLOS Administration Past Medical History Medical History Ureteral stent present Abdominal ascites Paracentesis 08/31/24, 5L removed Port-A-Cath in place (06/27/24) Insertion of Access Port Right IJ with Fluoroscopy(Right) - Dany Nguyễn DO repositioning of access port 08/29/24 [place] Pleural effusion, left had thora UTI (urinary tract infection) currently on macrobid Hydronephrosis Hx of syncope (2019) Occurred chemo treatment, "blood pressure crashed," spent 5 days at [facility] Hx pulmonary embolism (07/2023) Taking Eliquis Morbid obesity History of blood transfusion Sinus bradycardia Ovarian cancer Dx 03/2020, sx and chemo; currently on oral chemo (for the last 3 years) and IV Chemo since recent recurrence. 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 Hypertension controlled, stable per pt Hyperlipidemia Heart disease GERD (gastroesophageal reflux disease) controlled, stable per pt Depression Bilateral tinnitus Chronic low back pain Arthritis Anxiety Pulmonary hypertension Echo 08/2024: RVSP elevated at 30-40mmhg History of COVID-19 03/2023 (home test): body aches, fatigue, diarrhea > resolved DJD (degenerative joint disease) Knees, shoulder History of palpitations Intermittent episodes since chemo 2019 Sleep apnea CPAP (compliant) Past Family History Family History Mother Coronary heart disease Diabetes Obesity Hypertension Heart disease Father Obesity Hypertension Heart disease Grandfather (Maternal) Myocardial infarction Other Cancer No family history of adverse response to anesthesia No family history of bleeding disorder Denies family history of Ovarian cancer Prostate cancer Breast cancer Colorectal cancer Past Surgical History Surgical History Nausea and vomiting after administration of anesthetic agent Single episode History of abdominal surgery 09/2024 pt had abdominal drain placed at [facility] History of surgery (08/29/24) Repostioning of Access Port with Fluoroscopy(Right) - Dany Nguyễn DO Port-A-Cath in place (06/27/24) Insertion of Access Port Right IJ with Fluoroscopy(Right) - Dany Nguyễn DO History of abdominal paracentesis (08/14/24) History of infusaport central venous catheter insertion (06/27/24) [facility] S/P cystoscopy with ureteral stent placement (07/06/24) History of thoracentesis (08/14/24) [facility] Hx of cardiac catheterization (06/19/24) told "false stress test" - only added isosorbide to medical regimen- follows with dallas mccall Hx of foot surgery lt foot rebuilt Hx of colonoscopy Hx of bilateral cataract extraction History of hysterectomy with bilateral oophorectomy H/O oral surgery S/P cholecystectomy H/O arthroscopy of left knee Social History Smoking Status: Former smoker tobacco type: cigarettes Do You Dip or Chew Tobacco: No Hx Alcohol Use: No Alcohol type: wine alcohol intake frequency: holidays/special occasions only Hx Substance Use: No substance use type: does not use Physical Exam Vital Signs Last Vital Signs Temp 36.5 C 10/06/24 11:17 Pulse 87 10/06/24 11:17 Resp 18 10/06/24 11:17 BP 113/79 10/06/24 11:17 Pulse Ox 96 10/06/24 11:17 O2 Del Method Room Air 10/06/24 11:17 O2 Flow Rate 2 10/04/24 12:44 Testing Laboratory Results 10/04/24 12:40 10/06/24 05:45 PT 11.7 Seconds (9.0-12.0) 10/05/24 09:45 INR 1.1 (0.9-1.1) 10/05/24 09:45 Urine Color Yellow 10/04/24 Unknown Urine Appearance Cloudy (Clear) A 10/04/24 Unknown Urine pH 7.5 (4.5-7.5) 10/04/24 Unknown Ur Specific [place] 1.014 (1.000-1.030) 10/04/24 Unknown Urine Protein 2+ (Negative) H 10/04/24 Unknown Urine Glucose (UA) Negative (Negative) 10/04/24 Unknown Urine Ketones Negative (Negative) 10/04/24 Unknown Urine Nitrite Positive (Negative) A 10/04/24 Unknown Ur Leukocyte Esterase 2+ (Negative) H 10/04/24 Unknown Urine WBC (Auto) >50 /hpf (0-5) H 10/04/24 Unknown Urine RBC (Auto) >20 /hpf (0-2) H 10/04/24 Unknown U Hyaline Cast (Auto) 3-5 /lpf (0-2) H 10/04/24 Unknown U Epithel Cells (Auto) 0-2 /hpf (0-2) 10/04/24 Unknown Urine Bacteria (Auto) 2+ (None Seen) H 10/04/24 Unknown 10/04/24 Unknown Urine Culture - Final Urine,Clean Catch Gardnerella-like bacilli 10/04/24 21:04 Urine Culture - Final Urine,Clean Catch No growth - less than 1,000 colonies/mL. 10/05/24 Unknown Gram Stain - Final Pleural Fluid 10/04/24 17:50 Aerobic Blood Culture - Preliminary Blood No growth in Aerobic bottle after 24 hours. Anaerobic Blood Culture - Preliminary No growth in Anaerobic bottle after 24 hours. 10/04/24 17:51 Aerobic Blood Culture - Preliminary Blood No growth in Aerobic bottle after 24 hours. Anaerobic Blood Culture - Preliminary No growth in Anaerobic bottle after 24 hours.
[2024-10-06] MEDS ORDERED: MIDAZOLAM HCL 1 MG/ML 2ML VIAL ONE (12:50)
[2024-10-06] MEDS ORDERED: fentaNYL citrate PF 100 MCG/2 ML VIAL ONE (12:50)
[2024-10-06] MEDS ORDERED: PROPOFOL IV EMULSION 10 MG/ML 20 ML VIAL IV ONE ×2 (12:52→14:02)
[2024-10-06] MEDS ORDERED: LIDOCAINE 2% 2 ML VIAL/AMP(20MG/ML) INFIL ONE (12:52)
[2024-10-06] MEDS ORDERED: ONDANSETRON INJ 2 MG/ML 2 ML VIAL ONE (12:54)
[2024-10-06] MEDS ORDERED: ONDANSETRON INJ 2 MG/ML 2 ML VIAL IV PRN (13:35)
[2024-10-06] MEDS ORDERED: ATROPINE SULFATE 0.1 MG/ML 10ML SYR IV PRN (13:35)
[2024-10-06] MEDS ORDERED: fentaNYL citrate PF 100 MCG/2 ML VIAL IV PRN (13:35)
[2024-10-06] MEDS: DIATRIZOATE MEGLUMINE 30% 100ML VIAL INSTIL ONE (14:02)
--- NOTE | 2024-10-06 14:22 | Operative Report ---
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 She has been managed with a chronic right ureteral stent. She presents to the OR for right ureteral stent exchange. Description of Procedure The patient was identified in the holding area and informed consent was confirmed. She was marked on the right side, then was taken to the operating room where anesthesia was initiated. She was placed in the dorsal lithotomy position with all pressure points appropriately padded. She was prepped and draped in the usual sterile fashion and a preoperative timeout was performed. A well-lubricated cystoscope was inserted per urethra and panendoscopy was performed. The urethra was normal in appearance. The bladder was of normal size with ureteral orifices in orthotopic position. The end of the ureteral stent was visible from the right ureteral orifice. Alongside the stent, a zip wire was advanced to the kidney under fluoroscopic guidance. A pair of stent graspers was used to withdraw the stent. The 5 [place] open-ended catheter was used to perform a retrograde pyelogram adjacent to the wire. There was ongoing hydronephrosis. I did not appreciate any suspicious filling defects. Over the wire, a 6 [place] x 24 centimeter double-J ureteral stent was advanced. When the wire was removed, the proximal curl was visualized in the kidney with x-ray, and the distal curl visualized in the bladder with the cystoscope. There was good drainage of contrast through the stent. At this point the bladder was drained and all instrumentation was removed. The patient was then awakened from anesthesia and was brought to the PACU in stable condition. I attest to the content of the Intraoperative Record and any orders documented therein. Any exceptions are noted below.
--- NOTE | 2024-10-06 14:33 | Fluoroscopy Report ---
FL retrograde includes kub CLINICAL HISTORY: CYSTOright-sided cystourethrogram COMPARISON STUDY: None FLUOROSCOPY TIME: 14.8 seconds FLUOROSCOPY IMAGES: Not EXPOSURE DOSE: 5.61 mGy FINDINGS: Mild right-sided hydronephrosis. Status post placement of a right ureteral stent, proximal portion and satisfactory positioning, the distal portion is not imaged. IMPRESSION: Fluoroscopic assistance as above. ACT 112: Negative or not required by law. Electronically signed by: Shakir Rivera M.D. 10/06/2024 2:32 PM
--- NOTE | 2024-10-06 14:40 | Anesthesiology Progress Note ---
Date of Service October 06, 2024 Anesthesia Post Procedure Vital Signs Vital Signs: Temp Pulse Pulse Pulse Resp BP BP 10/06/24 14:30 36.4 C L 74 18 107/72 10/06/24 14:20 73 16 96/68 L 10/06/24 14:10 36.0 C L 75 20 100/66 10/06/24 13:05 80 20 131/75 10/06/24 11:17 36.5 C 87 18 113/79 10/06/24 07:40 36.4 C L 67 18 115/78 10/06/24 05:03 36.3 C L 71 19 116/78 10/05/24 23:22 36.7 C 81 18 107/73 10/05/24 23:00 105 H 10/05/24 19:55 10/05/24 19:18 36.6 C 102 H 18 121/78 10/05/24 17:00 81 18 119/62 10/05/24 16:30 36.5 C 72 16 99/74 L 10/05/24 16:00 36.6 C 70 16 117/63 10/05/24 15:45 36.5 C 69 18 102/67 Pulse Ox O2 Del Method O2 Flow Rate 10/06/24 14:30 100 Room Air 10/06/24 14:20 100 Oxymask 4 10/06/24 14:10 97 Oxymask 6 10/06/24 13:05 96 Room Air 10/06/24 11:17 96 Room Air 10/06/24 07:40 93 Room Air 10/06/24 05:03 93 Room Air 10/05/24 23:22 92 Room Air 10/05/24 23:00 10/05/24 19:55 Room Air 10/05/24 19:18 93 Room Air 10/05/24 17:00 96 Room Air 10/05/24 16:30 97 Room Air 10/05/24 16:00 98 Room Air 10/05/24 15:45 96 Room Air Transfer of Care Handoff Completed per policy Notes Mental Status: alert / awake / arousable Patient Amnestic to Procedure: Yes Nausea / Vomiting: adequately controlled Pain: adequately controlled Airway Patency, RR, SpO2: stable & adequate BP & HR: stable & adequate Hydration State: stable & adequate Anesthetic Complications: no major complications apparent
--- NOTE | 2024-10-06 15:36 | Hospitalist Progress Note ---
Date of Service October 06, 2024 Assessment & Plan (1) Acute respiratory failure with hypoxia: (2) Ovarian cancer: (3) Hypertension: (4) Chronic low back pain: Plan 89-year-old female with history of metastatic ovarian carcinoma was set for ureteral stent exchange who presents with hypoxia and shortness of breath requiring oxygen supplementation. Patient is an increase in size of left-sided pleural effusion from previous note effusion suctioned July 2024. Considerations for thoracentesis to medically optimize her prior to ureteral stent manipulation #Acute respiratory failure and hypoxia. Resolved no additional need for supplemental oxygen Because the patient has stopped her chronic anticoagulation we will be able to perform CTA t not of pulmonary embolism, the pleural effusion shows near complete compressive atelectasis the left lower lobe and partial ectasis of the left upper lobe pulmonary is consulted and has recommended she see interventional radiology for thoracentesis and fluid analysis #Ovarian cancer. She has abdominal carcinomatosis she has a Pleurx catheter drained every 4 days she is on [facility]. She is mildly anemic has stable white count is scheduled for chemotherapy on 10 05 with this will be postponed likely due for pleurex drainage of abdominal ascites on 07 October #CAD and hypertension patient typically takes aspirin and metoprolol. Her aspirin is on hold metoprolol continues to confirm this tartrate at bedtime #Urologyureteral stent possible UTI patient of urine culture she is placed on Zosyn therapy she continues on Flomax therapy #Chronic low back pain patient is on gabapentin and as needed oxycodone for her back pain these to be continued #DVT prevention is SCDs and consider chemoprophylaxis once thoracentesis is performed but would coordinate with urology to see if stent exchange would be in the short-term future then would use subcutaneous injections over returning to her oral medicines As mentioned in advance care planning was discussed patient confirms she is a DNR/DNI Admission and Anticipated Discharge Date Admission Date: October 04, 2024 Subjective Patient had a thoracentesis with 1.5 L of fluid removed from her left hemithorax yesterday. Gram stain negative. She does not note any significant change in her breathing since the drainage, but she has not really ambulated. She denies any cough, chest pain, fevers, chills or night sweats. She states that she was unaware that the presence of pleural effusion might suggest metastatic malignancy to her thorax. Cytology from the pleural fluid is pending. 10/06 patient went for stent placement today and that was successful by urology Review of Systems Review of Systems: Mild distress and fatigue no headache, no visual changes no speech or swallowing issues no chest pain, pressure or palpitations Shortness of breath with exertion at baseline patient is off cough this time no abdominal pain, nausea or vomiting, patient's had some recent loose bowel movements. She has a Pleurx catheter in her left upper quadrant Dysuria and frequency are noted with no changes in urine color no focal joint pain or swelling no back pain, CVA tenderness or radicular pain no bruising, bleeding or rashes no focal signs of weakness or numbness or altered sensation Patient is emotionally labile and crying at times Physical Exam Physical Exam: The patient appeared well nourished and normally develope Patient is morbidly obese with a BMI of 45 Vital signs as documented. Head exam is normocephalic atraumatic Neck is without JVD, thyromegaly, or carotid bruits. Lungs diminished breath sounds at the right base absent breath sounds to the left lung Cardiac exam, Rhythm is regular.. No murmurs, rubs or gallops. Abdominal exam reveals normal bowel sounds, soft non tender, no masses Pleurx catheter left upper quadrant does not appear to be infected Extremities are trace edematous and both pedal pulses are present Neurologic exam is alert and oriented, no focal loss of strength or sensation Skin is without bruises or rashes Psychologically is without concerns for anxiety or depression.. Results & Data Results & Data Vital Signs (Past 12 Hours) Vital Signs Temp Pulse Pulse Resp BP BP Pulse Ox 10/06/24 14:30 36.4 C L 74 18 107/72 100 10/06/24 14:20 73 16 96/68 L 100 10/06/24 14:10 36.0 C L 75 20 100/66 97 10/06/24 13:05 80 20 131/75 96 10/06/24 11:17 36.5 C 87 18 113/79 96 10/06/24 07:40 36.4 C L 67 18 115/78 93 10/06/24 05:03 36.3 C L 71 19 116/78 93 O2 Del Method O2 Flow Rate 10/06/24 14:30 Room Air 10/06/24 14:20 Oxymask 4 10/06/24 14:10 Oxymask 6 10/06/24 13:05 Room Air 10/06/24 11:17 Room Air 10/06/24 07:40 Room Air 10/06/24 05:03 Room Air PG Care Time/CCT Total # of Minutes Spent Total Time Spent with Patient: Total time spent is greater than 50% in coordination of care (as documented) at patient's floor/unit and/or counseling patient: Coding Level of Care Code 33489 SUB INP/OBS CARE 35MIN Diagnoses Acute respiratory failure with hypoxia J96.01 Ovarian cancer C56.9 Laterality: unspecified laterality Hypertension, unspecified type I10 Hypertension type: unspecified Chronic bilateral low back pain without sciatica M54.50; G89.29 Back pain laterality: bilateral Sciatica presence: without sciatica Time Spent (min) 35 (2) Ovarian cancer Laterality: unspecified laterality Qualified Code(s): C56.9 - Malignant neoplasm of unspecified ovary (3) Hypertension Hypertension type: unspecified Qualified Code(s): I10 - Essential (primary) hypertension (4) Chronic low back pain Back pain laterality: bilateral Sciatica presence: without sciatica Qualified Code(s): M54.50 - Low back pain, unspecified; G89.29 - Other chronic pain
[2024-10-07 04:53] LABS: Potassium 3.3 mmol/L (3.5-5.1)
[2024-10-07 04:54] LABS: Albumin Globulin Ratio 0.8 (0.9-2); Albumin Level 2.4 gm/dl (3.4-5.0); BUN Creatinine Ratio 14.5 (10-20); Bilirubin,Total 0.3 mg/dl (0.2-1.0); Calcium 7.6 mg/dl (8.6-10.3); Globulin 2.9 gm/dl (2.5-4.0); Total Protein 5.3 gm/dl (6.0-8.3)
--- NOTE | 2024-10-07 11:08 | Urology Progress Note ---
Date of Service October 07, 2024 Assessment & Plan (1) Ureteral stent present: (2) Hydronephrosis: Plan Recovering appropriately s/p right ureteral stent exchange on 10/06/24. urology will coordinate outpatient follow-up in the next 2-3 months to discuss stent exchange versus removal pending her clinical course. No plan for further urologic intervention at this point. Urology will sign off for now. Please call with any questions or concerns. Admission and Anticipated Discharge Date Admission Date: October 04, 2024 Subjective Feeling well this morning, reports that her UTI symptoms have resolved Tolerating the stent with minimal bother Eager to get out of the hospital Physical Exam Physical Exam: Seated in bed, NAD, breathing comfortably on room air Results & Data Vital Signs (Past 12 Hours) Vital Signs Temp Pulse Pulse Resp BP Pulse Ox O2 Del Method 10/07/24 10:05 68 10/07/24 07:37 36.7 C 72 16 105/71 94 Room Air 10/07/24 07:25 Room Air 10/07/24 03:15 36.8 C 82 20 103/69 92 Room Air PG Care Time/CCT Total # of Minutes Spent Total Time Spent with Patient: Total time spent is greater than 50% in coordination of care (as documented) at patient's floor/unit and/or counseling patient: Coding Level of Care Code 52753 SUB INP/OBS CARE 07/29MIN Diagnoses Ureteral stent present Z96.0 Hydronephrosis N13.30
--- NOTE | 2024-10-07 15:45 | Hospitalist Progress Note ---
Date of Service October 07, 2024 Assessment & Plan (1) Acute respiratory failure with hypoxia: (2) Ovarian cancer: (3) Hypertension: (4) Chronic low back pain: Plan 89-year-old female with history of metastatic ovarian carcinoma was set for ureteral stent exchange who presents with hypoxia and shortness of breath requiring oxygen supplementation. Patient is an increase in size of left-sided pleural effusion from previous note effusion suctioned July 2024. Considerations for thoracentesis to medically optimize her prior to ureteral stent manipulation #Acute respiratory failure and hypoxia. Resolved no additional need for supplemental oxygen Because the patient has stopped her chronic anticoagulation we will be able to perform CTA t not of pulmonary embolism, the pleural effusion shows near complete compressive atelectasis the left lower lobe and partial ectasis of the left upper lobe pulmonary is consulted and has recommended she see interventional radiology for thoracentesis and fluid analysis IV Zosyn is converted into oral amoxicillin today Patient had thoracentesis and 1500 mL was taken out #Ovarian cancer. She has abdominal carcinomatosis she has a Pleurx catheter drained every 4 days she is [facility]. She is mildly anemic has stable white count is scheduled for chemotherapy on 10 05 with this will be postponed likely due for pleurex drainage of abdominal ascites on 07 October 1099 mL was taken out today #CAD and hypertension patient typically takes aspirin and metoprolol. Her aspirin is on hold metoprolol continues to confirm this tartrate at bedtime #Urologyureteral stent possible UTI patient of urine culture she is placed on Zosyn therapy this is converted to amoxicillin follow-up with CRP and CBC levels she continues on Flomax therapy #Chronic low back pain patient is on gabapentin and as needed oxycodone for her back pain these to be continued #DVT prevention is SCDs and consider chemoprophylaxis once thoracentesis is performed but would coordinate with urology to see if stent exchange would be in the short-term future then would use subcutaneous injections over returning to her oral medicines As mentioned in advance care planning was discussed patient confirms she is a DNR/DNI Admission and Anticipated Discharge Date Admission Date: October 04, 2024 Subjective Feeling well this morning, reports that her UTI symptoms have resolved Tolerating the stent with minimal bother Eager to get out of the hospital 1100 mL of malignant fluid was taken out from the Pleurx by nursing staff Review of Systems Review of Systems: no headache, no visual changes no speech or swallowing issues no chest pain, pressure or palpitations Shortness of breath with exertion at baseline patient is off cough this time no abdominal pain, nausea or vomiting, patient's had some recent loose bowel movements. She has a Pleurx catheter in her left upper quadrant no focal joint pain or swelling no back pain, CVA tenderness or radicular pain no bruising, bleeding or rashes no focal signs of weakness or numbness or altered sensation Physical Exam Physical Exam: The patient appeared well nourished and normally developed Patient is morbidly obese with a BMI of 45 Vital signs as documented. Head exam is normocephalic atraumatic Neck is without JVD, thyromegaly, or carotid bruits. Lungs diminished breath sounds at the right base absent breath sounds to the left lung Cardiac exam, Rhythm is regular.. No murmurs, rubs or gallops. Abdominal exam reveals normal bowel sounds, soft non tender, no masses Pleurx catheter left upper quadrant does not appear to be infected Extremities are trace edematous and both pedal pulses are present Neurologic exam is alert and oriented, no focal loss of strength or sensation Skin is without bruises or rashes Results & Data Results & Data Vital Signs (Past 12 Hours) Vital Signs Temp Pulse Pulse Resp BP Pulse Ox O2 Del Method 10/07/24 14:05 77 10/07/24 12:50 36.4 C L 75 18 112/72 95 Room Air 10/07/24 10:05 68 10/07/24 07:37 36.7 C 72 16 105/71 94 Room Air 10/07/24 07:25 Room Air PG Care Time/CCT Total # of Minutes Spent Total Time Spent with Patient: Total time spent is greater than 50% in coordination of care (as documented) at patient's floor/unit and/or counseling patient: Coding Level of Care Code 52612 SUB INP/OBS CARE 2/35MIN Diagnoses Acute respiratory failure with hypoxia J96.01 Ovarian cancer C56.9 Laterality: unspecified laterality Hypertension, unspecified type I10 Hypertension type: unspecified Chronic bilateral low back pain without sciatica M54.50; G89.29 Back pain laterality: bilateral Sciatica presence: without sciatica Time Spent (min) 30 (2) Ovarian cancer Laterality: unspecified laterality Qualified Code(s): C56.9 - Malignant neoplasm of unspecified ovary (3) Hypertension Hypertension type: unspecified Qualified Code(s): I10 - Essential (primary) hypertension (4) Chronic low back pain Back pain laterality: bilateral Sciatica presence: without sciatica Qualified Code(s): M54.50 - Low back pain, unspecified; G89.29 - Other chronic pain
[2024-10-07 16:10] LABS: Basophils # (auto) 0.02 K/uL (0.00-0.20); Basophils % (auto) 0.3 %; Eosinophils % (auto) 1.7 %; Hematocrit (blood only) 29.7 % (37.0-47.0); Hemoglobin 8.7 g/dl (12.0-16.0); Immature Granulocytes # (auto) 0.01 K/uL (0.01-0.20); Immature Granulocytes % (auto) 0.2 %; Lymphocytes # (auto) 0.72 K/uL (1.20-3.40); Lymphocytes % (auto) 12.1 %; Mean Corpuscular Hemoglobin 25.7 pg (25.0-34.0); Mean Corpuscular Hgb Conc 29.3 g/dL (32.0-36.0); Mean Corpuscular Volume 87.9 fL (80.0-100.0); Monocytes # (auto) 0.78 K/uL (0.11-0.59); Monocytes % (auto) 13.2 %; Neutrophils % (auto) 72.5 %; Platelet Count 291 K/uL (130-400); RDW Coefficient of Variation 21.2 % (11.5-14.5); RDW Standard Deviation 68.3 fL (36.4-46.3); Red Blood Count 3.38 M/uL (4.20-5.40); White Blood Count 5.93 K/ul (4.8-10.8)
[2024-10-07 16:30] LABS: Anisocytosis Present
[2024-10-07 17:11] LABS: Appearance Urine Clear (Clear); Bacteria Urine Automated None Seen (None Seen); Bilirubin Urine Negative (Negative); Blood Urine Negative (Negative); Cast Urine Automated 0-2 /lpf (0-2); Color Urine Yellow; Glucose Urine UA Negative (Negative); Ketones Urine Negative (Negative); Leukocyte Esterase Urine Trace (Negative); Nitrite Urine Negative (Negative); Protein Urine Trace (Negative); RBC Urine Automated 0-2 /hpf (0-2); Specific Gravity Urine 1.013 (1.000-1.030); Urobilinogen Urine Negative (Negative); WBC Urine Automated 0-5 /hpf (0-5)
[2024-10-07] MEDS: AMOXICILLIN 875 MG TAB PO SCH (20:13)
[2024-10-07] MEDS: MAGNESIUM OXIDE 400 MG TAB PO SCH (20:13)
[2024-10-07] MEDS: POTASSIUM CHLORIDE CRTAB 20 MEQ TABCR PO SCH (20:15)
[2024-10-08 04:22] LABS: Basophils # (auto) 0.03 K/uL (0.00-0.20); Basophils % (auto) 0.6 %; Eosinophils # (auto) 0.09 K/uL (0.00-0.50); Eosinophils % (auto) 1.7 %; Hematocrit (blood only) 29.9 % (37.0-47.0); Hemoglobin 8.9 g/dl (12.0-16.0); Immature Granulocytes # (auto) 0.02 K/uL (0.01-0.20); Immature Granulocytes % (auto) 0.4 %; Lymphocytes # (auto) 0.87 K/uL (1.20-3.40); Lymphocytes % (auto) 16.2 %; Mean Corpuscular Hemoglobin 26.1 pg (25.0-34.0); Mean Corpuscular Hgb Conc 29.8 g/dL (32.0-36.0); Mean Corpuscular Volume 87.7 fL (80.0-100.0); Mean Platelet Volume 8.9 fL (9.4-12.4); Monocytes # (auto) 0.76 K/uL (0.11-0.59); Monocytes % (auto) 14.2 %; Neutrophils # (auto) 3.59 K/uL (1.40-6.50); Neutrophils % (auto) 66.9 %; Platelet Count 306 K/uL (130-400); RDW Coefficient of Variation 21.1 % (11.5-14.5); RDW Standard Deviation 67.7 fL (36.4-46.3); Red Blood Count 3.41 M/uL (4.20-5.40); White Blood Count 5.36 K/ul (4.8-10.8)
[2024-10-08 04:38] VITALS: TEMP 97.7
[2024-10-08 04:43] LABS: Albumin Globulin Ratio 0.8 (0.9-2); Albumin Level 2.4 gm/dl (3.4-5.0); BUN Creatinine Ratio 17.1 (10-20); Bilirubin,Total 0.2 mg/dl (0.2-1.0); C Reactive Protein 5.65 mg/dl (0-0.5); Calcium 7.9 mg/dl (8.6-10.3); Creatinine Clr Calc Pharmacy 112.9 ml/min; Globulin 3.1 gm/dl (2.5-4.0); Potassium 3.5 mmol/L (3.5-5.1); Total Protein 5.5 gm/dl (6.0-8.3)
[2024-10-08 04:50] LABS: Anisocytosis Present; Polychromasia 1+
[2024-10-08 07:45] VITALS: BP 122/83; PULSE 71; RESP 19; O2SAT 92
--- NOTE | 2024-10-08 11:22 | Discharge Summary ---
Date of Service October 08, 2024 Admission HPI Per Admitting Provider 59-year-old female with history of metastatic ovarian cancer who was sent from the operating room where she was scheduled to have a right ureteral stent exchange. Patient has a history of a right ureteral stent due to bulky tumor obstructing her right ureter. She was admitted in July 2024 with sepsis from urinary source at that time a pansensitive E. coli and I believe Enterococcus. Patient was increasingly short of breath she is found to be hypoxic in the preoperative area she typically does not need oxygen. Her pleural effusion which is likely the etiology of this was been present for some time however the patient is also discontinued with instruction Eliquis and aspirin due to her procedure. She has a previous history of a PE in the past. That PE was asymptomatic and discovered on routine scans. She has been on Eliquis since that time it has been approximately 1 year. Patient has a chronic Pleurx catheter in her abdomen usually draining 1 L or so every 4 days it was drained on 10/03/2024 for 900 cc. Patient is in a port in right upper chest this was manipulated and February by Dr. Nguyễn Patient feels she is responding somewhat well to new chemotherapy it is well- known that she has peritoneal carcinomatosis she does not have significant pain with this. She is being brought in our facility for symptomatic hypoxia and shortness of breath with consideration of a thoracentesis to medically optimize her for possible ureteral stent exchange. Reportedly the patient's had some pre- existing dysuria and urology had requested retesting of her urine and initiating of antibiotics. Of note she had recently completed outpatient antibiotics for an Enterococcus UTI. Goals of care discussion was held the patient the bedside in presence of her daughter she is continue to confirm she is a DNR Admission Exam (Per Admitting) Constitutional no headache, no visual changes no speech or swallowing issues no chest pain, pressure or palpitations Shortness of breath with exertion at baseline patient is off cough this time no abdominal pain, nausea or vomiting, patient's had some recent loose bowel movements. She has a Pleurx catheter in her left upper quadrant no focal joint pain or swelling no back pain, CVA tenderness or radicular pain no bruising, bleeding or rashes no focal signs of weakness or numbness or altered sensation The patient appeared well nourished and normally developed Patient is morbidly obese with a BMI of 45 Vital signs as documented. Head exam is normocephalic atraumatic Neck is without JVD, thyromegaly, or carotid bruits. Lungs diminished breath sounds at the right base absent breath sounds to the left lung Cardiac exam, Rhythm is regular.. No murmurs, rubs or gallops. Abdominal exam reveals normal bowel sounds, soft non tender, no masses Pleurx catheter left upper quadrant does not appear to be infected Extremities are trace edematous and both pedal pulses are present Neurologic exam is alert and oriented, no focal loss of strength or sensation Skin is without bruises or rashes Discharge Data Consultations 10/04/24 12:30 ED Decision to Admit Stat 10/04/24 17:22 Consult Pulmonology Routine Procedures Performed Operation Date: 10/06/24 07:50 Actual Procedures p Cystoscopy Right Stent Exchange, Retrograde Pyelogram(Right) - Elian Souza MD Hospital Course (1) Acute respiratory failure with hypoxia: (2) Ovarian cancer: (3) Hypertension: (4) Chronic low back pain: Plan 89-year-old female with history of metastatic ovarian carcinoma was set for ureteral stent exchange who presents with hypoxia and shortness of breath requiring oxygen supplementation. Patient is an increase in size of left-sided pleural effusion from previous note effusion suctioned July 2024. Considerations for thoracentesis to medically optimize her prior to ureteral stent manipulation #Acute respiratory failure and hypoxia. Resolved no additional need for supplemental oxygen Because the patient has stopped her chronic anticoagulation we will be able to perform CTA t not of pulmonary embolism, the pleural effusion shows near complete compressive atelectasis the left lower lobe and partial ectasis of the left upper lobe pulmonary is consulted and has recommended she see interventional radiology for thoracentesis and fluid analysis IV Zosyn is converted into oral amoxicillin today Patient had thoracentesis and 1500 mL was taken out #Ovarian cancer. She has abdominal carcinomatosis she has a Pleurx catheter drained every 4 days she is [facility]. She is mildly anemic has stable white count is scheduled for chemotherapy on 10 05 with this will be postponed likely due for pleurex drainage of abdominal ascites on 07 October 1099 mL was taken out yesterday #CAD and hypertension patient typically takes aspirin and metoprolol. Her aspirin is on hold metoprolol continues to confirm this tartrate at bedtime #Urologyureteral stent possible UTI patient of urine culture she is placed on Zosyn therapy this is converted to amoxicillin follow-up with CRP and CBC levels she continues on Flomax therapy #Chronic low back pain patient is on gabapentin and as needed oxycodone for her back pain these to be continued #DVT prevention is SCDs and consider chemoprophylaxis once thoracentesis is performed but would coordinate with urology to see if stent exchange would be in the short-term future then would use subcutaneous injections over returning to her oral medicines As mentioned in advance care planning was discussed patient confirms she is a DNR/DNI Coding Level of Care Code 59865 INP/OBS DISCH >30 MIN Diagnoses Acute respiratory failure with hypoxia J96.01 Ovarian cancer C56.9 Laterality: unspecified laterality Hypertension, unspecified type I10 Hypertension type: unspecified Chronic bilateral low back pain without sciatica M54.50; G89.29 Back pain laterality: bilateral Sciatica presence: without sciatica
== END 2024-10-08 12:10 | disposition home health service (06) | DRG 987 ==
LOC: ED 12:07 → SUATTDRO 12:54 → 4W 12:54

== ENCOUNTER 2024-11-08 11:56 | Inpatient (IN) ==
[2024-11-08 12:28] LABS: iSTAT Creatinine 0.8 mg/dl (0.6-1.3); iSTAT Hemoglobin 6.8 g/dl (12.0-16.0); iSTAT Ionized Calcium 1.06 mmol/l (1.12-1.32); iSTAT Potassium 4.5 mmol/L (3.3-5.0)
--- NOTE | 2024-11-08 12:31 | Emergency Department Note ---
Impression & Plan Symptomatic anemia, Near syncope, Ovarian cancer, Hypomagnesemia, Peritoneal carcinomatosis ED Provider Note NAME: REYNALDO NIEVES AGE: 59 SEX: F : 1965 ARRIVES VIA: Ambulance INFORMANT: Patient ED PROVIDER(S): Redd Lim MD CHIEF COMPLAINT: Near syncope, weakness PLAN: Disposition: Admit MEDICAL DECISION MAKING: The patient is a pleasant 59-year-old woman with a past medical history of metastatic ovarian cancer with history of carcinomatosis undergoing chemotherapy presents to the emergency department via EMS for near syncope with hypotension that occurred prior to arrival when the patient was being evaluated by physical therapy at home. The patient and her daughter report that she has been increasingly weak over the past 7 days. She had her last chemotherapy 2 weeks ago. She denies any fevers, cough, congestion, chest pain. She reports generalized weakness in her entire body. She denies bloody or black stool. She reports she did have a recent nosebleed. On evaluation the patient is in no acute distress, afebrile blood pressure in the 90s/60s, heart rate in the 90s and vital signs otherwise stable. She exhibits mild pallor. She exhibits generalized weakness all extremities without focal deficits. EKG without overt acute ischemia. CXR with stable small left pleural effusion and associated left lung base consolidation. Per my personal preliminary review/interpretation. WBC 4.7K without neutropenia or neutrophilia. H/H 6.5/21.7 decreased from prior. Platelets 1 43K. Chemistry without metabolic acidosis. Magnesium 1.4 with IV repletion provided. Iron is low normal at 35. High styptic troponin 5.2, within normal limits. Lipase is normal. TSH is elevated at 10 however free T4 within normal limits. Patient did consent for blood transfusion given her anemia and syncope. 1 unit of PRBCs was ordered. Patient agrees with plan for admission for further management. Case was discussed with Nora Lopez [facility] PAC, with Dr. Cordon, [facility] hospitalist who will evaluate the patient for admission. Further management per admitting team. Triage Nursing notes reviewed and agree them. Prior/external medical records reviewed Vital Signs: reviewed Differential diagnosis: Vasovagal event, dehydration, infection, hypoglycemia, electrolyte abnormalities, cardiac sources, intracerebral event, pulmonary embolism, seizure, toxicologic, neurologic, as well as other pathologies. ER treatment provided: See below. Diagnostics interpreted by me: ECG: Sinus tachycardia, 103 bpm, no ectopy, nonspecific T wave abnormality, no overt ST elevation or depression, QTc 450, QRS 66 Cardiac Monitoring: An order for continuous cardiac monitoring was placed and demonstrated Sinus tachycardia, 103 bpm, no ectopy. Laboratory studies: See below Imaging studies: See below Consultation(s): DOLORES Snell PAC, with ALDA Mccormick hospitalist HPI: Per MDM. ROS: See above HPI for pertinent positives & negatives. A total of 10 systems reviewed and were otherwise negative. VITALS:See Below PHYSICAL EXAMINATION: GENERAL: Awake, alert, fatigued-appearing, in no distress, BMI 44.9. HENT: Normocephalic, atraumatic. Oropharynx unremarkable. EYES: Normal conjunctiva. Sclera non-icteric. NECK: Supple. No nuchal rigidity. FROM. No JVD. RESPIRATORY: Clear to auscultation. CARDIAC: Tachycardic rate, normal rhythm. Extremities warm and well perfused. Pulses equal. ABDOMEN: Soft, non-distended. No tenderness to palpation. No rebound or guarding. Left upper quadrant tunneled pleural drain site clean dry and intact. MUSCULOSKELETAL: Chest examination reveals no tenderness. The back is symmetrical on inspection without obvious abnormality. There is no CVA tenderness to palpation. No joint edema. LOWER EXTREMITIES: Calves are equal size bilaterally and non-tender. No edema. No discoloration. NEURO: Normal sensorium. No sensory or motor deficits noted. SKIN: Moderate pallor, no rash or jaundice noted. ED COURSE: Critical Care: I have personally spent greater than 35 minutes of critical care time in the direct management of this patient. This includes bedside care, interpretation of diagnostic studies, and testing, discussion with consultants, patient, and family members, and other required patient management activities. This 35 minutes is in excess of all separately billable procedures. Redd Lim MD Past Med/Surg History Problem List (Updated 11/09/24 @ 01:48 by Redd Lim MD) Peritoneal carcinomatosis (Acute) Hypomagnesemia (Acute) Ovarian cancer (Acute) Near syncope (Acute) Symptomatic anemia (Acute) Hypomagnesemia Nutritional deficiency Dysphagia Anemia Syncope and collapse Orthostatic hypotension Hypotension (arterial) Near syncope (Acute) Acute head trauma (Acute) Ovarian cancer (Acute) Anemia of chronic disease Anticoagulated (Acute) Hypocalcemia (Acute) Hypokalemia (Acute) Hypocalcemia Abdominal ascites (Acute) Lumbar facet joint syndrome Sensorineural hearing loss (SNHL) of both ears Depression Anxiety 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 GERD (gastroesophageal reflux disease) Medical History (Updated 11/09/24 @ 01:48 by Redd Lim MD) Ureteral stent present Chronic low back pain Hypertension Ureteral stent present Abdominal ascites Paracentesis 08/31/24, 5L removed Port-A-Cath in place (06/27/24) Insertion of Access Port Right IJ with Fluoroscopy(Right) - Dany Nguyễn, DO repositioning of access port 08/29/24 [place] Pleural effusion, left had thora Hydronephrosis Hx of syncope (2019) Occurred chemo treatment, "blood pressure crashed," spent 5 days at [facility] Hx pulmonary embolism (07/2023) Taking Eliquis Morbid obesity History of blood transfusion Sinus bradycardia Ovarian cancer Dx 03/2020, sx and chemo; currently on oral chemo (for the last 3 years) and IV Chemo since recent recurrence. 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 Hypertension controlled, stable per pt Hyperlipidemia Heart disease GERD (gastroesophageal reflux disease) controlled, stable per pt Depression Bilateral tinnitus Chronic low back pain Arthritis Anxiety Pulmonary hypertension Echo 08/2024: RVSP elevated at 30-40mmhg History of COVID-19 03/2023 (home test): body aches, fatigue, diarrhea > resolved DJD (degenerative joint disease) Knees, shoulder History of palpitations Intermittent episodes since chemo 2019 Sleep apnea CPAP (compliant) Surgical History Nausea and vomiting after administration of anesthetic agent Single episode History of abdominal surgery 09/2024 pt had abdominal drain placed at [facility] History of surgery (08/29/24) Repostioning of Access Port with Fluoroscopy(Right) - Dany Nguyễn DO Port-A-Cath in place (06/27/24) Insertion of Access Port Right IJ with Fluoroscopy(Right) - Dany Nguyễn DO History of abdominal paracentesis (08/14/24) History of infusaport central venous catheter insertion (06/27/24) [place], [facility] S/P cystoscopy with ureteral stent placement (07/06/24) History of thoracentesis (08/14/24) [facility] Hx of cardiac catheterization (06/19/24) told "false stress test" - only added isosorbide to medical regimen- follows with dallas mccall Hx of foot surgery lt foot rebuilt Hx of colonoscopy Hx of bilateral cataract extraction History of hysterectomy with bilateral oophorectomy H/O oral surgery S/P cholecystectomy H/O arthroscopy of left knee Family History Mother Coronary heart disease Diabetes Obesity Hypertension Heart disease Father Obesity Hypertension Heart disease Grandfather (Maternal) Myocardial infarction Other Cancer No family history of adverse response to anesthesia No family history of bleeding disorder Denies family history of Ovarian cancer Prostate cancer Breast cancer Colorectal cancer Social History Smoking Status: Former smoker Tobacco Type: Cigarettes Age Started Using Tobacco: 20; Age Quit Using Tobacco: 50; Second Hand Exposure: No; Do You Dip or Chew Tobacco: No; Hx Alcohol Use: No Hx Substance Use: No Preferred Language: Azeri Communication Ability: Effective Visual Impairment: Partially Limited [employer] Required: No Beliefs That Will Affect Care: None marital status: / Current Living Situation: Family Current Living Situation Comment: daughter current occupational status: unemployed How many Children do You have: 2 Other Information That Helps Us Care for You: No Feels Safe at Home: Yes Safety Concerns: Feels Safe At This Time Dental Care, Regularly: Yes Physical Activity Frequency: 1-2 Times per Week Seatbelt Use: always Sunscreen Use: Yes Assistive Devices: Cane, CPAP and Glasses Allergies Allergies Allergy/AdvReac Type Severity Reaction Status Date / Time No Known Allergies Allergy Verified 11/08/24 14:55 Home Meds Home Medications Medication Instructions Recorded Confirmed multivitamin (Multiple Vitamins 1 tab PO QAM 01/08/21 11/08/24 tablet) duloxetine 60 mg capsule,delayed 60 mg PO QAM 05/19/23 11/08/24 release gabapentin 100 mg capsule 100 mg PO BID 05/19/23 11/08/24 metoprolol tartrate 50 mg tablet 50 mg PO HS 05/19/23 11/08/24 vitamin E (dl, acetate) 180 mg 180 mg PO BID 05/19/23 11/08/24 (400 unit) capsule apixaban 5 mg tablet (Eliquis) 5 mg PO BID 08/04/23 11/08/24 gabapentin 300 mg capsule 600 mg PO HS 08/04/23 11/08/24 oxycodone 5 mg tablet 10 mg PO Q6H PRN Pain 04/19/24 11/08/24 duloxetine 30 mg capsule,delayed 30 mg PO HS 05/01/24 11/08/24 release aspirin 81 mg tablet,delayed 81 mg PO QAM 10/04/24 11/08/24 release cyanocobalamin (vitamin B-12) 1,000 mcg PO DAILY 10/04/24 11/08/24 1,000 mcg tablet (Vitamin B-12) magnesium oxide 400 mg PO BID 10/17/24 11/08/24 Previous Rx's Medication Instructions Recorded omeprazole 20 mg capsule,delayed 20 mg PO BID #180 caps 12/20/20 release fluticasone propionate 50 2 spray intranasal DAILY PRN 05/21/23 mcg/actuation nasal Congestion #48 grams spray,suspension tamsulosin 0.4 mg capsule (Flomax) 0.4 mg PO DAILY kidney stone #30 07/13/24 caps midodrine 2.5 mg tablet 7.5 mg (3 x 2.5 mg) PO TID 30 days 10/20/24 #270 tabs Results & Data (ED) Vital Signs Vital Signs - 24 hr 11/08/24 12:10 11/08/24 12:30 11/08/24 12:36 Temperature 36.4 C L Temperature Source Axillary Pulse Rate 104 H 98 H Pulse Rate [Right Brachial] Pulse Rate from SpO2 Sensor Pulse Rhythm Pulse Rhythm [Right Brachial] Pulse Strength Pulse Strength [Right Brachial] Respiratory Rate 20 Respiratory Effort / Characteristics Non-Labored Spontaneous Respiratory Depth Normal Respiratory Pattern Regular Blood Pressure 98/68 L 94/70 L Blood Pressure [Right Arm] Blood Pressure Mean 78 78 Blood Pressure Mean [Right Arm] Blood Pressure Position Blood Pressure Position [Right Arm] Pulse Oximetry 94 Oxygen Delivery Method Room Air Sepsis Recent Fever Within 48 Hours No Sepsis New/Unexplained Change in Mental Status No Sepsis Action Taken by Nursing Physician Notified 11/08/24 12:54 11/08/24 13:06 11/08/24 13:30 Temperature Temperature Source Pulse Rate 100 H 101 H 95 H Pulse Rate [Right Brachial] Pulse Rate from SpO2 Sensor 94 H Pulse Rhythm Pulse Rhythm [Right Brachial] Pulse Strength Pulse Strength [Right Brachial] Respiratory Rate 15 18 17 Respiratory Effort / Characteristics Respiratory Depth Respiratory Pattern Blood Pressure Blood Pressure [Right Arm] Blood Pressure Mean Blood Pressure Mean [Right Arm] Blood Pressure Position Blood Pressure Position [Right Arm] Pulse Oximetry 95 Oxygen Delivery Method Room Air Sepsis Recent Fever Within 48 Hours Sepsis New/Unexplained Change in Mental Status Sepsis Action Taken by Nursing 11/08/24 14:31 11/08/24 14:47 11/08/24 15:00 Temperature 37.0 C 36.5 C Temperature Source Axillary Axillary Pulse Rate 91 H 93 H Pulse Rate [Right Brachial] 85 Pulse Rate from SpO2 Sensor Pulse Rhythm Pulse Rhythm [Right Brachial] Regular Pulse Strength Pulse Strength [Right Brachial] Normal Respiratory Rate 15 15 18 Respiratory Effort / Characteristics Non-Labored Respiratory Depth Normal Respiratory Pattern Regular Blood Pressure 92/69 L 108/69 Blood Pressure [Right Arm] 107/79 Blood Pressure Mean 76 82 Blood Pressure Mean [Right Arm] 88 Blood Pressure Position Blood Pressure Position [Right Arm] Lying Pulse Oximetry 98 99 98 Oxygen Delivery Method Room Air Sepsis Recent Fever Within 48 Hours Sepsis New/Unexplained Change in Mental Status Sepsis Action Taken by Nursing 11/08/24 15:02 11/08/24 15:32 11/08/24 16:39 Temperature Temperature Source Pulse Rate 104 H 84 84 Pulse Rate [Right Brachial] Pulse Rate from SpO2 Sensor Pulse Rhythm Regular Regular Pulse Rhythm [Right Brachial] Pulse Strength Normal Normal Pulse Strength [Right Brachial] Respiratory Rate 16 18 Respiratory Effort / Characteristics Respiratory Depth Respiratory Pattern Blood Pressure 107/79 96/65 L Blood Pressure [Right Arm] Blood Pressure Mean 88 75 Blood Pressure Mean [Right Arm] Blood Pressure Position Lying Lying Blood Pressure Position [Right Arm] Pulse Oximetry 96 98 Oxygen Delivery Method Sepsis Recent Fever Within 48 Hours Sepsis New/Unexplained Change in Mental Status Sepsis Action Taken by Nursing Laboratory Data Attestation: I reviewed the patient's lab results. 11/08/24 18:45 11/08/24 12:10 Lab Results 11/08/24 11/08/24 11/08/24 Range/Units 12:10 12:15 12:43 WBC 4.72 L (4.8-10.8) K/ul RBC 2.43 L (4.20-5.40) M/uL Hgb 6.5 L* (12.0-16.0) g/dl POC Hgb 6.8 L* (12.0-16.0) g/dl Hct 21.7 L (37.0-47.0) % POC Hct 20 L* (37-47) % MCV 89.3 (80.0-100.0) fL MCH 26.7 (25.0-34.0) pg MCHC 30.0 L (32.0-36.0) g/dL RDW Std Deviation 62.4 H (36.4-46.3) fL RDW Coeff of Asher 19.2 H (11.5-14.5) % Plt Count 143 (130-400) K/uL MPV 9.5 (9.4-12.4) fL Immature Gran % (Auto) 0.6 % Neut % (Auto) 87.1 % Lymph % (Auto) 6.6 % [place] % (Auto) 4.7 % Eos % (Auto) 0.4 % Baso % (Auto) 0.6 % Reticulocyte % (Auto) 1.38 (0.50-2.00) % Neut # (Auto) 4.11 (1.40-6.50) K/uL Lymph # (Auto) 0.31 L (1.20-3.40) K/uL [place] # (Auto) 0.22 (0.11-0.59) K/uL Eos # (Auto) 0.02 (0.00-0.50) K/uL Baso # (Auto) 0.03 (0.00-0.20) K/uL Reticulocyte # 0.030 (0.020-0.100) 10^6/uL Immature Gran # (Auto) 0.03 (0.01-0.20) K/uL Anisocytosis Present PT 13.1 H (9.0-12.0) Seconds INR 1.2 H (0.9-1.1) POC Sodium 131 L (135-144) mmol/L Sodium 133 L (136-145) mmol/L POC Potassium 4.5 (3.3-5.0) mmol/L Potassium 4.6 (3.5-5.1) mmol/L POC Chloride 97 L (101-112) mmol/L Chloride 99 (98-107) mmol/L Carbon Dioxide 24 (21-32) mmol/L POC Total CO2 21 L (24-31) mmol/L Anion Gap 10 (3-11) POC Anion Gap 19.0 (16-25) mmol/L POC BUN 17 (7-18) mg/dl BUN 19 (6-23) mg/dl Creatinine 0.77 (0.6-1.2) mg/dl POC Creatinine 0.8 (0.6-1.3) mg/dl Est Cr Clr Drug Dosing 106.3 ml/min eGFR 88.81 BUN/Creatinine Ratio 24.7 H (10-20) Glucose 132 H (70-99(Fasting)) mg/dl POC Glucose (other) 135 H (70-99) mg/dl Calcium 8.0 L (8.6-10.3) mg/dl POC Ioniz Calcium Emerson 1.06 L (1.12-1.32) mmol/l Phosphorus 4.1 (2.5-4.9) mg/dl Magnesium 1.4 L (1.7-2.4) mg/dl Iron 35 (35-150) mcg/dl Transferrin < 95 L (200-360) mg/dl Ferritin 1397.0 H (8-388) ng/ml Total Bilirubin 0.3 (0.2-1.0) mg/dl AST 35 (13-39) U/L ALT 18 (7-52) U/L Alkaline Phosphatase 211 H (34-104) U/L Troponin I High Sens 5.2 (0-14) pg/ml Total Protein 5.7 L (6.0-8.3) gm/dl Albumin 2.2 L (3.4-5.0) gm/dl Globulin 3.5 (2.5-4.0) gm/dl Albumin/Globulin Ratio 0.6 L (0.9-2) Lipase 11 (11-82) U/L TSH 10.957 H (0.300-4.500) uIu/ml Free T4 0.99 (0.61-1.60) ng/dl Urine Color Urine Appearance (Clear) Urine pH (4.5-7.5) Ur Specific [place] (1.000-1.030) Urine Protein (Negative) Urine Glucose (UA) (Negative) Urine Ketones (Negative) Urine Blood (Negative) Urine Nitrite (Negative) Urine Bilirubin (Negative) Urine Urobilinogen (Negative) Ur Leukocyte Esterase (Negative) Urine WBC (Auto) (0-5) /hpf Urine RBC (Auto) (0-2) /hpf U Hyaline Cast (Auto) (0-2) /lpf U Epithel Cells (Auto) (0-2) /hpf Urine Bacteria (Auto) (None Seen) Hyaline Casts (None Presnt) /lpf Urine Mucus (None Prsent) Urine Yeast (None Prsent) Blood Type O Positive Antibody Screen NEGATIVE Crossmatch See Detail 11/08/24 Range/Units 14:48 WBC (4.8-10.8) K/ul RBC (4.20-5.40) M/uL Hgb (12.0-16.0) g/dl POC Hgb (12.0-16.0) g/dl Hct (37.0-47.0) % POC Hct (37-47) % MCV (80.0-100.0) fL MCH (25.0-34.0) pg MCHC (32.0-36.0) g/dL RDW Std Deviation (36.4-46.3) fL RDW Coeff of Asher (11.5-14.5) % Plt Count (130-400) K/uL MPV (9.4-12.4) fL Immature Gran % (Auto) % Neut % (Auto) % Lymph % (Auto) % [place] % (Auto) % Eos % (Auto) % Baso % (Auto) % Reticulocyte % (Auto) (0.50-2.00) % Neut # (Auto) (1.40-6.50) K/uL Lymph # (Auto) (1.20-3.40) K/uL [place] # (Auto) (0.11-0.59) K/uL Eos # (Auto) (0.00-0.50) K/uL Baso # (Auto) (0.00-0.20) K/uL Reticulocyte # (0.020-0.100) 10^6/uL Immature Gran # (Auto) (0.01-0.20) K/uL Anisocytosis PT (9.0-12.0) Seconds INR (0.9-1.1) POC Sodium (135-144) mmol/L Sodium (136-145) mmol/L POC Potassium (3.3-5.0) mmol/L Potassium (3.5-5.1) mmol/L POC Chloride (101-112) mmol/L Chloride (98-107) mmol/L Carbon Dioxide (21-32) mmol/L POC Total CO2 (24-31) mmol/L Anion Gap (3-11) POC Anion Gap (16-25) mmol/L POC BUN (7-18) mg/dl BUN (6-23) mg/dl Creatinine (0.6-1.2) mg/dl POC Creatinine (0.6-1.3) mg/dl Est Cr Clr Drug Dosing ml/min eGFR BUN/Creatinine Ratio (10-20) Glucose (70-99(Fasting)) mg/dl POC Glucose (other) (70-99) mg/dl Calcium (8.6-10.3) mg/dl POC Ioniz Calcium [place] (1.12-1.32) mmol/l Phosphorus (2.5-4.9) mg/dl Magnesium (1.7-2.4) mg/dl Iron (35-150) mcg/dl Transferrin (200-360) mg/dl Ferritin (8-388) ng/ml Total Bilirubin (0.2-1.0) mg/dl AST (13-39) U/L ALT (7-52) U/L Alkaline Phosphatase (34-104) U/L Troponin I High Sens (0-14) pg/ml Total Protein (6.0-8.3) gm/dl Albumin (3.4-5.0) gm/dl Globulin (2.5-4.0) gm/dl Albumin/Globulin Ratio (0.9-2) Lipase (11-82) U/L TSH (0.300-4.500) uIu/ml Free T4 (0.61-1.60) ng/dl Urine Color Dark Yellow Urine Appearance Turbid A (Clear) Urine pH 6.0 (4.5-7.5) Ur Specific [place] 1.017 (1.000-1.030) Urine Protein 2+ H (Negative) Urine Glucose (UA) Negative (Negative) Urine Ketones 1+ H (Negative) Urine Blood 3+ H (Negative) Urine Nitrite Negative (Negative) Urine Bilirubin Negative (Negative) Urine Urobilinogen Negative (Negative) Ur Leukocyte Esterase 3+ H (Negative) Urine WBC (Auto) >50 H (0-5) /hpf Urine RBC (Auto) >20 H (0-2) /hpf U Hyaline Cast (Auto) 11-20 H (0-2) /lpf U Epithel Cells (Auto) 0-2 (0-2) /hpf Urine Bacteria (Auto) 1+ H (None Seen) Hyaline Casts Present A (None Presnt) /lpf Urine Mucus Present A (None Prsent) Urine Yeast Present A (None Prsent) Blood Type Antibody Screen Crossmatch Administered Medications Acetaminophen (Acetaminophen 325 Mg Tab) 650 mg PO Q4H PRN PRN Reason: Pain or Fever Stop: 12/08/24 19:27 Last Admin: 11/08/24 21:15 Dose: 650 mg Documented By: MED Duloxetine HCl (Duloxetine Hcl 30 Mg Cap) 30 mg PO [facility] Stop: 12/08/24 20:59 Last Admin: 11/08/24 21:17 Dose: 30 mg Documented By: MED Gabapentin (Gabapentin 300 Mg Cap) 600 mg PO [facility] Stop: 12/08/24 20:59 Last Admin: 11/08/24 21:16 Dose: 600 mg Documented By: MED Ceftriaxone Sodium (Rocephin) 2,000 mg in 50 mls @ 100 mls/hr IV Q24H JUAN CARLOS Stop: 11/13/24 19:59 Last Infusion: 11/08/24 22:26 Dose: Infused Documented By: evaluator transfer students: 11/08/24 21:49 Dose: 100 mls/hr Documented By: MED Magnesium Oxide (Magnesium Oxide 400 Mg Tab) 400 mg PO BID [facility] Stop: 12/08/24 20:59 Last Admin: 11/08/24 21:17 Dose: 400 mg Documented By: MED Metoprolol Tartrate (Metoprolol Tartrate 50 Mg Tab) 50 mg PO [facility] Stop: 12/08/24 20:59 Last Admin: 11/08/24 21:17 Dose: 50 mg Documented By: MED Ondansetron HCl (Ondansetron Inj 2 Mg/Ml 2 Ml Vial) 4 mg IV Q6H PRN PRN Reason: Nausea Stop: 12/08/24 19:27 Last Admin: 11/08/24 19:55 Dose: 4 mg Documented By: JAE Pantoprazole Sodium (Pantoprazole 40 Mg Tab) 40 mg PO BID JUAN CARLOS Stop: 12/08/24 20:59 Last Admin: 11/08/24 21:17 Dose: 40 mg Documented By: JAE Vitamin E (Tocopheryl, Dl-Alpha 400 Units 180 Mg Cap) 180 mg PO BID JUAN CARLOS Stop: 12/08/24 20:59 Last Admin: 11/08/24 21:16 Dose: 180 mg Documented By: JAE Discontinued Medications Sodium Chloride (Nss) 1,000 mls @ 999 mls/hr IV .Q1H1M ONE Stop: 11/08/24 13:12 Last Infusion: 11/08/24 13:33 Dose: Infused Documented By: Admin: 11/08/24 12:28 Dose: 999 mls/hr Documented By: GENIA Famotidine (Pepcid 20mg Iv Push) 20 mg in 5 mls @ 2.5 mls/min IV NOW STA Stop: 11/08/24 12:32 Last Admin: 11/08/24 12:54 Dose: 2.5 mls/min Documented By: GENIA Acetaminophen (Ofirmev) 1,000 mg in 100 mls @ 400 mls/hr IV NOW STA Stop: 11/08/24 13:21 Last Infusion: 11/08/24 13:39 Dose: Infused Documented By: Admin: 11/08/24 13:21 Dose: 400 mls/hr Documented By: MERVAT Magnesium Sulfate/Dextrose (Magnesium Sulfate / D5w) 1 gm in 100 mls @ 100 mls/hr IV Q1H JUAN CARLOS Stop: 11/08/24 16:10 Last Infusion: 11/08/24 16:43 Dose: Infused Documented By: Admin: 11/08/24 15:36 Dose: 100 mls/hr Documented By: Infusion: 11/08/24 15:30 Dose: Infused Documented By: Admin: 11/08/24 14:29 Dose: 100 mls/hr Documented By: MERVAT Calcium Gluconate () 1,000 mg in 60 mls @ 240 mls/hr IV NOW STA Stop: 11/08/24 19:46 Last Infusion: 11/08/24 21:48 Dose: Infused Documented By: evaluator transfer students: 11/08/24 21:31 Dose: 240 mls/hr Documented By: JAE Ondansetron HCl (Ondansetron Inj 2 Mg/Ml 2 Ml Vial) 4 mg IV NOW STA Stop: 11/08/24 12:32 Last Admin: 11/08/24 12:55 Dose: 4 mg Documented By: CAP Imaging Data Radiologist's Impression: Chest X-Ray 11/08/24 12:12 XR chest 1V portable CLINICAL HISTORY: Chest pain, nonspecific COMPARISON STUDY: 10/17/2024 FINDINGS: Stable right chest port. Heart size and pulmonary vasculature are normal. Stable small left pleural effusion and associated left lung base consolidation. No pneumothorax. IMPRESSION: Stable exam. ACT 112: Negative or not required by law. Electronically signed by: Sami Rosado M.D. 11/08/2024 12:33 PM Discharge Plan Visit Data Chief Complaint: Syncope Stated Complaint: SYNCOPE, LETHARGIC ED Provider: Redd Lim Discharge Problem: Symptomatic anemia, Near syncope, Ovarian cancer, Hypomagnesemia, Peritoneal carcinomatosis Patient Disposition: Admitted As Inpatient Condition: Serious Discharge Instructions Interventions: ED Discharge Assessment Last Done: 11/08/24 18:26 Discharge Problem: Ovarian cancer Qualifiers: Laterality: unspecified laterality Qualified Code(s): C56.9 - Malignant neoplasm of unspecified ovary
--- NOTE | 2024-11-08 12:35 | XRay Report ---
XR chest 1V portable CLINICAL HISTORY: Chest pain, nonspecific COMPARISON STUDY: 10/17/2024 FINDINGS: Stable right chest port. Heart size and pulmonary vasculature are normal. Stable small left pleural effusion and associated left lung base consolidation. No pneumothorax. IMPRESSION: Stable exam. ACT 112: Negative or not required by law. Electronically signed by: Sami Rosado M.D. 11/08/2024 12:33 PM
[2024-11-08 12:48] LABS: Hematocrit (blood only) 21.7 % (37.0-47.0); Hemoglobin 6.5 g/dl (12.0-16.0); Mean Corpuscular Hemoglobin 26.7 pg (25.0-34.0); Mean Corpuscular Volume 89.3 fL (80.0-100.0); Mean Platelet Volume 9.5 fL (9.4-12.4); Platelet Count 143 K/uL (130-400); RDW Coefficient of Variation 19.2 % (11.5-14.5); RDW Standard Deviation 62.4 fL (36.4-46.3); Red Blood Count 2.43 M/uL (4.20-5.40); White Blood Count 4.72 K/ul (4.8-10.8)
[2024-11-08 12:55] LABS: Alanine Aminotransferase 18 U/L (7-52); Albumin Globulin Ratio 0.6 (0.9-2); Albumin Level 2.2 gm/dl (3.4-5.0); Alkaline Phosphatase 211 U/L (34-104); Anion Gap 10 (3-11); Aspartate Aminotransferase 35 U/L (13-39); BUN Creatinine Ratio 24.7 (10-20); Bilirubin,Total 0.3 mg/dl (0.2-1.0); Blood Urea Nitrogen 19 mg/dl (6-23); Carbon Dioxide 24 mmol/L (21-32); Chloride 99 mmol/L (98-107); Creatinine Clr Calc Pharmacy 106.3 ml/min; Globulin 3.5 gm/dl (2.5-4.0); Glucose 132 mg/dl (70-99(Fasting)); Lipase 11 U/L (11-82); Magnesium 1.4 mg/dl (1.7-2.4); Phosphorus 4.1 mg/dl (2.5-4.9); Potassium 4.6 mmol/L (3.5-5.1); Sodium 133 mmol/L (136-145); Total Protein 5.7 gm/dl (6.0-8.3)
[2024-11-08 13:01] LABS: Troponin I High Sensitivity 5.2 pg/ml (0-14)
[2024-11-08 13:02] LABS: INR 1.2 (0.9-1.1); Prothrombin Time 13.1 Seconds (9.0-12.0)
[2024-11-08 13:03] LABS: Anisocytosis Present; Basophils # (auto) 0.03 K/uL (0.00-0.20); Basophils % (auto) 0.6 %; Eosinophils # (auto) 0.02 K/uL (0.00-0.50); Eosinophils % (auto) 0.4 %; Immature Granulocytes # (auto) 0.03 K/uL (0.01-0.20); Immature Granulocytes % (auto) 0.6 %; Lymphocytes # (auto) 0.31 K/uL (1.20-3.40); Lymphocytes % (auto) 6.6 %; Monocytes # (auto) 0.22 K/uL (0.11-0.59); Monocytes % (auto) 4.7 %; Neutrophils # (auto) 4.11 K/uL (1.40-6.50); Neutrophils % (auto) 87.1 %
[2024-11-08 13:10] LABS: Thyroid Stimulating Hormone 10.957 uIu/ml (0.300-4.500)
[2024-11-08 13:21] LABS: Reticulocyte % 1.38 % (0.50-2.00)
[2024-11-08 13:37] LABS: Iron 35 mcg/dl (35-150); Transferrin < 95 mg/dl (200-360)
[2024-11-08 13:49] LABS: T4 Free Thyroxine 0.99 ng/dl (0.61-1.60)
[2024-11-08 15:22] LABS: Appearance Urine Turbid (Clear); Bilirubin Urine Negative (Negative); Blood Urine 3+ (Negative); Color Urine Dark Yellow; Epithelial Cell Urine Auto 0-2 /hpf (0-2); Glucose Urine UA Negative (Negative); Hyaline Casts Urine Present /lpf (None Presnt); Ketones Urine 1+ (Negative); Leukocyte Esterase Urine 3+ (Negative); Mucus Urine Present (None Prsent); Nitrite Urine Negative (Negative); Protein Urine 2+ (Negative); RBC Urine Automated >20 /hpf (0-2); Specific Gravity Urine 1.017 (1.000-1.030); Urobilinogen Urine Negative (Negative); WBC Urine Automated >50 /hpf (0-5)
[2024-11-08 15:23] LABS: Bacteria Urine Automated 1+ (None Seen)
--- NOTE | 2024-11-08 15:32 | History & Physical Report ---
Date of Service November 08, 2024 Assessment & Plan (1) Near syncope: (2) Anemia: (3) UTI (urinary tract infection): (4) Dysphagia: (5) Nutritional deficiency: (6) Hypomagnesemia: Plan 58-year-old female with past medical history of metastatic ovarian cancer with carcinomatosis undergoing chemotherapy, hypertension, depression, GERD, low back pain. She presented to the ED from home after experiencing a near syncopal episode with associated hypotension when working with home health PT. Her last round of chemotherapy was 2 weeks ago and she reports ongoing weakness for the past 7 days. She also reports dysphagia with pills and meals for approximately 1 week. She reports decreased oral intake at home for the past few months primarily due to decreased taste from chemotherapy, but further exacerbated for the past week due to dysphagia. Additionally, she had dysuria morning of admission with history of frequent UTIs. #Near syncope/anemia/Stage IV ovarian cancer Hgb 6.5% on admission - transfused 1 unit pRBC in ED. Platelets WNL but reduced from recent prior Will check H&H 1 hour post-transfusion TSH elevated but Free T4 normal Check orthostatic vital signs Continue midodrine 7.5 mg TID Continue oxycodone 5 mg Q6H PRN pain Gets paracenteses Q4D outpatient with last on 11/05/24. Will order therapeutic IR guided paracentesis for 11/09/24. Replete albumin if >5 L removed #UTI UA suggestive of infection with associated dysuria Will start ceftriaxone 2 g IV Q24H Follow urine culture #History of PE PE noted incidentally on imaging in August 2023 - has been on Eliquis 5 mg BID since Patient reports she was instructed to start Aspirin 81 mg daily when diagnosed with ovarian cancer Hold Eliquis and aspirin with pending paracentesis - resume after #Dysphagia New onset over the past 1 week. Most prominent with pills and meals. Some coughing associated with meals Passed dysphagia screen in ED Speech therapy consulted #Nutritional deficiency/Hypomagnesemia Suspect profound nutritional deficiency secondary to chemotherapy. Patient reports limited oral intake times several months secondary to reduced appetite and taste with active cancer treatment Transferrin <95 Dietitian consulted for nutritional assessment Mag 1.4 on admission - repleted with 1 g IV mag x 2 - repeat with AM labs Calcium 8.0 with POC ionized calcium 1.06 on admission repleted with 1 g IV calcium gluconate repeat with a.m. labs Continue vitamin D supplementation twice daily, continue multivitamin daily, Mag-Ox 400 mg BID, vitamin B12 1000 mcg daily #CAD/HTN- ASA, metoprolol #Chronic low back pain- Gabapentin, duloxetine, oxycodone #GERD- Omeprazole #Depression- Duloxetine VTE PPx: high risk but with pending paracentesis, will do SCDs for now. After paracentesis, recommend starting/resuming chemoprophylaxis Code status: DNR/DNI History of Present Illness Chief Complaint: Near syncope Primary Care Provider: Ivett Valentin DO Marybeth is a pleasant 59-year-old female with past medical history of metastatic ovarian cancer with carcinomatosis undergoing chemotherapy, hypertension, depression, GERD, low back pain. She presented from home after a near syncopal event with associated hypotension when working with home health PT. She had her last dose of chemotherapy approximately 2 weeks ago with subjective increased generalized weakness for the past 7 days. She denies any active bleeding. She also reports dysphagia with pills and meals for approximately 1 week. She reports decreased oral intake at home for the past few months primarily due to decreased taste from chemotherapy, but further exacerbated for the past week due to dysphagia. Additionally, she had dysuria morning of admission with history of frequent UTIs. Vitals on admission significant for hypotension with BP 90s/60s; vitals otherwise stable. Labs on admission are significant for hemoglobin 6.5%, transferrin <95, ferritin 1397, TSH 10.9 but normal T4, mag 1.4, UA suggestive of infection. CXR on admission stable, noting stable small left pleural effusion and associated left lung base consolidation. No pneumothorax. Discussed CODE STATUS with patient and daughter at bedside, she wishes to be DNR/DNI. Allergies Allergy/AdvReac Type Severity Reaction Status Date / Time No Known Allergies Allergy Verified 11/08/24 14:55 Home Medications Medication Instructions Recorded Confirmed Type omeprazole 20 mg capsule,delayed 20 mg PO BID #180 caps 12/20/20 11/08/24 Rx release multivitamin (Multiple Vitamins 1 tab PO QAM 01/08/21 11/08/24 History tablet) duloxetine 60 mg capsule,delayed 60 mg PO QAM 05/19/23 11/08/24 History release gabapentin 100 mg capsule 100 mg PO BID 05/19/23 11/08/24 History metoprolol tartrate 50 mg tablet 50 mg PO HS 05/19/23 11/08/24 History vitamin E (dl, acetate) 180 mg 180 mg PO BID 05/19/23 11/08/24 History (400 unit) capsule fluticasone propionate 50 2 spray intranasal DAILY PRN 05/21/23 11/08/24 Rx mcg/actuation nasal Congestion #48 grams spray,suspension apixaban 5 mg tablet (Eliquis) 5 mg PO BID 08/04/23 11/08/24 History gabapentin 300 mg capsule 600 mg PO HS 08/04/23 11/08/24 History oxycodone 5 mg tablet 10 mg PO Q6H PRN Pain 04/19/24 11/08/24 History duloxetine 30 mg capsule,delayed 30 mg PO HS 05/01/24 11/08/24 History release tamsulosin 0.4 mg capsule (Flomax) 0.4 mg PO DAILY kidney stone #30 07/13/24 11/08/24 Rx caps aspirin 81 mg tablet,delayed 81 mg PO QAM 10/04/24 11/08/24 History release cyanocobalamin (vitamin B-12) 1,000 mcg PO DAILY 10/04/24 11/08/24 History 1,000 mcg tablet (Vitamin B-12) magnesium oxide 400 mg PO BID 10/17/24 11/08/24 History midodrine 2.5 mg tablet 7.5 mg (3 x 2.5 mg) PO TID 30 days 10/20/24 11/08/24 Rx #270 tabs Past Med/Surg History Problem List (Updated 11/08/24 @ 16:15 by Nora Lopez PA-C) Hypomagnesemia Nutritional deficiency Dysphagia Anemia Syncope and collapse Orthostatic hypotension Hypotension (arterial) Near syncope (Acute) Acute head trauma (Acute) Ovarian cancer (Acute) Anemia of chronic disease Anticoagulated (Acute) Hypocalcemia (Acute) Hypokalemia (Acute) Hypocalcemia Abdominal ascites (Acute) Lumbar facet joint syndrome Sensorineural hearing loss (SNHL) of both ears Depression Anxiety 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 GERD (gastroesophageal reflux disease) Medical History (Updated 11/08/24 @ 16:15 by Nora Lopez PA-C) Ureteral stent present Chronic low back pain Hypertension Ureteral stent present Abdominal ascites Paracentesis 08/31/24, 5L removed Port-A-Cath in place (06/27/24) Insertion of Access Port Right IJ with Fluoroscopy(Right) - Dany Nguyễn DO repositioning of access port 08/29/24 [place] Pleural effusion, left had thora Hydronephrosis Hx of syncope (2019) Occurred w/ chemo treatment, "blood pressure crashed," spent 5 days at [facility] Hx pulmonary embolism (07/2023) Taking Eliquis Morbid obesity History of blood transfusion Sinus bradycardia Ovarian cancer Dx 03/2020, sx and chemo; currently on oral chemo (for the last 3 years) and IV Chemo since recent recurrence. 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 Hypertension controlled, stable per pt Hyperlipidemia Heart disease GERD (gastroesophageal reflux disease) controlled, stable per pt Depression Bilateral tinnitus Chronic low back pain Arthritis Anxiety Pulmonary hypertension Echo 08/2024: RVSP elevated at 30-40mmhg History of COVID-19 03/2023 (home test): body aches, fatigue, diarrhea > resolved DJD (degenerative joint disease) Knees, shoulder History of palpitations Intermittent episodes since chemo 2019 Sleep apnea CPAP (compliant) Surgical History Nausea and vomiting after administration of anesthetic agent Single episode History of abdominal surgery 09/2024 pt had abdominal drain placed at [facility] History of surgery (08/29/24) Repostioning of Access Port with Fluoroscopy(Right) - Dany Nguyễn DO Port-A-Cath in place (06/27/24) Insertion of Access Port Right IJ with Fluoroscopy(Right) - Dany Nguyễn DO History of abdominal paracentesis (08/14/24) History of infusaport central venous catheter insertion (06/27/24) [facility] S/P cystoscopy with ureteral stent placement (07/06/24) History of thoracentesis (08/14/24) [facility] [place] Hx of cardiac catheterization (06/19/24) told "false stress test" - only added isosorbide to medical regimen- follows with [facility] Hx of foot surgery lt foot rebuilt Hx of colonoscopy Hx of bilateral cataract extraction History of hysterectomy with bilateral oophorectomy H/O oral surgery S/P cholecystectomy H/O arthroscopy of left knee Family History Mother Coronary heart disease Diabetes Obesity Hypertension Heart disease Father Obesity Hypertension Heart disease Grandfather (Maternal) Myocardial infarction Other Cancer No family history of adverse response to anesthesia No family history of bleeding disorder Denies family history of Ovarian cancer Prostate cancer Breast cancer Colorectal cancer Social History Smoking Status: Former smoker Tobacco Type: Cigarettes Age Started Using Tobacco: 20; Age Quit Using Tobacco: 50; Second Hand Exposure: No; Do You Dip or Chew Tobacco: No; Hx Alcohol Use: No Hx Substance Use: No Preferred Language: Romanian Communication Ability: Effective Visual Impairment: Partially Limited Fuel Cell Binder Required: No Beliefs That Will Affect Care: None marital status: / Current Living Situation: Family Current Living Situation Comment: daughter current occupational status: unemployed How many Children do You have: 2 Feels Safe at Home: Yes Dental Care, Regularly: Yes Physical Activity Frequency: 1-2 Times per Week Seatbelt Use: always Sunscreen Use: Yes Assistive Devices: Cane, CPAP, Glasses and Walker Physical Exam Physical Exam: General: No acute distress, nondiaphoretic. Generalized pallor and weakness. Cardiac: Regular rate and rhythm without murmurs gallops or rubs. Port noted on right chest wall. Pulm: Diminished at bases bilaterally but otherwise clear to auscultation bilaterally without wheezes, rales or rhonchi. Normal respiratory effort. 98% on room air. Abdominal: Soft, mild diffuse tenderness, mild distention. Bowel sounds present. Neuro: A&O x3. No focal neurological deficits. Results & Data Results & Data Vital Signs (Past 12 Hours) Vital Signs Temp Pulse Pulse Resp BP BP Pulse Ox 11/08/24 15:02 104 H 16 107/79 96 11/08/24 15:00 85 18 107/79 98 11/08/24 14:47 97.7 F 93 H 15 108/69 99 11/08/24 14:31 98.6 F 91 H 15 92/69 L 98 11/08/24 13:30 95 H 17 95 11/08/24 13:06 101 H 18 11/08/24 12:54 100 H 15 11/08/24 12:36 98 H 11/08/24 12:30 94/70 L 11/08/24 12:10 97.5 F L 104 H 20 98/68 L 94 O2 Del Method 11/08/24 15:02 11/08/24 15:00 Room Air 11/08/24 14:47 11/08/24 14:31 11/08/24 13:30 Room Air 11/08/24 13:06 11/08/24 12:54 11/08/24 12:36 11/08/24 12:30 11/08/24 12:10 Room Air Laboratory Results Reviewed CBC with differential Reviewed coags Reviewed, chemistries Reviewed UA Diagnostic Findings Reviewed CXR Reviewed EKG Supervising Physician Co-Signing Physician Notes Patient seen and examined, chart reviewed, case discussed with Nora Lopez PA-C and I agree with the assessment and plan as above except as otherwise noted Labs and images reviewed Syncope eval Generalized weakness of one week Was PT had a near syncopalevent and hypotension day of admit Hgb 6.5 without clinical bleeding Suspected 2/2 chemotherapy. Also w/ decreased PO intake for several months due to poor appetite and reduced taste. Also with dysphagia with pills and meals in the last week and some coughing after meals. Speech consulted. Pathology Technician consulted for nutritional assessment On aspirin for primary prevention, no hx of stents On eliquis 5mg BID for hx of PE Aug 2023. No known recurrent VTE. Q4D paracentesis due to ascities w/ maliganancy and carcinomatosis. Due for next para 11/09. Syncope, suspect 2/2 Anemia - Suspect 2/2 chemo. No active bleeding - 2 units for transfusion pending. - No evidence of arrythmia - Low suspicion for active bleeding, eliquis is held pending para. Resume 11/09 p ost procedure if hgb stable - 1 hour transfusion hgb, then AM Ascites 2/2 ovarian ca w/ carcinomatosis - Pending therapeutic para 11/09. Replete albumin if >5L UTI - w/ dysuria - Follow UC, agree w/ rocephin PG Care Time/CCT Total # of Minutes Spent Total Time Spent with Patient: Total time spent is greater than 50% in coordination of care (as documented) at patient's floor/unit and/or counseling patient: Coding Level of Care Code 09132 INT INP/OBS CARE MIN Diagnoses Near syncope R55 Anemia D64.9 UTI (urinary tract infection) N39.0 Dysphagia R13.10 Nutritional deficiency E63.9 Hypomagnesemia E83.42
--- OUTSIDE RECORDS SUMMARY | 2024-11-08 19:49 | External Medical Summary | Continuity of Care Document ---
Author Name Unknown Organization [facility] [address] [facility] [address] Address [address] [facility] [address] [place], [place] [id number] Support Name Relationship Address Phone DAVE NIEVES Personal Relationship Unknown U navdanielleable DAVE NIEVES Personal Relationship Unknown U navDAVE Zaldivar Personal Relationship Unknown U navDAVE Zaldivar Personal Relationship Unknown U DAVE Bishop Personal Relationship Unknown U DAVE Bishop Personal Relationship Unknown U navdanielleable DAVE NIEVES Personal Relationship Unknown U navDAVE Zaldivar Personal Relationship Unknown U DAVE Bishop Personal Relationship Unknown U navDAVE Zaldivar Personal Relationship Unknown U DAVE Bishop Personal Relationship Unknown U DAVE Bishop Personal Relationship Unknown U navDAVE Zaldivar Personal Relationship Unknown U DAVE Bishop Personal Relationship Unknown U DAVE Bishop Personal Relationship Unknown U navailable DAVE NIEVES Personal Relationship Unknown U navDAVE Zaldivar Personal Relationship Unknown U navailDAVE Tripathi Personal Relationship Unknown U navDAVE Zaldivar Personal Relationship Unknown U DAVE Bishop Personal Relationship Unknown U navailable DAVE NIEVES Personal Relationship Unknown U DAVE Bihsop Personal Relationship Unknown U DAVE Bishop Personal Relationship Unknown U navailDAVE Tripathi Personal Relationship Unknown U navailable DAVE NIEVES Personal Relationship Unknown U navailable DAVE NIEVES Personal Relationship Unknown U navailable DAVE NIEVES Personal Relationship Unknown U navailable DAVE NIEVES Personal Relationship Unknown U carmellaailable DAVE NIEVES Personal Relationship Unknown U navailable MARILU SON Personal Relationship Unknown Aziza CARSON Santoyo Personal Relationship Unknown Unavai rai DAVE NIEVES Personal Relationship Unknown U navailable Care Team Providers Care Farebox Repairer Name Role Phone Ivett Valentin Primary Care Physicia n [phone] Encounter [facility] [id number] Date(s): 10/27/24 - 10/27/[address] [facility] [address] [phone] Encounter Diagnosis Ovarian cancer(Discharge Diagnosis) - 10/27/24 UTI (urinary tract infection)(Discharge Diagnosis) - 10/27/24 Symptomatic hypotension(Discharge Diagnosis) - 10/27/24 Hospital discharge follow-up(Discharge Diagnosis) - 10/27/24 Unspecified symptoms and signs involving the genitourinary system(Final) - Discharge Disposition: Home or Self Care Attending Physician: DO Valentin Gretchen Elizabeth Encounter Type: Clinic Allergies, Adverse Reactions, Alerts No Known Allergies Assessment and Plan Extracted from: Title:FCM - TCM Syncope/Hypotension Author:Radha zamora MD, [place] Date:10/27/24 1. Symptomatic hypotension Chronic condition not at goal/exacerbated/progressive/side effects of treatment Goal: Symptomatic management Data: unique tests reviewed: _CBC CMP Mg CT Head CXR carotid dopplers CT A&P, Abd US Plan: Initially concerned for cardiogenic or neurologic syncope. Workup unrevealing. Found to have significant orthostatic hypotension with positional changes. Started on midodrine 7.5 mg TID. Patient getting IVF regularly, due for this today. Did get magnesium repleted yesterday with her chemotherapy. Will continue IVF and midodrine, recommend switching out some free water with Pedialyte/Gatorade/broth etc. Patient has f/u 5/[address] Emery. 2. Ovarian cancer Chronic condition not at goal/exacerbated/progressive/side effects of treatment Goal: Resolution Data: _ Plan: Patient is continuing with chemotherapy. Had treatment yesterday. Follows with Dr. Carty at the [facility]. They order labs regularly. 3. UTI (urinary tract infection) Acute, uncomplicated illness/injury Goal: Resolution Data: _UCx Rx cefdinir Plan: Patient with urinary symptoms. UA positive - will send for culture. Treat with cefdinir 300 mg BID x 7 days. Will contact patient if there is a change in the care plan. 4. Hospital discharge follow-up Transitional Care Visit Plan: Initial transitional care contact documentation reviewed and was made on 10/23/2024 Medical Decision Making: x Moderately or Highly Complex (seen within 14 days of discharge) (81384) Medication Reconciliation: x Medication list reconciled Referrals: x None Community Resources identified for patient/family: x None needed Durable medical equipment: x DME ordered: Type: walker Duration: 99 months Additional communication delivered or planned to: x Family/caregiver: Sister Patient Education: Topics discussed: hydration with adequate electrolytes Follow-up visit: 8 days Immunizations Given and Recorded Vaccine Date Status Refusal Reason influenza virus vaccine, inactivated 04/11/24 Give n influenza virus vaccine, inactivated 06/08/23 Give n influenza virus vaccine, inactivated 05/04/22 Hardeep rded influenza virus vaccine, inactivated 04/12/18 Hardeep rded SARS-CoV-2 mRNA (Pfizer 12+) bivalent 05/04/22 Rec orded tetanus/diphtheria/pertuss, acel (Tdap) 1 03/21/21 Recorded SARS-CoV-2 (COVID-19) mRNA-1273 vaccine 2 01/15/21 Recorded SARS-CoV-2 (COVID-19) mRNA-1273 vaccine 3 12/18/20 Recorded 1Result Comment: 2021-07-03: Historical information-source unspecified 2Result Comment: 2021-07-03: Historical information-source unspecified 3Result Comment: 2021-07-03: Historical information-source unspecified Medications aspirin 81 mg oral delayed release tablet Start: 05/22/24 10:48:00 AM EST, 1 tab, PO, Daily, Disp# 90 tab, Refills: 3, Pharmacy: [facility] Start Date: 05/22/24 Status: Ordered Quantity: 90.0 Unit: tab Repeat number: 4 cefdinir 300 mg oral capsule Start: 10/27/24 10:11:00 AM EDT, 1 cap, PO, q12h, Disp# 14 cap, X 7 day, Stop: 11/03/24 10:11:00 AM EDT, Pharmacy: [facility] #[id number] Start Date: 10/27/24 Stop Date: 11/03/24 Status: Ordered Quantity: 14.0 Unit: cap Repeat number: 1 DULoxetine 60 mg oral delayed release capsule Start: 06/06/24 11:00:00 AM EST, 1 cap, PO, Daily, Disp# 90 cap, Refills: 2, Pharmacy: [facility] Start Date: 06/06/24 Status: Ordered Quantity: 90.0 Unit: cap Repeat number: 1 Eliquis 5 mg oral tablet Start: 07/23/23 2:57:00 PM EST, 1 tab, PO, bid Start Date: 07/23/23 Status: Ordered Repeat number: 1 fluticasone 50 mcg/inh nasal spray Start: 05/21/22 1:10:00 PM EST, 1 spray, each nostril, Daily Start Date: 05/21/22 Status: Ordered Repeat number: 1 gabapentin 300 mg oral capsule Start: 11/03/22 9:40:00 AM EDT, See Instructions, 100mg twice a day and 600 at bedtime Start Date: 11/03/22 Status: Ordered Repeat number: 1 metoprolol succinate 50 mg oral tablet, extended release Start: 03/07/24 11:29:00 AM EDT, 1 tab, PO, qhs, Disp# 90 tab, Refills: 3, Pharmacy: [facility] Start Date: 03/07/24 Status: Ordered Quantity: 90.0 Unit: tab Repeat number: 4 midodrine 2.5 mg oral tablet Start: 10/27/24 9:43:00 AM EDT, See Instructions, Disp# 180 tab, Refills: 2, 7.5 mg TID, Pharmacy: [facility] #[id number] Start Date: 10/27/24 Status: Ordered Quantity: 180.0 Unit: tab Repeat number: 3 omeprazole 20 mg oral delayed release capsule Start: 10/04/24 1:50:00 PM EDT, 1 cap, PO, bid, Disp# 180 cap, Refills: 3, Pharmacy: [facility] Start Date: 10/04/24 Stop Date: 09/29/25 Status: Ordered Quantity: 180.0 Unit: cap Repeat number: 4 oxyCODONE 10 mg oral tablet Start: 08/18/24 4:35:00 PM EST, 1 tab, PO, q12h, Disp# 18 tab, Refills: 0, PRN: Pain, Pharmacy: [facility] #[id number] Start Date: 08/18/24 Stop Date: 08/27/24 Status: Ordered Quantity: 18.0 Unit: tab Repeat number: 1 tamsulosin 0.4 mg oral capsule Start: 10/25/24 2:48:00 PM EDT, 1 cap, PO, Daily, Disp# 30 cap, Refills: 2, Pharmacy: [facility] #[id number] Start Date: 10/25/24 Status: Ordered Quantity: 30.0 Unit: cap Repeat number: 1 Vitamin B12 1000 mcg oral tablet Start: 03/03/22 12:54:00 PM EDT, 1 tab, PO, Daily Start Date: 03/03/22 Status: Ordered Repeat number: 1 Vitamin C Start: 03/27/20 10:53:00 AM EDT, 1 tab, PO, Daily Start Date: 03/27/20 Status: Ordered Repeat number: 1 vitamin E Start: 11/27/21 8:31:00 AM EDT, See Instructions, 1 tablet bid Start Date: 11/27/21 Status: Ordered Repeat number: 1 Mental Status 10/27/24 Barriers to Learning one year None evide nt Mandatory Health Literacy Documentation Yes Health Literacy Communication Barriers N ever Primary Language Maldivian Problem List Condition Confirmation Course Effective Dates Status H ealth Status Informant Osteoarthritis of knees, bilateral Confirmed Active Hyperlipidemia Confirmed Active Hyper reflexia Confirmed Active Lumbar back pain Confirmed Active Ovarian cancer Confirmed Active OBIE on CPAP Confirmed Active Chemotherapy-induced peripheral neuropathy Confirmed Active Pulmonary hypertension (disorder) Confirmed Active Diagnosis Diagnosis Type Effective Dates Health Status Clinical Service Informant Ovarian cancer Discharge Diagnosis 10/27/24 Non-Specified UTI (urinary tract infection) Discharge Diagnosis 10/27/24 Non-Specified Symptomatic hypotension Discharge Diagnosis 10/27/24 Non-Specified Hospital discharge follow-up Discharge Diagnosis 10/27/24 Non-Specified Procedures Procedure Date Related Diagnosis Body Site Status Mammogram 1 07/08/22 Completed Mammogram - screening 2 06/13/21 C ompleted Ultrasound gynecology scan 3 05/02/18 Completed Mammogram - screening 4 03/22/17 C ompleted Colonoscopy and biopsy of colon 5 07/22/16 Completed Mammogram - screening 6 03/19/16 C ompleted Arthroscopic repair of left meniscus 06/20/15 Completed Mammogram - screening 7 03/14/15 C ompleted Plain X-ray of right shoulder 8 05/03/14 Completed Mammogram - screening 9 11/21/13 C ompleted Mammogram - screening 10 02/16/12 Completed Pap smear and HPV cotesting 11 08/13/11 Completed Exercise stress echocardiography 12 06/03/11 Completed [place] tooth extraction 04/11/11 C ompleted Cholecystectomy 09/10/10 Completed Mammogram - screening 13 02/06/10 Completed Mammography of right breast 14 07/16/09 Completed Pap smear and HPV cotesting 15 03/18/09 Completed Mammogram of right breast 16 12/18/08 Completed Mammogram - screening 17 12/14/08 Completed Echocardiogram 18 11/12/08 Complet ed X-ray of left foot 19 11/14/99 Com pleted EMG - LUE Electromyography 20 04/18/98 Completed Plain X-ray of left shoulder 21 09/16/97 Completed Pap smear and HPV cotesting 22 12/18/96 Completed Pap smear and HPV cotesting 23 03/09/95 Completed Pap smear and HPV cotesting 24 07/03/94 Completed Pap smear and HPV cotesting 25 01/15/93 Completed Colonoscopy Completed Foot surgery Completed 1IMPRESSION: ACR BI-RADS CATEGORY 1: NEGATIVE There is no mammographic evidence of malignancy. A 1 year screening mammogram is recommended. (07-09-2023) The patient will receive written notification of the results. 2There is no mammographic evidence of malignancy. A 1 year screening mammogram is recommended. 3Right ovary wnl, Left ovary contains simple cyst of 2.3 x 1.9 x 2.1 cm 4There is no mammographic evidence of malignancy. A 1 year screening mammogram is recommended. 5Colon, sigmoid, polypectomy: Hyperplastic Polyp Repeat colonoscopy in 10 years 6There is no mammographic evidence of malignancy. A 1 year screening mammogram is recommended. 7There is no mammographic evidence of malignancy. A 1 year screening mammogram is recommended. 8Significant downslope to the acromion, type III, degenerative changes at the AC joint with inferiorosteophytes off of the acromion as well as the clavicular site at the AC joint. 9There is no mammographic evidence of malignancy. A 1 year screening mammogram is recommended. 10There is no mammographic evidence of malignancy. A 1 year screening mammogram is recommended. 11Negative for intraepithelial Lesion or Malignancy 121. Probable negative stress echo for ischemia 105% MPHR. Very difficult images even with contrast. If clinical situation mandates, consideration can be give for nuclear stress testing. 2. Negative stress EKG for ischemia at 105% MPHR. 3. No stress induced chest pain. 4. Fair exercise tolerance achieving 6 minutes 14 seconds (7.3 METS) on a GERARDO protocol. 13There is no mammographic evidence of malignancy. A 1 year screening mammogram is recommended. 14There is no mammographic evidence of malignancy. Return to annual mammogram screening schedule is recommended. 15Negative for intraepithelial Lesion or Malignancy 16Prior right MLO view posterior asymmetry is less defined on spot views. No lesion by ultrasound. Likely summation. Right six (6) month follow up requested. 17Focus distortion lateral film right breast posterior. Spot films recommended as follow up. 181. Normal global biventricular systolic function without segmental wall motion abnormalities. 2. Mild mitral regurgitation. 3. Mild tricuspid regurgitation. 19No abnormalities are identified. 20Study is normal. 21Normal left shoulder. 22Within normal limits 23Within normal limits 24Within normal limits 25Within normal limits Results Laboratory List Name Date Urine Chemstick POC Outpt. (UA Chemstick POC Outpt.) 10/27/24 Most recent to oldest [Reference Range]: 1 Glucose Urine Dipstick Ref Range [negati ve] (10/27/24 12:51 PM) Bilirubin Urine Dipstick Ref Range [nega tive] (10/27/24 12:51 PM) Specific [place] Urine Ref Range [No Nor mal Defined] (10/27/24 12:51 PM) Protein Urine Dipstick Ref Range [negati ve] (10/27/24 12:51 PM) pH Urine Dipstick Ref Range [4.5 - 8.0] (10/27/24 12:51 PM) Ketones Urine Dipstick Ref Range [negati ve] (10/27/24 12:51 PM) Blood Urine Dipstick Ref Range [negative ] (10/27/24 12:51 PM) Urobilinogen Urine Dipstick Ref Range [0 .2 - 1.0 mg/dL] (10/27/24 12:51 PM) Nitrites Urine Dipstick Ref Range [negat italo] (10/27/24 12:51 PM) Leukocytes Urine Dipstick Ref Range [neg ative] (10/27/24 12:51 PM) U Leuk Est Small (10/27/24 12:51 PM) U Nitrite Negative (10/27/24 12:51 PM) U Urobilinogen 0.2 mg/dl (10/27/24 12:51 PM) U Protein 100 mg/dl (10/27/24 12:51 PM) U pH 6 (10/27/24 12:51 PM) U Blood Small (10/27/24 12:51 PM) U Spec Grav 1.025 1 (10/27/24 12:51 PM) U Ketones Negative (10/27/24 12:51 PM) U Bili Small (10/27/24 12:51 PM) U Gluc Negative (10/27/24 12:51 PM) U Appear Clear (10/27/24 12:51 PM) Urine color urine dipstick Yellow (10/27/24 12:51 PM) 1Result Comment: Performed at: [facility], [address] [place] [address], [address], [place] [address] Orders for Microbiology Reports Name Date Urine Culture (CULTURE, URINE) 10/27/24 Microbiology Reports TEST:Urine.Cx STATUS:Auth (Verified) BODY SITE: SOURCE:Urine COLLECTED DATE/TIME:10/27/24 11:06 AM Culture 10,000-50,000 colonies/mL Mixed Urogenital Arabella Vital Signs Most recent to oldest [Reference Range]: 1 Temperature [36.5-37.9 DegC] 36.4 DegC *LOW* (10/27/24 9:31 AM) Heart Rate 119 bpm (10/27/24 9:31 AM) Respiratory Rate 16 br/min (10/27/24 9:31 AM) Blood Pressure 90/60mmHg (10/27/24 9:31 AM) Cuff Pulse Pressure 30 mmHg (10/27/24 9:31 AM) Social History Social History Type Response Tobacco Former smoker, Stopp ed age 50 Years. Smoking Status Never smoked cigaret srinivasa Sex Female Sex Representation Female (finding) FCM Outpt Note * MD Harden Margaret: PERFORM, MODIFY DO Valentin Gretchen Elizabeth: MODIFY Event Display: FCM Outpt Note Authored Date: [id number] Assessment/Plan 1. Symptomatic hypotension Chronic condition not at goal/exacerbated/progressive/side effects of treatment Goal: Symptomatic management Data: unique tests reviewed: _CBC CMP Mg CT Head CXR carotid dopplers CT A&P, Abd US Plan: Initially concerned for cardiogenic or neurologic syncope. Workup unrevealing. Found tohave significant orthostatic hypotension with positional changes. Started on midodrine 7.5 mg TID. Patient getting IVF regularly, due for this today. Did get magnesium repleted yesterday withher chemotherapy. Will continue IVF and midodrine, recommend switching out some free water withPedialyte/Gatorade/broth etc. Patient has f/u 5/ with Dr. Emery. 2. Ovarian cancer Chronic condition not at goal/exacerbated/progressive/side effects of treatment Goal: Resolution Data: _ Plan: Patient is continuing with chemotherapy. Had treatment yesterday. Follows with Dr. Carty at the [facility]. They order labs regularly. 3. UTI (urinary tract infection) Acute, uncomplicated illness/injury Goal: Resolution Data: _UCx Rx cefdinir Plan: Patient with urinary symptoms. UA positive - will send for culture. Treat with cefdinir 300 mg BID x 7 days. Will contact patient if there is a change in the care plan. 4. Hospital discharge follow-up Transitional Care Visit Plan: Initial transitional care contact documentation reviewed and was made on 10/23/2024 Medical Decision Making: x Moderately or Highly Complex (seen within 14 days of discharge) ([id number]) Medication Reconciliation: x Medication list reconciled Referrals: x None Community Resources identified for patient/family: x None needed Durable medical equipment: x DME ordered: Type: walker Duration: 99 months Additional communication delivered or planned to: x Family/caregiver: Sister Patient Education: Topics discussed: hydration with adequate electrolytes Follow-up visit: 8 days Attestation Patient seen and examined in concert with Dr. Harden, agree with history and physical documented above. Plan reviewed in detail and patient understanding. Chief Complaint Hospital follow up. Patient has been having falls/her bp is dropping. Was prescribed Midodrine. History of Present Illness 59 y/o here for a hospital follow up. Patient was admitted after a syncopal episode. Work up remarkable for significant orthostatic hypotension. Patient started on midodrine 7.5 mg TID. Patient uncertain if she's feeling any better. Doesget IVF regularly and is due for this today. Had chemo yesterday and mag was repleted at that time.Sister is present for the visit and helps with the history taking. Patient also having some urinary symptoms - frequency, urgency, and pain. Has had multiple UTIs since having a stent placed. Physical Exam Vitals & Measurements T: 36.4 °C HR: 119 (Monitored) RR: 16 BP: 90/60 Gen: tired appearing patient in NAD HEENT: AT NC CV: tachycardic, regular rhythm clinically well perfused Resp: CTAB no wheezing no increased work of breathing Abd: non-distended MSK: no obvious deformities Skin: no bruising or rashes noted Psych: appropriate mood and affect Neuro: alert and oriented Problem List/Past Medical History Ongoing Chemotherapy-induced peripheral neuropathy Hyper reflexia Hyperlipidemia Lumbar back pain OBIE on CPAP Osteoarthritis of knees, bilateral Ovarian cancer Pulmonary hypertension (disorder) Procedure/Surgical History •Mammogram| Service Date: 07/08/2022•Mammogram - screening| Service Date: 06/13/2021•Ultrasound gynecology scan| Service Date: 05/02/2018•Mammogram - screening| Service Date: 03/22/2017•Colonoscopy and biopsy of colon| Service Date: 07/22/2016•Mammogram - screening| Service Date: 016•Arthroscopic repair of left meniscus| Service Date: 06/20/2015•Mammogram - screening| Service Date: 03/14/2015•Plain X-ray of right shoulder| Service Date: 05/03/2014•Mammogram - screening| Service Date: 11/21/2013•Mammogram - screening| Service Date: 02/16/2012•Pap smear and HPV cotesting| Service Date: 08/13/2011•Exercise stress echocardiography| Service Date: 06/03/2011•[place] tooth extraction| Service Date: 04/11/2011•Cholecystectomy| Service Date: 09/10/2010•Mammogram - screening| Service Date: 02/06/2010•Mammography of right breast| Service Date: 07/16/2009•Pap smear and HPV cotesting| Service Date: 03/18/2009•Mammogram of right breast| Service Date: 12/18•Mammogram - screening| Service Date: 12/14/2008•Echocardiogram| Service Date: 11/12/2008•X-ray of left foot| Service Date: 11/14/1999•EMG - LUE Electromyography| Service Date: 04/18/1998•Plain X-ray of left shoulder| Service Date: 09/16/1997•Pap smear and HPV cotesting| Service Date: 12/18/1996•Pap smear and HPV cotesting| Service Date: 03/09/1995•Pap smear and HPV cotesting| Service Date: 07/03/1994•Pap smear and HPV cotesting| Service Date: 01/15/1993•Colonoscopy•Foot surgery Medications apixaban(Eliquis 5 mg oral tablet), 5 mg= 1 tab, PO, bid ascorbic acid(Vitamin C), 1 tab, PO, Daily aspirin(aspirin 81 mg oral delayed release tablet), 81 mg= 1 tab, PO, Daily, 3 refills cefdinir(cefdinir 300 mg oral capsule), 300 mg= 1 cap, PO, q12h cyanocobalamin(Vitamin B12 1000 mcg oral tablet), 1000 mcg= 1 tab, PO, Daily DULoxetine(DULoxetine 60 mg oral delayed release capsule), 1 cap, PO, Daily fluticasone nasal(fluticasone 50 mcg/inh nasal spray), 1 spray, each nostril, Daily gabapentin(gabapentin 300 mg oral capsule), See Instructions metoprolol(metoprolol succinate 50 mg oral tablet, extended release), 50 mg= 1 tab, PO, qhs, 3 refills midodrine(midodrine 2.5 mg oral tablet), See Instructions, 2 refills omeprazole(omeprazole 20 mg oral delayed release capsule), 20 mg= 1 cap, PO, bid, 3 refills oxyCODONE(oxyCODONE 10 mg oral tablet), 10 mg= 1 tab, PO, q12h, PRN tamsulosin(tamsulosin 0.4 mg oral capsule), 1 cap, PO, Daily vitamin E, See Instructions Allergies NKA Social History Smoking Status Never smoked cigarettes Alcohol Use:Current Frequency:1-2 times per month Employment/School Status:Unemployed Home/Environment Lives with:Children Substance Abuse - Denies Substance Abuse Tobacco Use:Former smoker Stopped at age:50Years Intake ([place]) Smoking History Cigarette smoker: Never smoked cigarettes Tobacco Product Use: Never used other tobacco products Family History Diabetes...: Mother. Heart disease: Father. Hypertension: Mother. Health Status Family Member(s) Immunizations Vaccine Date Status influenza virus vaccine, inactivated 04/11/2024 Given influenza virus vaccine, inactivated 06/08/2023 Given influenza virus vaccine, inactivated 05/04/2022 Recorded SARS-CoV-2 mRNA (Pfizer 12+) bivalent 05/04/2022 Recorded tetanus/diphtheria/pertuss, acel (Tdap) 03/21/2021 Recorded Comments : 2021-07-03: Historical information-source unspecified SARS-CoV-2 (COVID-19) mRNA-1273 vaccine 01/15/2021 Recorded Comments : 2021-07-03: Historical information-source unspecified SARS-CoV-2 (COVID-19) mRNA-1273 vaccine 12/18/2020 Recorded Comments : 2021-07-03: Historical information-source unspecified influenza virus vaccine, inactivated 04/12/2018 Recorded Recommendations Health Maintenance Pending (in the next year) Due Adult Social Determinants of Health Screening due 10/27/24 Unknown Frequency Hepatitis C Screening due 10/27/24 One-time only Pneumococcal Vaccine Older Adults due 10/27/24 One-time only Seasonal COVID 19 Vaccine due 10/27/24 Unknown Frequency Shingles Vaccine due 10/27/24 One-time only Due In Future Adult Influenza Vaccine not due until 01/02/25 and every 1 year Body Mass Index not due until 08/04/25 and every 366 day Satisfied (in the past 1 year) Satisfied Adult Influenza Vaccine on 04/11/24. Satisfied by VANGIE Crabtree Alexandra Body Mass Index on 08/03/24. Satisfied by VANGIE Khan Paul Breast Cancer Screening on 01/13/24. Satisfied by AYAAN Garcia Lynnae Lipid Screening on 03/02/24. Satisfied by Contributor_systemIagnosis Electronic Signature on File Electronically Reviewed/Signed by: Elda Harden MD Author Signature Dt/Tm:10/27/2024 10:52 AM Resident Department of Family Medicine Electronically Reviewed/Signed by: MD Konstantin Anthonyigner Signature Dt/Tm: 10/27/2024 10:54 AM Resident Department of Family Medicine Electronically Reviewed/Signed by: Ivett Valentin D.O. Cosignwinnie Signature Dt/Tm: 10/27/2024 11:44 AM Department of Family Medicine MP Patient Care team information Care Team Personnel Name: DO Valentin Gretchen Elizabeth Position: Physician - Family Med Member Role: Primary Care Provider Address: [address] [place] [address] Telecom: [phone] Care Team Related Persons Name: MARILU SON Name: DAVE NIEVES Insurance Providers Guarantor name: REYNALDO NIEVES Health Plan Information #: 1 Payer: [employer] P[employer] Member Number: [id number] Policy Number: NA Group Number: [id number] Payer Identifier: [id number] Health Plan Information #: 2 Payer: [employer] Member Number: [id number] Policy Number: NA Group Number: [id number] Payer Identifier: [id number]
[2024-11-08 19:54] LABS: Hematocrit (blood only) 30.8 % (37.0-47.0); Hemoglobin 9.6 g/dl (12.0-16.0)
[2024-11-09 09:07] LABS: Rouleaux 1+
[2024-11-09 11:09] LABS: Albumin Globulin Ratio 0.6 (0.9-2); Albumin Level 1.9 gm/dl (3.4-5.0); Bilirubin,Total 0.2 mg/dl (0.2-1.0); Calcium 7.7 mg/dl (8.6-10.3); Creatinine Clr Calc Pharmacy 117.6 ml/min; Globulin 3.2 gm/dl (2.5-4.0); Magnesium 1.7 mg/dl (1.7-2.4); Potassium 4.1 mmol/L (3.5-5.1); Total Protein 5.1 gm/dl (6.0-8.3)
[2024-11-09 11:57] LABS: Basophils # (auto) 0.01 K/uL (0.00-0.20); Basophils % (auto) 0.4 %; Eosinophils # (auto) 0.03 K/uL (0.00-0.50); Eosinophils % (auto) 1.3 %; Hematocrit (blood only) 27.8 % (37.0-47.0); Hemoglobin 8.8 g/dl (12.0-16.0); Immature Granulocytes # (auto) 0.01 K/uL (0.01-0.20); Immature Granulocytes % (auto) 0.4 %; Lymphocytes # (auto) 0.22 K/uL (1.20-3.40); Lymphocytes % (auto) 9.6 %; Mean Corpuscular Hemoglobin 27.3 pg (25.0-34.0); Mean Corpuscular Hgb Conc 31.7 g/dL (32.0-36.0); Mean Corpuscular Volume 86.3 fL (80.0-100.0); Mean Platelet Volume 9.6 fL (9.4-12.4); Monocytes # (auto) 0.15 K/uL (0.11-0.59); Monocytes % (auto) 6.6 %; Neutrophils # (auto) 1.87 K/uL (1.40-6.50); Neutrophils % (auto) 81.7 %; Platelet Count 123 K/uL (130-400); RDW Coefficient of Variation 19.1 % (11.5-14.5); RDW Standard Deviation 58.4 fL (36.4-46.3); Red Blood Count 3.22 M/uL (4.20-5.40); White Blood Count 2.29 K/ul (4.8-10.8)
--- NOTE | 2024-11-09 13:33 | Hospitalist Progress Note ---
Date of Service November 09, 2024 Assessment & Plan (1) Near syncope: (2) Ovarian cancer: (3) Symptomatic anemia: (4) Dysphagia: Plan 58-year-old female with past medical history of metastatic ovarian cancer with carcinomatosis undergoing chemotherapy, hypertension, depression, GERD, low back pain. She presented to the ED from home yesterday after experiencing a near syncopal episode with associated hypotension when working with home health PT. Her last round of chemotherapy was 2 weeks ago and she reports ongoing weakness for the past 7 days, dysphagia with solids and liquids ~1 week, and decreased oral intake at home for the past few months. Additionally, she had dysuria morning of admission with history of frequent UTIs. #Near syncope/anemia/Stage IV ovarian cancer Hgb 6.5% on admission - transfused 1 unit pRBC in ED --> 8.8% today Continue midodrine 7.5 mg TID Continue oxycodone 5 mg Q6H PRN pain Ordered therapeutic IR guided paracentesis for 11/09/24. Replete albumin if >5 L removed #UTI UA suggestive of infection with associated dysuria Continue ceftriaxone 2 g IV Q24H Follow urine culture #Nausea/dry heaving Ordered famotidine 20mg IV Q12H Ordered pantoprazole 40mg IV BID Ordered ondansetron 4 mg IV BID Ordered sulfacrate 1 g PO QID #Dysphagia New onset over the past 1 week. Most prominent with pills and meals. Some coughing associated with meals Passed dysphagia screen in ED Speech therapy consulted #History of PE PE noted incidentally on imaging in August 2023 - has been on Eliquis 5 mg BID since Patient reports she was instructed to start Aspirin 81 mg daily when diagnosed with ovarian cancer Hold Eliquis and aspirin with pending paracentesis - resume after #Nutritional deficiency/Hypomagnesemia Suspect profound nutritional deficiency secondary to chemotherapy. Patient reports limited oral intake times several months secondary to reduced appetite and taste with active cancer treatment Transferrin <95 Dietitian consulted for nutritional assessment Mag 1.4 on admission - repleted with 1 g IV mag x 2 - repeat with AM labs Calcium 8.0 with POC ionized calcium 1.06 on admission repleted with 1 g IV calcium gluconate repeat with a.m. labs Continue vitamin D supplementation twice daily, continue multivitamin daily, Mag-Ox 400 mg BID, vitamin B12 1000 mcg daily #CAD/HTN- ASA, metoprolol #Chronic low back pain- Gabapentin, duloxetine, oxycodone #GERD- Omeprazole #Depression- Duloxetine VTE PPx: high risk but with pending paracentesis, will do SCDs for now. After paracentesis, recommend starting/resuming chemoprophylaxis Code status: DNR/DNI Admission and Anticipated Discharge Date Admission Date: November 08, 2024 Supervising Physician Co-Signing Physician Notes I personally examined the patient and verified all longo points of history and exam, discussed case, and agree with decision making with Dr Harden and Halina Lozano Feeling better than yesterday but still weak overall. Had no real power in his legs and felt lightheaded whenever she tried to stand up. Cannot eat or drink very wellfeels a bubble sensation in her throat at times. Daughter present at the bedside. Answered all questions the best my ability and to the patient and daughters satisfaction. Vitals noted, in general she is awake and alert pleasant but appears fatigued and weak. No distress. HEENT normocephalic atraumatic mucous membranes moist. Breathing unlabored no accessory muscle use good effort. Skin without rashes pallor or icterus. Neuro without focal deficits. Weakness/near syncopeappears to be due to anemia (from chemotherapy, transfused, now adequate) and dehydration (poor p.o. intakeprobably chemo related failure to thrive/nausea/indigestion, cannot rule out esophageal process yettrial of aggressive med management, and then consider further esophageal workup particularly if the sticking and a bubble type sensation does not rodriguez otherwise as above clinically c/w severe acute protein calorie malnutrition UTI - rocephin DVT proph - SCDs Subjective Patient was seen and evaluated bedside. No acute events overnight. Daughter present at bedside. Marybeth shared that she has been feeling more lightheaded this past week and described having "weak legs." Yesterday her bp at home was in the 80/60s. She continues to have dysphagia and has been unable to swallow pills the past few days. She feels that something gets stuck in her chest are and it feels like "bubble pain." She continues to dry heave, which has been ongoing since chemotherapy started and is unable to taste her food. Fluid intake has been decreased as well due to dysphagia. Her voice has also been hoarse. She has a dull pain in her abdomen that is on and off. Dysuria symptoms began yesterday, similar to symptoms from previous episodes of her recurrent UTIs. She reports that she had a fall 2 weeks ago where she lost consciousness and injured her hand. Her daughter said that she had a few falls this past month. Marybeth lives with one of her daughters. PT, OT, and home health each visit once a week. No reported fever, chills, vision change, chest tightness, shortness of breath. Review of Systems Review of Systems: See HPI. Physical Exam Constitutional: Lying comfortably in bed, no acute distress. Eyes: PERRL, conjunctivae normal, anicteric sclerae ENMT: Mouth: + dry oral mucous membranes Respiratory: normal respiratory effort, lungs clear to auscultation Cardiovascular: RRR, no murmur, no edema Gastrointestinal (Abdomen): normal bowel sounds, soft, nontender, no hepatosplenomegaly Abdominal drainage catheter on her left abdomen. Skin: no rashes, warm and dry Mild facial pallor. Neurologic: PERRL, EOMI, accommodation nl, no face palsy, no dysarthria Results & Data Results & Data Vital Signs (Past 12 Hours) Vital Signs Temp Pulse Pulse Resp BP Pulse Ox O2 Del Method 11/09/24 12:44 Room Air 11/09/24 11:43 36.8 C 89 18 109/78 97 Room Air 11/09/24 07:57 36.5 C 79 18 96/68 L 96 Room Air 11/09/24 07:30 83 11/09/24 04:09 36.4 C L 86 14 95/67 L 94 Room Air Diagnostic Findings 11/08 XR chest 1V portable FINDINGS: Stable right chest port. Heart size and pulmonary vasculature are normal. Stable small left pleural effusion and associated left lung base consolidation. No pneumothorax. IMPRESSION: Stable exam. Resident Activity Tracking Resident Involvement: Resident Care Provided Care Provided: Adult Hospital Medicine (2) Ovarian cancer Laterality: unspecified laterality Qualified Code(s): C56.9 - Malignant neoplasm of unspecified ovary
--- NOTE | 2024-11-09 17:26 | Billing Data ---
Date of Service November 09, 2024 Coding Level of Care Code 37664 SUB INP/OBS CARE
--- NOTE | 2024-11-10 08:16 | Hospitalist Progress Note ---
Date of Service November 10, 2024 Assessment & Plan (1) Near syncope: (2) Ovarian cancer: (3) Symptomatic anemia: (4) Dysphagia: Plan 58-year-old female with past medical history of metastatic ovarian cancer with carcinomatosis undergoing chemotherapy, hypertension, depression, GERD, low back pain. She presented to the ED from home yesterday after experiencing a near syncopal episode with associated hypotension when working with home health PT. Her last round of chemotherapy was 2 weeks ago and she reports ongoing weakness for the past 7 days, dysphagia with solids and liquids ~1 week, and decreased oral intake at home for the past few months. Additionally, she had dysuria morning of admission with history of frequent UTIs. #Near syncope/anemia/Stage IV ovarian cancer Likely in the setting of deconditioning, symptomatic anemia, failure to thrive, and narcotic use. Continue oxycodone 5 mg Q6H PRN pain. bGiven 1uPRBCs and hemoglobin has stabilized. Continue midodrine 7.5 mg TID, giving an additional 1L LR @ 80 mL/hr as she may still be clinically dry. #Abdominal Ascites Likely in the setting of failure to thrive. Has PleurX in place - removes 1L every 4 days. Was due 11/09, but unable to complete due to staffing. Completed 11/10. Continue every 4 days. #Nausea #Dysphagia Aggressive acid suppression - H2 amee BID, PPI BID, scheduled Zofran BID, carafate QID. Having some coughing with meals and pills. Some improvement with this regimen. Could consider GI consult if patient improvement stalls. #Dysuria Urine culture grew judy galbrata. Discontinued CTX. Minimal improvement in symptoms. May be related to dehydration vs yeast. Will give additional fluids - if no improvement could consider antifungals +/- ID consult. #History of PE PE noted incidentally on imaging in August 2023 - has been on Eliquis 5 mg BID since. Was also told to start ASA 81 mg daily when she was diagnosed with ovarian cancer. #Nutritional deficiency/Failure to Thrive Suspect profound nutritional deficiency secondary to chemotherapy with decrease appetite, dysphagia, and GERD. Low intake. Dietitian consulted. Continue vitamin supplementation. Replete as needed #CAD/HTN- ASA, metoprolol #Chronic low back pain- gabapentin, duloxetine, oxycodone #GERD- Omeprazole #Depression- Duloxetine VTE PPx: continue Eliquis Code status: DNR/DNI Admission and Anticipated Discharge Date Admission Date: November 08, 2024 Supervising Physician Co-Signing Physician Notes I personally examined the patient and verified all longo points of history and exam, discussed case, and agree with decision making with Dr Harden Was able to get upgetting out of bed and to the bedside commode she felt weak but okay, on her way back she felt a little bit weaker with a mild degree of dizziness. Eating is going better, no vomiting. Vitals noted, in general she is awake and alert pleasant but appears fatigued and weak. No distress. HEENT normocephalic atraumatic mucous membranes moist. Breathing unlabored no accessory muscle use good effort. Skin without rashes pallor or icterus. Neuro without focal deficits. Weakness/near syncopeappears to be due to anemia (from chemotherapy, transfused, now adequate) and dehydration (poor p.o. intakeprobably chemo related failure to thrive/nausea/indigestion, cannot rule out esophageal process yettrial of aggressive med management, and then consider further esophageal workup particularly if the sticking and a bubble type sensation does not abatedoing slightly better today. No need for any change in plan. Continue IV fluids. Continue aggressive acid suppression and nausea regimen. Encourage activity encourage p.o. intake otherwise as above clinically c/w severe acute protein calorie malnutrition UTI/dysuria - urine culture showed Judy glabratashe is immune compromised, but at the same time fungal UTIs are quite rare. I wonder if she has noninfectious dysuriapossibly related to dehydration, etc. Stop antibiotics for now and follow clinicallyif the dysuria resolves with hydration and time then it would seem noninfectious. If it persists, repeat culture and then consider involving infectious disease if it does, in fact, appear to be a fungal UTI DVT proph - SCDs Subjective Patient seen at bedside this morning. Tolerating more PO. Able to eat Cheerios, toast, banana, and orange juice this morning. She reports that they're planning to use her PleurX today. No fevers or chills. Review of Systems 2 Review of Systems: See HPI. Physical Exam 2 Physical Exam: Gen: chronically ill appearing patient in NAD HEENT: AT NC MMM Resp: CTAB no wheezing no increased work of breathing CV: RRR no m/r/g clinically well perfused Abd: non-distended MSK: no obvious deformities Skin: no rashes or bruising Neuro: alert and oriented Psych: appropriate mood and affect Results & Data Results & Data Laboratory Results 11/10/24 09:50 11/10/24 09:42 Resident Activity Tracking Resident Involvement: Resident Care Provided Care Provided: Adult Hospital Medicine (2) Ovarian cancer Laterality: unspecified laterality Qualified Code(s): C56.9 - Malignant neoplasm of unspecified ovary
[2024-11-10 10:27] LABS: Basophils # (auto) 0.01 K/uL (0.00-0.20); Basophils % (auto) 0.6 %; Eosinophils # (auto) 0.02 K/uL (0.00-0.50); Eosinophils % (auto) 1.2 %; Hematocrit (blood only) 29.1 % (37.0-47.0); Immature Granulocytes # (auto) 0.01 K/uL (0.01-0.20); Immature Granulocytes % (auto) 0.6 %; Lymphocytes # (auto) 0.25 K/uL (1.20-3.40); Lymphocytes % (auto) 14.6 %; Mean Corpuscular Hgb Conc 30.9 g/dL (32.0-36.0); Mean Corpuscular Volume 87.4 fL (80.0-100.0); Mean Platelet Volume 10.2 fL (9.4-12.4); Monocytes # (auto) 0.15 K/uL (0.11-0.59); Monocytes % (auto) 8.8 %; Neutrophils # (auto) 1.27 K/uL (1.40-6.50); Neutrophils % (auto) 74.2 %; Platelet Count 128 K/uL (130-400); RDW Coefficient of Variation 19.2 % (11.5-14.5); RDW Standard Deviation 59.4 fL (36.4-46.3); Red Blood Count 3.33 M/uL (4.20-5.40); White Blood Count 1.71 K/ul (4.8-10.8)
[2024-11-10 10:44] LABS: BUN Creatinine Ratio 29.3 (10-20); Calcium 7.7 mg/dl (8.6-10.3); Potassium 3.3 mmol/L (3.5-5.1)
--- NOTE | 2024-11-10 16:48 | Billing Data ---
Date of Service November 10, 2024 Coding Level of Care Code 75410 SUB INP/OBS CARE
--- NOTE | 2024-11-10 23:43 | Electrocardiogram Report ---
Test Reason : Blood Pressure : */* mmHG Vent. Rate : 103 BPM Atrial Rate : 103 BPM P-R Int : 122 ms QRS Dur : 66 ms QT Int : 344 ms P-R-T Axes : 23 21 39 degrees QTcB Int : 450 ms Sinus tachycardia Low voltage QRS Nonspecific T wave abnormality Abnormal ECG When compared with ECG of 17-Oct-2024 17:29, No significant change was found Confirmed by Hira Hopkins ([id number]) on 11/10/2024 11:43:42 PM Referred By: Confirmed By: Hira Hopkins
[2024-11-11 06:09] LABS: Hematocrit (blood only) 27.3 % (37.0-47.0); Hemoglobin 8.6 g/dl (12.0-16.0); Mean Corpuscular Hemoglobin 27.3 pg (25.0-34.0); Mean Corpuscular Hgb Conc 31.5 g/dL (32.0-36.0); Mean Corpuscular Volume 86.7 fL (80.0-100.0); Mean Platelet Volume 9.6 fL (9.4-12.4); Platelet Count 132 K/uL (130-400); RDW Coefficient of Variation 18.9 % (11.5-14.5); RDW Standard Deviation 58.3 fL (36.4-46.3); Red Blood Count 3.15 M/uL (4.20-5.40); White Blood Count 1.71 K/ul (4.8-10.8)
[2024-11-11 06:26] LABS: BUN Creatinine Ratio 27.6 (10-20); Calcium 7.6 mg/dl (8.6-10.3); Creatinine Clr Calc Pharmacy 141.8 ml/min; Potassium 3.7 mmol/L (3.5-5.1)
--- NOTE | 2024-11-11 07:41 | Hospitalist Progress Note ---
Date of Service November 11, 2024 Assessment & Plan (1) Near syncope: (2) Ovarian cancer: (3) Symptomatic anemia: (4) Dysphagia: Plan 58-year-old female with past medical history of metastatic ovarian cancer with carcinomatosis undergoing chemotherapy, hypertension, depression, GERD, low back pain. She presented to the ED from home yesterday after experiencing a near syncopal episode with associated hypotension when working with home health PT. Her last round of chemotherapy was 2 weeks ago and she reports ongoing weakness for the past 7 days, dysphagia with solids and liquids ~1 week, and decreased oral intake at home for the past few months. Additionally, she had dysuria morning of admission with history of frequent UTIs. Continued admission necessary for improvement of strength and PO intake. #Near syncope/anemia/Stage IV ovarian cancer Likely in the setting of deconditioning, symptomatic anemia, failure to thrive, and narcotic use. Continue oxycodone 5 mg Q6H PRN pain. Given 1u pRBCs and hemoglobin has stabilized. Continue midodrine 7.5 mg TID, giving an additional 1L LR @ 80 mL/hr as she may still be clinically dry. - PT/OT to evaluate and treat #Abdominal Ascites Likely in the setting of failure to thrive. Has PleurX in place - removes 1L every 4 days. Completed 11/10 with no complications - continue every 4 days. #Nausea #Dysphagia Aggressive acid suppression - H2 amee BID, PPI BID, scheduled Zofran BID, carafate QID. Having some coughing with meals and pills. Some improvement with this regimen. Could consider GI consult if patient improvement stalls #Dysuria Urine culture grew samia galbrata. Discontinued CTX. Minimal improvement in symptoms. May be related to dehydration vs yeast. - continue IVF 80cc/hr in addition to PO intake - obtaining new UCx: if continues to be positive for Candidal growth will consult ID for antifungal #History of PE PE noted incidentally on imaging in August 2023 - has been on Eliquis 5 mg BID since. Was also told to start ASA 81 mg daily when she was diagnosed with ovarian cancer. #Nutritional deficiency/Failure to Thrive Suspect profound nutritional deficiency secondary to chemotherapy with decrease appetite, dysphagia, and GERD. Low intake. Dietitian consulted. Continue vitamin supplementation. Replete as needed #CAD/HTN- ASA, metoprolol #Chronic low back pain- gabapentin, duloxetine, oxycodone #GERD- Omeprazole #Depression- Duloxetine VTE PPx: continue Eliquis Code status: DNR/DNI Admission and Anticipated Discharge Date Admission Date: November 08, 2024 Supervising Physician Co-Signing Physician Notes I personally examined the patient and verified all longo points of history and exam, discussed case, and agree with decision making with Dr Diaz trying to eat but vomited this morning. Later informed by nursing she vomited again this afternoon. Vitals noted, in general she is appearing a little bit pale and uncomfortable from nausea is trying to eat Cheerios, no pain or respiratory distress. HEENT normocephalic atraumatic mucous membranes moist. Breathing unlabored no accessory muscle use good effort. Skin without rashes pallor or icterus. Neuro without focal deficits. Weakness/near syncopeappears to be due to anemia (from chemotherapy, transfused, now adequate) and dehydration (poor p.o. intakeprobably chemo related failure to thrive/nausea/indigestion, cannot rule out esophageal process yetand since she is not improving with a trial of aggressive med management, will ask gi to consider further esophageal workup Continue IV fluids. Continue aggressive acid suppression and nausea regimen. Encourage activity encourage p.o. intake otherwise as above clinically c/w severe acute protein calorie malnutrition UTI/dysuria - urine culture showed Samia glabratashe is immune compromised, but at the same time fungal UTIs are quite rare. urinary sx persisting - repeat culture, once culture sent start fluconazole (glabrata not always responsive to this, but this would be "leather cleaner" than other antifungals until it's clear if there actually is a yeast UTI (and if repeated yeast on culture would also ask ID to see) DVT proph - SCDs Subjective Marybeth was seen and evaluated at bedside this AM, sitting appearing in no acute distress. Denies any complications with PleurX yesterday 11/10. No fevers, body aches, chills reported. Appetite seems to be improving, however did have one small emesis after his pills this AM. Notes abdominal pain is currently 3/10 and generalized, pretty constant. States she lives at home with her daughter Elda, but she is often not around at night when pt is mainly sleeping, however wondering if there are any overnight aides who may be able to provide assistance if needed. Physical Exam Physical Exam: Gen: presently in no acute distress, sitting comfortably HEENT: NC/AT, moist mucus membranes Resp: CTAB no wheezing no increased work of breathing CV: RRR no m/r/g clinically well perfused GI/Abd: obese, hypoactive BS, non-tense, no guarding, tenderness to palpation of most of abdomen MSK: no obvious deformities, 5/5 strength upon testing Skin: no rashes or bruising observed Neuro: alert and oriented, no facial droop, speech intact Psych: appropriate mood and affect Results & Data Results & Data Vital Signs (Past 12 Hours) Vital Signs Temp Pulse Pulse Resp BP Pulse Ox O2 Del Method 11/11/24 07:06 68 11/11/24 04:02 36.3 C L 80 20 100/69 96 Room Air 11/10/24 23:42 36.7 C 84 20 109/74 94 Room Air 11/10/24 22:00 98 H Resident Activity Tracking Resident Involvement: Resident Care Provided Care Provided: Adult Hospital Medicine (2) Ovarian cancer Laterality: unspecified laterality Qualified Code(s): C56.9 - Malignant neoplasm of unspecified ovary
--- NOTE | 2024-11-11 17:05 | Billing Data ---
Date of Service November 11, 2024 Coding Level of Care Code 87785 SUB INP/OBS CARE MIN
[2024-11-12 06:18] LABS: Hematocrit (blood only) 27.4 % (37.0-47.0); Hemoglobin 8.3 g/dl (12.0-16.0); Mean Corpuscular Hemoglobin 26.9 pg (25.0-34.0); Mean Corpuscular Hgb Conc 30.3 g/dL (32.0-36.0); Mean Platelet Volume 9.8 fL (9.4-12.4); Platelet Count 155 K/uL (130-400); RDW Coefficient of Variation 19.1 % (11.5-14.5); RDW Standard Deviation 60.8 fL (36.4-46.3); Red Blood Count 3.08 M/uL (4.20-5.40); White Blood Count 1.45 K/ul (4.8-10.8)
[2024-11-12 06:33] LABS: BUN Creatinine Ratio 28.3 (10-20); Calcium 7.6 mg/dl (8.6-10.3); Creatinine Clr Calc Pharmacy 155.2 ml/min; Potassium 3.7 mmol/L (3.5-5.1)
--- NOTE | 2024-11-12 07:44 | Hospitalist Progress Note ---
Date of Service November 12, 2024 Assessment & Plan (1) Near syncope: (2) Ovarian cancer: (3) Symptomatic anemia: (4) Dysphagia: Plan 58-year-old female with past medical history of metastatic ovarian cancer with carcinomatosis undergoing chemotherapy, hypertension, depression, GERD, low back pain. She presented to the ED from home after experiencing a near syncopal episode with associated hypotension when working with home health PT. Her last round of chemotherapy was 2 weeks ago and she reports ongoing weakness for the past 7 days, dysphagia with solids and liquids ~1 week, and decreased oral intake at home for the past few months. Additionally, she had dysuria morning of admission with history of frequent UTIs. Continued admission necessary for improvement of strength and PO intake. #Near syncope/anemia/Stage IV ovarian cancer Likely in the setting of deconditioning, symptomatic anemia, failure to thrive, and narcotic use. Continue oxycodone 5 mg Q6H PRN pain. Given 1u pRBCs and hemoglobin has stabilized. Continue midodrine 7.5 mg TID, continue LR @ 80 mL/hr due to suboptimal PO intake. - PT/OT to evaluate and treat #Abdominal Ascites Likely in the setting of failure to thrive. Has PleurX in place - removes 1L every 4 days. Completed 11/10 with no complications - continue every 4 days. #Nausea #Dysphagia Aggressive acid suppression - H2 amee BID, PPI BID, scheduled Zofran BID, carafate QID. Having some coughing and emesis with meals and pills. Some improvement with this regimen. Consider GI consult due to persisting emesis, r/o structural cause #Dysuria Urine culture grew samia galbrata. Discontinued CTX. Minimal improvement in symptoms. May be related to dehydration vs yeast. - continue IVF 80cc/hr in addition to PO intake - new UCx pending: if continues to be positive for Candidal growth will consult ID for antifungal #History of PE PE noted incidentally on imaging in August 2023 - has been on Eliquis 5 mg BID since. Was also told to start ASA 81 mg daily when she was diagnosed with ovarian cancer. #Nutritional deficiency/Failure to Thrive Suspect profound nutritional deficiency secondary to chemotherapy with decrease appetite, dysphagia, and GERD. Low intake. Dietitian consulted. Continue vitamin supplementation. Replete as needed #CAD/HTN- ASA, metoprolol #Chronic low back pain- gabapentin, duloxetine, oxycodone #GERD- Omeprazole #Depression- Duloxetine VTE PPx: continue Eliquis Code status: DNR/DNI Admission and Anticipated Discharge Date Admission Date: November 08, 2024 Supervising Physician Co-Signing Physician Notes I personally examined the patient and verified all longo points of history and exam, discussed case, and agree with decision making with Dr Diaz more vomiting today. still doing better than before admission but worse than yesterday. GI input greatly appreciated. seen twice today. Vitals noted, in general she is appearing a little bit pale and uncomfortable from nausea, no pain or respiratory distress. HEENT normocephalic atraumatic mucous membranes moist. Breathing unlabored no accessory muscle use good effort. Skin without rashes pallor or icterus. Neuro without focal deficits. labs and diagnostics reviewed. xrays and subsequent CT discussed with pt. Weakness/near syncopeappears to be due to anemia (from chemotherapy, transfused, now adequate) and dehydration (poor p.o. intakeprobably chemo related failure to thrive/nausea/indigestion, cannot rule out esophageal process yetand since she is not improving with a trial of aggressive med management, GI also entertaining motility issues from peritoneal carcinomatosis (which understandably raised concern on pt about that status of her cancer - hence the follow up CT which does not show evidence of significant worsening - doesn't change current management but was checked for pt's understandable anxiet about if things were dramatically worsening) otherwise as above clinically c/w severe acute protein calorie malnutrition UTI/dysuria - urine culture showed Samia glabratashe is immune compromised, but at the same time fungal UTIs are quite rare. urinary sx persisting - repeat culture, once culture sent started fluconazole (glabrata not always responsive to this, but this would be "condenser cleaner" than other antifungals until it's clear if there actually is a yeast UTI (and if repeated yeast on culture would also ask ID to see); currently also using fluconazole for the potential of candidal esophagitis DVT proph - SCDs Namrata Rueda was seen and evaluated at bedside this AM, lying in bed appearing in no acute distress. On the phone with one of her daughters, Etta, who listened in on the encounter. Pt endorses she threw up multiple times yesterday, couldn't keep food down much, but had not had any emesis this morning yet. Was able to eat an orange slice but couldn't have her omelette or toast due to not having the appetite. Denies any abdominal pain or discomfort at the moment, so she is reluctant to eat more and potentially upset it. Notes she had a slight looser bowel movement last night, still having burning with urination. Aware we are awaiting new urine culture results and that we will likely have GI involved to further investigate her nausea/vomiting in case it is structural. Physical Exam Physical Exam: Gen: presently in no acute distress, lying in bed comfortably HEENT: NC/AT, moist mucus membranes Resp: CTAB, fair symmetric air entry b/l, no w/r/R CV: RRR no m/r/g clinically well perfused GI/Abd: obese, hypoactive BS, non-tense, no guarding, mild tenderness to palpation of abdomen MSK: no obvious deformities, 5/5 strength upon testing Skin: no rashes or bruising observed Neuro: alert and oriented, no facial droop, speech intact Psych: appropriate mood and affect Results & Data Results & Data Vital Signs (Past 12 Hours) Vital Signs Temp Pulse Pulse Resp BP Pulse Ox O2 Del Method 11/12/24 06:45 77 11/12/24 03:32 36.6 C 79 17 109/72 95 Room Air 11/11/24 23:36 36.8 C 82 17 106/73 94 Room Air 11/11/24 21:48 99 H Resident Activity Tracking Resident Involvement: Resident Care Provided Care Provided: Adult Hospital Medicine (2) Ovarian cancer Laterality: unspecified laterality Qualified Code(s): C56.9 - Malignant neoplasm of unspecified ovary
--- NOTE | 2024-11-12 11:40 | Gastrointestinal Consultation ---
Date of Consultation November 12, 2024 Assessment & Plan (1) Peritoneal carcinomatosis: I believe patient's nausea and vomiting are probably related to her peritoneal carcinomatosis. She likely has delayed gastric emptying and/or small bowel ileus. Common symptoms with progressive disease. I believe her painful swallowing is either related to esophageal candidiasis or delayed gastric emptying with acid and bile causing an esophagitis. She does note that swallowing seems to be improving but feels food does not leave her stomach. Endoscopy is likely just to confirm the above findings. Endoscopy also carries considerable risk based on her description of copious bilious vomiting, aspiration certainly would be a concern. Patient will require intubation for airway protection if we were to proceed. However I am not sure it will affect long-term management. If esophageal or gastric visualization is felt to be essential to her care we could proceed. However I am not sure we will be helpful. Patient would also need to be off her Eliquis for 24 hours. I reviewed with the daughter and patient the potential risks of endoscopy. I think we should try some Metochlorpropamide to try to improve gastric emptying. However long-term I expect this problem to worsen and progress. 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 (2) Ovarian cancer: (3) Dysphagia: Symptoms most consistent with odynophagia. Potentially yeast though patient is on Diflucan or just a erosive esophagitis from delayed gastric emptying nausea and vomiting. This esophagitis may be both bilious and ascitic. Patient is on aggressive acid suppression continue (4) GERD (gastroesophageal reflux disease): History of Present Illness Reason for Consultation: Nausea vomiting dysphagia Attending Physician: Eleazar Christensen DO History of Present Illness 59-year-old female with ovarian cancer and peritoneal carcinomatosis. She has an in dwelling drain that she empties about every 4 days. Daughter showed me a picture of the ascites it certainly appears to be chylous in nature. Patient was to have 6 rounds of chemo. She is only had 3. Continues to have medical problems that interfere with chemo administration. Patient's symptoms are painful swallowing. She finds with water or food pain sensation in the esophagus from the upper esophagus through to the stomach. She is having bilious vomiting. Described as fairly copious. No blood no mucus. Patient is on aggressive antacid therapy including Carafate H2 amee and a PPI. She is on Eliquis. He is getting Zofran twice daily for nausea. Also getting Diflucan. CT scan on 10/18/2024 showed some ascites, did not document significant ileus. Patient has leukopenia presumably from her chemo. However her counts do appear to be falling. Platelets are normal. Allergies Allergy/AdvReac Type Severity Reaction Status Date / Time No Known Allergies Allergy Verified 11/08/24 14:55 Home Medications Medication Instructions Recorded Confirmed Type omeprazole 20 mg capsule,delayed 20 mg PO BID #180 caps 12/20/20 11/08/24 Rx release multivitamin (Multiple Vitamins 1 tab PO QAM 01/08/21 11/08/24 History tablet) duloxetine 60 mg capsule,delayed 60 mg PO QAM 05/19/23 11/08/24 History release gabapentin 100 mg capsule 100 mg PO BID 05/19/23 11/08/24 History metoprolol tartrate 50 mg tablet 50 mg PO HS 05/19/23 11/08/24 History vitamin E (dl, acetate) 180 mg 180 mg PO BID 05/19/23 11/08/24 History (400 unit) capsule fluticasone propionate 50 2 spray intranasal DAILY PRN 05/21/23 11/08/24 Rx mcg/actuation nasal Congestion #48 grams spray,suspension apixaban 5 mg tablet (Eliquis) 5 mg PO BID 08/04/23 11/08/24 History gabapentin 300 mg capsule 600 mg PO HS 08/04/23 11/08/24 History oxycodone 5 mg tablet 10 mg PO Q6H PRN Pain 04/19/24 11/08/24 History duloxetine 30 mg capsule,delayed 30 mg PO HS 05/01/24 11/08/24 History release tamsulosin 0.4 mg capsule (Flomax) 0.4 mg PO DAILY kidney stone #30 07/13/24 11/08/24 Rx caps aspirin 81 mg tablet,delayed 81 mg PO QAM 10/04/24 11/08/24 History release cyanocobalamin (vitamin B-12) 1,000 mcg PO DAILY 10/04/24 11/08/24 History 1,000 mcg tablet (Vitamin B-12) magnesium oxide 400 mg PO BID 10/17/24 11/08/24 History midodrine 2.5 mg tablet 7.5 mg (3 x 2.5 mg) PO TID 30 days 10/20/24 11/08/24 Rx #270 tabs Patient History Medical History (Updated 11/09/24 @ 01:48 by Redd Lim MD) Ureteral stent present Chronic low back pain Hypertension Ureteral stent present Abdominal ascites Paracentesis 08/31/24, 5L removed Port-A-Cath in place (06/27/24) Insertion of Access Port Right IJ with Fluoroscopy(Right) - Dany Nguyễn DO repositioning of access port 08/29/24 [place] Pleural effusion, left had thora Hydronephrosis Hx of syncope (2019) Occurred w chemo treatment, "blood pressure crashed," spent [address] [facility] Hx pulmonary embolism (07/2023) Taking Eliquis Morbid obesity History of blood transfusion Sinus bradycardia Ovarian cancer Dx 03/2020, sx and chemo; currently on oral chemo (for the last 3 years) and IV Chemo since recent recurrence. 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 Hypertension controlled, stable per pt Hyperlipidemia Heart disease GERD (gastroesophageal reflux disease) controlled, stable per pt Depression Bilateral tinnitus Chronic low back pain Arthritis Anxiety Pulmonary hypertension Echo 08/2024: RVSP elevated at 30-40mmhg History of COVID-19 03/2023 (home test): body aches, fatigue, diarrhea > resolved DJD (degenerative joint disease) Knees, shoulder History of palpitations Intermittent episodes since chemo 2019 Sleep apnea CPAP (compliant) Surgical History Nausea and vomiting after administration of anesthetic agent Single episode History of abdominal surgery 09/2024 pt had abdominal drain placed at [facility] History of surgery (08/29/24) Repostioning of Access Port with Fluoroscopy(Right) - Dany Nguyễn DO Port-A-Cath in place (06/27/24) Insertion of Access Port Right IJ with Fluoroscopy(Right) - Dany Nguyễn DO History of abdominal paracentesis (08/14/24) History of infusaport central venous catheter insertion (06/27/24) [facility] S/P cystoscopy with ureteral stent placement (07/06/24) History of thoracentesis (08/14/24) [facility] Hx of cardiac catheterization (06/19/24) told "false stress test" - only added isosorbide to medical regimen- follows with [facility] Hx of foot surgery lt foot rebuilt Hx of colonoscopy Hx of bilateral cataract extraction History of hysterectomy with bilateral oophorectomy H/O oral surgery S/P cholecystectomy H/O arthroscopy of left knee Family History Mother Coronary heart disease Diabetes Obesity Hypertension Heart disease Father Obesity Hypertension Heart disease Grandfather (Maternal) Myocardial infarction Other Cancer No family history of adverse response to anesthesia No family history of bleeding disorder Denies family history of Ovarian cancer Prostate cancer Breast cancer Colorectal cancer Social History Smoking Status: Former smoker Tobacco Type: Cigarettes Age Started Using Tobacco: 20; Age Quit Using Tobacco: 50; Second Hand Exposure: No; Do You Dip or Chew Tobacco: No; Hx Alcohol Use: No Hx Substance Use: No Preferred Language: Indonesian Communication Ability: Effective Visual Impairment: Partially Limited Children'S Service Supervisor Required: No Beliefs That Will Affect Care: None marital status: / Current Living Situation: Family Current Living Situation Comment: daughter current occupational status: unemployed How many Children do You have: 2 Other Information That Helps Us Care for You: No Feels Safe at Home: Yes Safety Concerns: Feels Safe At This Time Dental Care, Regularly: Yes Physical Activity Frequency: 1-2 Times per Week Seatbelt Use: always Sunscreen Use: Yes Assistive Devices: Walker Review of Systems Review of Systems: Patient denies duong fevers or chills. Complains of abdominal pain. Denies increased cough chest pain or shortness of breath GI as mentioned history presenting illness Review of systems otherwise per hospitalist service without change Physical Exam Physical Exam: Patient examined at the bedside. Daughter is present. She does not appear acutely toxic. Orientated x 3 Head ears eyes nose and throat no jaundice Chest and heart exams per hospitalist service without change Abdomen somewhat firm slightly distended. Decreased bowel sounds throughout. But present. Diffuse tenderness throughout without rebound. Peritoneal catheter in the left side of the abdomen SUPERINTENDENT GENERAL no focal neurological change Psych anxious Exam otherwise negative Results & Data Vital Signs (Past 12 Hours) Vital Signs Temp Pulse Pulse Resp BP Pulse Ox O2 Del Method 11/12/24 07:45 36.6 C 68 18 110/77 96 Room Air 11/12/24 06:45 77 11/12/24 03:32 36.6 C 79 17 109/72 95 Room Air 11/11/24 23:36 36.8 C 82 17 106/73 94 Room Air PG Care Time/CCT Total # of Minutes Spent Total Time Spent with Patient: Total time spent is greater than 50% in coordination of care (as documented) at patient's floor/unit and/or counseling patient: Coding Level of Care Code 56448 INT INP/OBS CARE MIN Diagnoses Peritoneal carcinomatosis C78.6 Ovarian cancer C56.9 Laterality: unspecified laterality Dysphagia R13.10 Gastroesophageal reflux disease without esophagitis K21.9 Esophagitis presence: without esophagitis (2) Ovarian cancer Laterality: unspecified laterality Qualified Code(s): C56.9 - Malignant neoplasm of unspecified ovary (4) GERD (gastroesophageal reflux disease) Esophagitis presence: without esophagitis Qualified Code(s): K21.9 - Gastro- esophageal reflux disease without esophagitis
--- NOTE | 2024-11-12 12:41 | XRay Report ---
XR abdomen 2V w PA chest CLINICAL HISTORY: Carcinomatosis. Nausea vomit COMPARISON STUDY: 11/08/2024 and 10/18/2024 FINDINGS: CHEST: Stable right chest port. Stable mild cardiomegaly without pulmonary vascular congestion. Stabl e large left pleural effusion and associated consolidation at the left lower lung. No pneumothorax. ABDOMEN: Stable right ureteral stent. Stable indwelling peritoneal drainage catheter. There is mild r etained stool. No specific evidence of bowel obstruction seen. No gross free air. IMPRESSION: 1. Stable left pleural effusion. 2. No acute findings seen at the abdomen. ACT 112: Negative or not required by law. Electronically signed by: Sami Rosado M.D. 11/12/2024 12:39 PM
--- NOTE | 2024-11-12 17:08 | CT Scan Report ---
EXAMINATION: CT of the abdomen and pelvis performed after the administration of IV an oral contrast TECHNIQUE: Helical CT images from the lung bases through the symphysis pubis were obtained with contrast. Coronal and sagittal reformatted images were generated at a workstation for further assessment. Dose reduction techniques were achieved by using automatic exposure control and/or adjustment of mA and/or kV according to patient size and/or use of iterative reconstruction technique. COMPARISON: None HISTORY: Abdominal pain FINDINGS: Lower chest: Moderate left and small right pleural effusion, similar to prior. Liver: No suspicious liver lesions. Portal veins appear patent. Gallbladder: Cholecystectomy. Spleen: Normal size. Pancreas: No suspicious pancreatic lesions. The pancreatic duct is not dilated. Adrenal glands: No adrenal nodules. Kidneys: No hydronephrosis or obstructing renal stones. Right nephroureteral stent in place. Bladder / Pelvic organs: Unremarkable. Bowel: No bowel obstruction. No abnormal bowel wall thickening. The appendix is not identified. Oral contrast is seen in the stomach, small bowel, and cecum. There is a mild colonic stool burden. Lymph nodes: No retroperitoneal, mesenteric, or pelvic lymphadenopathy. Peritoneum / Retroperitoneum: There is a left abdominal wall approach peritoneal drainage catheter terminating in the right abdominal mesentery. There is a moderate to large volume of ascites, which is increased from prior. Vessels: No infrarenal aortic aneurysm. Bones and soft tissues: No suspicious lesion in the bones. IMPRESSION: Increased ascites. No bowel obstruction. Oral contrast reaches the cecum. Electronically signed by Fredy Allen 11-12-2024 5:08 PM
--- NOTE | 2024-11-12 18:51 | Billing Data ---
Date of Service November 12, 2024 Coding Level of Care Code 32323 SUB INP/OBS CARE MIN
[2024-11-13 07:19] LABS: BUN Creatinine Ratio 27.5 (10-20); Calcium 7.6 mg/dl (8.6-10.3); Creatinine Clr Calc Pharmacy 165.3 ml/min; Potassium 3.4 mmol/L (3.5-5.1)
--- NOTE | 2024-11-13 07:43 | Hospitalist Progress Note ---
Date of Service November 13, 2024 Assessment & Plan (1) Near syncope: (2) Ovarian cancer: (3) Symptomatic anemia: (4) Dysphagia: Plan 59 yo F with PMH of metastatic ovarian cancer with carcinomatosis undergoing chemotherapy, hypertension, depression, GERD, and low back pain. She was admitted after experiencing a near syncopal episode with associated hypotension likely due to low PO intake over the last couple months due to dysphagia. Her last round of chemotherapy was 2 weeks ago. Additionally, she had dysuria morning of admission with history of frequent UTIs. #Near syncope/anemia/Stage IV ovarian cancer Likely in the setting of deconditioning, symptomatic anemia, failure to thrive, and narcotic use. S/p 1 unit of pRBC on 11/08/24 - Continue oxycodone 5 mg Q6H PRN pain. - Continue home dose of midodrine 7.5 mg TID, - Continue LR @ 80 mL/hr due to suboptimal PO intake. - PT/OT following Recommend IP rehab- Care management following #Hypokalemia - Potassium was 3.4 today, repleted with 40mEq PO potassium chloride - Will reassess with am Labs #Abdominal Ascites Likely in the setting of failure to thrive. Has PleurX in place - removes 1L every 4 days. Completed 11/10 with no complications - continue every 4 days. #Nausea #Dysphagia Pt reporting better ability to eat this morning - Continue aggressive acid suppression - H2 amee BID, PPI BID, scheduled Zofran BID, carafate QID. Changed IV meds to PO - GI recommendations appreciated; Continue Protonix, Carafate, famotidine as well as fluconazole and reglan - Reglan changed from IV to PO #Dysuria Urine culture grew samia galbrata on 11/08/24. Discontinued CTX. Minimal improvement in symptoms. May be related to dehydration vs yeast. - continue IVF 80cc/hr in addition to PO intake - UCx: Three types of organisms in high counts, no samia #History of PE PE noted incidentally on imaging in August 2023 - has been on Eliquis 5 mg BID since. Was also told to start ASA 81 mg daily when she was diagnosed with ovarian cancer. - Continue home doses of Eliquis and asa #Nutritional deficiency/Failure to Thrive Suspect profound nutritional deficiency secondary to chemotherapy with decrease appetite, dysphagia, and GERD. Low intake. Dietitian consulted. Continue vitamin supplementation. Replete as needed #CAD/HTN- ASA, metoprolol #Chronic low back pain- gabapentin, duloxetine, oxycodone #GERD- Omeprazole #Depression- Duloxetine VTE PPx: continue Eliquis Code status: DNR/DNI Admission and Anticipated Discharge Date Admission Date: November 08, 2024 Supervising Physician Co-Signing Physician Notes I personally examined the patient and verified longo points of history and exam, discussed case, and agree with decision making and plan documented by Dr. Gonsalez. Patient with history of metastatic ovarian cancer with carcinomatosis currently on chemotherapy with diffuse weakness and near syncope in setting of anemia and overall deconditioning. Patient struggling to overcome persistent nausea. She hopes to pursue rehab to build strength and return to chemotherapy. Discussed plan with patient and her daughter. Subjective Pt reports she was able to eat some of her breakfast this morning without nausea or vomiting. She denies chest pain, SOB, abdominal pain, dizziness, or extremity paraesthesias. She does endorse general feeling of weakness. Review of Systems Review of Systems: See HPI. Physical Exam Physical Exam: Gen: presently in no acute distress, lying in bed comfortably HEENT: NC/AT, moist mucus membranes Resp: CTAB, fair symmetric air entry b/l, no w/r/R CV: RRR no m/r/g clinically well perfused GI/Abd: obese, normoactive BS, no guarding, no tenderness to palpation of abdomen MSK: no obvious deformities, Moveing all 4 extremties Skin: no rashes or bruising observed Neuro: alert and oriented, no facial droop, speech intact Psych: appropriate mood and affect Results & Data Results & Data Vital Signs (Past 12 Hours) Vital Signs Temp Pulse Pulse Resp BP Pulse Ox O2 Del Method 11/13/24 03:03 36.4 C L 74 16 100/70 95 Room Air 11/12/24 22:01 83 11/12/24 22:00 36.3 C L 80 16 111/77 95 Room Air Resident Activity Tracking Resident Involvement: Resident Care Provided Care Provided: Adult Hospital Medicine (2) Ovarian cancer Laterality: unspecified laterality Qualified Code(s): C56.9 - Malignant neoplasm of unspecified ovary
--- NOTE | 2024-11-13 11:56 | Gastroenterology Progress Note ---
Date of Service November 13, 2024 Assessment & Plan (1) Peritoneal carcinomatosis: (2) Dysphagia: Plan Symptoms seem improved with starting fluconazole and reglan. Would continue with current regimen. Also continue with protonix 40mg IV bid, carafate 1 gm qid, and famotidine 20mg BID. Admission and Anticipated Discharge Date Admission Date: November 08, 2024 Supervising Physician Co-Signing Physician Notes Complaining of significant nausea this p.m. Not vomiting. Again per previous note this is likely related to peritoneal carcinomatosis. However should also consider her narcotics as potential source for her nausea and vomiting. If these could be discontinued or decreased that may be of benefit. I do not think endoscopy will benefit this lady. Continue IV Reglan at this time. If tolerating could potentially be discharged home with oral Reglan 5 mg every 6 hours for 10 more days. Long-term Reglan however discouraged in middle-aged women. Subjective patient notes that since restarting the reglan/fluconazole that she has had less nausea and no emesis. dysphagia seems improved. no abdominal pain today. she is moving her bowels. no blood or melena noted. Review of Systems Review of Systems: All systems reviewed & are unremarkable except as noted in HPI & below Physical Exam Constitutional: WD/WN, vitals as above Respiratory: normal respiratory effort, lungs clear to auscultation Cardiovascular: Rate/Rhythm: regular rate and regular rhythm Gastrointestinal (Abdomen): normal bowel sounds, soft, nontender, no hepatosplenomegaly Psychiatric: Orientation: alert and oriented x 3 Affect: euthymic affect Results & Data Results & Data Vital Signs (Past 12 Hours) Vital Signs Temp Pulse Pulse Resp BP BP Pulse Ox 11/13/24 11:49 70 11/13/24 11:14 97.5 F L 95 H 16 119/81 98 11/13/24 07:46 97.7 F 78 18 114/81 97 11/13/24 03:03 97.5 F L 74 16 100/70 95 O2 Del Method 11/13/24 11:49 11/13/24 11:14 Room Air 11/13/24 07:46 Room Air 11/13/24 03:03 Room Air Coding Level of Care Code 92696 SUB INP/OBS CARE 07/29MIN Diagnoses Peritoneal carcinomatosis C78.6 Dysphagia R13.10
--- NOTE | 2024-11-13 12:40 | Electrocardiogram Report ---
Test Reason : Blood Pressure : */* mmHG Vent. Rate : 115 BPM Atrial Rate : 115 BPM P-R Int : 114 ms QRS Dur : 68 ms QT Int : 302 ms P-R-T Axes : 44 21 200 degrees QTcB Int : 417 ms Sinus tachycardia Cannot rule out Anterior infarct , age undetermined Abnormal ECG When compared with ECG of 08-Nov-2024 12:02, No significant change was found Confirmed by Ever Jacobo ([id number]) on 11/13/2024 12:40:10 PM Referred By: REFERRED SELF Confirmed By: Ever Jacobo
--- NOTE | 2024-11-13 13:13 | Electrocardiogram Report ---
Test Reason : Blood Pressure : */* mmHG Vent. Rate : 71 BPM Atrial Rate : 71 BPM P-R Int : 102 ms QRS Dur : 72 ms QT Int : 422 ms P-R-T Axes : 25 19 42 degrees QTcB Int : 458 ms Sinus rhythm with short WA Low voltage QRS Nonspecific T wave abnormality Abnormal ECG When compared with ECG of 12-Nov-2024 18:25, (unconfirmed) Vent. rate has decreased by 44 bpm Confirmed by Ever Jacobo ([id number]) on 11/13/2024 1:12:34 PM Referred By: REFERRED SELF Confirmed By: Ever Jacobo
[2024-11-14 06:28] LABS: Hematocrit (blood only) 27.9 % (37.0-47.0); Hemoglobin 8.4 g/dl (12.0-16.0); Mean Corpuscular Hemoglobin 26.8 pg (25.0-34.0); Mean Corpuscular Hgb Conc 30.1 g/dL (32.0-36.0); Mean Corpuscular Volume 88.9 fL (80.0-100.0); Mean Platelet Volume 9.4 fL (9.4-12.4); Platelet Count 210 K/uL (130-400); RDW Coefficient of Variation 19.7 % (11.5-14.5); RDW Standard Deviation 61.9 fL (36.4-46.3); Red Blood Count 3.14 M/uL (4.20-5.40); White Blood Count 1.69 K/ul (4.8-10.8)
[2024-11-14 06:44] LABS: Albumin Globulin Ratio 0.6 (0.9-2); Albumin Level 1.8 gm/dl (3.4-5.0); BUN Creatinine Ratio 24.6 (10-20); Bilirubin,Total 0.2 mg/dl (0.2-1.0); Calcium 7.5 mg/dl (8.6-10.3); Creatinine Clr Calc Pharmacy 147.7 ml/min; Globulin 2.9 gm/dl (2.5-4.0); Potassium 3.9 mmol/L (3.5-5.1); Total Protein 4.7 gm/dl (6.0-8.3)
--- NOTE | 2024-11-14 07:41 | Hospitalist Progress Note ---
Date of Service November 14, 2024 Assessment & Plan (1) Near syncope: (2) Ovarian cancer: (3) Symptomatic anemia: (4) Dysphagia: Plan Marybeth is a 59 yo F with PMH of metastatic ovarian cancer with carcinomatosis undergoing chemotherapy, hypertension, depression, GERD, and low back pain. She was admitted after experiencing a near syncopal episode with associated hypotension likely due to low PO intake over the last couple months due to dysphagia. Her last round of chemotherapy was 2 weeks ago. #Near syncope/anemia/Stage IV ovarian cancer Likely in the setting of deconditioning, symptomatic anemia, failure to thrive, and narcotic use. S/p 1 unit of pRBC on 11/08/24. Hbg is steady at 8.4. In sitting and with light seated activity, pt is able to maintain BP. However, with standing, BP drops to 80/60 and HR to 160- pt is symptomatic. - Increase home dose of midodrine to 10 mg BID, 7.5 mg QHS - Continue LR @ 80 mL/hr due to suboptimal PO intake. - PT/OT following Recommend IP rehab- Care management following - Continue oxycodone 5 mg Q6H PRN pain. #Hypokalemia - Potassium was 3.9 today - Will reassess with am Labs #Abdominal Ascites Likely in the setting of failure to thrive. Has PleurX in place - removes 1L every 4 days. Completed 11/10 with no complications - continue every 4 days. #Nausea #Dysphagia Pt reporting better ability to eat this morning - Continue aggressive acid suppression - H2 amee BID, PPI BID, scheduled Zofran BID, carafate QID. - GI recommendations appreciated; Continue IV Protonix, Carafate PO, famotidine PO Continue fluconazole for esophagitis Continue Reglan PO #Dysuria Urine culture grew samia galbrata on 11/08/24. Discontinued CTX. Minimal improvement in symptoms. May be related to dehydration vs yeast. - Continue to encourage oral fluid intake - UCx: Three types of organisms in high counts, no samia - No further antibiotics #History of PE PE noted incidentally on imaging in August 2023 - has been on Eliquis 5 mg BID since. Was also told to start ASA 81 mg daily when she was diagnosed with ovarian cancer. - Continue home doses of Eliquis and asa #Nutritional deficiency/Failure to Thrive Suspect profound nutritional deficiency secondary to chemotherapy with decrease appetite, dysphagia, and GERD. Low intake. - -- ---- - Dietitian following, recommendations appreciated. Will consider curb-siding for any further recommendations - Continue vitamin supplementation. - Replete as needed #CAD/HTN- ASA, metoprolol #Chronic low back pain- gabapentin, duloxetine, oxycodone #GERD- Omeprazole #Depression- Duloxetine VTE PPx: continue Eliquis Code status: DNR/DNI Admission and Anticipated Discharge Date Admission Date: November 08, 2024 Supervising Physician Co-Signing Physician Notes I personally examined the patient and verified longo points of history and exam, discussed case, and agree with decision making and plan documented by Dr. Gonsalez. Patient with history of metastatic ovarian cancer with carcinomatosis currently on palliative chemotherapy with diffuse weakness and near syncope in setting of anemia and overall deconditioning. Encouraged patient to continue attempting nutritional approach in setting of nausea. Patient orthostatic with physical therapy today. Midodrine increased. Patient hopes to pursue rehab to build strength and return to chemotherapy. Subjective Pt reports she was able to eat some dinner last night and cereal for breakfast this morning without nausea or vomiting, however, she was very nauseas and had abdominal cramping yesterday afternoon. She did have a bowel movement this morning. At time of exam, she was working with occupational therapy and anticipates working with PT today. She is open to going to inpatient rehab at [facility]. Currently this morning, she denies chest pain, SOB, nausea, diarrhea, abdominal pain, dizziness, or extremity paraesthesias. She does endorse general feeling of weakness and notes feeing like some of her breakfast is caught in her neck and upper chest. Review of Systems Review of Systems: See HPI. Physical Exam Physical Exam: Gen: presently in no acute distress, sitting in chair participating in bath/hygiene. HEENT: NC/AT, moist mucus membranes Resp: CTAB, fair symmetric air entry b/l, no w/r/R CV: RRR no m/r/g clinically well perfused GI/Abd: obese, normoactive BS, no guarding, no tenderness to palpation of abdomen MSK: no obvious deformities, Moving all 4 extremities Skin: no rashes or bruising observed Neuro: alert and oriented, no facial droop, speech intact Psych: appropriate mood and affect Results & Data Results & Data Vital Signs (Past 12 Hours) Vital Signs Temp Pulse Pulse Resp BP BP Pulse Ox 11/14/24 07:24 81 11/14/24 03:32 36.6 C 82 16 106/73 94 11/13/24 23:41 36.5 C 86 16 103/72 95 11/13/24 21:52 101 H 11/13/24 19:56 36.4 C L 94 H 16 118/81 98 O2 Del Method 11/14/24 07:24 11/14/24 03:32 Room Air 11/13/24 23:41 Room Air 11/13/24 21:52 11/13/24 19:56 Room Air Laboratory Results Abnormal lab results 11/14/24 Range/Units 06:05 WBC 1.69 L (4.8-10.8) K/ul RBC 3.14 L (4.20-5.40) M/uL Hgb 8.4 L (12.0-16.0) g/dl Hct 27.9 L (37.0-47.0) % MCHC 30.1 L (32.0-36.0) g/dL RDW Std Deviation 61.9 H (36.4-46.3) fL RDW Coeff of Asher 19.7 H (11.5-14.5) % Sodium 135 L (136-145) mmol/L Creatinine 0.57 L (0.6-1.2) mg/dl BUN/Creatinine Ratio 24.6 H (10-20) Calcium 7.5 L (8.6-10.3) mg/dl Alkaline Phosphatase 145 H (34-104) U/L Total Protein 4.7 L (6.0-8.3) gm/dl Albumin 1.8 L (3.4-5.0) gm/dl Albumin/Globulin Ratio 0.6 L (0.9-2) Resident Activity Tracking Resident Involvement: Resident Care Provided Care Provided: Adult Hospital Medicine (2) Ovarian cancer Laterality: unspecified laterality Qualified Code(s): C56.9 - Malignant neoplasm of unspecified ovary
--- NOTE | 2024-11-15 07:34 | Hospitalist Progress Note ---
Date of Service November 15, 2024 Assessment & Plan (1) Near syncope: (2) Ovarian cancer: (3) Symptomatic anemia: (4) Dysphagia: Plan Marybeth is a 59 yo F with PMH of metastatic ovarian cancer with carcinomatosis undergoing chemotherapy, hypertension, depression, GERD, and low back pain. She was admitted after experiencing a near syncopal episode with associated hypotension likely due to low PO intake over the last couple months due to dysphagia. Her last round of chemotherapy was 2 weeks ago. Pt continues with low appetite due to nausea and early feeling of fullness. #Near syncope/anemia/Stage IV ovarian cancer Likely in the setting of deconditioning, symptomatic anemia, failure to thrive, and narcotic use. S/p 1 unit of pRBC on 11/08/24. Hbg is steady at 8.4. In sitting and with light seated activity, pt is able to maintain BP. However, with standing, BP drops to 80/60 and HR to 160- pt is symptomatic. - Increased home dose of midodrine to 10 mg BID, 7.5 mg QHS - PT/OT following Recommend IP rehab- Care management following - Continue oxycodone 5 mg Q6H PRN pain. #Hypokalemia Resolved - Will reassess with am Labs #Abdominal Ascites Likely in the setting of failure to thrive. Has PleurX in place - removes 1L every 4 days. Completed 11/14 with no complications - continue every 4 days. #Nausea #Dysphagia Pt reporting better ability to eat this morning - Continue aggressive acid suppression - H2 amee BID, PPI BID, scheduled Zofran BID, carafate QID. - GI recommendations appreciated; Continue IV Protonix, Carafate PO, famotidine PO Continue IV fluconazole for esophagitis Continue Reglan PO #Dysuria Urine culture grew samia galbrata on 11/08/24. Resolved - Continue to encourage oral fluid intake - UCx on 11/12/24: Three types of organisms in high counts, no samia - No further antibiotics #History of PE PE noted incidentally on imaging in August 2023 - has been on Eliquis 5 mg BID since. Was also told to start ASA 81 mg daily when she was diagnosed with ovarian cancer. - Continue home doses of Eliquis and asa #Nutritional deficiency/Failure to Thrive Suspect profound nutritional deficiency secondary to chemotherapy with decrease appetite, dysphagia, and GERD. Low intake. - -- ---- - Dietitian following, recommendations appreciated. Increased protein supplement shakes to TID with meals Continue high protein snacks including yogurt, cottage cheese, cheese between meals - Continue vitamin supplementation. - Replete as needed #CAD/HTN- ASA, metoprolol #Chronic low back pain- gabapentin, duloxetine, oxycodone #GERD- Omeprazole #Depression- Duloxetine VTE PPx: continue Eliquis Code status: DNR/DNI Admission and Anticipated Discharge Date Admission Date: November 08, 2024 Supervising Physician Co-Signing Physician Notes I personally examined the patient and verified longo points of history and exam, discussed case, and agree with decision making and plan documented by Dr. Gonsalez. Patient with history of metastatic ovarian cancer with carcinomatosis currently on palliative chemotherapy with diffuse weakness and near syncope in setting of anemia and overall deconditioning. Encouraged patient to continue attempting nutritional approach in setting of nausea, she has been trying to focus on recommendations of vegetable worker. Midodrine increased yesterday and patient feeling improvement. Reviewed goals of care with patient and her sister Rose today, plan to meet with patient and her daughters Reema and Elda tomorrow afternoon. Patient hopes to pursue rehab to build strength on discharge. Subjective Pt reports she was able to eat her breakfast this morning and is not having abdominal pain or nausea at this time. Discussed meeting with dietitian that she had yesterday and pt is in agreement to try protein shakes with each meal, but is unsure about eating snacks between meals for fear of feeling too full. Pt also reports she talked to her daughter, Etta, who lives in [place]. Daughter will be in town today and available tomorrow morning for discussion about future goals of care. Currently this morning, she denies chest pain, SOB, nausea, diarrhea, abdominal pain, dizziness, or extremity paraesthesias. She does endorse general feeling of weakness. Review of Systems Review of Systems: See HPI. Physical Exam Physical Exam: Gen: presently in no acute distress, laying in bed, resting. HEENT: NC/AT, moist mucus membranes Resp: CTAB, fair symmetric air entry b/l, no w/r/R CV: RRR no m/r/g clinically well perfused GI/Abd: obese, normoactive BS, no guarding, no tenderness to palpation of abdomen MSK: no obvious deformities, Moving all 4 extremities Skin: no rashes or bruising observed Neuro: alert and oriented, no facial droop, speech intact Psych: appropriate mood and affect Results & Data Results & Data Vital Signs (Past 12 Hours) Vital Signs Temp Pulse Pulse Resp BP Pulse Ox O2 Del Method 11/15/24 07:30 36.4 C L 80 16 124/83 96 Room Air 11/15/24 07:04 74 11/15/24 03:23 36.5 C 79 12 106/73 95 Room Air 11/14/24 23:16 37 C 92 H 16 113/79 96 Room Air 11/14/24 21:47 95 H (2) Ovarian cancer Laterality: unspecified laterality Qualified Code(s): C56.9 - Malignant neoplasm of unspecified ovary
[2024-11-15 21:38] LABS: Appearance Urine Cloudy (Clear); Bacteria Urine Automated None Seen (None Seen); Bilirubin Urine Negative (Negative); Blood Urine 2+ (Negative); Cast Urine Automated 0-2 /lpf (0-2); Color Urine Yellow; Epithelial Cell Urine Auto 0-2 /hpf (0-2); Glucose Urine UA Negative (Negative); Ketones Urine Negative (Negative); Leukocyte Esterase Urine 3+ (Negative); Nitrite Urine Negative (Negative); Protein Urine 1+ (Negative); Specific Gravity Urine 1.018 (1.000-1.030); Urobilinogen Urine Negative (Negative); WBC Urine Automated >50 /hpf (0-5)
[2024-11-16 06:15] LABS: Albumin Globulin Ratio 0.6 (0.9-2); Albumin Level 1.8 gm/dl (3.4-5.0); BUN Creatinine Ratio 25.4 (10-20); Bilirubin,Total 0.2 mg/dl (0.2-1.0); Calcium 7.5 mg/dl (8.6-10.3); Creatinine Clr Calc Pharmacy 125.6 ml/min; Potassium 3.8 mmol/L (3.5-5.1); Total Protein 4.8 gm/dl (6.0-8.3)
--- NOTE | 2024-11-16 07:16 | Hospitalist Progress Note ---
Date of Service November 16, 2024 Assessment & Plan (1) Near syncope: (2) Ovarian cancer: (3) Symptomatic anemia: (4) Dysphagia: Plan Marybeth is a 59 yo F with PMH of metastatic ovarian cancer with carcinomatosis undergoing chemotherapy, hypertension, depression, GERD, and low back pain. She was admitted after experiencing a near syncopal episode with associated hypotension likely due to low PO intake over the last couple months due to dysphagia. Her last round of chemotherapy was 2 weeks ago. Pt continues with low appetite due to nausea and early feeling of fullness. #Near syncope/anemia/Stage IV ovarian cancer Likely in the setting of deconditioning, symptomatic anemia, failure to thrive, and narcotic use. S/p 1 unit of pRBC on 11/08/24. Hbg is steady at 8.4. In sitting and with light seated activity, pt is able to maintain BP. However, with standing, BP drops to 80/60 and HR to 160- pt is symptomatic. - Continue midodrine to 10 mg BID, 7.5 mg QHS - PT/OT following Recommend IP rehab- Care management following Pt does not qualify for IP rehab due to level of deconditioning- to discuss option of SNF with rehab - Continue oxycodone 5 mg Q6H PRN pain. - Family meeting planned for today to discuss long-term goals for care, including status of continued palliative chemotherapy #Hypokalemia Resolved - Will reassess with am Labs #Abdominal Ascites Likely in the setting of failure to thrive. Has PleurX in place - removes 1L every 4 days. Completed 11/14 with no complications - continue every 4 days. #Nausea #Dysphagia Pt reporting better ability to eat this morning - Continue aggressive acid suppression - H2 amee BID, PPI BID, scheduled Zofran BID, carafate QID. - GI recommendations appreciated; Continue IV Protonix, Carafate PO, famotidine PO Continue IV fluconazole for esophagitis Continue Reglan PO #Dysuria Urine culture grew samia galbrata on 11/08/24. - UCx on 11/12/24: Three types of organisms in high counts, no samia. Complained of dysuria overnight. UA and culture obtained - UA from 11/15 showed 3+ leuk esterase, >50 WBC, no urine bacteria - Pending urine culture - Ordered CBC with diff showed ANC of 0.84 - Started Zosyn 4.5 mg IV q8h, may adjust pending culture and sensitivities - Continue to encourage oral fluid intake #History of PE PE noted incidentally on imaging in August 2023 - has been on Eliquis 5 mg BID since. Was also told to start ASA 81 mg daily when she was diagnosed with ovarian cancer. - Continue home doses of Eliquis and asa #Nutritional deficiency/Failure to Thrive Suspect profound nutritional deficiency secondary to chemotherapy with decrease appetite, dysphagia, and GERD. Low intake. - -- ---- - Dietitian following, recommendations appreciated. Increased protein supplement shakes to TID with meals Continue high protein snacks including yogurt, cottage cheese, cheese between meals - Continue vitamin supplementation. - Replete as needed #CAD/HTN- ASA, metoprolol #Chronic low back pain- gabapentin, duloxetine, oxycodone #GERD- Omeprazole #Depression- Duloxetine VTE PPx: continue Eliquis Code status: DNR/DNI Admission and Anticipated Discharge Date Admission Date: November 08, 2024 Supervising Physician Co-Signing Physician Notes I personally examined the patient and verified longo points of history and exam, discussed case, and agree with decision making and plan documented by Dr. Gonsalez. Patient with history of metastatic ovarian cancer with carcinomatosis currently on palliative chemotherapy with diffuse weakness and near syncope in setting of pancytopenia and overall deconditioning. Patient endorses dysuria today, Zosyn started in setting of neutropenia, awaiting urine culture. Family meeting today involving patient and her two daughters Reema and Elda at bedside. Reviewed goals of care, at present patient would like to focus on gaining strength and quality of life. At present, patient would like to hold off on additional chemotherapy, she has discussed this with her oncologist. Patient continues nutritional approach with recommendations of planimeter operator. Patient hopes to pursue fpc with physical therapy to build strength on discharge. Referrals to local fpc facilities placed by case management today. Subjective Pt found sleeping this morning. She was somewhat difficult to arouse and was sleepy and slow to respond to questions upon waking. Pt states he has ativan last night to help with sleep and does not recall if she had any breakfast this morning. Pt states she thinks she ate a lot for dinner and was very full last night, but cannot recall what she ate. She denies nausea or abdominal pain this morning. She denies chest pain, SOB, diarrhea, abdominal pain, dizziness, or extremity paraesthesias. Review of Systems Review of Systems: See HPI. Physical Exam Physical Exam: Gen: presently in no acute distress, laying in bed, fatigued/sleepy. HEENT: NC/AT, moist mucus membranes Resp: CTAB, fair symmetric air entry b/l, no w/r/R CV: RRR no m/r/g clinically well perfused GI/Abd: obese, normoactive BS, no guarding, tender at epigastric region MSK: no obvious deformities, Moving all 4 extremities Skin: no rashes or bruising observed Neuro: alert and oriented, no facial droop, speech intact Psych: appropriate mood and affect Results & Data Results & Data Vital Signs (Past 12 Hours) Vital Signs Temp Pulse Pulse Resp BP Pulse Ox O2 Del Method 11/16/24 03:59 36.5 C 87 16 111/70 94 Room Air 11/15/24 23:38 97 H 11/15/24 23:23 36.6 C 72 16 113/82 95 Room Air 11/15/24 19:50 36.5 C 97 H 18 118/86 98 Room Air Resident Activity Tracking Resident Involvement: Resident Care Provided Care Provided: Adult Hospital Medicine (2) Ovarian cancer Laterality: unspecified laterality Qualified Code(s): C56.9 - Malignant neoplasm of unspecified ovary
[2024-11-16 12:11] LABS: Hematocrit (blood only) 28.2 % (37.0-47.0); Hemoglobin 8.4 g/dl (12.0-16.0); Mean Corpuscular Hemoglobin 26.9 pg (25.0-34.0); Mean Corpuscular Hgb Conc 29.8 g/dL (32.0-36.0); Mean Corpuscular Volume 90.4 fL (80.0-100.0); Mean Platelet Volume 9.8 fL (9.4-12.4); Platelet Count 322 K/uL (130-400); RDW Coefficient of Variation 19.9 % (11.5-14.5); RDW Standard Deviation 64.5 fL (36.4-46.3); Red Blood Count 3.12 M/uL (4.20-5.40); White Blood Count 1.96 K/ul (4.8-10.8)
[2024-11-16 12:43] LABS: Anisocytosis Present; Poikilocytosis Present; Toxic Vacuolation 1+
[2024-11-16 12:52] LABS: Basophils # (auto) 0.04 K/uL (0.00-0.20); Eosinophils # (auto) 0.01 K/uL (0.00-0.50); Eosinophils % (auto) 0.5 %; Immature Granulocytes # (auto) 0.02 K/uL (0.01-0.20); Lymphocytes # (auto) 0.52 K/uL (1.20-3.40); Lymphocytes % (auto) 26.5 %; Monocytes # (auto) 0.53 K/uL (0.11-0.59); Neutrophils # (auto) 0.84 K/uL (1.40-6.50)
--- NOTE | 2024-11-17 06:40 | Hospitalist Progress Note ---
Date of Service November 17, 2024 Assessment & Plan (1) Near syncope: (2) Ovarian cancer: (3) Symptomatic anemia: (4) Dysphagia: Plan Marybeth is a 59 yo F with PMH of metastatic ovarian cancer with carcinomatosis undergoing chemotherapy, hypertension, depression, GERD, and low back pain. She was admitted after experiencing a near syncopal episode with associated hypotension likely due to low PO intake over the last couple months due to dysphagia. Her last round of chemotherapy was 2 weeks ago. Pt continues with low appetite due to nausea and early feeling of fullness. #Near syncope/anemia/Stage IV ovarian cancer Likely in the setting of deconditioning, symptomatic anemia, failure to thrive, and narcotic use. S/p 1 unit of pRBC on 11/08/24. Hbg is steady at 8.4. Pt's BP is low today ranging from 99/72 to 92/69. - Continue midodrine to 10 mg BID, 7.5 mg QHS - Ordered LR bolus 500mL, will reassess after. May consider maintenance IVF at 80 mls/hr - PT/OT following Pt is requesting home health therapy services upon discharge vs SNF - Pt plans to pursue palliative vs hospice services upon discharge from hospital - Continue oxycodone 5 mg Q6H PRN pain. #Hypokalemia Resolved - Will reassess with am Labs #Abdominal Ascites Likely in the setting of failure to thrive. Has PleurX in place - removes 1L every 4 days. Completed 11/14 with no complications - continue every 4 days. #Nausea #Dysphagia Pt reporting better ability to eat this morning - Continue aggressive acid suppression - H2 amee BID, PPI BID, scheduled Zofran BID, carafate QID. - GI recommendations appreciated; Continue IV Protonix, Carafate PO, famotidine PO Continue IV fluconazole for esophagitis Continue Reglan PO #Dysuria Urine culture grew samia galbrata on 11/08/24. - UCx on 11/12/24: Three types of organisms in high counts, no samia. Complained of dysuria overnight. UA and culture obtained - UA from 11/15 showed 3+ leuk esterase, >50 WBC, no urine bacteria - Pending urine culture - CBC with diff showed ANC of 0.84 on 11/16/24, today ANC is 1.27 - Urine culture returns are likely skin meera. - Zosyn 4.5 mg IV q8h, consider discontinuing and offer pyridium - Continue to encourage oral fluid intake #History of PE PE noted incidentally on imaging in August 2023 - has been on Eliquis 5 mg BID since. Was also told to start ASA 81 mg daily when she was diagnosed with ovarian cancer. - Continue home doses of Eliquis and asa #Nutritional deficiency/Failure to Thrive Suspect profound nutritional deficiency secondary to chemotherapy with decrease appetite, dysphagia, and GERD. Low intake. - -- ---- - Dietitian following, recommendations appreciated. Increased protein supplement shakes to TID with meals Continue high protein snacks including yogurt, cottage cheese, cheese between meals - Continue vitamin supplementation. - Replete as needed #CAD/HTN- ASA, metoprolol #Chronic low back pain- gabapentin, duloxetine, oxycodone #GERD- Omeprazole #Depression- Duloxetine VTE PPx: continue Eliquis Code status: DNR/DNI Admission and Anticipated Discharge Date Admission Date: November 08, 2024 Supervising Physician Co-Signing Physician Notes I personally examined the patient and verified longo points of history and exam, discussed case, and agree with decision making and plan documented by Dr. Gonsalez. Patient with history of metastatic ovarian cancer with carcinomatosis currently on palliative chemotherapy with diffuse weakness and near syncope in setting of pancytopenia and overall deconditioning. Goals of care is focus on gaining strength and quality of life at home. Plan at present is rehabilitation at assisted facility then return home with [facility] home health/palliative/hospice. Subjective Pt was awake and alert this morning. Pt's daughter was present at bedside. Pt reports that she was feeling rested this morning. She noted continued burning sensation with urination, but denies fever/chills or malaise. Pt states that she has thought more about her rehab goals and has changed her mind in that she would prefer to have therapy services at her home instead of going to a SNF for rehab. She denies chest pain, SOB, diarrhea, abdominal pain, dizziness, or extremity paraesthesias. Review of Systems Review of Systems: See HPI. Physical Exam Physical Exam: Gen: presently in no acute distress, laying in bed. Occasionally teary when talking about going home HEENT: NC/AT, moist mucus membranes Resp: CTAB, fair symmetric air entry b/l, no w/r/R CV: RRR no m/r/g clinically well perfused GI/Abd: obese, normoactive BS, no guarding, tender at epigastric region MSK: no obvious deformities, Moving all 4 extremities Skin: no rashes or bruising observed Neuro: alert and oriented, no facial droop, speech intact Psych: appropriate mood and affect Results & Data Results & Data Vital Signs (Past 12 Hours) Vital Signs Temp Pulse Pulse Resp BP Pulse Ox O2 Del Method 11/17/24 03:42 36.7 C 72 18 99/70 L 95 Room Air 11/16/24 23:20 36.7 C 94 H 19 130/71 92 Room Air 11/16/24 22:40 79 11/16/24 19:32 36.4 C L 103 H 18 106/73 98 Room Air Resident Activity Tracking Resident Involvement: Resident Care Provided Care Provided: Adult Hospital Medicine (2) Ovarian cancer Laterality: unspecified laterality Qualified Code(s): C56.9 - Malignant neoplasm of unspecified ovary
[2024-11-17 07:31] LABS: Basophils # (auto) 0.02 K/uL (0.00-0.20); Basophils % (auto) 0.8 %; Eosinophils # (auto) 0.01 K/uL (0.00-0.50); Eosinophils % (auto) 0.4 %; Hematocrit (blood only) 27.7 % (37.0-47.0); Hemoglobin 8.4 g/dl (12.0-16.0); Immature Granulocytes # (auto) 0.03 K/uL (0.01-0.20); Immature Granulocytes % (auto) 1.3 %; Lymphocytes # (auto) 0.48 K/uL (1.20-3.40); Lymphocytes % (auto) 20.2 %; Mean Corpuscular Hemoglobin 27.2 pg (25.0-34.0); Mean Corpuscular Hgb Conc 30.3 g/dL (32.0-36.0); Mean Corpuscular Volume 89.6 fL (80.0-100.0); Mean Platelet Volume 9.3 fL (9.4-12.4); Monocytes # (auto) 0.57 K/uL (0.11-0.59); Monocytes % (auto) 23.9 %; Neutrophils # (auto) 1.27 K/uL (1.40-6.50); Neutrophils % (auto) 53.4 %; Platelet Count 326 K/uL (130-400); RDW Coefficient of Variation 19.7 % (11.5-14.5); RDW Standard Deviation 64.2 fL (36.4-46.3); Red Blood Count 3.09 M/uL (4.20-5.40); White Blood Count 2.38 K/ul (4.8-10.8)
[2024-11-17 07:48] LABS: BUN Creatinine Ratio 26.8 (10-20); Calcium 7.5 mg/dl (8.6-10.3); Creatinine Clr Calc Pharmacy 119.2 ml/min; Potassium 3.7 mmol/L (3.5-5.1)
--- NOTE | 2024-11-18 06:52 | Hospitalist Progress Note ---
Date of Service November 18, 2024 Assessment & Plan (1) Near syncope: (2) Ovarian cancer: (3) Symptomatic anemia: (4) Dysphagia: Plan Marybeth is a 59 yo F with PMH of metastatic ovarian cancer with carcinomatosis undergoing chemotherapy, hypertension, depression, GERD, and low back pain. She was admitted after experiencing a near syncopal episode with associated hypotension likely due to low PO intake over the last couple months due to dysphagia. Her last round of chemotherapy was 3 weeks ago. Pt continues with low appetite due to nausea and early feeling of fullness. #Near syncope/anemia/Stage IV ovarian cancer Likely in the setting of deconditioning, symptomatic anemia, failure to thrive, and narcotic use. S/p 1 unit of pRBC on 11/08/24. Hbg is steady at 8.4. Pt's BP was low yesterday ranging from 99/72 to 92/69. Improved to 110/70s follow 500mL bolus of LR. Maintaining in low 100/60s this morning - Continue midodrine to 10 mg BID, 7.5 mg QHS - PT/OT following Pt's current plan is discharge to [facility] for rehab - Pt plans to pursue palliative vs hospice services upon discharge from hospital - Continue oxycodone 5 mg Q6H PRN pain. #Hypokalemia Resolved - Will reassess with am Labs #Abdominal Ascites Likely in the setting of failure to thrive. Has PleurX in place - removes 1L every 4 days. Completed 11/14 with no complications - To be repeated today #Nausea #Dysphagia Pt reporting better ability to eat this morning - Continue aggressive acid suppression - H2 amee BID, PPI BID, scheduled Zofran BID, carafate QID. - GI recommendations appreciated; Continue IV Protonix, Carafate PO, famotidine PO Continue IV fluconazole for esophagitis Continue Reglan PO #Dysuria Urine culture grew samia galbrata on 11/08/24. - UCx on 11/12/24: Three types of organisms in high counts, no samia. Complained of dysuria on 11/16, UA and culture obtained. Abx started due to immunocompromised state and low ANC. Dys uria has resolved today. - CBC with diff showed ANC has returned to normal range 1.58 - Urine culture returned as likely skin meera. - Zosyn Discontinued - Continue to encourage oral fluid intake #History of PE PE noted incidentally on imaging in August 2023 - has been on Eliquis 5 mg BID since. Was also told to start ASA 81 mg daily when she was diagnosed with ovari an cancer. - Continue home doses of Eliquis and asa #Nutritional deficiency/Failure to Thrive Suspect profound nutritional deficiency secondary to chemotherapy with decrease appetite, dysphagia, and GERD. Low intake. - -- ---- - Dietitian following, recommendations appreciated. Increased protein supplement shakes to TID with meals Continue high protein snacks including yogurt, cottage cheese, cheese between meals - Continue vitamin supplementation. - Replete as needed #CAD/HTN- ASA, metoprolol #Chronic low back pain- gabapentin, duloxetine, oxycodone #GERD- Omeprazole #Depression- Duloxetine VTE PPx: continue Eliquis Code status: DNR/DNI Admission and Anticipated Discharge Date Admission Date: November 08, 2024 Supervising Physician Co-Signing Physician Notes I personally examined the patient and verified longo points of history and exam, discussed case, and agree with decision making and plan documented by Dr. Gonsalez. Patient with history of metastatic ovarian cancer with carcinomatosis currently on palliative chemotherapy with diffuse weakness and near syncope in setting of pancytopenia and overall deconditioning. Goals of care discussed at length during admission, patient plans [facility] then return home with [facility] home health/palliative/hospice to focus on quality of life. Patient continues nutritional approach with recommendations of merchandise executive. Checking ultrasound for ascitic burden and will consider increasing frequency of pleurx catheter drainage (currently 1L every 4 days). Subjective Pt was awake and alert this morning. She states that the nurses told her she was awake all night watching TV. Pt states she doesn't recall being awake. She is oriented to self, time, and place this morning. She is concerned about have her fluid drained from PleurX today. She states she ate dinner and drank protein shake last night. Was found eating breakfast at time of exam. Pt denied nausea or abdominal pain She denies chest pain, SOB, diarrhea, constipation, dizziness, or extremity paraesthesias. Review of Systems Review of Systems: See HPI. Physical Exam Physical Exam: Gen: presently in no acute distress, pleasant mood HEENT: NC/AT, moist mucus membranes Resp: CTAB, fair symmetric air entry b/l, no w/r/R CV: RRR no m/r/g clinically well perfused GI/Abd: obese, normoactive BS, no guarding MSK: no obvious deformities, Moving all 4 extremities Skin: no rashes or bruising observed Neuro: alert and oriented, no facial droop, speech intact Psych: appropriate mood and affect Results & Data Results & Data Vital Signs (Past 12 Hours) Vital Signs Temp Pulse Pulse Resp BP Pulse Ox O2 Del Method 11/18/24 03:31 36.5 C 75 20 108/62 94 Room Air 11/17/24 22:13 87 11/17/24 21:35 36.3 C L 97 H 16 125/73 96 Room Air 11/17/24 19:30 36.5 C 85 18 104/71 98 Room Air Resident Activity Tracking Resident Involvement: Resident Care Provided Care Provided: Adult Hospital Medicine (2) Ovarian cancer Laterality: unspecified laterality Qualified Code(s): C56.9 - Malignant neoplasm of unspecified ovary
[2024-11-18 07:31] LABS: Basophils # (auto) 0.03 K/uL (0.00-0.20); Basophils % (auto) 1.1 %; Eosinophils # (auto) 0.03 K/uL (0.00-0.50); Eosinophils % (auto) 1.1 %; Hematocrit (blood only) 27.7 % (37.0-47.0); Hemoglobin 8.4 g/dl (12.0-16.0); Immature Granulocytes # (auto) 0.02 K/uL (0.01-0.20); Immature Granulocytes % (auto) 0.7 %; Lymphocytes # (auto) 0.48 K/uL (1.20-3.40); Lymphocytes % (auto) 17.1 %; Mean Corpuscular Hemoglobin 27.3 pg (25.0-34.0); Mean Corpuscular Hgb Conc 30.3 g/dL (32.0-36.0); Mean Corpuscular Volume 89.9 fL (80.0-100.0); Mean Platelet Volume 9.1 fL (9.4-12.4); Monocytes # (auto) 0.67 K/uL (0.11-0.59); Monocytes % (auto) 23.8 %; Neutrophils # (auto) 1.58 K/uL (1.40-6.50); Neutrophils % (auto) 56.2 %; Platelet Count 336 K/uL (130-400); RDW Coefficient of Variation 19.7 % (11.5-14.5); RDW Standard Deviation 62.7 fL (36.4-46.3); Red Blood Count 3.08 M/uL (4.20-5.40); White Blood Count 2.81 K/ul (4.8-10.8)
[2024-11-18 07:48] LABS: BUN Creatinine Ratio 24.6 (10-20); Calcium 7.5 mg/dl (8.6-10.3); Creatinine Clr Calc Pharmacy 122.2 ml/min; Potassium 3.9 mmol/L (3.5-5.1)
--- NOTE | 2024-11-18 19:48 | Ultrasound Report ---
EXAM: US abdomen ltd ascites CLINICAL HISTORY: Evaluate ascites. TECHNIQUE: Ultrasound examination for ascites assesment. COMPARISON: 10/17/2024. FINDINGS: Progressive course regarding the abdominopelvic ascites,with the drain seen in the left upper quadrant. IMPRESSION: Progressive course regarding the pelvi-abdominal ascites, with the drain seen in the left upper quadrant. Electronically signed by Khoa Lamb 11-18-2024 7:47 PM
[2024-11-19 07:13] LABS: Basophils # (auto) 0.04 K/uL (0.00-0.20); Basophils % (auto) 1.1 %; Eosinophils # (auto) 0.01 K/uL (0.00-0.50); Eosinophils % (auto) 0.3 %; Hemoglobin 8.2 g/dl (12.0-16.0); Immature Granulocytes # (auto) 0.02 K/uL (0.01-0.20); Immature Granulocytes % (auto) 0.6 %; Lymphocytes # (auto) 0.53 K/uL (1.20-3.40); Lymphocytes % (auto) 15.1 %; Mean Corpuscular Hgb Conc 30.4 g/dL (32.0-36.0); Mean Corpuscular Volume 88.8 fL (80.0-100.0); Mean Platelet Volume 9.4 fL (9.4-12.4); Monocytes # (auto) 0.69 K/uL (0.11-0.59); Monocytes % (auto) 19.7 %; Neutrophils # (auto) 2.21 K/uL (1.40-6.50); Neutrophils % (auto) 63.2 %; Platelet Count 363 K/uL (130-400); RDW Coefficient of Variation 19.6 % (11.5-14.5); RDW Standard Deviation 63.4 fL (36.4-46.3); Red Blood Count 3.04 M/uL (4.20-5.40)
[2024-11-19 08:35] LABS: BUN Creatinine Ratio 27.6 (10-20); Calcium 7.5 mg/dl (8.6-10.3); Creatinine Clr Calc Pharmacy 144.7 ml/min; Potassium 3.5 mmol/L (3.5-5.1)
--- NOTE | 2024-11-19 22:26 | Hospitalist Progress Note ---
Date of Service November 19, 2024 Assessment & Plan (1) Near syncope: (2) Ovarian cancer: (3) Symptomatic anemia: (4) Dysphagia: Plan Marybeth is a 59 yo F with PMH of metastatic ovarian cancer with carcinomatosis undergoing chemotherapy, hypertension, depression, GERD, and low back pain. She was admitted after experiencing a near syncopal episode with associated hypotension likely due to low PO intake over the last couple months due to dysphagia. Her last round of chemotherapy was 3 weeks ago. Pt continues with low appetite due to nausea and early feeling of fullness. #Near syncope/anemia/Stage IV ovarian cancer Likely in the setting of deconditioning, symptomatic anemia, failure to thrive, and narcotic use. S/p 1 unit of pRBC on 11/08/24. Hbg is steady at 8.4. Pt's BP was low yesterday ranging from 99/72 to 92/69. Improved to 110/70s follow 500mL bolus of LR. Maintaining in low 100/60s this morning - Continue midodrine to 10 mg BID, 7.5 mg QHS - PT/OT following Pt's current plan is discharge to [facility] for rehab - Pt plans to pursue palliative vs hospice services upon discharge from hospital - Continue oxycodone 5 mg Q6H PRN pain. #Atrial fibrillation Tachycardia likely due to patient only on once a day tartrate. switched metoprolol tartrate HS to succinate on November 19. covered morning with 25 mg PO x1 of metoprolol tartrate #Hypokalemia Resolved - Will reassess with am Labs #Abdominal Ascites Likely in the setting of failure to thrive. Has PleurX in place - removes 1L every 4 days. Completed 11/14 with no complications - To be repeated today #Nausea #Dysphagia Pt reporting better ability to eat this morning - Continue aggressive acid suppression - H2 amee BID, PPI BID, scheduled Zof ran BID, carafate QID. - GI recommendations appreciated; Continue IV Protonix, Carafate PO, famotidine PO Continue IV fluconazole for esophagitis Continue Reglan PO #Dysuria Urine culture grew samia galbrata on 11/08/24. - UCx on 11/12/24: Three types of organisms in high counts, no samia. Complained of dysuria on 11/16, UA and culture obtained. Abx started due to immunocompromised state and low ANC. Dysuria has resolved today. - CBC with diff showed ANC has returned to normal range 1.58 - Urine culture returned as likely skin meera. - Zosyn Discontinued - Continue to encourage oral fluid intake #History of PE PE noted incidentally on imaging in August 2023 - has been on Eliquis 5 mg BID since. Was also told to start ASA 81 mg daily when she was diagnosed with ovarian cancer. - Continue home doses of Eliquis and asa #Nutritional deficiency/Failure to Thrive Suspect profound nutritional deficiency secondary to chemotherapy with decrease appetite, dysphagia, and GERD. Low intake. - -- ---- - Dietitian following, recommendations appreciated. Increased protein supplement shakes to TID with meals Continue high protein snacks including yogurt, cottage cheese, cheese between meals - Continue vitamin supplementation. - Replete as needed #CAD/HTN- ASA, metoprolol #Chronic low back pain- gabapentin, duloxetine, oxycodone #GERD- Omeprazole #Depression- Duloxetine VTE PPx: continue Eliquis Code status: DNR/DNI Admission and Anticipated Discharge Date Admission Date: November 08, 2024 Subjective Patient reports no new symptoms. Called by nurse due to tachycardia in the 130 Physical Exam Physical Exam: Gen: NAD HEENT: NC/AT Resp: CTA CV: RRR GI/Abd: normoactive BS, nontender Neuro: alert and oriented Results & Data Results & Data Vital Signs (Past 12 Hours) Vital Signs Temp Pulse Pulse Resp BP BP Pulse Ox 11/19/24 22:00 11/19/24 19:30 36.5 C 79 18 112/80 96 11/19/24 16:05 36.5 C 72 16 97/63 L 96 11/19/24 14:45 87 11/19/24 12:01 11/19/24 11:34 106 H 18 118/84 97 11/19/24 11:10 111 H 107/82 11/19/24 11:09 36.3 C L 110 H 16 95/76 L 98 O2 Del Method 11/19/24 22:00 Room Air 11/19/24 19:30 Room Air 11/19/24 16:05 Room Air 11/19/24 14:45 11/19/24 12:01 Room Air 11/19/24 11:34 Room Air 11/19/24 11:10 11/19/24 11:09 Room Air PG Care Time/CCT Total # of Minutes Spent Total Time Spent with Patient: Total time spent is greater than 50% in coordination of care (as documented) at patient's floor/unit and/or counseling patient: Coding Level of Care Code 73248 SUB INP/OBS CARE 3/50MIN Diagnoses Near syncope R55 Ovarian cancer C56.9 Laterality: unspecified laterality Symptomatic anemia D64.9 Dysphagia R13.10 Time Spent (min) 50 Comment chart review (2) Ovarian cancer Laterality: unspecified laterality Qualified Code(s): C56.9 - Malignant neoplasm of unspecified ovary
[2024-11-20 07:15] LABS: Basophils # (auto) 0.04 K/uL (0.00-0.20); Eosinophils # (auto) 0.02 K/uL (0.00-0.50); Eosinophils % (auto) 0.5 %; Hematocrit (blood only) 27.9 % (37.0-47.0); Hemoglobin 8.4 g/dl (12.0-16.0); Immature Granulocytes # (auto) 0.03 K/uL (0.01-0.20); Immature Granulocytes % (auto) 0.7 %; Lymphocytes # (auto) 0.58 K/uL (1.20-3.40); Lymphocytes % (auto) 13.8 %; Mean Corpuscular Hemoglobin 26.8 pg (25.0-34.0); Mean Corpuscular Hgb Conc 30.1 g/dL (32.0-36.0); Mean Corpuscular Volume 89.1 fL (80.0-100.0); Mean Platelet Volume 9.1 fL (9.4-12.4); Monocytes # (auto) 0.76 K/uL (0.11-0.59); Monocytes % (auto) 18.1 %; Neutrophils # (auto) 2.77 K/uL (1.40-6.50); Neutrophils % (auto) 65.9 %; Platelet Count 378 K/uL (130-400); RDW Coefficient of Variation 19.9 % (11.5-14.5); RDW Standard Deviation 64.2 fL (36.4-46.3); Red Blood Count 3.13 M/uL (4.20-5.40)
--- NOTE | 2024-11-20 07:28 | Hospitalist Progress Note ---
Date of Service November 20, 2024 Assessment & Plan (1) Near syncope: (2) Ovarian cancer: (3) Symptomatic anemia: (4) Dysphagia: Plan Marybeth is a 59 yo F with PMH of metastatic ovarian cancer with carcinomatosis undergoing chemotherapy, hypertension, depression, GERD, and low back pain. She was admitted after experiencing a near syncopal episode with associated hypotension likely due to low PO intake over the last couple months due to dysphagia. Her last round of chemotherapy was 3 weeks ago. Pt is tolerating eating with minimal nausea and increasing calorie intake. #Near syncope/anemia/Stage IV ovarian cancer Likely in the setting of deconditioning, symptomatic anemia, failure to thrive, and narcotic use. S/p 1 unit of pRBC on 11/08/24. Hbg is steady at 8.4. Pt's BP was low this morning at 93/66, however, pt was asymptomatic. - Continue midodrine to 10 mg BID, 7.5 mg qhs - PT/OT following Pt's current plan is discharge to [facility] for rehab 11/21 or 11/22 - Pt plans to pursue palliative vs hospice services upon discharge from [facility] - Continue oxycodone 5 mg Q6H PRN pain. #Hypokalemia K is 3.5 on 11/19/24-Resolved #Abdominal Ascites Likely in the setting of failure to thrive. Has PleurX in place - removes 1L every 4 days. Completed 11/18 with no complications #Nausea #Dysphagia Pt reporting better ability to eat this morning - Continue aggressive acid suppression - H2 amee BID, PPI BID, scheduled Zofran BID, carafate QID. - GI recommendations appreciated; Continue IV Protonix, Carafate PO, famotidine PO Continue IV fluconazole for esophagitis Continue Reglan PO #Dysuria Urine culture grew samia galbrata on 11/08/24. - UCx on 11/12/24: Three types of organisms in high counts, no samia. Complained of dysuria on 11/16, UA and culture obtained. Abx started due to immunocompromised state and low ANC. Dysuria reported intermittent. - CBC with diff showed ANC has returned to normal range at 2.77 - Continue to encourage oral fluid intake #History of PE PE noted incidentally on imaging in August 2023 - has been on Eliquis 5 mg BID since. Was also told to start ASA 81 mg daily when she was diagnosed with ovarian cancer. - Continue home doses of Eliquis and asa #Nutritional deficiency/Failure to Thrive Suspect profound nutritional deficiency secondary to chemotherapy with decrease appetite, dysphagia, and GERD. Low intake. - -- ---- - Dietitian following, recommendations appreciated. Increased protein supplement shakes to TID with meals Continue high protein snacks including yogurt, cottage cheese, cheese between meals - Continue vitamin supplementation. - Replete as needed #CAD/HTN- ASA, metoprolol #Chronic low back pain- gabapentin, duloxetine, oxycodone #GERD- Omeprazole #Depression- Duloxetine VTE PPx: continue Eliquis Code status: DNR/DNI Admission and Anticipated Discharge Date Admission Date: November 08, 2024 Supervising Physician Co-Signing Physician Notes I personally examined the patient and verified all longo points of history and exam, discussed case, and agree with decision making with Dr Gonsalez Walked 300 feet with therapy. Did need to take multiple breaks but was able to do it. Whenever I enter the room she is exiting the bathroom with a walker, guidance from therapy but under her own power and she is able to sit into the chair on her own. Vitals noted, in general she is awake and alert pleasant no distress. HEENT normocephalic atraumatic mucous membranes moist. Breathing unlabored no accessory muscle use good effort. Skin shows no rashes no pallor or icterus. Neuro without focal deficits. Ovarian cancer/weakness/nausea vomiting/acute protein/calorie malnutritiondoing better overall. For SNF when insurance approval is obtained. Otherwise as above. Subjective No acute events overnight. Nursing alerted provider for hypotension this morning with BP of 93/66. Pt was getting out of bed with nursing this morning- transferring bed to chair. Pt denied dizziness, nausea or increased weakness. Pt states she is eating better and was able to nearly finish take out sandwich and fries without nausea. Pt is eager to discharge from hospital and begin rehab at SNF. Review of Systems Review of Systems: See HPI. Physical Exam Physical Exam: Gen: NAD, sitting chair eating breakfast. HEENT: NC/AT, moist mucus membranes Resp: CTAB, fair symmetric air entry b/l, no w/r/R CV: RRR no m/r/g clinically well perfused GI/Abd: obese, normoactive BS, no guarding MSK: no obvious deformities, Moving all 4 extremities Skin: no rashes or bruising observed Neuro: alert and oriented, no facial droop, speech intact Psych: appropriate mood and affect Results & Data Results & Data Vital Signs (Past 12 Hours) Vital Signs Temp Pulse Pulse Resp BP Pulse Ox O2 Del Method 11/20/24 07:22 72 11/20/24 04:00 36.5 C 77 20 109/63 96 Room Air 11/19/24 23:00 36.8 C 82 20 114/72 95 Room Air 11/19/24 22:00 Room Air 11/19/24 19:30 36.5 C 79 18 112/80 96 Room Air Resident Activity Tracking Resident Involvement: Resident Care Provided Care Provided: Adult Hospital Medicine (2) Ovarian cancer Laterality: unspecified laterality Qualified Code(s): C56.9 - Malignant neoplasm of unspecified ovary
--- NOTE | 2024-11-20 17:33 | Billing Data ---
Date of Service November 20, 2024 Coding Level of Care Code 39141 SUB INP/OBS CARE
--- NOTE | 2024-11-20 19:17 | XRay Report ---
EXAM: XR KUB/Abdomen 1 view CLINICAL HISTORY: Concern for stool burden TECHNIQUE: X-ray images of the abdomen were obtained in the supine position. COMPARISON: [id number] dated 11/18/2024 /[id number] ct dated 11/12/2024./OBX.5.1.2/OBX.5.1 FINDINGS: Gas Pattern: Mild abdominal distension . Fecal loading involves the caecum and ascending colon as well as the transverse colon. No evidence of bowel obstruction. Soft Tissues: Soft tissues of the abdomen appear normal without evidence of masses or calcifications. Liver, spleen, and kidneys are of normal size and position. The right double J ureteric stent is seen in place. Bilateral greater trochanter degenerative changes are noted more on the right side. Bilateral sacroiliitis is noted more on the left side. A right pelvic phlebolith is noted IMPRESSION: 1. Mild abdominal distension . 2. Fecal loading involves the caecum and ascending colon as well as the transverse colon. 3. No evidence of bowel obstruction. 4. No interval changes. Electronically signed by Khoa Lamb 11-20-2024 7:17 PM
[2024-11-20 22:09] LABS: BUN Creatinine Ratio 22.7 (10-20); Calcium 7.4 mg/dl (8.6-10.3); Creatinine Clr Calc Pharmacy 127.5 ml/min; Magnesium 1.6 mg/dl (1.7-2.4); Potassium 3.6 mmol/L (3.5-5.1)
--- NOTE | 2024-11-21 10:12 | Hospitalist Progress Note ---
Date of Service November 21, 2024 Assessment & Plan (1) Near syncope: (2) Ovarian cancer: (3) Symptomatic anemia: (4) Dysphagia: Plan Marybeth is a 59 yo F with PMH of metastatic ovarian cancer with carcinomatosis undergoing chemotherapy, hypertension, depression, GERD, and low back pain. She was admitted after experiencing a near syncopal episode with associated hypotension likely due to low PO intake over the last couple months due to dysphagia. Her last round of chemotherapy was 3 weeks ago. Hypotension has resolved and pt is gradually improving with tolerance for eating with minimal nausea. #Near syncope/anemia/Stage IV ovarian cancer Likely in the setting of deconditioning, symptomatic anemia, failure to thrive, and narcotic use. S/p 1 unit of pRBC on 11/08/24. Hbg is steady at 8.4. Pt's BP has been stable. - Continue midodrine to 10 mg BID, 7.5 mg qhs - PT/OT following Pt's current plan is discharge to [facility] for rehab 11/21 or 11/22 - Pt plans to pursue palliative vs hospice services upon discharge from hospital - Continue oxycodone 5 mg Q6H PRN pain. #Hypokalemia K is 3.5 on 11/19/24-Resolved #Abdominal Ascites Likely in the setting of failure to thrive. Has PleurX in place - removes 1L every 4 days. Completed 11/18 with no complications - Abdominal US to assess ascites burden performed 11/18/24 - Increase frequency of PleurX drainage to every 3d days #Nausea #Dysphagia Pt has been tolerating eating small meals and snacks without vomiting, occasional nausea and premature fullness. - Continue aggressive acid suppression - H2 amee BID, PPI BID, scheduled Zofran BID, carafate QID. - GI recommendations appreciated; - Change IV Protonix to PO 40mg BID - Continue Carafate PO, famotidine PO - Change IV fluconazole for esophagitis to PO x 5-12 days - Continue Reglan PO #Dysuria Urine culture grew samia galbrata on 11/08/24. - UCx on 11/12/24: Three types of organisms in high counts, no samia. Complained of dysuria on 11/16, UA and culture obtained. Abx started due to immunocompromised state and low ANC. Dysuria reported intermittent. - Continue to encourage oral fluid intake #History of PE PE noted incidentally on imaging in August 2023 - has been on Eliquis 5 mg BID since. Was also told to start ASA 81 mg daily when she was diagnosed with ovarian cancer. - Continue home doses of Eliquis and asa #Nutritional deficiency/Failure to Thrive Suspect profound nutritional deficiency secondary to chemotherapy with decrease appetite, dysphagia, and GERD. Intake improving - Dietitian following, recommendations appreciated. Increased protein supplement shakes to TID with meals Continue high protein snacks including yogurt, cottage cheese, cheese between meals - Continue vitamin supplementation. - Replete as needed #CAD/HTN- ASA, metoprolol #Chronic low back pain- gabapentin, duloxetine, oxycodone #GERD- Omeprazole #Depression- Duloxetine VTE PPx: continue Eliquis Code status: DNR/DNI Admission and Anticipated Discharge Date Admission Date: November 08, 2024 Supervising Physician Co-Signing Physician Notes I personally examined the patient and verified all longo points of history and exam, discussed case, and agree with decision making with Dr Gonsalez sitting in chair, no new problems. Vitals noted, in general she is awake and alert pleasant no distress. HEENT normocephalic atraumatic mucous membranes moist. Breathing unlabored no accessory muscle use good effort. Skin shows no rashes no pallor or icterus. Neuro without focal deficits. Ovarian cancer/weakness/nausea vomiting/acute protein/calorie malnutrition doing better overall. For SNF once bed available. Otherwise as above. ongoing outpt PCP and oncology f/u. Subjective Nursing reported loose stools and bowel inconvenience yesterday afternoon/evening without abdominal cramping, vomiting, hypo/hyperthermia or chills. No acute events overnight. Pt reports she did not sleep well last night due to the construction outside her window and under her bed. Pt reports she continues eating well, but has some abdominal pain this morning. Pt's daughter is at bedside and asking about timing for emptying her PleurX, will the frequency increase? Also asking where pt will be able to obtain fluid collection bottles when pt discharges to SNF rehab. Pt states she did not have any loose stools over night. Denies chest pain, SOB, PINEDA, fever/chills Review of Systems Review of Systems: See HPI. Physical Exam Physical Exam: Gen: NAD, laying in bed HEENT: NC/AT, moist mucus membranes Resp: CTAB, fair symmetric air entry b/l, no w/r/R CV: RRR no m/r/g clinically well perfused GI/Abd: obese, normoactive BS, no guarding. Nontender to palpation MSK: no obvious deformities, Moving all 4 extremities Skin: no rashes or bruising observed Neuro: alert and oriented, no facial droop, speech intact Psych: appropriate mood and affect. Alert and oriented Results & Data Results & Data Vital Signs (Past 12 Hours) Vital Signs Temp Pulse Pulse Resp BP Pulse Ox O2 Del Method 11/21/24 08:31 Room Air 11/21/24 08:12 36.4 C L 102 H 18 108/77 95 Room Air 11/21/24 07:04 88 11/21/24 03:41 36.4 C L 84 20 108/77 94 Room Air 11/21/24 01:05 36.5 C 82 20 106/73 93 Room Air 11/21/24 00:13 83 (2) Ovarian cancer Laterality: unspecified laterality Qualified Code(s): C56.9 - Malignant neoplasm of unspecified ovary
--- NOTE | 2024-11-21 13:13 | Billing Data ---
Date of Service November 21, 2024 Coding Level of Care Code 04360 IN/OBS DISCH 30 MIN/LESS
--- NOTE | 2024-11-21 15:33 | Billing Data ---
Date of Service November 21, 2024 Coding Level of Care Code 95572 SUB INP/OBS CARE
--- NOTE | 2024-11-22 07:05 | Discharge Summary ---
Date of Service November 22, 2024 Admission HPI Per Admitting Provider Marybeth is a pleasant 59-year-old female with past medical history of metastatic ovarian cancer with carcinomatosis undergoing chemotherapy, hypertension, depression, GERD, low back pain. She presented from home after a near syncopal event with associated hypotension when working with home health PT. She had her last dose of chemotherapy approximately 2 weeks ago with subjective increased generalized weakness for the past 7 days. She denies any active bleeding. She also reports dysphagia with pills and meals for approximately 1 week. She reports decreased oral intake at home for the past few months primarily due to decreased taste from chemotherapy, but further exacerbated for the past week due to dysphagia. Additionally, she had dysuria morning of admission with history of frequent UTIs. Vitals on admission significant for hypotension with BP 90s/60s; vitals otherwise stable. Labs on admission are significant for hemoglobin 6.5%, transferrin <95, ferritin 1397, TSH 10.9 but normal T4, mag 1.4, UA suggestive of infection. CXR on admission stable, noting stable small left pleural effusion and associated left lung base consolidation. No pneumothorax. Discussed CODE STATUS with patient and daughter at bedside, she wishes to be DNR/DNI. Discharge Exam Gen: NAD, laying in bed HEENT: NC/AT, no scleral icterus, PERRL Resp: CTAB, fair symmetric air entry b/l, no w/r/R CV: RRR no m/r/g clinically well perfused GI/Abd: obese, normoactive BS, no guarding. Nontender to palpation MSK: no obvious deformities, Moving all 4 extremities Skin: no rashes or bruising observed Neuro: alert and oriented, no facial droop, speech intact Psych: appropriate mood and affect. Alert and oriented Discharge Data Allergies Allergy/AdvReac Type Severity Reaction Status Date / Time No Known Allergies Allergy Verified 11/08/24 14:55 Consultations 11/08/24 14:10 ED Decision to Admit Stat 11/11/24 17:00 Consult Gastroenterology Routine Ordered Studies 11/12/24 13:23 CT Abd and Pelvis [CT abd pelvis oral and IV con] Urgent 11/18/24 15:34 US abdomen ltd ascites Routine Hospital Course (1) Near syncope: (2) Ovarian cancer: (3) Symptomatic anemia: (4) Dysphagia: Plan Marybeth is a 59 yo F with PMH of metastatic ovarian cancer with carcinomatosis undergoing chemotherapy, hypertension, depression, GERD, and low back pain. She was admitted after experiencing a near syncopal episode with associated hypotension likely due to low PO intake over the last couple months due to dysphagia. Her last round of chemotherapy was 3 weeks ago. Hypotension has resolved and pt is gradually improving with tolerance for eating with minimal nausea. #Near syncope/anemia/Stage IV ovarian cancer Likely in the setting of deconditioning, symptomatic anemia, failure to thrive, and narcotic use. S/p 1 unit of pRBC on 11/08/24. Hbg is steady at 8.4. Pt's BP has been stable. - Continue midodrine to 10 mg BID, 7.5 mg qhs - PT/OT following Pt's current plan is discharge to [facility] for rehab 11/21 or 11/22 - Pt plans to pursue palliative vs hospice services upon discharge from hospital - Continue oxycodone 5 mg Q6H PRN pain. #Hypokalemia K is 3.5 on 11/19/24-Resolved #Abdominal Ascites Likely in the setting of failure to thrive. Has PleurX in place - removes 1L every 4 days. Completed 11/18 with no complications - Abdominal US to assess ascites burden performed 11/18/24 - Increase frequency of PleurX drainage to every 3d days #Nausea #Dysphagia Pt has been tolerating eating small meals and snacks without vomiting, occasional nausea and premature fullness. - Continue aggressive acid suppression - H2 amee BID, PPI BID, scheduled Zofran BID, carafate QID. - GI recommendations appreciated; - Change IV Protonix to PO 40mg BID - Continue Carafate PO, famotidine PO - Change IV fluconazole for esophagitis to PO x 5-12 days - Continue Reglan PO #Dysuria Urine culture grew samia galbrata on 11/08/24. - UCx on 11/12/24: Three types of organisms in high counts, no samia. Reported dysuria on 11/16 found to have low ANC- started empiric abx, UA and culture obtained. Culture which grew skin contaminant meera- IV abx were stopped. Dysuria resolved. - Continue to encourage oral fluid intake #History of PE PE noted incidentally on imaging in August 2023 - has been on Eliquis 5 mg BID since. Was also told to start ASA 81 mg daily when she was diagnosed with ovarian cancer. - Continue home doses of Eliquis and asa #Nutritional deficiency/Failure to Thrive Suspect profound nutritional deficiency secondary to chemotherapy with decrease appetite, dysphagia, and GERD. Intake gradually improving - Dietitian following, recommendations appreciated. Increased protein supplement shakes to TID with meals Continue high protein snacks including yogurt, cottage cheese, cheese between meals - Continue vitamin supplementation. - Replete as needed #CAD/HTN- ASA, metoprolol #Chronic low back pain- gabapentin, duloxetine, oxycodone #GERD- Omeprazole #Depression- Duloxetine VTE PPx: continue Eliquis Code status: DNR/DNI Total Time Total Time Spent Total Time Spent (In Minutes): As per attending physician's attestation. Discharge Plan Discharge Items Patient Disposition: Transfer [facility] Reason For Visit: SYNCOPE, ANEMIA, UTI Discharge Diagnosis: Syncope, anemia, UTI, weakness Condition on Discharge: Serious Activity: Per Instructions section Non-emergency contact: Primary Care Provider Call non-emergency contact if: your symptoms worsen Follow-up/Referrals: Ivett Valentin DO [Primary Care Provider] - Diet: Heart Healthy Addtl Attending Provider Instructions: #Near syncope/anemia/Stage IV ovarian cancer Likely in the setting of deconditioning, symptomatic anemia, failure to thrive, and narcotic use. S/p 1 unit of pRBC on 11/08/24. Hbg is steady at 8.4. Pt's BP has been stable. - Continue midodrine to 10 mg BID, 7.5 mg qhs - PT/OT following Pt's current plan is discharge to [facility] for rehab 11/21 or 11/22 - Pt plans to pursue palliative vs hospice services upon discharge from [facility] - Continue oxycodone 5 mg Q6H PRN pain. #Hypokalemia K is 3.5 on 11/19/24-Resolved #Abdominal Ascites Likely in the setting of failure to thrive. Has PleurX in place - removes 1L every 4 days. Completed 11/18 with no complications - Abdominal US to assess ascites burden performed 11/18/24 - Increase frequency of PleurX drainage to every 3d days #Nausea #Dysphagia Pt has been tolerating eating small meals and snacks without vomiting, occasional nausea and premature fullness. - Continue aggressive acid suppression - H2 amee BID, PPI BID, scheduled Zofran BID, carafate QID. - GI recommendations appreciated; - Change IV Protonix to PO 40mg BID - Continue Carafate PO, famotidine PO - Change IV fluconazole for esophagitis to PO x 5-12 days - Continue Reglan PO #Dysuria Urine culture grew samia galbrata on 11/08/24. - UCx on 11/12/24: Three types of organisms in high counts, no samia. Complained of dysuria on 11/16, UA and culture obtained. Abx started due to immunocompromised state and low ANC. Dysuria reported intermittent. - Continue to encourage oral fluid intake #History of PE PE noted incidentally on imaging in August 2023 - has been on Eliquis 5 mg BID since. Was also told to start ASA 81 mg daily when she was diagnosed with ovarian cancer. - Continue home doses of Eliquis and asa #Nutritional deficiency/Failure to Thrive Suspect profound nutritional deficiency secondary to chemotherapy with decrease appetite, dysphagia, and GERD. Intake improving - Dietitian following, recommendations appreciated. Increased protein supplement shakes to TID with meals Continue high protein snacks including yogurt, cottage cheese, cheese between meals - Continue vitamin supplementation. - Replete as needed #CAD/HTN- ASA, metoprolol #Chronic low back pain- gabapentin, duloxetine, oxycodone #GERD- Omeprazole #Depression- Duloxetine VTE PPx: continue Eliquis Code status: DNR/DNI Pending Studies at Discharge: No Stand-Alone Forms: My [facility] Skilled Items Patient informed of condition?: Yes DNR: Yes Discharge Level of Care: Skilled Communicable Disease: No Discharge Prognosis: Stable Lines: None Urinary Catheter: No Medications and DC Order Prescriptions: New polyethylene glycol 3350 [Miralax] 17 gram Powder In Packet 17 g PO BID 30 Days Qty: 14 0RF metoprolol succinate 50 mg Tablet Extended Release 24 Hr 50 mg PO PM 30 Days Qty: 30 0RF famotidine 20 mg Tablet 20 mg PO BID 30 Days Qty: 60 0RF midodrine 2.5 mg Tablet 7.5 mg PO DAILY@1700 30 Days Qty: 90 0RF ondansetron 4 mg Tablet,Disintegrating 4 mg PO BID 30 Days Qty: 60 0RF metoclopramide HCl 10 mg Tablet 10 mg PO Q6 30 Days Qty: 120 0RF midodrine 10 mg Tablet 10 mg PO BID@0800,1300 30 Days Qty: 60 0RF sucralfate 100 mg/mL Suspension 1 g PO QID 30 Days Qty: 1200 0RF melatonin 3 mg Tablet 3 mg PO HS PRN (Reason: sleep) 30 Days Qty: 90 0RF fluconazole 200 mg tablet 200 mg PO DAILY 10 Days Qty: 10 0RF Continued oxycodone 5 mg tablet 10 mg PO Q6H PRN (Reason: Pain) Eliquis 5 mg tablet 5 mg PO BID Hold Instructions: Resume on 09/01/24. Resume your Eliquis on Friday 09/01 Rx Instructions: PER PT "HELD FOR PROCEDURE" omeprazole 20 mg capsule,delayed release(DR/EC) 20 mg PO BID Qty: 180 3RF tamsulosin [Flomax] 0.4 mg capsule 0.4 mg PO DAILY Qty: 30 0RF Hold Instructions: Resume on 08/31/24. multivitamin [Multiple Vitamins] Tablet 1 tab PO QAM fluticasone propionate 50 mcg/actuation spray,suspension 2 spray intranasal DAILY PRN (Reason: Congestion) Qty: 48 4RF gabapentin 100 mg Capsule 100 mg PO BID Rx Instructions: 100mg QAM and Noon duloxetine 60 mg capsule,delayed release(DR/EC) 60 mg PO QAM vitamin E (dl, acetate) 180 mg (400 unit) Capsule 180 mg PO BID gabapentin 300 mg capsule 600 mg PO HS duloxetine 30 mg capsule,delayed release(DR/EC) 30 mg PO HS aspirin 81 mg Tablet,Delayed Release (Dr/Ec) 81 mg PO QAM magnesium oxide 400 mg magnesium Tablet 400 mg PO BID cyanocobalamin (vitamin B-12) [Vitamin B-12] 1,000 mcg Tablet 1,000 mcg PO DAILY 30 Days Qty: 30 0RF Rx Instructions: PER PT "NOT LATELY" Discontinued metoprolol tartrate 50 mg Tablet 50 mg PO HS midodrine 2.5 mg Tablet 7.5 mg PO TID 30 Days Qty: 270 0RF Admission Data Admit Date/Time: 11/08/24 16:57 Attending Provider: Eleazar Christensen Admit Provider: David Cordon Primary Care Provider: Ivett Valentin Other Providers: David Cordon; [facility],Home Healthcare; [facility],Referral Center; [facility]Health; David Pineda; [facility]; [facility]
--- NOTE | 2024-11-22 13:57 | Hospitalist Progress Note ---
Date of Service November 22, 2024 Assessment & Plan (1) Near syncope: (2) Ovarian cancer: (3) Symptomatic anemia: (4) Dysphagia: Plan Marybeth is a 59 yo F with PMH of metastatic ovarian cancer with carcinomatosis undergoing chemotherapy, hypertension, depression, GERD, and low back pain. She was admitted after experiencing a near syncopal episode with associated hypotension likely due to low PO intake over the last couple months due to dysphagia. Her last round of chemotherapy was 3 weeks ago. Hypotension has resolved and pt is gradually improving with tolerance for eating with minimal nausea. #Near syncope/anemia/Stage IV ovarian cancer Likely in the setting of deconditioning, symptomatic anemia, failure to thrive, and narcotic use. S/p 1 unit of pRBC on 11/08/24. Hbg is steady at 8.4. Pt's BP has been stable. - Continue midodrine to 10 mg BID, 7.5 mg qhs - PT/OT following Pt's current plan is discharge to [facility] for rehab 11/23 - Pt plans to pursue palliative vs hospice services upon discharge from hospital - Continue oxycodone 5 mg Q6H PRN pain. #Hypokalemia K is 3.5 on 11/19/24-Resolved #Abdominal Ascites Likely in the setting of failure to thrive. Has PleurX in place - removes 1L every 4 days. Completed 11/18 with no complications - Abdominal US to assess ascites burden performed 11/18/24 - Increase frequency of PleurX drainage to every 3d days #Nausea #Dysphagia Pt has been tolerating eating small meals and snacks without vomiting, occasional nausea and premature fullness. - Continue aggressive acid suppression - H2 amee BID, PPI BID, scheduled Zofran BID, carafate QID. - GI recommendations appreciated; - Change IV Protonix to PO 40mg BID - Continue Carafate PO, famotidine PO - Change IV fluconazole for esophagitis to PO x 5-12 days - Continue Reglan PO #Dysuria Urine culture grew samia galbrata on 11/08/24. - UCx on 11/12/24: Three types of organisms in high counts, no samia. Reported dysuria on 11/16 found to have low ANC- started empiric abx, UA and culture obtained. Culture which grew skin contaminant meera- IV abx were stopped. Dysuria resolved. - Continue to encourage oral fluid intake #History of PE PE noted incidentally on imaging in August 2023 - has been on Eliquis 5 mg BID since. Was also told to start ASA 81 mg daily when she was diagnosed with ovar judy cancer. - Continue home doses of Eliquis and asa #Nutritional deficiency/Failure to Thrive Suspect profound nutritional deficiency secondary to chemotherapy with decrease appetite, dysphagia, and GERD. Intake gradually improving - Dietitian following, recommendations appreciated. Increased protein supplement shakes to TID with meals Continue high protein snacks including yogurt, cottage cheese, cheese between meals - Continue vitamin supplementation. - Replete as needed #CAD/HTN- ASA, metoprolol #Chronic low back pain- gabapentin, duloxetine, oxycodone #GERD- Omeprazole #Depression- Duloxetine VTE PPx: continue Eliquis Code status: DNR/DNI Admission and Anticipated Discharge Date Admission Date: November 08, 2024 Supervising Physician Co-Signing Physician Notes I personally examined the patient and verified all longo points of history and exam, discussed case, and agree with decision making with Dr Wallace kay can't/won't take her yet; despite ascites drainage every ~3 days and we could drain today prior to discharge and they expect to have supplies tomorrow, they would like her to wait until they have supplies for dc. Vitals noted, in general she is awake and alert pleasant no distress. HEENT normocephalic atraumatic mucous membranes moist. Breathing unlabored no accessory muscle use good effort. Skin shows no rashes no pallor or icterus. Neuro without focal deficits. Ovarian cancer/weakness/nausea vomiting/acute protein/calorie malnutritiondoing better overall. no new issues today. For SNF once bed available. Otherwise as above. ongoing outpt PCP and oncology f/u. Subjective Pt reports feeling well this morning, Got much better nights sleep than the day before. Continues to note improvement in her appetite. She is eager to get to rehab and start building more strength. Review of Systems Review of Systems: See HPI. Physical Exam Physical Exam: Gen: NAD, laying in bed HEENT: NC/AT, no scleral icterus, PERRL Resp: CTAB, fair symmetric air entry b/l, no w/r/R CV: RRR no m/r/g clinically well perfused GI/Abd: obese, normoactive BS, no guarding. Nontender to palpation MSK: no obvious deformities, Moving all 4 extremities Skin: no rashes or bruising observed Neuro: alert and oriented, no facial droop, speech intact Psych: appropriate mood and affect. Alert and oriented Results & Data Results & Data Vital Signs (Past 12 Hours) Vital Signs Temp Pulse Resp BP Pulse Ox O2 Del Method 11/22/24 13:46 Room Air 11/22/24 12:16 36.3 C L 82 18 110/75 98 Room Air 11/22/24 11:22 36.3 C L 82 18 110/75 98 Room Air 11/22/24 08:07 36.6 C 82 17 121/82 97 Room Air 11/22/24 07:33 36.4 C L 76 18 96/68 L 95 Room Air 11/22/24 03:44 36.5 C 73 20 111/77 96 Room Air (2) Ovarian cancer Laterality: unspecified laterality Qualified Code(s): C56.9 - Malignant neoplasm of unspecified ovary
--- NOTE | 2024-11-22 15:39 | Billing Data ---
Date of Service November 22, 2024 Coding Level of Care Code 20561 SUB INP/OBS CARE
[2024-11-22 19:22] VITALS: RESP 20
--- NOTE | 2024-11-23 07:20 | Discharge Summary ---
Date of Service November 23, 2024 Admission HPI Per Admitting Provider Marybeth is a pleasant 59-year-old female with past medical history of metastatic ovarian cancer with carcinomatosis undergoing chemotherapy, hypertension, depression, GERD, low back pain. She presented from home after a near syncopal event with associated hypotension when working with home health PT. She had her last dose of chemotherapy approximately 2 weeks ago with subjective increased generalized weakness for the past 7 days. She denies any active bleeding. She also reports dysphagia with pills and meals for approximately 1 week. She reports decreased oral intake at home for the past few months primarily due to decreased taste from chemotherapy, but further exacerbated for the past week due to dysphagia. Additionally, she had dysuria morning of admission with history of frequent UTIs. Vitals on admission significant for hypotension with BP 90s/60s; vitals otherwise stable. Labs on admission are significant for hemoglobin 6.5%, transferrin <95, ferritin 1397, TSH 10.9 but normal T4, mag 1.4, UA suggestive of infection. CXR on admission stable, noting stable small left pleural effusion and associated left lung base consolidation. No pneumothorax. Discussed CODE STATUS with patient and daughter at bedside, she wishes to be DNR/DNI. Principal Diagnosis Anemia, syncope Discharge Exam Gen: NAD, Sitting in chair eating breakfast HEENT: NC/AT, no scleral icterus, PERRL Resp: CTAB, fair symmetric air entry b/l, no w/r/R CV: RRR no m/r/g clinically well perfused GI/Abd: obese, normoactive BS, no guarding. Nontender to palpation MSK: no obvious deformities, Moving all 4 extremities Skin: no rashes or bruising observed Neuro: alert and oriented, no facial droop, speech intact Psych: appropriate mood and affect. Alert and oriented Discharge Data Allergies Allergy/AdvReac Type Severity Reaction Status Date / Time No Known Allergies Allergy Verified 11/08/24 14:55 Consultations 11/08/24 14:10 ED Decision to Admit Stat 11/11/24 17:00 Consult Gastroenterology Routine Ordered Studies 11/12/24 13:23 CT Abd and Pelvis [CT abd pelvis oral and IV con] Urgent 11/18/24 15:34 US abdomen ltd ascites Routine Hospital Course (1) Near syncope: (2) Ovarian cancer: (3) Symptomatic anemia: (4) Dysphagia: Plan Marybeth is a 59 yo F with PMH of metastatic ovarian cancer with carcinomatosis undergoing chemotherapy, hypertension, depression, GERD, and low back pain. She was admitted after experiencing a near syncopal episode with associated hypotension likely due to low PO intake over the last couple months due to dysphagia. Her last round of chemotherapy was 3 weeks ago. Hypotension has resolved and pt is gradually improving with tolerance for eating with minimal nausea. #Near syncope/anemia/Stage IV ovarian cancer Likely in the setting of deconditioning, symptomatic anemia, failure to thrive, and narcotic use. S/p 1 unit of pRBC on 11/08/24. Hbg is steady at 8.4. Pt's BP has been stable. - Continue midodrine to 10 mg BID, 7.5 mg qhs - PT/OT following Pt's current plan is discharge to [facility] for rehab 11/23 - Pt plans to pursue palliative vs hospice services upon discharge from hospital - Continue oxycodone 5 mg Q6H PRN pain. #Hypokalemia K is 3.5 on 11/19/24-Resolved #Abdominal Ascites Likely in the setting of failure to thrive. Has PleurX in place - removes 1L every 4 days when on chemo. Increased frequency to every 3 days due to stopping chemo and increased abdominal pressure. Completed 11/22 with no complications - PleurX drainage to every 3d days #Nausea #Dysphagia Pt has been tolerating eating small meals and snacks, had an episode of vomiting in evening of 11/22, which was the first episode in 6 days. Continues with occasional nausea and premature fullness. - Continue aggressive acid suppression - H2 amee BID, PPI BID, scheduled Zofran BID, carafate QID. - GI recommendations appreciated; - Protonix PO 40mg BID - Continue Carafate PO, famotidine PO - Fluconazole 200mg PO for esophagitis x 7 days - Continue Reglan PO #Dysuria Urine culture grew samia galbrata on 11/08/24. - UCx on 11/12/24: Three types of organisms in high counts, no samia. Reported dysuria on 11/16 found to have low ANC- started empiric abx, UA and culture obtained. Culture which grew skin contaminant meera- IV abx were stopped. Dysuria resolved. - Continue to encourage oral fluid intake #History of PE PE noted incidentally on imaging in August 2023 - has been on Eliquis 5 mg BID since. Was also told to start ASA 81 mg daily when she was diagnosed with ovarian cancer. - Continue home doses of Eliquis and asa #Nutritional deficiency/Failure to Thrive Suspect profound nutritional deficiency secondary to chemotherapy with decrease appetite, dysphagia, and GERD. Intake gradually improving - Dietitian following, recommendations appreciated. Increased protein supplement shakes to TID with meals Continue high protein snacks including yogurt, cottage cheese, cheese between meals - Continue vitamin supplementation. - Replete as needed #CAD/HTN- ASA, metoprolol #Chronic low back pain- gabapentin, duloxetine, oxycodone #GERD- Omeprazole #Depression- Duloxetine VTE PPx: continue Eliquis Code status: DNR/DNI Total Time Total Time Spent Total Time Spent (In Minutes): <30 Discharge Plan Discharge Items Patient Disposition: Transfer Detention Fac Reason For Visit: SYNCOPE, ANEMIA, UTI Discharge Diagnosis: Syncope, anemia, UTI, weakness Condition on Discharge: Serious Activity: Per Instructions section Non-emergency contact: Primary Care Provider Call non-emergency contact if: your symptoms worsen Follow-up/Referrals: Ivett Valentin, [Primary Care Provider] - Diet: Heart Healthy Addtl Attending Provider Instructions: #Near syncope/anemia/Stage IV ovarian cancer Likely in the setting of deconditioning, symptomatic anemia, failure to thrive, and narcotic use. S/p 1 unit of pRBC on 11/08/24. Hbg is steady at 8.4. Pt's BP has been stable. - Continue midodrine to 10 mg BID, 7.5 mg qhs - PT/OT following Pt's current plan is discharge to [facility] for rehab 11/21 or 11/22 - Pt plans to pursue palliative vs hospice services upon discharge from hospital - Continue oxycodone 5 mg Q6H PRN pain. #Hypokalemia K is 3.5 on 11/19/24-Resolved #Abdominal Ascites Likely in the setting of failure to thrive. Has PleurX in place - removes 1L every 4 days. Completed 11/18 with no complications - Abdominal US to assess ascites burden performed 11/18/24 - Increase frequency of PleurX drainage to every 3d days #Nausea #Dysphagia Pt has been tolerating eating small meals and snacks without vomiting, occasional nausea and premature fullness. - Continue aggressive acid suppression - H2 amee BID, PPI BID, scheduled Zofran BID, carafate QID. - GI recommendations appreciated; - Continue Protonix PO 40mg BID - Continue Carafate PO, famotidine PO - Continue PO fluconazole for esophagitis x 7 days - Continue Reglan PO #Dysuria Urine culture grew samia galbrata on 11/08/24. - UCx on 11/12/24: Three types of organisms in high counts, no samia. Complained of dysuria on 11/16, UA and culture obtained. Abx started due to immunocompromised state and low ANC. Dysuria reported intermittent. - Continue to encourage oral fluid intake #History of PE PE noted incidentally on imaging in August 2023 - has been on Eliquis 5 mg BID since. Was also told to start ASA 81 mg daily when she was diagnosed with ovarian cancer. - Continue home doses of Eliquis and asa #Nutritional deficiency/Failure to Thrive Suspect profound nutritional deficiency secondary to chemotherapy with decrease appetite, dysphagia, and GERD. Intake improving - Dietitian following, recommendations appreciated. Increased protein supplement shakes to TID with meals Continue high protein snacks including yogurt, cottage cheese, cheese between meals - Continue vitamin supplementation. - Replete as needed #CAD/HTN- ASA, metoprolol #Chronic low back pain- gabapentin, duloxetine, oxycodone #GERD- Omeprazole #Depression- Duloxetine VTE PPx: continue Eliquis Code status: DNR/DNI Pending Studies at Discharge: No Stand-Alone Forms: My [facility] Skilled Items Patient informed of condition?: Yes DNR: Yes Discharge Level of Care: Skilled Communicable Disease: No Discharge Prognosis: Stable Lines: None Urinary Catheter: No Medications and DC Order Prescriptions: New polyethylene glycol 3350 [Miralax] 17 gram Powder In Packet 17 g PO BID 30 Days Qty: 14 0RF metoprolol succinate 50 mg Tablet Extended Release 24 Hr 50 mg PO PM 30 Days Qty: 30 0RF famotidine 20 mg Tablet 20 mg PO BID 30 Days Qty: 60 0RF midodrine 2.5 mg Tablet 7.5 mg PO DAILY@1700 30 Days Qty: 90 0RF ondansetron 4 mg Tablet,Disintegrating 4 mg PO BID 30 Days Qty: 60 0RF metoclopramide HCl 10 mg Tablet 10 mg PO Q6 30 Days Qty: 120 0RF midodrine 10 mg Tablet 10 mg PO BID@0800,1300 30 Days Qty: 60 0RF sucralfate 100 mg/mL Suspension 1 g PO QID 30 Days Qty: 1200 0RF melatonin 3 mg Tablet 3 mg PO HS PRN (Reason: sleep) 30 Days Qty: 90 0RF fluconazole 200 mg tablet 200 mg PO DAILY 10 Days Qty: 10 0RF Continued oxycodone 5 mg tablet 10 mg PO Q6H PRN (Reason: Pain) Eliquis 5 mg tablet 5 mg PO BID Hold Instructions: Resume on 09/01/24. Resume your Eliquis on Friday 09/01 Rx Instructions: PER PT "HELD FOR PROCEDURE" omeprazole 20 mg capsule,delayed release(DR/EC) 20 mg PO BID Qty: 180 3RF tamsulosin [Flomax] 0.4 mg capsule 0.4 mg PO DAILY Qty: 30 0RF Hold Instructions: Resume on 08/31/24. multivitamin [Multiple Vitamins] Tablet 1 tab PO QAM fluticasone propionate 50 mcg/actuation spray,suspension 2 spray intranasal DAILY PRN (Reason: Congestion) Qty: 48 4RF gabapentin 100 mg Capsule 100 mg PO BID Rx Instructions: 100mg QAM and Noon duloxetine 60 mg capsule,delayed release(DR/EC) 60 mg PO QAM vitamin E (dl, acetate) 180 mg (400 unit) Capsule 180 mg PO BID gabapentin 300 mg capsule 600 mg PO HS duloxetine 30 mg capsule,delayed release(DR/EC) 30 mg PO HS aspirin 81 mg Tablet,Delayed Release (Dr/Ec) 81 mg PO QAM magnesium oxide 400 mg magnesium Tablet 400 mg PO BID cyanocobalamin (vitamin B-12) [Vitamin B-12] 1,000 mcg Tablet 1,000 mcg PO DAILY 30 Days Qty: 30 0RF Rx Instructions: PER PT "NOT LATELY" Discontinued metoprolol tartrate 50 mg Tablet 50 mg PO HS midodrine 2.5 mg Tablet 7.5 mg PO TID 30 Days Qty: 270 0RF Discharge Orders: Discharge Order (Routine); Ordered 11/23/24 Ordered By: Melissa Gonsalez Admission Data Admit Date/Time: 11/08/24 16:57 Attending Provider: Eleazar Christensen Admit Provider: David Cordon Primary Care Provider: Ivett Valentin Other Providers: David Cordon; [facility],Home Healthcare; [facility],Referral Center; [facility]; David Pineda; [place],[facility], [place]; [place],[facility] Other Interventions: Discharge Summary Assessment (RN) Last Done: 11/23/24 11:45 Supervising Physician Co-Signing Physician Notes I personally examined the patient and verified all longo points of history and exam, discussed case, and agree with decision making with Dr Gonsalez did have vomiting last night but then ate breakfast well. Vitals noted, in general she is awake and alert pleasant no distress. HEENT normocephalic atraumatic mucous membranes moist. Breathing unlabored no accessory muscle use good effort. Skin shows no rashes no pallor or icterus. Neuro without focal deficits. Ovarian cancer/weakness/nausea vomiting/acute protein/calorie malnutritiondoing better overall. for SNF today. d/w her that occassional vomiting unfortunately not surprising with her situation - but if goes on for more than a few hours would want SNF doc or PCP to adjust medications; if still going on for ~24hrs then would want return to hospital. ongoing outpt PCP and oncology f/u. Resident Activity Tracking Resident Involvement: Resident Care Provided Care Provided: Adult Hospital Medicine
[2024-11-23 11:04] VITALS: TEMP 97.3; O2SAT 97
[2024-11-23 11:47] VITALS: BP 118/87
--- NOTE | 2024-11-23 12:31 | Billing Data ---
Date of Service November 23, 2024 Coding Level of Care Code 86637 IN/OBS DISCH 30 MIN/LESS
[2024-11-23 15:40] VITALS: PULSE 96
== END 2024-11-23 15:55 ==
LOC: ED 11:56 → 2N 16:57 → SUATTDRO 16:57 → 2N 18:26 → 2W 11-09 18:51